=== PATIENT | female | born 1955 | race Caucasian/White ===

== ENCOUNTER 2016-06-13 11:07 | Emergency (ER) | payer MEDICARE, OTHER ==
[2016-06-13 11:07] VITALS: BMI 28.3
[2016-06-13 11:23] VITALS: TEMP 97; O2SAT 99
[2016-06-13 13:32] LABS: BASO # 0.1 K/uL (0.0-0.2); BASO % 0.6 % (0.0-2.0); EOS # 0.3 K/uL (0.0-0.7); EOS % 2.5 % (0.0-4.0); HEMATOCRIT 44.4 % (34.0-47.0); LYMPH # 2.9 K/uL (1.0-4.3); LYMPH % 23.3 % (20.0-40.0); MEAN CELL VOLUME 88.1 fl (81.0-99.0); MEAN CORPUSCULAR HEMOGLOBIN 29.2 pg (27.0-31.0); MEAN CORPUSCULAR HGB CONC 33.1 g/dL (33.0-37.0); MEAN PLATELET VOLUME 11.3 fl (7.2-11.7); MONO # 0.8 K/uL (0.0-0.8); MONO % 6.8 % (0.0-10.0); NEUT # 8.2 K/uL (1.8-7.0); NEUT % 66.8 % (50.0-75.0); RED CELL DISTRIBUTION WIDTH 14.8 % (11.5-14.5); WHITE BLOOD COUNT 12.3 K/uL (4.8-10.8)
--- NOTE | 2016-06-13 15:50 | ED PDOC ---
HPI: Skin/Bite Injury Time Seen by Provider: 06/13/16 12:04 Chief Complaint (Nursing): Abnormal Skin Integrity Chief Complaint (Provider): Wound evaluation, lower abdomen x 2 weeks History Per: Patient History/Exam Limitations: no limitations Onset/Duration Of Symptoms: Days Current Symptoms Are (Timing): Still Present Location Of Injury: Anterior: Abdomen Quality Of Symptoms: Painful, Draining Severity: Mild Pain Scale Rating Of: 3 Additional Complaint(s): History obtained from homemaker and patient. Wound had been present for 2 weeks and is getting more swollen according to the homemaker. She also states that there is now drainage from the wound. Pt states it is mildly painful. Pt denies fever/chills Past Medical History Reviewed: Historical Data, Nursing Documentation, Vital Signs Vital Signs: Last Vital Signs Temp 97 F L 06/13/16 11:21 Pulse 62 06/13/16 11:21 Resp BP 146/68 06/13/16 11:21 Pulse Ox 99 06/13/16 15:51 - Medical History PMH: CAD (2 stents inserted), Diabetes (per EMS transporting medications), HTN Denies: Arthritis, CHF, COPD, HIV, Hypercholesterolemia, Hypothyroidism, Chronic Kidney Disease, Rheumatoid Arthritis - Surgical History Surgical History: Cholecystectomy, Coronary Stent - Family History Family History: States: No Known Family Hx - Living Arrangements Living Arrangements: Alone - Social History Current smoker - smoking cessation education provided: No Alcohol: None Drugs: Denies - Home Medications Home Medications: Ambulatory Orders Medication Instructions Recorded Atenolol [Tenormin] 50 mg PO DAILY 03/07/15 Cyclobenzaprine [Flexeril] 1 tab PO HS PRN 03/07/15 Gabapentin [Neurontin] 600 mg PO TID 03/07/15 Omeprazole 40 mg PO DAILY 03/07/15 Acetaminophen/Oxycodone Hydr 10 - 325 mg PO Q6 PRN 09/16/15 [Percocet 10/325 mg Tab] Aspirin [Ecotrin] 81 mg PO DAILY 09/16/15 Insulin Aspart, Recombinant 12 unit SUBCUT ACBL 09/16/15 [Novolog] Insulin Aspart, Recombinant 14 unit SUBCUT .ACD 09/16/15 [Novolog] Insulin Glargine, Recombina 20 unit SUBCUT QAM 09/16/15 [Lantus] Sulfamethoxazole/Trimethoprim 1 each PO BID #20 tablet 06/13/16 [Bactrim 400-80 mg Tablet] - Allergies Allergies/Adverse Reactions: Allergies Allergy/AdvReac Type Severity Reaction Status Date / Time hydromorphone HCl Allergy ANAPHYLAXIS Verified 09/16/15 12:14 [From Dilaudid] shrimp Allergy VOMITING Verified 09/16/15 12:35 Review of Systems ROS Statement: Except As Marked, All Systems Reviewed And Found Negative Skin: Positive for: Other Physical Exam - Reviewed Nursing Documentation Reviewed: Yes Vital Signs Reviewed: Yes - Physical Exam Appears: Positive for: Well, Non-toxic, No Acute Distress Head Exam: Positive for: ATRAUMATIC, NORMAL INSPECTION, NORMOCEPHALIC Skin: Positive for: Warm. Negative for: Normal Color ((+) area of induration and erythema, palpable area is the the most inferior section of scar ) Eye Exam: Positive for: Normal appearance ENT: Positive for: Normal ENT Inspection Neck: Positive for: Normal, Painless ROM Cardiovascular/Chest: Positive for: Regular Rate, Rhythm Respiratory: Positive for: Normal Breath Sounds. Negative for: Accessory Muscle Use Gastrointestinal/Abdominal: Positive for: Normal Exam, Bowel Sounds, Soft Back: Positive for: Normal Inspection Extremity: Positive for: Normal ROM Neurologic/Psych: Positive for: Alert, Oriented - Laboratory Results Result Diagrams: 06/13/16 13:26 06/13/16 15:23 - ECG O2 Sat by Pulse Oximetry: 99 Pulse Ox Interpretation: Normal Medical Decision Making Medical Decision Makin:50 - Pt state she does not want to stay for CT scan. Discussed labs and antibiotics. Disposition - Clinical Impression Clinical Impression: Abscess - Patient ED Disposition Is Patient to be Admitted: No Counseled Patient/Family Regarding: Diagnosis, Need For Followup, Rx Given - Disposition Referrals: [facility] [Outside] Disposition: Routine/Home Disposition Time: 16:52 Condition: GOOD Additional Instructions: Warm compresses. Please follow-up with PMD as soon as possible. Prescriptions: Sulfamethoxazole/Trimethoprim [Bactrim 400-80 mg Tablet] 1 each PO BID #20 tablet Instructions: Abscess (ED)
[2016-06-13 15:53] LABS: ALB/GLOB RATIO 0.8 (1.0-2.1); BILIRUBIN,TOTAL 0.4 mg/dl (0.2-1.3); CALCIUM 9.4 mg/dL (8.4-10.2); POTASSIUM 4.6 MMOL/L (3.6-5.0)
--- NOTE | 2016-06-13 18:03 | CT ---
PROCEDURE: CT Abdomen and Pelvis without Oral or IV contrast. HISTORY: abscess, anterior abdomen, at site COMPARISON: Noncontrast CT of the abdomen and pelvis per images performed 03/02/29 TECHNIQUE: Contiguous axial images of the abdomen and pelvis. No oral or IV contrast administered. Coronal and Sagittal reformats generated and reviewed. This CT exam was performed using 1 or more of the falling dose reduction techniques: Automated exposure control, adjustment of the MAA and/or kV according to patient size, and/or use of iterative reconstruction technique Radiation dose: Total exam DLP = 1055.35 mGy-cm. FINDINGS: There is limited evaluation of the solid organs without the administration of IV contrast. LOWER THORAX: No visible consolidation, pleural effusion, or pneumothorax. Small hiatal hernia. LIVER: Unremarkable unenhanced appearance. GALLBLADDER AND BILE DUCTS: Unremarkable unenhanced appearance. PANCREAS: Unremarkable unenhanced appearance. SPLEEN: Unremarkable unenhanced appearance. ADRENALS: Unremarkable unenhanced appearance. KIDNEYS AND URETERS: No hydronephrosis or obstructing renal calculus. BLADDER: Air within the urinary bladder. Soft tissue is noted at the anterior aspect of the urinary bladder extending superiorly, possibly urachal remnant. REPRODUCTIVE: Uterus is present. APPENDIX: No secondary signs of acute appendicitis. BOWEL: The stomach is nondistended. Lack of oral contrast limits evaluation for bowel pathology. The bowel loops appear within normal limits of caliber without evidence of intestinal obstruction. PERITONEUM: No significant free fluid. No definite free air. LYMPH NODES: Prominent bilateral inguinal lymph nodes as well as scattered mesenteric and retroperitoneal lymph nodes, nonspecific. VASCULATURE: No aortic aneurysm. BONES: Degenerative changes of the spine. OTHER FINDINGS: Small region of skin thickening/induration within the superficial soft tissues of the lower anterior pelvis. No drainable abscess or large fluid collection evident. IMPRESSION: Small amount of air within the urinary bladder. Correlate clinically for recent instrumentation as well as with urinalysis in order to exclude possibility of cystitis. Small region of skin thickening/induration within the superficial soft tissues of the lower anterior pelvis. No drainable abscess or large fluid collection evident. Question presence of urachal remnant. Patients with a urachal remnant are at increased risk for adenocarcinoma of the bladder.
[2016-06-13 18:45] VITALS: BP 174/74; PULSE 70; RESP 18
== END 2016-06-13 18:46 | disposition home or self-care (01) ==
LOC: H.ER 11:07
DX: L03.90 Cellulitis, unspecified (principal); L02.211 Cutaneous abscess of abdominal wall

== ENCOUNTER 2016-06-20 10:33 | Inpatient (IN) | payer MEDICARE, OTHER ==
--- NOTE | 2016-06-20 11:09 | ED PDOC ---
HPI: General Adult Time Seen by Provider: 06/20/16 10:51 Chief Complaint (Nursing): Trauma Chief Complaint (Provider): Fall, 3 days ago History Per: Patient History/Exam Limitations: no limitations Onset/Duration Of Symptoms: Days Have you had recent travel within the past 21 days to any of the following countries: [place], [place], [place] or [place]?: No Additional Complaint(s): Pt states 3 days ago she was laying down in the evening and went she attempted to roll over she rolled off the bed. Pt states she was unable to get up and was on the floor until this morning when her homemaker arrived. Pt reports severe back pain over her entire back and left shoulder pain. PT states she thinks she also hit her head. Past Medical History Reviewed: Historical Data, Nursing Documentation, Vital Signs Vital Signs: Last Vital Signs Temp 97.8 F 06/20/16 16:02 Pulse 69 06/20/16 16:02 Resp 20 06/20/16 16:02 BP 152/71 H 06/20/16 16:02 Pulse Ox 100 06/20/16 16:02 - Medical History PMH: CAD (2 stents inserted), Diabetes (per EMS transporting medications), HTN Denies: Arthritis, CHF, COPD, HIV, Hypercholesterolemia, Hypothyroidism, Chronic Kidney Disease, Rheumatoid Arthritis - Surgical History Surgical History: Cholecystectomy, Coronary Stent - Family History Family History: States: No Known Family Hx - Home Medications Home Medications: Ambulatory Orders Medication Instructions Recorded Atenolol [Tenormin] 50 mg PO DAILY 03/07/15 Cyclobenzaprine [Flexeril] 10 mg PO HS PRN 03/07/15 Acetaminophen/Oxycodone Hydr 1 mg PO Q6 PRN 09/16/15 [Percocet 10/325 mg Tab] Insulin Aspart, Recombinant 8 unit SUBCUT ACBL 09/16/15 [Novolog] Insulin Aspart, Recombinant 14 unit SUBCUT DIN 09/16/15 [Novolog] Sulfamethoxazole/Trimethoprim 1 each PO BID #20 tablet 06/13/16 [Bactrim 400-80 mg Tablet] Gabapentin [Neurontin] 800 mg PO Q8H 06/20/16 Insulin Detemir [Levemir] 20 unit SC QAM 06/20/16 Insulin Detemir [Levemir] 50 unit SC HS 06/20/16 Omeprazole [Omeprazole] 40 mg PO DAILY 06/20/16 cycloSPORINE [Restasis] 1 drop EACHEYE Q12H 06/20/16 - Allergies Allergies/Adverse Reactions: Allergies Allergy/AdvReac Type Severity Reaction Status Date / Time hydromorphone HCl Allergy ANAPHYLAXIS Verified 09/16/15 12:14 [From Dilaudid] shrimp Allergy VOMITING Verified 09/16/15 12:35 Physical Exam - Reviewed Nursing Documentation Reviewed: Yes Vital Signs Reviewed: Yes - Physical Exam Appears: Positive for: Well, Non-toxic, No Acute Distress Head Exam: Positive for: ATRAUMATIC, NORMAL INSPECTION, NORMOCEPHALIC Skin: Positive for: Normal Color, Warm, DRY Eye Exam: Positive for: Normal appearance ENT: Positive for: Normal ENT Inspection Neck: Positive for: Normal, Painless ROM Cardiovascular/Chest: Positive for: Regular Rate, Rhythm Respiratory: Positive for: Normal Breath Sounds. Negative for: Accessory Muscle Use, Respiratory Distress Gastrointestinal/Abdominal: Positive for: Normal Exam, Bowel Sounds, Soft. Negative for: Tenderness Back: Positive for: Vertebral Tenderness (Entire spine ), Other ((+) erythema of the sacral area ). Negative for: Normal Inspection Extremity: Negative for: Normal ROM (Decreased in right shoulder due to pain ) Neurologic/Psych: Positive for: Alert, process control operator II-XII, Oriented. Negative for: Motor/Sensory Deficits, Gait (Unable to assess ) - Laboratory Results Result Diagrams: 06/20/16 11:10 06/20/16 11:10 - ECG O2 Sat by Pulse Oximetry: 100 Medical Decision Making Medical Decision Making: Hyperkalemia Hypergylcemia Elevated CK Discussed admission with Dr. Lott and Dr. 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 This is because of the severity of symptoms shown, intensity of services needed, and/or the medical risk in this patient being treated as an outpatient. - POA Present On Arrival: None
[2016-06-20 11:21] LABS: BASO # 0.1 K/uL (0.0-0.2); BASO % 0.5 % (0.0-2.0); EOS # 0.1 K/uL (0.0-0.7); EOS % 0.6 % (0.0-4.0); HEMATOCRIT 42.4 % (34.0-47.0); LYMPH # 1.2 K/uL (1.0-4.3); LYMPH % 9.4 % (20.0-40.0); MEAN CELL VOLUME 89.9 fl (81.0-99.0); MEAN CORPUSCULAR HEMOGLOBIN 28.6 pg (27.0-31.0); MEAN CORPUSCULAR HGB CONC 31.8 g/dL (33.0-37.0); MEAN PLATELET VOLUME 11.7 fl (7.2-11.7); MONO # 0.8 K/uL (0.0-0.8); MONO % 6.4 % (0.0-10.0); NEUT # 10.3 K/uL (1.8-7.0); NEUT % 83.1 % (50.0-75.0); PLATELET COUNT 214 K/uL (130-400); RED CELL DISTRIBUTION WIDTH 14.7 % (11.5-14.5); WHITE BLOOD COUNT 12.3 K/uL (4.8-10.8)
[2016-06-20 11:43] LABS: ALB/GLOB RATIO 0.8 (1.0-2.1); BILIRUBIN,TOTAL 0.9 mg/dl (0.2-1.3); CALCIUM 9.4 mg/dL (8.4-10.2); TOTAL PROTEIN 7.5 G/DL (6.3-8.2)
[2016-06-20 11:52] LABS: TROPONIN I 0.019 ng/mL (0.00-0.120)
[2016-06-20] MEDS ORDERED: Sodium Chloride 0.9% 1,000 ML IV STA (11:53)
[2016-06-20] MEDS ORDERED: Insulin Regular 100 units/ml IV STA (12:12)
[2016-06-20] MEDS ORDERED: Albuterol 0.083% Inhal Sol (2.5 mg/3 mL) UD INH STA (12:15)
[2016-06-20] MEDS ORDERED: Sodium Bicarbonate 7.5% (0.9 MEQ/ML) 50ML INJ IV STA (12:16)
[2016-06-20] MEDS ORDERED: Sod Polystyrene Sulf 15 gm/60 ml Oral Susp PO STA (12:17)
[2016-06-20] MEDS ORDERED: Dextrose 50% SYRINGE Inj (50 ml) IVP STA (12:17)
[2016-06-20] MEDS ORDERED: Insulin Regular 100 units/ml ONE (12:35)
[2016-06-20 12:38] LABS: RBC URINE 4 /hpf (0-3); URINE BILIRUBIN NEGATIVE (NEGATIVE); URINE BLOOD MODERATE (NEGATIVE); URINE COLOR YELLOW (YELLOW); URINE GLUCOSE (UA) >=500 mg/dL (Normal); URINE KETONE 20 mg/dL (NEGATIVE); URINE LEUKOCYTE ESTERASE NEG Leu/uL (Negative); URINE PROTEIN >=500 mg/dL (NEGATIVE); URINE UROBILINOGEN 0.2-1.0 mg/dL (0.2-1.0); WBC URINE 3 /hpf (0-5)
--- NOTE | 2016-06-20 12:49 | RAD ---
HISTORY: fall, on floor x 3 days . Technique: Supine view performed @ 11:50. COMPARISON: 03/06/2015. FINDINGS: LUNGS: No active pulmonary disease. PLEURA: No significant pleural effusion identified, no pneumothorax apparent. CARDIOVASCULAR: No radiographic findings to suggest acute or significant cardiovascular disease. OSSEOUS STRUCTURES: No significant abnormalities. VISUALIZED UPPER ABDOMEN: Normal. OTHER FINDINGS: None. IMPRESSION: No active disease. No significant interval change compared to the prior examination(s).
--- NOTE | 2016-06-20 12:50 | RAD ---
PROCEDURE: Radiographs of the Right Shoulder HISTORY: pain s.p fall COMPARISON: 06/13/2014. FINDINGS: BONES: Normal. No fracture. JOINTS: Mild osteoarthritic changes acromioclavicular joint. Preservation glenohumeral relationship. SOFT TISSUES: Normal. OTHER FINDINGS: None. IMPRESSION: No acute findings related to/accounting for the clinical presentation. No significant interval change compared to the prior examination(s).
[2016-06-20] MEDS ORDERED: Albuterol 0.083% Inhal Sol (2.5 mg/3 mL) UD ONE (13:10)
[2016-06-20] MEDS ORDERED: Sod Polystyrene Sulf 15 gm/60 ml Oral Susp ONE (13:11)
--- NOTE | 2016-06-20 13:12 | CT ---
PROCEDURE: CT HEAD WITHOUT CONTRAST. HISTORY: fall, unknown cause, on floor x 3 days COMPARISON: Comparison made with CT scan brain dated 03/06/2015. TECHNIQUE: Axial computed tomography images were obtained through the head/brain without intravenous contrast. Radiation dose: Total exam DLP = 840.7 mGy-cm. This CT exam was performed using one or more of the following dose reduction techniques: Automated exposure control, adjustment of the mA and/or kV according to patient size, and/or use of iterative reconstruction technique. FINDINGS: HEMORRHAGE: No acute parenchymal, subarachnoid or extra-axial hemorrhage. BRAIN: Moderate to significant diffuse/ confluent chronic periventricular white matter ischemic changes are again seen extending peripherally into the deep and subcortical white matter both cerebral hemispheres. Multiple chronic bilateral basal nuclei lacunar type infarcts are again noted. Chronic left cerebellar infarct. Re- Minor vascular calcifications. VENTRICLES: Ex vacuo dilatation of the left frontal horn due to the aforementioned chronic infarct. There is also mild to moderate central volume loss evidenced by disproportionate enlargement of the ventricles as compared the sulci common not withstanding the aforementioned ex vacuo dilatation. CALVARIUM: No acute calvarial fractures. . PARANASAL SINUSES: Frontal sinuses remain slightly underpneumatized. Remaining visualized paranasal sinuses well-developed. No fluid levels seen to suggest acute sinusitis. MASTOID AIR CELLS: Unremarkable as visualized. No inflammatory changes. OTHER FINDINGS: None. IMPRESSION: No acute intracranial hemorrhage. Moderate to significant chronic white matter and multiple chronic bilateral basal nuclei lacunar type infarcts. Chronic left cerebellar infarct Ex vacuo dilatation of the left frontal horn. Moderate central volume loss.
--- NOTE | 2016-06-20 13:23 | CT ---
PROCEDURE: CT scan cervical spine dated 06/20/2016. HISTORY: <pain s/p fall> COMPARISON: None available. TECHNIQUE: Axial computed tomography images were obtained of the cervical spine without the use of intravenous contrast. Coronal and sagittal reformatted images were created and reviewed. Radiation dose: Total exam DLP = 675.87. MGy-cm. This CT exam was performed using one or more of the following dose reduction techniques: Automated exposure control, adjustment of the mA and/or kV according to patient size, and/or use of iterative reconstruction technique. FINDINGS: VERTEBRAE: No evidence of acute compression fractures no retropulsed fragments. The vertebral bodies exhibit relatively normal stature. There are multiple small lucent foci scattered throughout several of vertebral body segments nonspecific. Findings on could represent small hemangiomas however other infiltrative marrow disease process not excluded. Clinical correlation recommended. DISCS/SPINAL CANAL/NEURAL FORAMINA: Mild degenerative spondylosis. At the C5-C6 level, there is disc space narrowing with minimal overgrown uncovertebral and facet joints. Central canal appears adequate. Exit foramina also appear adequate. Similar changes seen at the C6-C7 level. At the C4-C5 level, there is also mid very minor posterior disc space narrowing with minimal central and bilateral disc bulge that on may flatten the ventral surface of the thecal sac however the overall central canal appears adequate. Exit foramina are also adequate. Note made of a small elliptical shaped calcification located adjacent to and just superior to the medial aspect C1 vertebral body. This could represent some calcification of the transverse ligament PARASPINAL SOFT TISSUES: Paraspinal soft tissues unremarkable. OTHER FINDINGS: Lung apices are clear. . The thyroid gland is slightly enlarged and heterogeneous. Consider followup thyroid ultrasound. Note also made of minor calcifications are left carotid bifurcation. Consider followup carotid Doppler. IMPRESSION: No acute fractures. Minor degenerative spondylosis most notably affecting the C5-C6 and C6-7 levels as described Enlarged heterogeneous thyroid gland. Consider followup thyroid ultrasound.
--- NOTE | 2016-06-20 13:45 | CT ---
PROCEDURE: CT lumbar spine dated 06/20/2016. HISTORY: tendernes s/p fall COMPARISON: Comparison made with CT scan of the abdomen and pelvis dated 06/13/2016 which imaged the lumbar spine in 3 planes. Comparison also made with concurrent CT scan of the thoracic spine. TECHNIQUE: Axial computed tomography images were obtained of the lumbar spine without the use of intravenous contrast. Coronal and sagittal reformatted images were created and reviewed. Radiation dose: Total exam DLP = 1349.49 mGy-cm. This CT exam was performed using one or more of the following dose reduction techniques: Automated exposure control, adjustment of the mA and/or kV according to patient size, and/or use of iterative reconstruction technique. FINDINGS: VERTEBRAE: No acute compression fractures no retropulsed fragments. Minor chronic appearing anterior stature loss of the T12 segment felt to be degenerative in origin. Vertebral bodies otherwise exhibit normal stature. Vertebral bodies and facets normally aligned. DISCS/SPINAL CANAL/NEURAL FORAMINA: At the L3-L4 level, re- demonstrated is disc space narrowing with vacuum disc phenomena and cortical endplate irregularity/chronic Schmorl's node formation. Small osteophytic ridge disc bulge complex results in some flattening of the ventral surface of the thecal sac. There is slight extension into proximal inferior margins of both exit foramina more so on the right side than left. Facet joints are mildly hypertrophic Right exit foramen is stenotic with compression of the right L3 foraminal nerve root. Left exit foramen is adequate. At the L 4 L5 level, there is mild posterior disc space narrowing more so along left lateral margin of. Minimal amount of vacuum phenomena is present. Small broad-based disc bulge ridge complex also extends slightly into the proximal inferior margins of both exit foramina more so on the left side. Facet joints are slightly hypertrophic [id number]. . There is some flattening of the ventral surface of the thecal sac however the overall central canal is adequate. . . Proximal left exit foramen is narrowed. Right exit foramen is adequate. At the L5-S1 level, there is mild posterior disc space narrowing with minimal broad-based bulge of the posterior annulus. Facet joints are hypertrophic. Central canal and exit foramina appear adequate. At the L2-L3 level, mild posterior disc space narrowing with small broad-based bulge of the posterior annulus that extends slightly into the proximal inferior margin of the left exit foramen more so than right. Facets a prominent. There is some flattening of ventral surface of the thecal sac however the overall central canal appears adequate. Exit foramina are also adequate. Mild degenerative spondylosis also noted at the T12-L1 and T11-T12 levels. PARASPINAL SOFT TISSUES: Paraspinal soft tissues appear grossly unremarkable OTHER FINDINGS: Note made of what appears represent approximately 11.7 mm exophytic cyst kidney posterior aspect upper pole left kidney. IMPRESSION: . No acute compression fractures nor retropulsed fragments. Minor chronic anterior stature loss of the T12 segment felt to be degenerative in origin. Multilevel degenerative spondylosis as detailed above.
--- NOTE | 2016-06-20 13:51 | CT ---
PROCEDURE: CT Thoracic Spine without contrast HISTORY: tenderness s/o fall COMPARISON: Comparison made with concurrent CT scan of the cervical and lumbar spine. TECHNIQUE: Axial computed tomography images were obtained of the thoracic spine without intravenous contrast. Coronal and sagittal reformatted images were created and reviewed. Radiation dose: Total exam DLP = 1339.92 mGy-cm. This CT exam was performed using one or more of the following dose reduction techniques: Automated exposure control, adjustment of the mA and/or kV according to patient size, and/or use of iterative reconstruction technique. FINDINGS: VERTEBRAE: No evidence of acute compression fractures nor retropulsed fragments. There is mild chronic appearing anterior stature loss of the T11 and to a lesser degree T12 segments felt to be degenerative in origin. The remaining vertebral bodies otherwise exhibit normal stature and alignment. Facets normally aligned. DISCS/SPINAL CANAL/NEURAL FORAMINA: Minor multilevel degenerative spondylosis, most notably affecting the mid to lower thoracic region. . The changes include varying degrees of mild disc space narrowing with endplate irregularity and tiny chronic Schmorl's nodes. No disc herniations nor significant disc bulges. The overall central canal and exit foramina appear adequate so far as can be seen. PARASPINAL SOFT TISSUES: Paraspinal soft tissues appear grossly unremarkable. OTHER FINDINGS: Minor atelectasis both posterior lung bueno. Small hiatal hernia. IMPRESSION: No acute fractures. Minor chronic anterior stature loss of the T11 and to a lesser degree T12 segments felt to be degenerative in origin. Mild multilevel degenerative spondylosis most notably affecting the mid to lower thoracic region as described. In the
[2016-06-20 14:05] LABS: NEUTROPHIL 85 % (42-75); TOTAL CELLS COUNTED 100
[2016-06-20] MEDS ORDERED: Sodium Chloride 0.9% 1,000 ML IV SCH ×2 (15:45→17:30)
--- NOTE | 2016-06-20 16:15 | CARD ---
APPROVED REPORT EKG Measurement Heart [id number] <Conclusion> Normal sinus rhythm Normal ECG
[2016-06-20] MEDS ORDERED: Oxycodone/Acetaminophen 5/325 mg Tab PO PRN ×2 (17:34→17:35)
[2016-06-20] MEDS ORDERED: Albuterol HFA 90 mcg/actuation (8 g) INH PRN (17:40)
[2016-06-20] MEDS: Insulin Lispro (humaLOG) 100 Units/ml Inj SC SCH ×3 (17:53→22:20)
--- NOTE | 2016-06-20 18:04 | CON ---
DATE: 06/20/2016 ROOM: 405 HISTORY OF PRESENT ILLNESS: This is a 61-year-old female, known from outpatient diabetic followup, addison redding also actually has not been seen for over a year now in my office, who presents here to the [facility] with rhabdomyolysis related to an accidental fall over the weekend with supervening hyperglyc emic accelerations and is being referred now for diabetic evaluation and management. PAST MEDICAL HISTORY: As mentioned above, history of type 2 insulin-requiring diabetes on a can on a basal and bolus insulin drug combination with NovoLog given as 12 units before breakfast,12 units be fore lunch and 14 units before dinner as given. She is also on Lantus given as 20 units in the morni ng and 50 units at bedtime. Her homemaker/caregiver prepares the insulin doses for her meals and bed time as the patient is visually impaired as noted, history of diabetic retinopathy with legal blindne ss at this time and markedly impaired visual acuity, history of diabetic polyneuropathy and nephropat hy, history of coronary artery disease with previous coronary stent placements as noted, history of p eripheral arterial disease and vasculopathy. FAMILY HISTORY: Positive for diabetes and hypertension. SOCIAL HISTORY: The patient has a supportive family and has a very attentive caregiver who does pret ty much all of her home health needs including insulin pre-adjustments and sometimes administration. She also does her meal preparations at home and occasionally her glucose monitoring otherwise. REVIEW OF SYSTEMS: As mentioned above, but admits to generalized body weakness with easy fatigabilit y and tiredness and suboptimal energy level with recent bouts of dizziness and lightheadedness with a n apparent accidental fall on the weekend. She was unable to get up and was with lower back injuries , severe polymyalgia and bruising and was actually seen by her homemaker only today as noted. No rec ent chest pains, palpitations or PNDs, but admits to progressive shortness of breath, especially on e xertion. Her oral intake is variable and suboptimal with nausea, dyspepsia, and vague upper abdomina l pain. Also, admits to marked polyuria and nocturia with about a 5-pound or so weight loss. PHYSICAL EXAMINATION: GENERAL: This is an average built female in no apparent distress. VITAL SIGNS: Blood pressure of 150/90, pulse of 100 beats per minute and regular, temperature 99, re spirations 20. Height is 5 feet and weight is 160 pounds. HEENT: Head normocephalic. Eyes anicteric with pink conjunctivae. Fundoscopy not possible at this time. Ears, nose and throat otherwise normal. NECK: Supple. Thyroid gland is normal size. No carotid bruits or any cervical adenopathy. CARDIOPULMONARY: Some adynamic precordium. S1, S2 is rapid and regular. LUNGS: Clear to auscultation. ABDOMEN: Flat, soft with positive bowel sounds. EXTREMITIES: No peripheral edema. Pulses are +2 bilaterally. LABORATORY DATA: Chemistries showed a BUN of 38, sodium 141, potassium 6.0, chloride 103, CO2 28, gl ucose 412, creatinine 1.7. Her albumin is 3.3. The CPK is 967 with slightly elevated liver transami nases. ASSESSMENT: This is a 61-year-old female with uncontrolled and decompensated type 2 insulin-requirin g diabetes, presenting here with an accidental fall with subsequent rhabdomyolysis and lower back inj uries and severe lower back pain. She has intercurrent hyperglycemic accelerations as expected there of, not only because of very subtherapeutic insulin regimen, which was actually not given over the we ekend because of the fall and also because of underlying insulin resistance thereof. PLAN OF MANAGEMENT: As discussed with the patient and the home health aide, we will start her back o n a much lower dose of a basal and bolus insulin regimen because of the very nil and poor oral intake at this time. We will start her with Humalog given as 6 units subQ t.i.d. before meals as ordered. We will also add Levemir given as 20 units subQ at bedtime daily as given. We will modify the cover age scale to obviate hypoglycemia and detailed orders have been given for Humalog insulin that was or dered. As mentioned, we will continue the Humalog 6 units before meals and we will titrate on a day- to-day basis to optimize her metabolic control as her oral intake improves. We will obtain a compreh ensive metabolic panel with a T4, TSH and lipid panel we will supplement accordingly as needed. We w ill continue the IV hydration as ordered with normal saline given at 100 mL per hour as ordered. We will follow and advise accordingly. Natalia Castillo MD cc: [id number] TT: 06/20/2016 18:04:29 Confirmation # [id number] Dictation # [id number] mn
[2016-06-20 18:58] LABS: ALB/GLOB RATIO 0.8 (1.0-2.1); BILIRUBIN,TOTAL 0.7 mg/dl (0.2-1.3); CALCIUM 8.4 mg/dL (8.4-10.2); POTASSIUM 4.7 MMOL/L (3.6-5.0); TOTAL PROTEIN 6.4 G/DL (6.3-8.2)
[2016-06-20] MEDS ORDERED: Tmp-Smz 800 mg-160 mg DS Tab PO SCH (21:00)
[2016-06-20] MEDS: Tmp-Smz 400 mg-80 mg SS Tab PO SCH (22:18)
[2016-06-20] MEDS: Insulin Detemir 100 Units/ml Inj SC SCH (22:20)
[2016-06-20] MEDS: Pravastatin Sodium 40 MG TAB PO SCH (22:21)
[2016-06-20] MEDS: Sodium Chloride 0.9% 1,000 ML IV SCH (23:01)
[2016-06-21] MEDS: Sodium Chloride 0.9% 1,000 ML IV SCH ×3 (04:49→19:16)
[2016-06-21 06:28] LABS: BASO % 0.3 % (0.0-2.0); EOS # 0.3 K/uL (0.0-0.7); EOS % 3.6 % (0.0-4.0); HEMATOCRIT 36.5 % (34.0-47.0); LYMPH # 1.6 K/uL (1.0-4.3); LYMPH % 17.8 % (20.0-40.0); MEAN CELL VOLUME 88.4 fl (81.0-99.0); MEAN CORPUSCULAR HEMOGLOBIN 29.1 pg (27.0-31.0); MEAN CORPUSCULAR HGB CONC 32.9 g/dL (33.0-37.0); MEAN PLATELET VOLUME 11.7 fl (7.2-11.7); MONO # 0.7 K/uL (0.0-0.8); MONO % 7.9 % (0.0-10.0); NEUT # 6.2 K/uL (1.8-7.0); NEUT % 70.4 % (50.0-75.0); NRBC % 0.1 % (0.0-0.0); RED CELL DISTRIBUTION WIDTH 14.2 % (11.5-14.5); WHITE BLOOD COUNT 8.8 K/uL (4.8-10.8)
[2016-06-21 06:35] LABS: ALB/GLOB RATIO 0.7 (1.0-2.1); BILIRUBIN,TOTAL 1.1 mg/dl (0.2-1.3); CALCIUM 7.9 mg/dL (8.4-10.2); PHOSPHOROUS 3.4 mg/dl (2.5-4.5); TOTAL PROTEIN 5.7 G/DL (6.3-8.2)
[2016-06-21] MEDS: Insulin Lispro (humaLOG) 100 Units/ml Inj SC SCH ×7 (06:41→21:56)
[2016-06-21 06:57] LABS: THYROID STIMULATING HORMONE 1.89 mIU/ML (0.46-4.68)
[2016-06-21] MEDS: Tmp-Smz 400 mg-80 mg SS Tab PO SCH ×2 (09:47→21:41)
[2016-06-21] MEDS: Pantoprazole 40 mg EC Tab PO SCH (09:51)
[2016-06-21] MEDS: Artificial Tears Opht Soln OU SCH ×4 (10:40→21:57)
[2016-06-21 11:11] LABS: HEMATOCRIT 40.5 % (34.0-47.0); MEAN CELL VOLUME 88.7 fl (81.0-99.0); MEAN CORPUSCULAR HEMOGLOBIN 28.7 pg (27.0-31.0); MEAN CORPUSCULAR HGB CONC 32.3 g/dL (33.0-37.0); RED CELL DISTRIBUTION WIDTH 14.6 % (11.5-14.5); WHITE BLOOD COUNT 13.9 K/uL (4.8-10.8)
[2016-06-21] MEDS: Bacitracin 500 Units/gm Oint Foilpak UD TOP SCH (16:31)
[2016-06-21 17:22] VITALS: BMI 29.2
[2016-06-21] MEDS: Enoxaparin 30 mg Syringe SC SCH (17:45)
--- NOTE | 2016-06-21 20:20 | CP.PCM.PN ---
Subjective - Date & Time of Evaluation Date of Evaluation: 06/21/16 Time of Evaluation: 14:15 - Subjective Subjective: Patient resting comfortably; had physical therapy evaluation for mobility today ; limited mobility with assistance complicated by blindness Vital Signs Stable Heart- regular S1, S2, no murmur Lungs- decreased breath sounds b/l Abd. - positive bowel sounds, soft, nontender; scab 1.5 inches with 0.5 inch with surrounding erythema and slight purulent discharge at midline lower abdomen Ext. - no edema; no infection of feet 1. Rhabdomyolysis 2. Dehydration 3. Abscess midline lower abdomen 4. Diabetes with neuropathy 5. Acute Renal Failure Creatine kinase decreased to 696 U/L this morning; continuing IVF with NS at 175cc/hr; CK ordered for AM; culture of purulent discharge from lower abdominal abscess ordered as well as blood cultures and U/A C & S; cont. Bactrim 400/80mg po bid for now; CBC and comp. metabolic panel ordered for AM; Dr. Castillo is managing diabetes; cont. physical therapy for mobility. Objective - Vital Signs/Intake and Output Vital Signs (last 24 hours): Temp Pulse Resp BP Pulse Ox 99.2 F 85 20 93/51 L 93 L 06/21/16 19:55 06/21/16 19:55 06/21/16 19:55 06/21/16 19:55 06/21/16 19:55 Intake and Output: 06/21/16 06/22/16 18:59 06:59 Intake Total 2125 Balance 2125 - Medications Medications: Current Medications Acetaminophen (Tylenol 325mg Tab) 650 mg PO Q4 PRN PRN Reason: Fever >100.4 F Last Admin: 06/21/16 16:41 Dose: 650 mg Albuterol (Ventolin Hfa 90 Mcg/Actuation (8 G)) 2 puff INH RQ4 PRN PRN Reason: Shortness of Breath Albuterol/Ipratropium (Duoneb 3 Mg/0.5 Mg (3 Ml) Ud) 3 ml INH RQ4 PRN PRN Reason: Shortness of Breath Artificial Tears (Artificial Tears) 1 drop OU TID [facility] Last Admin: 06/21/16 16:31 Dose: Not Given Aspirin (Ecotrin) 81 mg PO DAILY [facility] Last Admin: 06/21/16 09:48 Dose: 81 mg Atenolol (Tenormin) 50 mg PO DAILY [facility] Last Admin: 06/21/16 09:52 Dose: 50 mg Bacitracin (Bacitracin) 1 ea TOP TID [facility] Last Admin: 06/21/16 16:31 Dose: 1 ea Cyclobenzaprine HCl (Flexeril) 10 mg PO HS PRN PRN Reason: Muscle spasm Docusate Sodium (Colace) 100 mg PO HS [facility] Last Admin: 06/20/16 22:18 Dose: 100 mg Enoxaparin Sodium (Lovenox) 30 mg SC DAILY [facility] PRN Reason: Protocol Last Admin: 06/21/16 17:45 Dose: 30 mg Gabapentin (Neurontin) 400 mg PO TID [facility] Last Admin: 06/21/16 16:34 Dose: 400 mg Sodium Chloride (Sodium Chloride 0.9%) 1,000 mls @ 200 mls/hr IV .Q5H [facility] Last Admin: 06/21/16 19:16 Dose: 200 mls/hr Insulin Detemir (Levemir) 20 units SC HS [facility] Last Admin: 06/20/16 22:20 Dose: 20 u Insulin Human Lispro (Humalog) 6 units SC AC [facility] Last Admin: 06/21/16 16:32 Dose: 6 units Insulin Human Lispro (Humalog) 0 units SC ACHS [facility] PRN Reason: Protocol Last Admin: 06/21/16 16:33 Dose: Not Given Losartan Potassium (Cozaar) 50 mg PO DAILY [facility] Last Admin: 06/21/16 09:47 Dose: 50 mg Oxycodone/Acetaminophen (Percocet 5/325 Mg Tab) 1 tab PO Q6 PRN PRN Reason: 4-7 scale Stop: 06/23/16 17:35 Oxycodone/Acetaminophen (Percocet 5/325 Mg Tab) 2 tab PO Q6 PRN PRN Reason: 8-10 Stop: 06/23/16 17:36 Last Admin: 06/21/16 02:25 Dose: 2 tab Pantoprazole Sodium (Protonix Ec Tab) 40 mg PO DAILY [facility] Last Admin: 06/21/16 09:51 Dose: 40 mg Pravastatin Sodium (Pravachol) 40 mg PO HS [facility] Last Admin: 06/20/16 22:21 Dose: 40 mg Trimethoprim/Sulfamethoxazole (Bactrim Ss Tab) 1 tab PO Q12 [facility] Stop: 06/27/16 21:01 Last Admin: 06/21/16 09:47 Dose: 1 tab Zolpidem Tartrate (Ambien) 5 mg PO HS PRN PRN Reason: insomnia - Labs Labs: 06/21/16 11:04 06/21/16 05:30
[2016-06-21] MEDS: Insulin Detemir 100 Units/ml Inj SC SCH (21:42)
[2016-06-21] MEDS: Pravastatin Sodium 40 MG TAB PO SCH (21:56)
[2016-06-22] MEDS: Sodium Chloride 0.9% 1,000 ML IV SCH ×5 (01:57→23:35)
[2016-06-22] MEDS: Insulin Lispro (humaLOG) 100 Units/ml Inj SC SCH ×7 (06:56→22:01)
[2016-06-22 07:04] LABS: HEMATOCRIT 35.5 % (34.0-47.0); MEAN CELL VOLUME 88.9 fl (81.0-99.0); MEAN CORPUSCULAR HEMOGLOBIN 28.8 pg (27.0-31.0); MEAN CORPUSCULAR HGB CONC 32.4 g/dL (33.0-37.0); RED CELL DISTRIBUTION WIDTH 14.3 % (11.5-14.5); WHITE BLOOD COUNT 7.7 K/uL (4.8-10.8)
[2016-06-22 07:22] LABS: ALB/GLOB RATIO 0.7 (1.0-2.1); BILIRUBIN,TOTAL 0.9 mg/dl (0.2-1.3); CALCIUM 7.6 mg/dL (8.4-10.2); POTASSIUM 4.1 MMOL/L (3.6-5.0); TOTAL PROTEIN 5.7 G/DL (6.3-8.2)
[2016-06-22] MEDS: Artificial Tears Opht Soln OU SCH ×3 (08:57→17:49)
[2016-06-22] MEDS: Tmp-Smz 400 mg-80 mg SS Tab PO SCH ×2 (08:59→20:51)
[2016-06-22] MEDS: Bacitracin 500 Units/gm Oint Foilpak UD TOP SCH ×3 (08:59→17:49)
[2016-06-22] MEDS: Enoxaparin 30 mg Syringe SC SCH (09:04)
[2016-06-22] MEDS: Pantoprazole 40 mg EC Tab PO SCH (09:07)
--- NOTE | 2016-06-22 09:48 | CP.PCM.PN ---
Subjective - Date & Time of Evaluation Date of Evaluation: 06/22/16 Time of Evaluation: 07:30 - Subjective Subjective: Patient feeling better today; no pain lower abdomen but c/o yellow discharge from lower abdominal lesion; needs assistance with eating and ambulation Vital Signs Stable Heart- regular S1, S2, no murmur Lungs- decreased breath sounds b/l Abd. - + bowel sounds, soft, non tender except at mid line surrounding infection with decreased erythema; purulent discharge with bandage in place Ext. - no edema 1. Rhabdomyolysis 2. Dehydration 3. Acute Renal Failure 4. Abscess lower abdomen at midline 5. Diabetes with neuropathy 6. Hypertension CK slowly decreasing; cont. NS at 200cc/hr; lower abdominal lesion will be debrided today; cont. Bactrim while awaiting culture results Objective - Vital Signs/Intake and Output Vital Signs (last 24 hours): Temp Pulse Resp BP Pulse Ox 99.3 F 63 20 120/71 98 06/22/16 08:27 06/22/16 09:08 06/22/16 08:27 06/22/16 09:08 06/22/16 08:27 - Medications Medications: Current Medications Acetaminophen (Tylenol 325mg Tab) 650 mg PO Q4 PRN PRN Reason: Fever >100.4 F Last Admin: 06/21/16 21:41 Dose: 650 mg Albuterol (Ventolin Hfa 90 Mcg/Actuation (8 G)) 2 puff INH RQ4 PRN PRN Reason: Shortness of Breath Albuterol/Ipratropium (Duoneb 3 Mg/0.5 Mg (3 Ml) Ud) 3 ml INH RQ4 PRN PRN Reason: Shortness of Breath Artificial Tears (Artificial Tears) 1 drop OU TID [facility] Last Admin: 06/22/16 08:57 Dose: 1 drop Aspirin (Ecotrin) 81 mg PO DAILY [facility] Last Admin: 06/22/16 09:00 Dose: 81 mg Atenolol (Tenormin) 50 mg PO DAILY [facility] Last Admin: 06/22/16 09:08 Dose: 50 mg Bacitracin (Bacitracin) 1 ea TOP TID [facility] Last Admin: 06/22/16 08:59 Dose: 1 ea Cyclobenzaprine HCl (Flexeril) 10 mg PO HS PRN PRN Reason: Muscle spasm Docusate Sodium (Colace) 100 mg PO HS [facility] Last Admin: 06/21/16 21:56 Dose: 100 mg Enoxaparin Sodium (Lovenox) 30 mg SC DAILY [facility] PRN Reason: Protocol Last Admin: 06/22/16 09:04 Dose: 30 mg Gabapentin (Neurontin) 400 mg PO TID [facility] Last Admin: 06/22/16 09:07 Dose: 400 mg Sodium Chloride (Sodium Chloride 0.9%) 1,000 mls @ 200 mls/hr IV .Q5H [facility] Last Admin: 06/22/16 07:03 Dose: 200 mls/hr Insulin Detemir (Levemir) 20 units SC HS [facility] Last Admin: 06/21/16 21:42 Dose: 20 u Insulin Human Lispro (Humalog) 6 units SC AC [facility] Last Admin: 06/22/16 09:02 Dose: 6 units Insulin Human Lispro (Humalog) 0 units SC ACHS [facility] PRN Reason: Protocol Last Admin: 06/22/16 06:56 Dose: Not Given Losartan Potassium (Cozaar) 50 mg PO DAILY [facility] Last Admin: 06/21/16 09:47 Dose: 50 mg Oxycodone/Acetaminophen (Percocet 5/325 Mg Tab) 1 tab PO Q6 PRN PRN Reason: 4-7 scale Stop: 06/23/16 17:35 Last Admin: 06/22/16 07:00 Dose: 1 tab Oxycodone/Acetaminophen (Percocet 5/325 Mg Tab) 2 tab PO Q6 PRN PRN Reason: 8-10 Stop: 06/23/16 17:36 Last Admin: 06/21/16 02:25 Dose: 2 tab Pantoprazole Sodium (Protonix Ec Tab) 40 mg PO DAILY [facility] Last Admin: 06/22/16 09:07 Dose: 40 mg Pravastatin Sodium (Pravachol) 40 mg PO HS [facility] Last Admin: 06/21/16 21:56 Dose: 40 mg Trimethoprim/Sulfamethoxazole (Bactrim Ss Tab) 1 tab PO Q12 [facility] Stop: 06/27/16 21:01 Last Admin: 06/22/16 08:59 Dose: 1 tab Zolpidem Tartrate (Ambien) 5 mg PO HS PRN PRN Reason: insomnia - Labs Labs: 06/22/16 05:40 06/22/16 05:40
[2016-06-22] MEDS ORDERED: Oxycodone/Acetaminophen 5/325 mg Tab PO STA (12:07)
--- NOTE | 2016-06-22 16:13 | PN ---
DATE: 06/22/2016 ROOM: 405 This is a 61-year-old female with recent uncontrolled type 2 insulin-requiring diabetes, now being fo llowed closely for metabolic management. Her glycemic levels are fluctuating but much improved at this time, and the latest glucose values hav e ranged from 114-176 mg/dL. The latest chemistries include a BUN of 29, sodium 142, potassium 4.1, chloride 111, CO2 of 20, glucose 92 and creatinine 1.8. So at this time, will continue the same basal and bolus insulin regimen to allow for dose equilibrati on and keep her on the Levemir given as 20 units subQ at bedtime daily as given. Will continue the H umalog given as 6 units subQ t.i.d. before meals as ordered. Will also continue the low-dose correct ion scale using Humalog insulin as given. Will obtain serial chemistries and supplement accordingly as needed. Will follow. Natalia Castillo MD cc: [id number] TT: 06/22/2016 16:12:52 Confirmation # [id number] Dictation # [id number] mn
[2016-06-22] MEDS: Pravastatin Sodium 40 MG TAB PO SCH (21:19)
[2016-06-22] MEDS: Insulin Detemir 100 Units/ml Inj SC SCH (22:00)
[2016-06-23] MEDS: Sodium Chloride 0.9% 1,000 ML IV SCH ×3 (00:22→12:24)
[2016-06-23] MEDS: Insulin Lispro (humaLOG) 100 Units/ml Inj SC SCH ×7 (06:51→22:07)
[2016-06-23 08:04] LABS: HEMATOCRIT 36.7 % (34.0-47.0); MEAN CELL VOLUME 88.7 fl (81.0-99.0); MEAN CORPUSCULAR HEMOGLOBIN 28.6 pg (27.0-31.0); MEAN CORPUSCULAR HGB CONC 32.2 g/dL (33.0-37.0); RED CELL DISTRIBUTION WIDTH 14.6 % (11.5-14.5)
[2016-06-23 08:38] LABS: ALB/GLOB RATIO 0.7 (1.0-2.1); BILIRUBIN,TOTAL 0.6 mg/dl (0.2-1.3); CALCIUM 7.5 mg/dL (8.4-10.2); POTASSIUM 4.3 MMOL/L (3.6-5.0)
[2016-06-23] MEDS: Artificial Tears Opht Soln OU SCH ×3 (08:57→16:28)
[2016-06-23] MEDS: Bacitracin 500 Units/gm Oint Foilpak UD TOP SCH ×3 (08:58→16:28)
[2016-06-23] MEDS: Tmp-Smz 400 mg-80 mg SS Tab PO SCH (08:58)
[2016-06-23 09:00] LABS: MICROALBUMIN 455.3 mg/dL (())
[2016-06-23] MEDS: Enoxaparin 30 mg Syringe SC SCH (09:00)
[2016-06-23] MEDS: Pantoprazole 40 mg EC Tab PO SCH (09:01)
[2016-06-23] MEDS ORDERED: Sodium Chloride 0.9% 1,000 ML IV SCH (13:14)
--- NOTE | 2016-06-23 15:12 | RAD ---
HISTORY: Increased wheezing COMPARISON: 06/20/2016 TECHNIQUE: Chest PA and lateral FINDINGS: LUNGS: There is fluffy airspace disease in both lungs. PLEURA: There are bilateral small pleural effusions. No pneumothorax. CARDIOVASCULAR: Normal. OSSEOUS STRUCTURES: No significant abnormalities. VISUALIZED UPPER ABDOMEN: Normal. OTHER FINDINGS: None. IMPRESSION: Fluffy airspace disease in both lungs which may represent pulmonary edema or multifocal pneumonia. Follow-up is advised.
[2016-06-23] MEDS: Albuterol-Ipratrop 3 mg / 0.5 (3 ml) UD INH PRN ×2 (17:00→21:22)
--- NOTE | 2016-06-23 18:48 | PN ---
DATE: 06/23/2016 ROOM: 405 This is a 61-year-old female with recent uncontrolled type 2 insulin-requiring diabetes, presenting h ere with symptomatic hypoglycemia and supervening glycemic fluctuations and is now being followed [facility] for metabolic management. Her oral intake remains quite variable at this time with the latest g lucose levels ranging from 160-166 mg/dL. It was 114 fasting level this morning as noted. Her lates t chemistries showed a BUN of 20, sodium 137, potassium 4.3, chloride 112, CO2 of 17, glucose 133, an d creatinine 1.6. She continues to have elevated liver transaminases as noted. So, at this time, we will continue the same basal and bolus insulin regimen to allow for dose equilib ration and keep her on the Humalog given as 6 units subQ t.i.d. before meals as ordered. We will con tinue the Levemir given as 20 units subQ at bedtime daily as given. We will also continue the low-do se correction scale using Humalog insulin as ordered. We will obtain serial chemistries and suppleme nt accordingly as needed. We will follow. Natalia Castillo MD cc: [phone] TT: 06/23/2016 18:47:13 Confirmation # [id number] Dictation # [id number]
--- NOTE | 2016-06-23 20:10 | CP.PCM.PN ---
Subjective - Date & Time of Evaluation Date of Evaluation: 06/23/16 Time of Evaluation: 14:00 - Subjective Subjective: Patient resting comfortably after lunch; no complaint of pain; lower abdominal infection with less discharge with daily wound care; engaged in daily physical therapy but progress is slow Vital Signs Stable Heart- regular S1, S2, no murmur Lungs- dec. breath sounds b/l Abd. - + BS, soft, nontender; decreased erythema and purulent discharge from abscess noted at lower midline Ext. - no edema 1. Rhabdomyolysis 2. Dehydration 3. Acute Renal Failure 4. Lower Abdominal Abscess 5. Diabetes CK continues to decrease, now 286 U/L; reduced NS to 150cc/hr; WBC elevated again this AM so discontinued Bactrim and switched to Unasyn 1.5g q 12 hours; wound culture showed coag. neg. staph; cont. daily wound care; plan to transfer to TCU Objective - Vital Signs/Intake and Output Vital Signs (last 24 hours): Temp Pulse Resp BP Pulse Ox 98.9 F 70 18 135/66 92 L 06/23/16 16:06 06/23/16 16:06 06/23/16 16:06 06/23/16 16:06 06/23/16 16:06 Intake and Output: 06/23/16 06/24/16 18:59 06:59 Intake Total 3200 Balance 3200 - Medications Medications: Current Medications Acetaminophen (Tylenol 325mg Tab) 650 mg PO Q4 PRN PRN Reason: Fever >100.4 F Last Admin: 06/23/16 09:02 Dose: 650 mg Albuterol (Ventolin Hfa 90 Mcg/Actuation (8 G)) 2 puff INH RQ4 PRN PRN Reason: Shortness of Breath Albuterol/Ipratropium (Duoneb 3 Mg/0.5 Mg (3 Ml) Ud) 3 ml INH RQ4 PRN PRN Reason: Shortness of Breath Artificial Tears (Artificial Tears) 1 drop OU TID [facility] Last Admin: 06/23/16 16:28 Dose: 1 drop Aspirin (Ecotrin) 81 mg PO DAILY [facility] Last Admin: 06/23/16 08:59 Dose: 81 mg Atenolol (Tenormin) 50 mg PO DAILY [facility] Last Admin: 06/23/16 09:01 Dose: 50 mg Bacitracin (Bacitracin) 1 ea TOP TID [facility] Last Admin: 06/23/16 16:28 Dose: 1 ea Cyclobenzaprine HCl (Flexeril) 10 mg PO HS PRN PRN Reason: Muscle spasm Docusate Sodium (Colace) 100 mg PO HS [facility] Last Admin: 06/22/16 21:19 Dose: 100 mg Enoxaparin Sodium (Lovenox) 30 mg SC DAILY [facility] PRN Reason: Protocol Last Admin: 06/23/16 09:00 Dose: 30 mg Gabapentin (Neurontin) 400 mg PO TID [facility] Last Admin: 06/23/16 16:28 Dose: 400 mg Ampicillin Sodium/Sulbactam (Sodium 1.5 gm/ Sodium Chloride) 100 mls @ 100 mls/ hr IVPB Q12 [facility] Sodium Chloride (Sodium Chloride 0.9%) 1,000 mls @ 100 mls/hr IV .Q10H [facility] Insulin Detemir (Levemir) 20 units SC HS [facility] Last Admin: 06/22/16 22:00 Dose: 20 u Insulin Human Lispro (Humalog) 6 units SC AC [facility] Last Admin: 06/23/16 16:31 Dose: 6 units Insulin Human Lispro (Humalog) 0 units SC ACHS [facility] PRN Reason: Protocol Last Admin: 06/23/16 16:31 Dose: Not Given Losartan Potassium (Cozaar) 50 mg PO DAILY [facility] Last Admin: 06/21/16 09:47 Dose: 50 mg Pantoprazole Sodium (Protonix Ec Tab) 40 mg PO DAILY [facility] Last Admin: 06/23/16 09:01 Dose: 40 mg Pravastatin Sodium (Pravachol) 40 mg PO HS [facility] Last Admin: 06/22/16 21:19 Dose: 40 mg - Labs Labs: 06/23/16 07:35 06/23/16 07:35
[2016-06-23] MEDS: Ampicillin/Sulbactam 1.5 GM in Sodium Chloride 0.9% 100 ML IVPB SCH (21:06)
[2016-06-23] MEDS: Pravastatin Sodium 40 MG TAB PO SCH (21:11)
[2016-06-23] MEDS: Insulin Detemir 100 Units/ml Inj SC SCH (22:00)
[2016-06-24] MEDS: Albuterol-Ipratrop 3 mg / 0.5 (3 ml) UD INH PRN ×2 (02:28→08:11)
[2016-06-24 06:32] LABS: HEMATOCRIT 36.4 % (34.0-47.0); MEAN CELL VOLUME 89.2 fl (81.0-99.0); MEAN CORPUSCULAR HEMOGLOBIN 28.7 pg (27.0-31.0); MEAN CORPUSCULAR HGB CONC 32.2 g/dL (33.0-37.0); RED CELL DISTRIBUTION WIDTH 14.9 % (11.5-14.5); WHITE BLOOD COUNT 19.7 K/uL (4.8-10.8)
[2016-06-24] MEDS: Insulin Lispro (humaLOG) 100 Units/ml Inj SC SCH ×7 (06:33→23:13)
[2016-06-24 06:46] LABS: ALB/GLOB RATIO 0.7 (1.0-2.1); BILIRUBIN,TOTAL 0.8 mg/dl (0.2-1.3); CALCIUM 7.8 mg/dL (8.4-10.2); POTASSIUM 4.4 MMOL/L (3.6-5.0); TOTAL PROTEIN 6.2 G/DL (6.3-8.2)
--- NOTE | 2016-06-24 08:23 | PCM.RRTMUL ---
BULK MAIL TECHNICIAN Nurse Assessment - Situation BULK MAIL TECHNICIAN Responder Arrival Time:: 07:57 Location:: Room Number:: 405-2 BULK MAIL TECHNICIAN Reason for Call: Looks Sicker BULK MAIL TECHNICIAN Called By: RN - IV IV Inserted during BULK MAIL TECHNICIAN?: No - Respiratory Oxygen Delivery Method:: Venturi Mask Received Nebulizer Treatments:: Yes Was the Patient Ventilated with Bag/Mask 100% O2?: No Secretions Suctioned?: No Was the Patient Intubated?: No Was the Patient Placed on a Ventilator?: No - Medication Medications Administered During BULK MAIL TECHNICIAN :: lasix 40mg iv - Diagnostic Test Ordered EKG:: Yes Chest X-Ray:: Yes CT Scan:: No - Stat Labs Ordered BULK MAIL TECHNICIAN Stat Labs Ordered:: BMP BULK MAIL TECHNICIAN Other Labs Ordered:: pro bnp CPR started during BULK MAIL TECHNICIAN?: No - Vital Signs Blood Pressure:: 167/81 Pulse Rate:: 107 Respiratory Rate:: 24 Temperature:: 99.6 F Oxygen Saturation:: 98 - Time BULK MAIL TECHNICIAN Ended Time BULK MAIL TECHNICIAN Ended:: 08:15 - Vital Signs at end of BULK MAIL TECHNICIAN Blood Pressure:: 163/72 Pulse Rate:: 115 Respiratory Rate:: 24 Temperature:: 99.6 F O2 Sat by Pulse Oximetry:: 98 - Recommendations 5) BULK MAIL TECHNICIAN Level of Care Recommendations: Remain in current setting Summary - Summary of Event Summary of Event: BULK MAIL TECHNICIAN Time: 7:57 a.m. BULK MAIL TECHNICIAN Location: [facility] BULK MAIL TECHNICIAN Arrival: 7:58 a.m. Subjective: BULK MAIL TECHNICIAN called by RN after pt. senior caregiver was found to breathing fast and complaining of shortness of breath. Pt. seen at bedside in respiratory distress sitting upright complaining of shortness of breath. Pt. denies any headache, chest pain, abdominal pain, or limb pain. Objective: BULK MAIL TECHNICIAN Vitals- T/99.6, BP/167/81 HR/107 RR/30 HEENT: ATNC RESP: +Generalzied rales/crackles more prominent in the basilar lung bueno, Generalized bilateral wheezing CARDIO: S1-S2, Tacycardia at 100-110 VASC: Pedal pules symmetrcial, +1 edema Genitourinary: Urinary Incontinence noted Neuro: AAOx3 BULK MAIL TECHNICIAN Interventions 1- Ventimask O2 2- Albuterol INH 3- Lasix 40mg IVP 4- CXR 5- EKG 6- Prakash Insertion 7- CMP, Pro-BNP A/P: 61 y.o. female admitted for rhabdomyolysis and acute renal failure devoloping acute pulmonary edema most likely due to treatment for rhabdomyolysis 1- Follow Labs 2- Monitor I/O's 3- Re-evaluate clinically BULK MAIL TECHNICIAN Outcome: PMD Dr. Ratliff was contacted and informed of patient progress. Dr. Ratliff agrees with current plan and advised by Dr. Goyal to call for Echocardiogram and cardiology consult with Dr. Naylor BULK MAIL TECHNICIAN leader: Dr. Braden Avila BULK MAIL TECHNICIAN Resident: [id number], [id number], [id number]
[2016-06-24] MEDS: Artificial Tears Opht Soln OU SCH ×3 (09:48→17:21)
[2016-06-24] MEDS ORDERED: Sodium Chloride 3% for Inhalation 4 ML VIAL.NEB IH PRN (09:48)
[2016-06-24] MEDS: Ampicillin/Sulbactam 1.5 GM in Sodium Chloride 0.9% 100 ML IVPB SCH (09:55)
[2016-06-24] MEDS: Pantoprazole 40 mg EC Tab PO SCH (09:57)
[2016-06-24 10:25] LABS: ABG ALLEN TEST YES; ARTERIAL BLOOD GAS HCO3 14.1 mmol/L (21-28); ARTERIAL BLOOD GAS O2 CAPACITY 16.6 mL/dL (16-24); ARTERIAL BLOOD GAS O2 CONTENT 10.4 ML/dL (15-23); ARTERIAL BLOOD GAS PH 7.26 (7.35-7.45); ARTERIAL BLOOD GAS PO2 30 mm/Hg (80-100); ARTERIAL BLOOD HGB O2 SAT 60.1 % (95.0-98.0); CARBOXYHEMOGLOBIN 1.8 % (0.5-1.5); HHB 36.1 % (0.0-5.0)
--- NOTE | 2016-06-24 10:28 | CON ---
DATE: 06/24/2016 HISTORY OF PRESENT ILLNESS: The patient is a 61-year-old female who was admitted to the service of [facility] who requested a pulmonary consult because of new onset shortness of breath and chest ulises estion. The patient had rapid response team evaluation this morning because of the same. She was or iginally admitted after she rolled off a bed and was diagnosed with rhabdomyolysis. PAST MEDICAL HISTORY: Coronary artery disease, diabetes mellitus. She had 2 stents placed in her he art. FAMILY HISTORY: Nonrevealing. SOCIAL HISTORY: She denies recent smoking, but used to smoke many years ago. Does not drink. Lives at home. PHYSICAL EXAMINATION: GENERAL: The patient is awake, alert, dyspneic at rest. VITAL SIGNS: Remarkable for blood pressure of 167/81 with a pulse of 107, respiratory rate 24-26 per minute. She is afebrile, but temperature maximum was 100 degrees Fahrenheit on admission. O2 sat 9 8% on nasal cannula oxygen. SKIN: Shows fair turgor. HEENT: Pupils equal and react to light and accommodation. NECK: JVP is elevated. Mouth shows fair hygiene. LUNGS: Poor aeration with coarse bilateral rales and dullness at the bases. HEART: Tachycardic. ABDOMEN: Soft, nontender, no organomegaly. EXTREMITIES: Show bilateral 2+ pitting pedal edema. CENTRAL NERVOUS SYSTEM: The patient is alert and oriented, but appears dyspneic at rest. DIAGNOSTIC DATA: Chest x-ray reviewed, compared to x-ray on admission showed bilateral pulmonary inf iltrates compatible with congestive heart failure or fluid overload. EKG sinus tachycardia. Labs pe nding. IMPRESSION: Congestive heart failure. This could also be due to fluid overload because of IV hydrat ion for presumed rhabdomyolysis, diabetes mellitus, poorly controlled, rule out superimposed pulmonar y inflation (pneumonia), diabetes mellitus and hypertension. PLAN: Diuretics, oxygen. Will speak to the appellate conferee about transferring patient to the ICU. Anthony Adorno MD cc: [phone] TT: 06/24/2016 10:27:53 Confirmation # [id number] Dictation # [id number]
--- NOTE | 2016-06-24 10:44 | RAD ---
HISTORY: Shortness of breath COMPARISON: 06/23/2016 FINDINGS: LUNGS: There is interval progression of confluent airspace disease in both lungs. There are low lung volumes. PLEURA: No significant pleural effusion identified, no pneumothorax apparent. CARDIOVASCULAR: Cardiomediastinal silhouette is stable. OSSEOUS STRUCTURES: No significant abnormalities. VISUALIZED UPPER ABDOMEN: Normal. OTHER FINDINGS: None. IMPRESSION: Findings are most compatible with ARDS. Interval worsening since the prior examination.
--- NOTE | 2016-06-24 11:49 | CP.CCUPN ---
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 Admission notable for acute Rhabdomyolysis and uncontrolled DM II. Unclear if there was a hyperosmolar state component or DKA since an anion gap was present on admission. 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 Serial CXRs reviewed and shows progressive worsening with pulm edema congestive changes and probable superimposed pneumonitis changes as well. She is alert, and awake, is tachypneic but not in overall distress, no paradoxical breathing nor accessory mm use noted. She denies any chest discomfort, SOB, dizziness, chills, sweats, palpitations. Other VS show afebrile state now with daily fever spikes to near or above 102F daily. Bp 120/70, HR 90, RR 26, SPo2 98% on NC. Output portion of I/Os not charted. PMH; legally blind, HTN, CAD with stents 4 months ago, DM II Allergies: hydromorphone, shrimp Home Meds: Flexeril, Neurontin, Oxycodone, Bactrim, Tenormin, Levemir, Omeprazole, Restasis eye drops. ROS: as above, no new pertinent negs or positives on 12 system review. PMFSH: all nursing and historical notes reviewed, no new pertinent data relevant to current problems. No other distress noted: EXAM- HEENT: no icterus, pupils equal and reactive NECK: no visible JVD, supple, carotids equal upstroke bilat/no bruits CHEST: decreased BS bases, no wheezes audible HEART: regular, distant, S1S2, no murmur audible, no rubs. ABD: soft, no increased distention, no focal tenderness, no HSM. BS hypoactive , no abdominal bruits or other masses, suprapubic / bladder area feels firm and no tympany elicited. EXT: +1 leg edema, no peripheral/ digital cyanosis, no calf tenderness or palpable cords, distal pulses intact and symmetrical, SCDs on bilaterally. NEURO: no gross focal motor deficits SKIN: no rashes LABS: WBC= 19.7 HGB= 11.7 PLTs= 211K Na= 142 K= 4.4 HCO3= 14 BUN/Cr= 13/1.6 CD=183 CK= 352 ProBNP= 55233 CXR: serial films reviewed- diffuse interstitial changes noted today worse from 06/20/16. ( my interp ) ASSESSMENT: 1. Acute Resp Insufficiency 2 Pulm Edema and superimposed bilateral pneumonitis 2. r/o acute / Subacute SD 3. Rhabdomyolysis with mild ERIKA 4. Uncontrolled DM II PLAN: 1. Increase fiO2, BiPAP support in the interim. ABGs. If no improvement nor any significant diuresis, will place on MV support. No Advance Directives noted. 2. Broaden present empiric abx coverage, add atypical organism coverage. 3. Repeat serial trops. ECHO 4. Topical NTP for now. Already on ASA, statin, and beta blockers, would change Tenormin to Lopressor. 5. Stop ARB for now given Rhabdo effect on renal function. Watch Neurontin dosing with renal insufficiency. 6. Transfer to ICU for further observation and mgmt.
--- NOTE | 2016-06-24 12:37 | PN ---
DATE: 06/24/2016 Transferred from telemetry to ICU, room 432 SUBJECTIVE: This is a 61-year-old female with known history of type 2 insulin-requiring diabetes pre senting here with extremes of glycemic fluctuations and dehydration and is being followed closely now for metabolic management. Over overnight, she developed progressive shortness of breath and has bee n evaluated to have acute pulmonary edema and has been transferred to ICU for closer hemodynamic jostin toring. Her oral intake is quite variable at this time and her latest glucose levels have ranged fro m 187-196 mg/dL. Her latest chemistry showed a BUN of 13, sodium 142, potassium 4.4, chloride 110, C O2 is 14, glucose is 129 and creatinine is 1.6. Her proBNP is 12,300 with a troponin of 0.24. Her c hest x-ray shows pulmonary edema and possible pneumonitis. ASSESSMENT: This is a 61-year-old female with uncontrolled and decompensated type 2 insulin-requirin g diabetes with extremes of glycemic fluctuations and now has improved clinically and metabolically a s noted thereof. 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 PLAN OF MANAGEMENT: We will continue her basal and bolus insulin regimen as she has actually been ab le to respond optimally with near euglycemic levels at this time. We will continue the Levemir given as 20 units subQ at bedtime daily as ordered. We will also continue the low dose Humalog given as 6 units subQ t.i.d. before meals as ordered. We will titrate incrementally as indicated to optimize m etabolic control. We will follow. Natalia Castillo MD cc: [phone] TT: 06/24/2016 12:37:16 Confirmation # [id number] Dictation # [id number] tn
[2016-06-24] MEDS: Bacitracin 500 Units/gm Oint Foilpak UD TOP SCH ×2 (13:23→17:23)
[2016-06-24] MEDS: Enoxaparin 30 mg Syringe SC SCH (13:24)
[2016-06-24 15:08] LABS: ABG ALLEN TEST YES; ARTERIAL BLOOD GAS HCO3 18.3 mmol/L (21-28); ARTERIAL BLOOD GAS PH 7.35 (7.35-7.45); ARTERIAL BLOOD GAS PO2 88 mm/Hg (80-100)
--- NOTE | 2016-06-24 16:02 | CARD ---
APPROVED REPORT EXAM: Two-dimensional and M-mode echocardiogram with Doppler and color Doppler. Other Information Quality : FairRhythm : Tachycardia Technically limited study due to Poor Echo Window INDICATION Abnormal EKG/Arrhythmia Pulnomary Edema 2D DIMENSIONS LVEF (%)55.0 (>50%) Mitral Valve E/A ratio0.0 TDI E/Lateral E'0.0E/Medial E'0.0 Tricuspid Valve TR Peak [id number] Peak Gr.35mmHg [id number] LEFT VENTRICLE The left ventricle is normal size. There is borderline concentric left ventricular hypertrophy. The left ventricular function is normal. The left ventricular ejection fraction is within the normal range. There is normal LV segmental wall motion. Transmitral Doppler flow pattern is Grade I-abnormal relaxation pattern. RIGHT VENTRICLE The right ventricle is normal size. There is normal right ventricular wall thickness. The right ventricular systolic function is normal. ATRIA The left atrium size is normal. The right atrium size is normal. AORTIC VALVE The aortic valve is not well visualized. No aortic regurgitation is present. There is no aortic valvular stenosis. MITRAL VALVE The mitral valve is not well visualized. There is no mitral valve stenosis. There is no mitral valve regurgitation noted. TRICUSPID VALVE The tricuspid valve is normal in structure and function. There is no tricuspid valve regurgitation noted. PULMONIC VALVE The pulmonary valve is normal in structure and function. There is no pulmonic valvular regurgitation. GREAT VESSELS The aortic root is normal in size. The IVC collapses <50% with inspiration. PERICARDIAL EFFUSION The pericardium appears normal. <Conclusion> Poor Echo window The left ventricle is normal size. There is borderline concentric left ventricular hypertrophy. The left ventricular function is normal. The left ventricular ejection fraction is within the normal range. There is normal LV segmental wall motion. Transmitral Doppler flow pattern is Grade I-abnormal relaxation pattern.
[2016-06-24] MEDS ORDERED: Lidocaine 1% Inj (20ml) ONE (16:40)
--- NOTE | 2016-06-24 17:10 | CP.CCUPN ---
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 All ports with good venous blood return and flushed with sterile saline. Patient tolerated the procedure well. Site chosen due to patient agitation. Will need arrangement for PICC in 24-48 hours.
[2016-06-24] MEDS: Nitroglycerin 2% 15 INCH/30 GM TUBE TOP SCH ×2 (17:19→22:02)
--- NOTE | 2016-06-24 17:26 | CP.PCM.PN ---
Subjective - Date & Time of Evaluation Date of Evaluation: 06/24/16 Time of Evaluation: 13:00 - Subjective Subjective: Patient seen at ICU with BiPAP; restless but cooperative; sometimes confused; transferred to ICU after tachypnea and sinus tach noted; temp spike to 102.8 last night; cxr revealed b/l pulm. infiltrates c/w CHF/fluid overload with superimposed b/l pneumonitis vital signs 1pm; 146/91mmHg; 104bpm; resp. rate 29/min; temp 100.2 Lungs- dec. breath sounds b/l; no wheezing Heart- regular S1,S2, no murmur Abd. - + BS, soft, nontender Ext. - 1+ edema LE's; edema both hands Troponin I at 9:43 was elevated at 0.2420; ECHO reveals EF >50%; no wall motion abnormality mentioned WBC 19.7 BUN/Cr is 13/1.6 VS=034 ProBNP=12,300 1. Pulmonary edema with superimposed b/l pneumonitis 2. CAD w/ elevated Troponin I 3. ERIKA 4. Diabetes with neuropathy received lasix 40mg iv twice and diuresed 2,800cc; Dr. Adorno started broad spectrum antibiotics; Dr. Naylor, her plumbing assembler installer, has been consulted Objective - Vital Signs/Intake and Output Vital Signs (last 24 hours): Temp Pulse Resp BP Pulse Ox 100.2 F H 95 H 29 H 146/91 H 100 06/24/16 12:00 06/24/16 16:01 06/24/16 12:00 06/24/16 13:21 06/24/16 12:00 - Medications Medications: Current Medications Acetaminophen (Tylenol 325mg Tab) 650 mg PO Q4 PRN PRN Reason: Fever >100.4 F Last Admin: 06/23/16 21:07 Dose: 650 mg Albuterol (Ventolin Hfa 90 Mcg/Actuation (8 G)) 2 puff INH RQ4 PRN PRN Reason: Shortness of Breath Last Admin: 06/24/16 10:00 Dose: 2 unit Albuterol/Ipratropium (Duoneb 3 Mg/0.5 Mg (3 Ml) Ud) 3 ml INH RQ4 PRN PRN Reason: Shortness of Breath Last Admin: 06/24/16 08:11 Dose: 3 ml Artificial Tears (Artificial Tears) 1 drop OU TID [facility] Last Admin: 06/24/16 13:23 Dose: 1 drop Aspirin (Ecotrin) 81 mg PO DAILY [facility] Last Admin: 06/24/16 09:57 Dose: 81 mg Bacitracin (Bacitracin) 1 ea TOP TID [facility] Last Admin: 06/24/16 13:23 Dose: 1 ea Cyclobenzaprine HCl (Flexeril) 10 mg PO HS PRN PRN Reason: Muscle spasm Docusate Sodium (Colace) 100 mg PO HS [facility] Last Admin: 06/23/16 21:11 Dose: 100 mg Enoxaparin Sodium (Lovenox) 30 mg SC DAILY [facility] PRN Reason: Protocol Last Admin: 06/24/16 13:24 Dose: 30 mg Gabapentin (Neurontin) 400 mg PO TID [facility] Last Admin: 06/24/16 13:25 Dose: 400 mg Ceftriaxone Sodium 1 gm/ (Sodium Chloride) 100 mls @ 100 mls/hr IVPB DAILY [facility] Last Admin: 06/24/16 13:25 Dose: 100 mls/hr Azithromycin 500 mg/ Sodium (Chloride) 250 mls @ 250 mls/hr IVPB DAILY [facility] Insulin Detemir (Levemir) 20 units SC HS [facility] Last Admin: 06/23/16 22:00 Dose: 20 u Insulin Human Lispro (Humalog) 6 units SC AC [facility] Last Admin: 06/24/16 11:51 Dose: 6 units Insulin Human Lispro (Humalog) 0 units SC ACHS [facility] PRN Reason: Protocol Last Admin: 06/24/16 11:50 Dose: Not Given Metoprolol Tartrate (Lopressor) 12.5 mg PO Q12 [facility] Last Admin: 06/24/16 13:21 Dose: 12.5 mg Nitroglycerin (Nitro-Bid) 1 appl TOP Q6 [facility] Pantoprazole Sodium (Protonix Ec Tab) 40 mg PO DAILY [facility] Last Admin: 06/24/16 09:57 Dose: 40 mg Pravastatin Sodium (Pravachol) 40 mg PO HS [facility] Last Admin: 06/23/16 21:11 Dose: 40 mg - Labs Labs: 06/24/16 06:15 06/24/16 06:15
--- NOTE | 2016-06-24 17:42 | CARD ---
APPROVED REPORT EKG Measurement Heart [id number] <Conclusion> Sinus tachycardia Nonspecific ST and T wave abnormality Abnormal ECG
[2016-06-24] MEDS: Pravastatin Sodium 40 MG TAB PO SCH (22:01)
[2016-06-24] MEDS: Insulin Detemir 100 Units/ml Inj SC SCH (23:12)
[2016-06-25] MEDS: Nitroglycerin 2% 15 INCH/30 GM TUBE TOP SCH ×4 (04:00→21:43)
[2016-06-25 06:28] LABS: ALB/GLOB RATIO 0.7 (1.0-2.1); BILIRUBIN,TOTAL 0.8 mg/dl (0.2-1.3); CALCIUM 8.1 mg/dL (8.4-10.2); POTASSIUM 3.8 MMOL/L (3.6-5.0); TOTAL PROTEIN 5.7 G/DL (6.3-8.2)
[2016-06-25] MEDS: Insulin Lispro (humaLOG) 100 Units/ml Inj SC SCH ×7 (06:44→21:39)
[2016-06-25] MEDS: Pantoprazole 40 mg EC Tab PO SCH (08:14)
[2016-06-25] MEDS: Enoxaparin 30 mg Syringe SC SCH (08:15)
[2016-06-25] MEDS: Bacitracin 500 Units/gm Oint Foilpak UD TOP SCH ×3 (08:15→16:05)
--- NOTE | 2016-06-25 08:19 | CP.CCUPN ---
CCU Subjective - Physician Review Events Since Last Encounter (Free Text): 06/25/16 08:17 Alert and awake, but in resp distress at the moment with saturation dropping to low 80s as her BiPAP was taken off to let her have her breakfast. I'm putting back on BiPAP and will hold her BF for a later time. CXR this morning showed worsening pulm edema, will give large dose lasix. Was seen bt fiber locking supervisor Dr Julian this morning and no plan for Card cath at this point, as he thinks, pt has ERIKA and her high TNI could be at least partially due to rahbdomylolysis and ERIKA. CCU Objective - Vital Signs / Intake & Output Vital Signs (Last 4 hours): Vital Signs Temp Pulse Resp BP Pulse Ox 06/25/16 08:13 104 H 150/73 06/25/16 08:00 99.2 F 89 30 H 150/73 100 06/25/16 06:00 92 H 28 H 151/71 H 100 Intake and Output (Last 8hrs): Intake & Output 06/24/16 06/25/16 06/25/16 22:59 06:59 14:59 Intake Total 564 47 Output Total 1050 750 Balance -486 -703 Weight 190 lb Intake: IV 414 22 Oral 150 25 Output: Urine 1050 750 Urethral (Prakash) 1050 750 Other: # Bowel Movements 1 - Physical Exam Narrative Physical Exam (Free Text): 06/25/16 08:19 P/E Neck : JVD +ve Lungs: bilateral coarse crackles Abdome: non tender Ext: + 1 edema Heart: no gallop - Medications Active Medications: Active Medications Generic Name Dose Route Start Last Admin Trade Name Freq PRN Reason Stop Dose Admin Acetaminophen 650 mg 06/21/16 16:20 06/23/16 21:07 Tylenol 325mg Tab PO 650 mg Q4 PRN Administration Fever >100.4 F Albuterol 2 puff 06/20/16 17:40 06/24/16 10:00 Ventolin Hfa 90 Mcg/Actuation (8 G) INH 2 unit RQ4 PRN Administration Shortness of Breath Albuterol/Ipratropium 3 ml 06/20/16 16:32 06/24/16 08:11 Duoneb 3 Mg/0.5 Mg (3 Ml) Ud INH 3 ml RQ4 PRN Administration Shortness of Breath Artificial Tears 1 drop 06/21/16 09:00 06/24/16 17:21 Artificial Tears OU 1 drop TID NELLA Administration Aspirin 81 mg 06/21/16 09:00 06/25/16 08:15 Ecotrin PO 81 mg DAILY NELLA Administration Bacitracin 1 ea 06/21/16 17:00 06/25/16 08:15 Bacitracin TOP 1 ea TID NELLA Administration Cyclobenzaprine HCl 10 mg 06/20/16 17:36 06/25/16 08:13 Flexeril PO 10 mg HS PRN Administration Muscle spasm Docusate Sodium 100 mg 06/20/16 22:00 06/24/16 22:01 Colace PO 100 mg HS NELLA Administration Enoxaparin Sodium 30 mg 06/21/16 15:30 06/25/16 08:15 Lovenox SC 30 mg DAILY NELLA Administration Protocol Gabapentin 400 mg 06/21/16 17:00 06/25/16 08:13 Neurontin PO 400 mg TID NELLA Administration Ceftriaxone Sodium 1 gm/ 100 mls @ 100 mls/hr 06/24/16 11:30 06/25/16 08:11 Sodium Chloride IVPB 100 mls/hr DAILY NELLA Administration Azithromycin 500 mg/ Sodium 250 mls @ 250 mls/hr 06/25/16 09:00 Chloride IVPB DAILY [facility] Insulin Detemir 20 units 06/20/16 22:00 06/24/16 23:12 Levemir SC 20 u HS NELLA Administration Insulin Human Lispro 6 units 06/20/16 16:30 06/25/16 06:45 Humalog SC 6 units AC NELLA Administration Insulin Human Lispro 0 units 06/20/16 16:30 06/25/16 06:44 Humalog SC Not Given ACHS [facility] Protocol Metoprolol Tartrate 12.5 mg 06/24/16 11:30 06/25/16 08:13 Lopressor PO 12.5 mg Q12 NELLA Administration Nitroglycerin 1 appl 06/24/16 16:00 06/25/16 04:00 Nitro-Bid TOP 1 appl Q6 NELLA Administration Pantoprazole Sodium 40 mg 06/21/16 09:00 06/25/16 08:14 Protonix Ec Tab PO 40 mg DAILY NELLA Administration Pravastatin Sodium 40 mg 06/20/16 22:00 06/24/16 22:01 Pravachol PO 40 mg HS NELLA Administration - Patient Studies Lab Studies: Microbiology Studies 06/21/16 12:33 Blood Culture - Preliminary Blood-Venous NO GROWTH AFTER 3 DAYS 06/21/16 12:33 Blood Culture - Preliminary Blood-Venous NO GROWTH AFTER 3 DAYS Lab Studies 06/25/16 06/25/16 06/24/16 Range/Units 05:57 04:35 22:56 pCO2 (35-45) mm/Hg pO2 (80-100) mm/Hg HCO3 (21-28) mmol/L ABG pH (7.35-7.45) ABG Total CO2 (22-28) mmol/L ABG O2 Saturation (95-98) % ABG O2 Content (15-23) ML/dL ABG Base Excess (-2.0-3.0) mmol/L ABG Hemoglobin (11.7-17.4) g/dL ABG Carboxyhemoglobin (0.5-1.5) % POC ABG HHb (Measured) (0.0-5.0) % ABG Methemoglobin (0.0-3.0) % ABG O2 Capacity (16-24) mL/dL Mukesh Test ABG Potassium (3.6-5.2) mmol/L A-a O2 Difference mm/Hg Hgb O2 Saturation (95.0-98.0) % Glucose (65-105) mg/dL Lactate (0.7-2.1) mmol/L FiO2 % Inspiratory BiPAP Expiratory BiPAP Blood Gas Comments Crit Value Called To Crit Value Called By Crit Value Read Back Blood Gas Notified Time Sodium 140 (132-148) mmol/l Potassium 3.8 (3.6-5.0) MMOL/L Chloride 106 (98-107) mmol/L Carbon Dioxide 20 L (22-30) mmol/L Anion Gap 18 (10-20) BUN 19 H (7-17) mg/dl Creatinine 1.9 H (0.7-1.2) mg/dL Est GFR ( Amer) 33 Est GFR (Non-Af Amer) 27 POC Glucose (mg/dL) 217 H 175 H (65-110) mg/dL Random Glucose 193 H (65-105) mg/dL Calcium 8.1 L (8.4-10.2) mg/dL Total Bilirubin 0.8 (0.2-1.3) mg/dl AST 57 H D (14-36) U/L ALT 77 H D (9-52) U/L Alkaline Phosphatase 134 H (38-126) U/L Troponin I (0.00-0.120) ng/mL NT-Pro-B Natriuret Pep (0-900) pg/ml Total Protein 5.7 L (6.3-8.2) G/DL Albumin 2.3 L (3.5-5.0) g/dL Globulin 3.4 (2.2-3.9) gm/dL Albumin/Globulin Ratio 0.7 L (1.0-2.1) Procalcitonin (0.19-0.49) NG/ML Arterial Blood Potassium (3.6-5.2) mmol/L Influenza Typ A,B (EIA) (NEGATIVE) 06/24/16 06/24/16 06/24/16 Range/Units 20:15 17:09 15:34 pCO2 (35-45) mm/Hg pO2 (80-100) mm/Hg HCO3 (21-28) mmol/L ABG pH (7.35-7.45) ABG Total CO2 (22-28) mmol/L ABG O2 Saturation (95-98) % ABG O2 Content (15-23) ML/dL ABG Base Excess (-2.0-3.0) mmol/L ABG Hemoglobin (11.7-17.4) g/dL ABG Carboxyhemoglobin (0.5-1.5) % POC ABG HHb (Measured) (0.0-5.0) % ABG Methemoglobin (0.0-3.0) % ABG O2 Capacity (16-24) mL/dL Mukesh Test ABG Potassium (3.6-5.2) mmol/L A-a O2 Difference mm/Hg Hgb O2 Saturation (95.0-98.0) % Glucose (65-105) mg/dL Lactate (0.7-2.1) mmol/L FiO2 % Inspiratory BiPAP Expiratory BiPAP Blood Gas Comments Crit Value Called To Crit Value Called By Crit Value Read Back Blood Gas Notified Time Sodium (132-148) mmol/l Potassium (3.6-5.0) MMOL/L Chloride (98-107) mmol/L Carbon Dioxide (22-30) mmol/L Anion Gap (10-20) BUN (7-17) mg/dl Creatinine (0.7-1.2) mg/dL Est GFR ( Amer) Est GFR (Non-Af Amer) POC Glucose (mg/dL) 195 H (65-110) mg/dL Random Glucose (65-105) mg/dL Calcium (8.4-10.2) mg/dL Total Bilirubin (0.2-1.3) mg/dl AST (14-36) U/L ALT (9-52) U/L Alkaline Phosphatase (38-126) U/L Troponin I 1.2300 H* (0.00-0.120) ng/mL NT-Pro-B Natriuret Pep (0-900) pg/ml Total Protein (6.3-8.2) G/DL Albumin (3.5-5.0) g/dL Globulin (2.2-3.9) gm/dL Albumin/Globulin Ratio (1.0-2.1) Procalcitonin (0.19-0.49) NG/ML Arterial Blood Potassium (3.6-5.2) mmol/L Influenza Typ A,B (EIA) Negative for flu a/b (NEGATIVE) 06/24/16 06/24/16 06/24/16 Range/Units 15:09 13:29 11:08 pCO2 29 L (35-45) mm/Hg pO2 88 (80-100) mm/Hg HCO3 18.3 L (21-28) mmol/L ABG pH 7.35 (7.35-7.45) ABG Total CO2 16.9 L (22-28) mmol/L ABG O2 Saturation 98.7 H (95-98) % ABG O2 Content (15-23) ML/dL ABG Base Excess -8.4 L (-2.0-3.0) mmol/L ABG Hemoglobin (11.7-17.4) g/dL ABG Carboxyhemoglobin (0.5-1.5) % POC ABG HHb (Measured) (0.0-5.0) % ABG Methemoglobin (0.0-3.0) % ABG O2 Capacity (16-24) mL/dL Mukesh Test Yes ABG Potassium 4.0 (3.6-5.2) mmol/L A-a O2 Difference 589.0 mm/Hg Hgb O2 Saturation (95.0-98.0) % Glucose 208 H (65-105) mg/dL Lactate 3.3 H (0.7-2.1) mmol/L FiO2 100.0 % Inspiratory BiPAP 10 Expiratory BiPAP 5 Blood Gas Comments Crit Value Called To Crit Value Called By Crit Value Read Back Blood Gas Notified Time Sodium 133.0 (132-148) mmol/l Potassium (3.6-5.0) MMOL/L Chloride 106.0 (98-107) mmol/L Carbon Dioxide (22-30) mmol/L Anion Gap (10-20) BUN (7-17) mg/dl Creatinine (0.7-1.2) mg/dL Est GFR ( Amer) Est GFR (Non-Af Amer) POC Glucose (mg/dL) 196 H (65-110) mg/dL Random Glucose (65-105) mg/dL Calcium (8.4-10.2) mg/dL Total Bilirubin (0.2-1.3) mg/dl AST (14-36) U/L ALT (9-52) U/L Alkaline Phosphatase (38-126) U/L Troponin I 0.6250 H* (0.00-0.120) ng/mL NT-Pro-B Natriuret Pep (0-900) pg/ml Total Protein (6.3-8.2) G/DL Albumin (3.5-5.0) g/dL Globulin (2.2-3.9) gm/dL Albumin/Globulin Ratio (1.0-2.1) Procalcitonin 3.91 H (0.19-0.49) NG/ML Arterial Blood Potassium 4.0 (3.6-5.2) mmol/L Influenza Typ A,B (EIA) (NEGATIVE) 06/24/16 06/24/16 06/24/16 Range/Units 10:15 10:12 09:43 pCO2 29 L (35-45) mm/Hg pO2 30 L* (80-100) mm/Hg HCO3 14.1 L (21-28) mmol/L ABG pH 7.26 L (7.35-7.45) ABG Total CO2 13.9 L (22-28) mmol/L ABG O2 Saturation 62.5 L (95-98) % ABG O2 Content 10.4 L (15-23) ML/dL ABG Base Excess -12.7 L (-2.0-3.0) mmol/L ABG Hemoglobin 12.3 (11.7-17.4) g/dL ABG Carboxyhemoglobin 1.8 H (0.5-1.5) % POC ABG HHb (Measured) 36.1 H (0.0-5.0) % ABG Methemoglobin 2.0 (0.0-3.0) % ABG O2 Capacity 16.6 (16-24) mL/dL Mukesh Test Yes ABG Potassium (3.6-5.2) mmol/L A-a O2 Difference 141.0 mm/Hg Hgb O2 Saturation 60.1 L (95.0-98.0) % Glucose (65-105) mg/dL Lactate (0.7-2.1) mmol/L FiO2 29.0 % Inspiratory BiPAP Expiratory BiPAP Blood Gas Comments 2l/m n,rr Crit Value Called To Allan hernandez Crit Value Called By 15 Crit Value Read Back Y Blood Gas Notified Time 1024 Sodium (132-148) mmol/l Potassium (3.6-5.0) MMOL/L Chloride (98-107) mmol/L Carbon Dioxide (22-30) mmol/L Anion Gap (10-20) BUN (7-17) mg/dl Creatinine (0.7-1.2) mg/dL Est GFR ( Amer) Est GFR (Non-Af Amer) POC Glucose (mg/dL) 187 H (65-110) mg/dL Random Glucose (65-105) mg/dL Calcium (8.4-10.2) mg/dL Total Bilirubin (0.2-1.3) mg/dl AST (14-36) U/L ALT (9-52) U/L Alkaline Phosphatase (38-126) U/L Troponin I 0.2420 H* (0.00-0.120) ng/mL NT-Pro-B Natriuret Pep (0-900) pg/ml Total Protein (6.3-8.2) G/DL Albumin (3.5-5.0) g/dL Globulin (2.2-3.9) gm/dL Albumin/Globulin Ratio (1.0-2.1) Procalcitonin (0.19-0.49) NG/ML Arterial Blood Potassium (3.6-5.2) mmol/L Influenza Typ A,B (EIA) (NEGATIVE) 06/24/16 Range/Units 08:05 pCO2 (35-45) mm/Hg pO2 (80-100) mm/Hg HCO3 (21-28) mmol/L ABG pH (7.35-7.45) ABG Total CO2 (22-28) mmol/L ABG O2 Saturation (95-98) % ABG O2 Content (15-23) ML/dL ABG Base Excess (-2.0-3.0) mmol/L ABG Hemoglobin (11.7-17.4) g/dL ABG Carboxyhemoglobin (0.5-1.5) % POC ABG HHb (Measured) (0.0-5.0) % ABG Methemoglobin (0.0-3.0) % ABG O2 Capacity (16-24) mL/dL Mukesh Test ABG Potassium (3.6-5.2) mmol/L A-a O2 Difference mm/Hg Hgb O2 Saturation (95.0-98.0) % Glucose (65-105) mg/dL Lactate (0.7-2.1) mmol/L FiO2 % Inspiratory BiPAP Expiratory BiPAP Blood Gas Comments Crit Value Called To Crit Value Called By Crit Value Read Back Blood Gas Notified Time Sodium (132-148) mmol/l Potassium (3.6-5.0) MMOL/L Chloride (98-107) mmol/L Carbon Dioxide (22-30) mmol/L Anion Gap (10-20) BUN (7-17) mg/dl Creatinine (0.7-1.2) mg/dL Est GFR ( Amer) Est GFR (Non-Af Amer) POC Glucose (mg/dL) (65-110) mg/dL Random Glucose (65-105) mg/dL Calcium (8.4-10.2) mg/dL Total Bilirubin (0.2-1.3) mg/dl AST (14-36) U/L ALT (9-52) U/L Alkaline Phosphatase (38-126) U/L Troponin I (0.00-0.120) ng/mL NT-Pro-B Natriuret Pep 48740 H (0-900) pg/ml Total Protein (6.3-8.2) G/DL Albumin (3.5-5.0) g/dL Globulin (2.2-3.9) gm/dL Albumin/Globulin Ratio (1.0-2.1) Procalcitonin (0.19-0.49) NG/ML Arterial Blood Potassium (3.6-5.2) mmol/L Influenza Typ A,B (EIA) (NEGATIVE) Laboratory Results - last 24 hr 06/24/16 06/24/16 06/24/16 08:05 09:43 10:12 pCO2 pO2 HCO3 ABG pH ABG Total CO2 ABG O2 Saturation ABG O2 Content ABG Base Excess ABG Hemoglobin ABG Carboxyhemoglobin POC ABG HHb (Measured) ABG Methemoglobin ABG O2 Capacity Mukesh Test ABG Potassium A-a O2 Difference Hgb O2 Saturation Sodium Chloride Glucose Lactate FiO2 Inspiratory BiPAP Expiratory BiPAP Blood Gas Comments Crit Value Called To Crit Value Called By Crit Value Read Back Blood Gas Notified Time Potassium Carbon Dioxide Anion Gap BUN Creatinine Est GFR ( Amer) Est GFR (Non-Af Amer) POC Glucose (mg/dL) 187 H Random Glucose Calcium Total Bilirubin AST ALT Alkaline Phosphatase Troponin I 0.2420 H* NT-Pro-B Natriuret Pep 58513 H Total Protein Albumin Globulin Albumin/Globulin Ratio Procalcitonin Arterial Blood Potassium Influenza Typ A,B (EIA) 06/24/16 06/24/16 06/24/16 10:15 11:08 13:29 pCO2 29 L 29 L pO2 30 L* 88 HCO3 14.1 L 18.3 L ABG pH 7.26 L 7.35 ABG Total CO2 13.9 L 16.9 L ABG O2 Saturation 62.5 L 98.7 H ABG O2 Content 10.4 L ABG Base Excess -12.7 L -8.4 L ABG Hemoglobin 12.3 ABG Carboxyhemoglobin 1.8 H POC ABG HHb (Measured) 36.1 H ABG Methemoglobin 2.0 ABG O2 Capacity 16.6 Mukesh Test Yes Yes ABG Potassium 4.0 A-a O2 Difference 141.0 589.0 Hgb O2 Saturation 60.1 L Sodium 133.0 Chloride 106.0 Glucose 208 H Lactate 3.3 H FiO2 29.0 100.0 Inspiratory BiPAP 10 Expiratory BiPAP 5 Blood Gas Comments 2l/m n,rr Crit Value Called To Allan hernandez Crit Value Called By 15 Crit Value Read Back Y Blood Gas Notified Time 1024 Potassium Carbon Dioxide Anion Gap BUN Creatinine Est GFR ( Amer) Est GFR (Non-Af Amer) POC Glucose (mg/dL) 196 H Random Glucose Calcium Total Bilirubin AST ALT Alkaline Phosphatase Troponin I NT-Pro-B Natriuret Pep Total Protein Albumin Globulin Albumin/Globulin Ratio Procalcitonin Arterial Blood Potassium 4.0 Influenza Typ A,B (EIA) 06/24/16 06/24/16 06/24/16 15:09 15:34 17:09 pCO2 pO2 HCO3 ABG pH ABG Total CO2 ABG O2 Saturation ABG O2 Content ABG Base Excess ABG Hemoglobin ABG Carboxyhemoglobin POC ABG HHb (Measured) ABG Methemoglobin ABG O2 Capacity Mukesh Test ABG Potassium A-a O2 Difference Hgb O2 Saturation Sodium Chloride Glucose Lactate FiO2 Inspiratory BiPAP Expiratory BiPAP Blood Gas Comments Crit Value Called To Crit Value Called By Crit Value Read Back Blood Gas Notified Time Potassium Carbon Dioxide Anion Gap BUN Creatinine Est GFR ( Amer) Est GFR (Non-Af Amer) POC Glucose (mg/dL) 195 H Random Glucose Calcium Total Bilirubin AST ALT Alkaline Phosphatase Troponin I 0.6250 H* NT-Pro-B Natriuret Pep Total Protein Albumin Globulin Albumin/Globulin Ratio Procalcitonin 3.91 H Arterial Blood Potassium Influenza Typ A,B (EIA) Negative for flu a/b 06/24/16 06/24/16 06/25/16 20:15 22:56 04:35 pCO2 pO2 HCO3 ABG pH ABG Total CO2 ABG O2 Saturation ABG O2 Content ABG Base Excess ABG Hemoglobin ABG Carboxyhemoglobin POC ABG HHb (Measured) ABG Methemoglobin ABG O2 Capacity Mukesh Test ABG Potassium A-a O2 Difference Hgb O2 Saturation Sodium Chloride Glucose Lactate FiO2 Inspiratory BiPAP Expiratory BiPAP Blood Gas Comments Crit Value Called To Crit Value Called By Crit Value Read Back Blood Gas Notified Time Potassium Carbon Dioxide Anion Gap BUN Creatinine Est GFR ( Amer) Est GFR (Non-Af Amer) POC Glucose (mg/dL) 175 H 217 H Random Glucose Calcium Total Bilirubin AST ALT Alkaline Phosphatase Troponin I 1.2300 H* NT-Pro-B Natriuret Pep Total Protein Albumin Globulin Albumin/Globulin Ratio Procalcitonin Arterial Blood Potassium Influenza Typ A,B (EIA) 06/25/16 05:57 pCO2 pO2 HCO3 ABG pH ABG Total CO2 ABG O2 Saturation ABG O2 Content ABG Base Excess ABG Hemoglobin ABG Carboxyhemoglobin POC ABG HHb (Measured) ABG Methemoglobin ABG O2 Capacity Mukesh Test ABG Potassium A-a O2 Difference Hgb O2 Saturation Sodium 140 Chloride 106 Glucose Lactate FiO2 Inspiratory BiPAP Expiratory BiPAP Blood Gas Comments Crit Value Called To Crit Value Called By Crit Value Read Back Blood Gas Notified Time Potassium 3.8 Carbon Dioxide 20 L Anion Gap 18 BUN 19 H Creatinine 1.9 H Est GFR ( Amer) 33 Est GFR (Non-Af Amer) 27 POC Glucose (mg/dL) Random Glucose 193 H Calcium 8.1 L Total Bilirubin 0.8 AST 57 H D ALT 77 H D Alkaline Phosphatase 134 H Troponin I NT-Pro-B Natriuret Pep Total Protein 5.7 L Albumin 2.3 L Globulin 3.4 Albumin/Globulin Ratio 0.7 L Procalcitonin Arterial Blood Potassium Influenza Typ A,B (EIA) Fingerstick Blood Sugar Results: 217 Critical Care Progress Note - Nutrition Nutrition: Nutrition Category Date Time Status Heart Healthy Diet [DIET] Diets 06/20/16 Lunch Active Assessment/Plan - Assessment and Plan (Free Text) Assessment: CXR: worsening pulm edema and interstitial infiltrates ASSESSMENT: 1. Acute Resp Insufficiency 2 Pulm Edema and superimposed bilateral pneumonitis 2. r/o acute / Subacute HI 3. Rhabdomyolysis with mild ERIKA 4. Uncontrolled DM II PLAN: 1. Put back on BiPAP support If no improvement nor any significant diuresis, will place on MV support. No Advance Directives noted. 2. Broaden present empiric abx coverage, add atypical organism coverage. 3. Repeat serial trops. ECHO 4. Topical NTP for now. Already on ASA, statin, and beta blockers, would change Tenormin to Lopressor. 5. Continue conservative treatment for AMI, no indication for card cath at this point, as per cardiology. 6. Lasix 80 mg IV now and will adjust diuresis , as needed.
[2016-06-25] MEDS: Artificial Tears Opht Soln OU SCH ×3 (08:21→16:07)
[2016-06-25] MEDS: Azithromycin 500 MG in Sodium Chloride 0.9% 250 ML IVPB SCH (09:22)
--- NOTE | 2016-06-25 09:43 | CP.PCM.CON ---
History of Present Illness - History of Present Illness History of Present Illness: Patient seen at the request of Dr. Tesfaye and [facility], who I am covering. Patient is a 61 year old female with PMH HTN, CAD s/p PCI, DM, legal blindness who presents with fall. The patient rolled off her bed, and was found on the floor. The downtime is unknown. The patient was found to have evidence of rhabdomyolysis. She was admitted to ICU and started on IV fluids. There was a period of improvement, however the patient developed dyspnea and pulmonary edema. She was givne lasix. She required BiPAP. CXR ws suggestive of vascular congestion. The patient denied chest pain. Troponin was elevated. Consultation was called. Currently the patient has no chest pain or dyspnea. Review of Systems - Constitutional Constitutional: absent: As Per HPI, Anorexia, Chills, Daytime Sleepiness, Excessive Sweating, Fatigue, Fever, Frequent Falls, Headache, Increased Appetite , Lethargy, Malaise, Night Sweats, Snoring, Sleep Apnea, Weight Gain, Weight Loss, Weakness, Other - EENT Eyes: absent: As Per HPI, Blind Spots, Blurred Vision, Change in Vision, Decreased Night Vision, Diplopia, Discharge, Dry Eye, Exophthalmos, Floaters, Irritation, Itchy Eyes, Loss of Peripheral Vision, Pain, Photophobia, Requires Corrective Lenses, Sees Flashes, Spots in Vision, Tunnel Vision, Other Visual Disturbances, Loss of Vision, Other Nose/Mouth/Throat: absent: As Per HPI, Epistaxis, Nasal Congestion, Nasal Discharge, Nasal Obstruction, Nasal Trauma, Nose Pain, Post Nasal Drip, Sinus Pain, Sinus Pressure, Bleeding Gums, Change in Voice, Dental Pain, Dry Mouth, Dysphagia, Halitosis, Hoarsness, Lip Swelling, Mouth Lesions, Mouth Pain, Odynophagia, Sore Throat, Throat Swelling, Tongue Swelling, Facial Pain, Neck Pain, Neck Mass, Other - Breasts Breasts: absent: As Per HPI, Change in Shape, Mass, Pain, Nipple Discharge, Nipple Inversion, Skin Changes, Swelling, Other - Cardiovascular Cardiovascular: Dyspnea - Respiratory Respiratory: Dyspnea - Gastrointestinal Gastrointestinal: absent: As Per HPI, Abdominal Pain, Belching, Bloating, Change in Bowel Habits, Change in Stool Character, Coffee Ground Emesis, Constipation, Cramping, Diarrhea, Dyspepsia, Dysphagia, Early Satiety, Excessive Flatus, Fecal Incontinence, Heartburn, Hematemesis, Hematochezia, Loose Stools, Melena, Nausea, Odynophagia, Temesmus, Vomiting, Other - Genitourinary Genitourinary: absent: As Per HPI, Change in Urinary Stream, Difficulty Urinating, Dysuria, Flank Pain, Hematuria, Pyuria, Nocturia, Urinary Incontinence, Urinary Frequency, Urinary Hesitance, Urinary Urgency, Voiding Freq/Small Amts, Freq UTI, Hx Renal/Bladder Calculi, Hx /Renal Surgery, Bladder Distension, Other - Musculoskeletal Musculoskeletal: absent: As Per HPI, Abnormal Gait, Arthralgias, Atrophy, Back Pain, Deformity, Joint Swelling, Limited Range of Motion, Loss of Height, Muscle Cramps, Muscle Weakness, Myalgias, Neck Pain, Numbness, Radiating Pain into Limb, Stiffness, Tingling, Other - Integumentary Integumentary: absent: As Per HPI, Acne, Alopecia, Bleeding Lesions, Change in Hair, Change in Nails, Change in Pigmentation, Changing Lesions, Dry Skin, Erythema, Furuncle, Hirsutism, Lesions, New Lesions, Non-Healing Lesions, Photosensitivity, Pruritus, Rash, Skin Pain, Skin Ulcer, Sores, Striae, Swelling , Unusual Bruising, Wounds, Jaundice, Other - Neurological Neurological: absent: As Per HPI, Abnormal Gait, Abnormal Hearing, Abnormal Movements, Abnormal Speech, Behavioral Changes, Burning Sensations, Confusion, Convulsions, Disequilibrium, Dizziness, Numbness, Focal Weakness, Frequent Falls , Headaches, Lack of Coordination, Loss of Vision, Memory Loss, Paresthesias, Radicular Pain, Restless Legs, Sensory Deficit, Syncope, Tingling, Tremor, Vertigo, Weakness, Other Visual Disturbances, Other - Psychiatric Psychiatric: absent: As Per HPI, Abnormal Sleep Pattern, Anhedonia, Anxiety, Auditory Hallucinations, Behavioral Changes, Change in Appetite, Change in Libido, Confusion, Depression, Difficulty Concentrating, Hallucinations, Homicidal Ideation, Hopelessness, Irritability, Memory Loss, Mood Swings, Panic Attacks, Paranoia, Suicidal Ideation, Visual Hallucinations, Tactile Hallucinations, Other - Endocrine Endocrine: absent: As Per HPI, Change in Body Appearance, Change in Libido, Cold Intolorance, Deepening of Voice, Excessive Sweating, Fatigue, Flushing, Heat Intolorance, Increase in Ring/Shoe/Hat Size, Palpitations, Polydipsia, Polyphagia, Polyuria, Other - Hematologic/Lymphatic Hematologic: absent: As Per HPI, Easy Bleeding, Easy Bruising, Lymphadenopathy, Other Past Patient History - Infectious Disease Hx of Infectious Diseases: None - Past Medical History & Family History Past Medical History?: Yes - Past Social History Smoking Status: Never Smoked - CARDIAC Hx Congestive Heart Failure: No Hx Hypercholesterolemia: No Hx Hypertension: Yes - PULMONARY Hx Chronic Obstructive Pulmonary Disease (COPD): No - NEUROLOGICAL Hx Neurological Disorder: No HX Cerebrovascular Accident: No - HEENT Hx HEENT Problems: No - RENAL Hx Chronic Kidney Disease: No - ENDOCRINE/METABOLIC Hx Hypothyroidism: No - HEMATOLOGICAL/ONCOLOGICAL Hx Human Immunodeficiency Virus (HIV): No - INTEGUMENTARY Hx Dermatological Problems: No - MUSCULOSKELETAL/RHEUMATOLOGICAL Hx Arthritis: No Hx Falls: Yes Hx Rheumatoid Arthritis: No - GASTROINTESTINAL Hx Gastrointestinal Disorders: No - GENITOURINARY/GYNECOLOGICAL Hx Genitourinary Disorders: No - SURGICAL HISTORY Hx Cholecystectomy: Yes Hx Coronary Stent: Yes - ANESTHESIA Hx Anesthesia: Yes Hx Anesthesia Reactions: No Hx Malignant Hyperthermia: No Meds Allergies/Adverse Reactions: Allergies Allergy/AdvReac Type Severity Reaction Status Date / Time hydromorphone HCl Allergy ANAPHYLAXIS Verified 09/16/15 12:14 [From Dilaudid] shrimp Allergy VOMITING Verified 09/16/15 12:35 - Medications Medications: Current Medications Acetaminophen (Tylenol 325mg Tab) 650 mg PO Q4 PRN PRN Reason: Fever >100.4 F Last Admin: 06/23/16 21:07 Dose: 650 mg Albuterol (Ventolin Hfa 90 Mcg/Actuation (8 G)) 2 puff INH RQ4 PRN PRN Reason: Shortness of Breath Last Admin: 06/24/16 10:00 Dose: 2 unit Albuterol/Ipratropium (Duoneb 3 Mg/0.5 Mg (3 Ml) Ud) 3 ml INH RQ4 PRN PRN Reason: Shortness of Breath Last Admin: 06/24/16 08:11 Dose: 3 ml Artificial Tears (Artificial Tears) 1 drop OU TID [facility] Last Admin: 06/25/16 08:21 Dose: 1 drop Aspirin (Ecotrin) 81 mg PO DAILY [facility] Last Admin: 06/25/16 08:15 Dose: 81 mg Bacitracin (Bacitracin) 1 ea TOP TID [facility] Last Admin: 06/25/16 08:15 Dose: 1 ea Cyclobenzaprine HCl (Flexeril) 10 mg PO HS PRN PRN Reason: Muscle spasm Docusate Sodium (Colace) 100 mg PO HS [facility] Last Admin: 06/24/16 22:01 Dose: 100 mg Enoxaparin Sodium (Lovenox) 30 mg SC DAILY [facility] PRN Reason: Protocol Last Admin: 06/25/16 08:15 Dose: 30 mg Gabapentin (Neurontin) 400 mg PO TID [facility] Last Admin: 06/25/16 08:13 Dose: 400 mg Ceftriaxone Sodium 1 gm/ (Sodium Chloride) 100 mls @ 100 mls/hr IVPB DAILY [facility] Last Admin: 06/25/16 08:11 Dose: 100 mls/hr Azithromycin 500 mg/ Sodium (Chloride) 250 mls @ 250 mls/hr IVPB DAILY [facility] Last Admin: 06/25/16 09:22 Dose: 250 mls/hr Insulin Detemir (Levemir) 20 units SC HS [facility] Last Admin: 06/24/16 23:12 Dose: 20 u Insulin Human Lispro (Humalog) 6 units SC AC [facility] Last Admin: 06/25/16 06:45 Dose: 6 units Insulin Human Lispro (Humalog) 0 units SC ACHS [facility] PRN Reason: Protocol Last Admin: 06/25/16 06:44 Dose: Not Given Metoprolol Tartrate (Lopressor) 12.5 mg PO Q12 [facility] Last Admin: 06/25/16 08:13 Dose: 12.5 mg Nitroglycerin (Nitro-Bid) 1 appl TOP Q6 [facility] Last Admin: 06/25/16 09:16 Dose: 1 appl Pantoprazole Sodium (Protonix Ec Tab) 40 mg PO DAILY [facility] Last Admin: 06/25/16 08:14 Dose: 40 mg Pravastatin Sodium (Pravachol) 40 mg PO HS [facility] Last Admin: 06/24/16 22:01 Dose: 40 mg Physical Exam - Constitutional Appears: Non-toxic - Head Exam Head Exam: NORMAL INSPECTION - Eye Exam Eye Exam: Normal appearance - ENT Exam ENT Exam: Mucous Membranes Moist - Neck Exam Neck exam: Positive for: Full Rom - Respiratory Exam Respiratory Exam: Decreased Breath Sounds - Cardiovascular Exam Cardiovascular Exam: REGULAR RHYTHM - GI/Abdominal Exam GI & Abdominal Exam: Normal Bowel Sounds - Rectal Exam Rectal Exam: Deferred - Extremities Exam Extremities exam: Positive for: pedal edema - Back Exam Back exam: NORMAL INSPECTION - Neurological Exam Neurological exam: Alert, Oriented x3 - Psychiatric Exam Psychiatric exam: Normal Affect - Skin Skin Exam: Normal Color Results - Vital Signs Recent Vital Signs: Last Vital Signs Temp 99.2 F 06/25/16 08:00 Pulse 87 06/25/16 09:08 Resp 32 H 06/25/16 09:00 BP 143/69 06/25/16 09:00 Pulse Ox 100 06/25/16 09:00 - Labs Result Diagrams: 06/24/16 06:15 06/25/16 05:57 Labs: Laboratory Results - last 24 hr 06/24/16 06/24/16 06/24/16 09:43 10:12 10:15 pCO2 29 L pO2 30 L* HCO3 14.1 L ABG pH 7.26 L ABG Total CO2 13.9 L ABG O2 Saturation 62.5 L ABG O2 Content 10.4 L ABG Base Excess -12.7 L ABG Hemoglobin 12.3 ABG Carboxyhemoglobin 1.8 H POC ABG HHb (Measured) 36.1 H ABG Methemoglobin 2.0 ABG O2 Capacity 16.6 Mukesh Test Yes ABG Potassium A-a O2 Difference 141.0 Hgb O2 Saturation 60.1 L Sodium Chloride Glucose Lactate FiO2 29.0 Inspiratory BiPAP Expiratory BiPAP Blood Gas Comments 2l/m n,rr Crit Value Called To Allan hernandez Crit Value Called By 15 Crit Value Read Back Y Blood Gas Notified Time 1024 Potassium Carbon Dioxide Anion Gap BUN Creatinine Est GFR ( Amer) Est GFR (Non-Af Amer) POC Glucose (mg/dL) 187 H Random Glucose Calcium Total Bilirubin AST ALT Alkaline Phosphatase Troponin I 0.2420 H* Total Protein Albumin Globulin Albumin/Globulin Ratio Procalcitonin Arterial Blood Potassium Influenza Typ A,B (EIA) 06/24/16 06/24/16 06/24/16 11:08 13:29 15:09 pCO2 29 L pO2 88 HCO3 18.3 L ABG pH 7.35 ABG Total CO2 16.9 L ABG O2 Saturation 98.7 H ABG O2 Content ABG Base Excess -8.4 L ABG Hemoglobin ABG Carboxyhemoglobin POC ABG HHb (Measured) ABG Methemoglobin ABG O2 Capacity Mukesh Test Yes ABG Potassium 4.0 A-a O2 Difference 589.0 Hgb O2 Saturation Sodium 133.0 Chloride 106.0 Glucose 208 H Lactate 3.3 H FiO2 100.0 Inspiratory BiPAP 10 Expiratory BiPAP 5 Blood Gas Comments Crit Value Called To Crit Value Called By Crit Value Read Back Blood Gas Notified Time Potassium Carbon Dioxide Anion Gap BUN Creatinine Est GFR ( Amer) Est GFR (Non-Af Amer) POC Glucose (mg/dL) 196 H Random Glucose Calcium Total Bilirubin AST ALT Alkaline Phosphatase Troponin I 0.6250 H* Total Protein Albumin Globulin Albumin/Globulin Ratio Procalcitonin 3.91 H Arterial Blood Potassium 4.0 Influenza Typ A,B (EIA) 06/24/16 06/24/16 06/24/16 15:34 17:09 20:15 pCO2 pO2 HCO3 ABG pH ABG Total CO2 ABG O2 Saturation ABG O2 Content ABG Base Excess ABG Hemoglobin ABG Carboxyhemoglobin POC ABG HHb (Measured) ABG Methemoglobin ABG O2 Capacity Mukesh Test ABG Potassium A-a O2 Difference Hgb O2 Saturation Sodium Chloride Glucose Lactate FiO2 Inspiratory BiPAP Expiratory BiPAP Blood Gas Comments Crit Value Called To Crit Value Called By Crit Value Read Back Blood Gas Notified Time Potassium Carbon Dioxide Anion Gap BUN Creatinine Est GFR ( Amer) Est GFR (Non-Af Amer) POC Glucose (mg/dL) 195 H Random Glucose Calcium Total Bilirubin AST ALT Alkaline Phosphatase Troponin I 1.2300 H* Total Protein Albumin Globulin Albumin/Globulin Ratio Procalcitonin Arterial Blood Potassium Influenza Typ A,B (EIA) Negative for flu a/b 06/24/16 06/25/16 06/25/16 22:56 04:35 05:57 pCO2 pO2 HCO3 ABG pH ABG Total CO2 ABG O2 Saturation ABG O2 Content ABG Base Excess ABG Hemoglobin ABG Carboxyhemoglobin POC ABG HHb (Measured) ABG Methemoglobin ABG O2 Capacity Mukesh Test ABG Potassium A-a O2 Difference Hgb O2 Saturation Sodium 140 Chloride 106 Glucose Lactate FiO2 Inspiratory BiPAP Expiratory BiPAP Blood Gas Comments Crit Value Called To Crit Value Called By Crit Value Read Back Blood Gas Notified Time Potassium 3.8 Carbon Dioxide 20 L Anion Gap 18 BUN 19 H Creatinine 1.9 H Est GFR ( Amer) 33 Est GFR (Non-Af Amer) 27 POC Glucose (mg/dL) 175 H 217 H Random Glucose 193 H Calcium 8.1 L Total Bilirubin 0.8 AST 57 H D ALT 77 H D Alkaline Phosphatase 134 H Troponin I Total Protein 5.7 L Albumin 2.3 L Globulin 3.4 Albumin/Globulin Ratio 0.7 L Procalcitonin Arterial Blood Potassium Influenza Typ A,B (EIA) - EKG Data EKG Interpreted by: Myself EKG shows normal: Sinus rhythm Assessment & Plan (1) Non-STEMI (non-ST elevated myocardial infarction) Assessment and Plan: patient has underlying CAD. Allthough the patient has current renal insufficiency, she also had an episode of pulmonary edema. The echocardiogram is techincally difficult and there are non specific changes on the EKG. Givne hemodynamic stability, there is no acute indication for catheterization. recommend repeat troponin, but would benefit from renal dosed lovenox. Status: Acute (2) Diabetes Assessment and Plan: risk factor for progressive CAD Status: Acute (3) CAD (coronary artery disease) Assessment and Plan: antiplatelet therapy Status: Acute (4) Renal insufficiency Assessment and Plan: follow creatinine Status: Acute
[2016-06-25 10:03] LABS: HEMATOCRIT 31.7 % (34.0-47.0); MEAN CELL VOLUME 88.3 fl (81.0-99.0); MEAN CORPUSCULAR HEMOGLOBIN 27.9 pg (27.0-31.0); MEAN CORPUSCULAR HGB CONC 31.6 g/dL (33.0-37.0); RED CELL DISTRIBUTION WIDTH 15.4 % (11.5-14.5); WHITE BLOOD COUNT 14.1 K/uL (4.8-10.8)
--- NOTE | 2016-06-25 10:28 | CP.PCM.PN ---
Subjective - Date & Time of Evaluation Date of Evaluation: 06/25/16 Time of Evaluation: 10:28 - Subjective Subjective: TRANSFERRED TO ICU--ON BIPAP STILL DYSPNEIC AT REST Objective - Vital Signs/Intake and Output Vital Signs (last 24 hours): Temp Pulse Resp BP Pulse Ox 99.2 F 90 34 H 131/66 100 06/25/16 08:00 06/25/16 10:00 06/25/16 10:00 06/25/16 10:00 06/25/16 10:00 Intake and Output: 06/25/16 06/25/16 06:59 18:59 Intake Total 111 590 Output Total 1450 Balance -1339 590 - Medications Medications: Current Medications Acetaminophen (Tylenol 325mg Tab) 650 mg PO Q4 PRN PRN Reason: Fever >100.4 F Last Admin: 06/23/16 21:07 Dose: 650 mg Albuterol (Ventolin Hfa 90 Mcg/Actuation (8 G)) 2 puff INH RQ4 PRN PRN Reason: Shortness of Breath Last Admin: 06/24/16 10:00 Dose: 2 unit Albuterol/Ipratropium (Duoneb 3 Mg/0.5 Mg (3 Ml) Ud) 3 ml INH RQ4 PRN PRN Reason: Shortness of Breath Last Admin: 06/24/16 08:11 Dose: 3 ml Artificial Tears (Artificial Tears) 1 drop OU TID [facility] Last Admin: 06/25/16 08:21 Dose: 1 drop Aspirin (Ecotrin) 81 mg PO DAILY [facility] Last Admin: 06/25/16 08:15 Dose: 81 mg Bacitracin (Bacitracin) 1 ea TOP TID [facility] Last Admin: 06/25/16 08:15 Dose: 1 ea Cyclobenzaprine HCl (Flexeril) 10 mg PO HS PRN PRN Reason: Muscle spasm Docusate Sodium (Colace) 100 mg PO HS [facility] Last Admin: 06/24/16 22:01 Dose: 100 mg Enoxaparin Sodium (Lovenox) 70 mg SC DAILY [facility] PRN Reason: Protocol Gabapentin (Neurontin) 400 mg PO TID [facility] Last Admin: 06/25/16 08:13 Dose: 400 mg Ceftriaxone Sodium 1 gm/ (Sodium Chloride) 100 mls @ 100 mls/hr IVPB DAILY [facility] Last Admin: 06/25/16 08:11 Dose: 100 mls/hr Azithromycin 500 mg/ Sodium (Chloride) 250 mls @ 250 mls/hr IVPB DAILY [facility] Last Admin: 06/25/16 09:22 Dose: 250 mls/hr Insulin Detemir (Levemir) 20 units SC [facility] Last Admin: 06/24/16 23:12 Dose: 20 u Insulin Human Lispro (Humalog) 6 units SC AC [facility] Last Admin: 06/25/16 06:45 Dose: 6 units Insulin Human Lispro (Humalog) 0 units SC ACHS [facility] PRN Reason: Protocol Last Admin: 06/25/16 06:44 Dose: Not Given Metoprolol Tartrate (Lopressor) 12.5 mg PO Q12 [facility] Last Admin: 06/25/16 08:13 Dose: 12.5 mg Nitroglycerin (Nitro-Bid) 1 appl TOP Q6 [facility] Last Admin: 06/25/16 09:16 Dose: 1 appl Pantoprazole Sodium (Protonix Ec Tab) 40 mg PO DAILY [facility] Last Admin: 06/25/16 08:14 Dose: 40 mg Pravastatin Sodium (Pravachol) 40 mg PO [facility] Last Admin: 06/24/16 22:01 Dose: 40 mg - Labs Labs: 06/25/16 09:55 06/25/16 05:57 - Constitutional Appears: Chronically Ill - Head Exam Head Exam: ATRAUMATIC, NORMAL INSPECTION, NORMOCEPHALIC - Eye Exam Eye Exam: EOMI, Normal appearance, PERRL Pupil Exam: NORMAL ACCOMODATION, PERRL - ENT Exam ENT Exam: Mucous Membranes Moist, Normal Exam - Neck Exam Neck Exam: Full ROM, Normal Inspection. absent: Lymphadenopathy - Respiratory Exam Respiratory Exam: Decreased Breath Sounds, Rales Additional comments: ON BIPAP - Cardiovascular Exam Cardiovascular Exam: REGULAR RHYTHM, +S1, +S2. absent: Murmur - GI/Abdominal Exam GI & Abdominal Exam: Soft, Normal Bowel Sounds. absent: Tenderness - Rectal Exam Rectal Exam: NORMAL INSPECTION - Extremities Exam Extremities Exam: Full ROM, Normal Capillary Refill, Normal Inspection, Pedal Edema. absent: Joint Swelling - Back Exam Back Exam: NORMAL INSPECTION - Neurological Exam Neurological Exam: Alert, Awake, CN II-XII Intact, Normal Gait, Oriented x3 - Psychiatric Exam Psychiatric exam: Normal Affect, Normal Mood - Skin Skin Exam: Dry, Intact, Normal Color, Warm Assessment and Plan - Assessment and Plan (Free Text) Assessment: NSTEM PULMONARY EDEMA Plan: CONTINUE BIPAP AND AGGRESSIVE DIURESES
--- NOTE | 2016-06-25 14:27 | PN ---
DATE: 06/25/2016 LOCATION: ICU room 432. SUBJECTIVE: This is a 61-year-old female with recent uncontrolled . She is transferred now to ICU with pulmonary edema and is now requiring BiPAP mask and is now being followed closely for metabo lic management. She is now being seen by cardiology for the possibility of a possible myocardial inf arction, considering that she has significant history of coronary artery disease with previous menchaca ry stent placements. Her glycemic levels are fluctuating and have ranged today from 217-284 mg/dL. Her latest chemistry showed a BUN of 19, sodium 140, potassium 3.8, chloride 106, CO2 20, glucose 193 and creatinine 1.9. Her troponin level is elevated at 1.23 as noted. So at this time, we will jhonathan fy her basal and bolus insulin regimen as this is a physical stressor which would require higher insu lukasz doses at this time. We will increase her Humalog to 8 units subQ t.i.d. before meals to start at dinnertime today as ordered. We will continue the low-dose correction scale using Humalog insulin a s given. We will also titrate her basal insulin and increase the Levemir to 26 units subQ at bedtime daily to start tonight. We will obtain serial chemistries and supplement accordingly as needed. We will follow. Natalia Castillo MD cc: [id number] TT: 06/25/2016 14:26:54 Confirmation # [id number] Dictation # [id number] ayesha
--- NOTE | 2016-06-25 15:47 | RAD ---
HISTORY: Pneumonia/CHF. Technique: Single view portable semi erect @ 07:10. COMPARISON: June 24, 2016. FINDINGS: LUNGS: Stable pulmonary edema. PLEURA: No significant pleural effusion identified, no pneumothorax apparent. CARDIOVASCULAR: No significant interval change compared to the prior examination(s). OSSEOUS STRUCTURES: No significant abnormalities. VISUALIZED UPPER ABDOMEN: Normal. OTHER FINDINGS: None. IMPRESSION: Stable pulmonary edema/ multifocal and confluent airspace disease.
--- NOTE | 2016-06-25 20:24 | CP.PCM.PN ---
Subjective - Date & Time of Evaluation Date of Evaluation: 06/25/16 Time of Evaluation: 18:00 - Subjective Subjective: Patient resting in bed with BiPAP mask in place; sometimes confused but cooperative vital signs stable except temp 100.6F at 6pm; resp rate 24 resp/min Lungs- dec. breath sounds b/l with rales Heart- regular S1, S2, no murmur Abd. - +BS, soft, nontender Ext. - no edema of LE's; dec. edema of hands after lasix 80mg iv this am has diuresed approx. 4,000 cc WBC 14.1 BUN/CR 19/1.9 CK 134 1. NSTEMI 2. Pulmonary edema with superimposed pneumonia 3. Rhabdomylysis 4. ERIKA 5. Diabetes Continuing aggressive diuresis and broad spectrum antibiotics; CK continues to decrease Objective - Vital Signs/Intake and Output Vital Signs (last 24 hours): Temp Pulse Resp BP Pulse Ox 100.6 F H 71 25 H 120/48 L 100 06/25/16 16:03 06/25/16 18:00 06/25/16 18:00 06/25/16 18:00 06/25/16 18:00 Intake and Output: 06/25/16 06/26/16 18:59 06:59 Intake Total 1030 Output Total 4600 Balance -3570 - Medications Medications: Current Medications Acetaminophen (Tylenol 325mg Tab) 650 mg PO Q4 PRN PRN Reason: Fever >100.4 F Last Admin: 06/25/16 16:03 Dose: 650 mg Albuterol (Ventolin Hfa 90 Mcg/Actuation (8 G)) 2 puff INH RQ4 PRN PRN Reason: Shortness of Breath Last Admin: 06/24/16 10:00 Dose: 2 unit Albuterol/Ipratropium (Duoneb 3 Mg/0.5 Mg (3 Ml) Ud) 3 ml INH RQ4 PRN PRN Reason: Shortness of Breath Last Admin: 06/24/16 08:11 Dose: 3 ml Artificial Tears (Artificial Tears) 1 drop OU TID [facility] Last Admin: 06/25/16 16:07 Dose: 1 drop Aspirin (Ecotrin) 81 mg PO DAILY [facility] Last Admin: 06/25/16 08:15 Dose: 81 mg Bacitracin (Bacitracin) 1 ea TOP TID [facility] Last Admin: 06/25/16 16:05 Dose: 1 ea Cyclobenzaprine HCl (Flexeril) 10 mg PO HS PRN PRN Reason: Muscle spasm Docusate Sodium (Colace) 100 mg PO HS [facility] Last Admin: 06/24/16 22:01 Dose: 100 mg Enoxaparin Sodium (Lovenox) 90 mg SC DAILY [facility] PRN Reason: Protocol Gabapentin (Neurontin) 400 mg PO TID [facility] Last Admin: 06/25/16 16:05 Dose: 400 mg Ceftriaxone Sodium 1 gm/ (Sodium Chloride) 100 mls @ 100 mls/hr IVPB DAILY [facility] Last Admin: 06/25/16 08:11 Dose: 100 mls/hr Azithromycin 500 mg/ Sodium (Chloride) 250 mls @ 250 mls/hr IVPB DAILY [facility] Last Admin: 06/25/16 09:22 Dose: 250 mls/hr Insulin Detemir (Levemir) 26 units SC HS [facility] Insulin Human Lispro (Humalog) 0 units SC ACHS [facility] PRN Reason: Protocol Last Admin: 06/25/16 16:08 Dose: Not Given Insulin Human Lispro (Humalog) 8 units SC AC [facility] Last Admin: 06/25/16 16:06 Dose: 8 u Metoprolol Tartrate (Lopressor) 12.5 mg PO Q12 [facility] Last Admin: 06/25/16 08:13 Dose: 12.5 mg Nitroglycerin (Nitro-Bid) 1 appl TOP Q6 [facility] Last Admin: 06/25/16 16:04 Dose: 1 appl Pantoprazole Sodium (Protonix Ec Tab) 40 mg PO DAILY [facility] Last Admin: 06/25/16 08:14 Dose: 40 mg Pravastatin Sodium (Pravachol) 40 mg PO HS [facility] Last Admin: 06/24/16 22:01 Dose: 40 mg - Labs Labs: 06/25/16 09:55 06/25/16 05:57
[2016-06-25] MEDS: Insulin Detemir 100 Units/ml Inj SC SCH (21:40)
[2016-06-25] MEDS: Pravastatin Sodium 40 MG TAB PO SCH (21:52)
[2016-06-26] MEDS: Nitroglycerin 2% 15 INCH/30 GM TUBE TOP SCH ×4 (03:58→21:23)
[2016-06-26] MEDS: Insulin Lispro (humaLOG) 100 Units/ml Inj SC SCH ×7 (07:24→22:00)
[2016-06-26] MEDS: Bacitracin 500 Units/gm Oint Foilpak UD TOP SCH ×3 (08:26→16:30)
[2016-06-26] MEDS: Artificial Tears Opht Soln OU SCH ×3 (08:26→16:30)
[2016-06-26] MEDS: Enoxaparin 100 mg Syringe SC SCH (08:28)
[2016-06-26] MEDS: Pantoprazole 40 mg EC Tab PO SCH (08:29)
[2016-06-26] MEDS: Azithromycin 500 MG in Sodium Chloride 0.9% 250 ML IVPB SCH (08:30)
[2016-06-26 08:52] LABS: HEMATOCRIT 30.4 % (34.0-47.0); MEAN CORPUSCULAR HGB CONC 32.5 g/dL (33.0-37.0); WHITE BLOOD COUNT 14.4 K/uL (4.8-10.8)
[2016-06-26 08:58] LABS: PARTIAL THROMBOPLASTIN TIME 29.5 SECONDS (23.3-32.5)
[2016-06-26 09:03] LABS: MEAN CELL VOLUME 86.1 fl (81.0-99.0)
[2016-06-26 09:25] LABS: CALCIUM 8.5 mg/dL (8.4-10.2); POTASSIUM 3.2 MMOL/L (3.6-5.0); TOTAL PROTEIN 6.2 G/DL (6.3-8.2)
[2016-06-26 09:30] LABS: ALB/GLOB RATIO 0.6 (1.0-2.1)
--- NOTE | 2016-06-26 09:58 | CP.CCUPN ---
CCU Subjective - Physician Review Events Since Last Encounter (Free Text): 06/26/16 09:55 breathing a bit better, still on BiPAP, CXR still showing gross pulm edema, did diuriesed > 4 L yesterday on lasix , needs more, K this morning was 3.2, replaced and will continue high dose diuresis. Vitals, stable. CCU Objective - Vital Signs / Intake & Output Vital Signs (Last 4 hours): Vital Signs Temp Pulse Resp BP Pulse Ox 06/26/16 08:32 100.6 F H 06/26/16 08:27 89 06/26/16 08:00 100.6 F H 81 32 H 142/68 99 06/26/16 07:39 82 06/26/16 06:05 86 06/26/16 06:00 96 H 6 L 151/76 H 96 Intake and Output (Last 8hrs): Intake & Output 06/25/16 06/26/16 06/26/16 22:59 06:59 14:59 Intake Total 420 450 50 Output Total 1420 920 Balance -1000 -470 50 Weight 191 lb 9.6 oz Intake: Oral 420 450 50 Output: Urine 1420 920 Urethral (Prakash) 1420 920 - Physical Exam Narrative Physical Exam (Free Text): 06/26/16 09:57 P/E Neck: No JVD Lungs: Bilateral coarse crackles Abdomen: soft, non-tender Ext; + 1 edema heart: No gallop. - Medications Active Medications: Active Medications Generic Name Dose Route Start Last Admin Trade Name Freq PRN Reason Stop Dose Admin Acetaminophen 650 mg 06/21/16 16:20 06/26/16 08:32 Tylenol 325mg Tab PO 650 mg Q4 PRN Administration Fever >100.4 F Albuterol 2 puff 06/20/16 17:40 06/24/16 10:00 Ventolin Hfa 90 Mcg/Actuation (8 G) INH 2 unit RQ4 PRN Administration Shortness of Breath Albuterol/Ipratropium 3 ml 06/20/16 16:32 06/24/16 08:11 Duoneb 3 Mg/0.5 Mg (3 Ml) Ud INH 3 ml RQ4 PRN Administration Shortness of Breath Artificial Tears 1 drop 06/21/16 09:00 06/26/16 08:26 Artificial Tears OU 1 drop TID [facility] Administration Aspirin 81 mg 06/21/16 09:00 06/26/16 08:27 Ecotrin PO 81 mg DAILY [facility] Administration Bacitracin 1 ea 06/21/16 17:00 06/26/16 08:26 Bacitracin TOP 1 ea TID [facility] Administration Cyclobenzaprine HCl 10 mg 06/20/16 17:36 Flexeril PO HS PRN Muscle spasm Docusate Sodium 100 mg 06/20/16 22:00 06/25/16 21:39 Colace PO 100 mg HS [facility] Administration Enoxaparin Sodium 90 mg 06/25/16 09:53 06/26/16 08:28 Lovenox SC 90 mg DAILY [facility] Administration Protocol Furosemide 80 mg 06/26/16 17:00 Lasix IV BID [facility] Gabapentin 400 mg 06/21/16 17:00 06/26/16 08:28 Neurontin PO 400 mg TID [facility] Administration Ceftriaxone Sodium 1 gm/ 100 mls @ 100 mls/hr 06/24/16 11:30 06/26/16 08:29 Sodium Chloride IVPB 100 mls/hr DAILY [facility] Administration Azithromycin 500 mg/ Sodium 250 mls @ 250 mls/hr 06/25/16 09:00 06/26/16 08:30 Chloride IVPB 250 mls/hr DAILY [facility] Administration Insulin Detemir 26 units 06/25/16 22:00 06/25/16 21:40 Levemir SC 26 u HS [facility] Administration Insulin Human Lispro 0 units 06/20/16 16:30 06/26/16 07:24 Humalog SC Not Given ACHS [facility] Protocol Insulin Human Lispro 8 units 06/25/16 16:30 06/26/16 08:27 Humalog SC 8 u AC [facility] Administration Metoprolol Tartrate 12.5 mg 06/24/16 11:30 06/26/16 08:27 Lopressor PO 12.5 mg Q12 [facility] Administration Nitroglycerin 1 appl 06/24/16 16:00 06/26/16 03:58 Nitro-Bid TOP 1 appl Q6 [facility] Administration Pantoprazole Sodium 40 mg 06/21/16 09:00 06/26/16 08:29 Protonix Ec Tab PO 40 mg DAILY [facility] Administration Potassium Chloride 40 meq 06/26/16 10:00 Potassium Chloride Oral Soln PO DAILY [facility] Pravastatin Sodium 40 mg 06/20/16 22:00 06/25/16 21:52 Pravachol PO 40 mg HS [facility] Administration - Patient Studies Lab Studies: Microbiology Studies 06/21/16 12:33 Blood Culture - Preliminary Blood-Venous NO GROWTH AFTER 4 DAYS 06/21/16 12:33 Blood Culture - Preliminary Blood-Venous NO GROWTH AFTER 4 DAYS 06/24/16 15:34 Urine Culture - Preliminary Urine,Prakash No growth. Lab Studies 06/26/16 06/26/16 06/25/16 Range/Units 08:15 05:54 21:24 WBC 14.4 H (4.8-10.8) K/uL RBC 3.53 L (3.80-5.20) Mil/uL Hgb 9.9 L (12.0-16.0) g/dL Hct 30.4 L (34.0-47.0) % MCV 86.1 D (81.0-99.0) fl MCH 28.0 (27.0-31.0) pg MCHC 32.5 L (33.0-37.0) g/dL RDW 14.0 (11.5-14.5) % Plt Count 236 (130-400) K/uL PT 10.9 (9.6-11.2) SECONDS INR 1.05 (0.92-1.08) APTT 29.5 (23.3-32.5) SECONDS Sodium 140 (132-148) mmol/l Potassium 3.2 L (3.6-5.0) MMOL/L Chloride 102 (98-107) mmol/L Carbon Dioxide 25 (22-30) mmol/L Anion Gap 16 (10-20) BUN 25 H (7-17) mg/dl Creatinine 1.8 H (0.7-1.2) mg/dL Est GFR ( Amer) 35 Est GFR (Non-Af Amer) 29 POC Glucose (mg/dL) 82 132 H (65-110) mg/dL Random Glucose 63 L (65-105) mg/dL Calcium 8.5 (8.4-10.2) mg/dL Total Bilirubin 1.0 (0.2-1.3) mg/dl AST 67 H (14-36) U/L ALT 58 H D (9-52) U/L Alkaline Phosphatase 154 H (38-126) U/L Total Protein 6.2 L (6.3-8.2) G/DL Albumin 2.4 L (3.5-5.0) g/dL Globulin 3.7 (2.2-3.9) gm/dL Albumin/Globulin Ratio 0.6 L (1.0-2.1) 06/25/16 06/25/16 06/25/16 Range/Units 16:00 10:50 09:55 WBC 14.1 H (4.8-10.8) K/uL RBC 3.59 L (3.80-5.20) Mil/uL Hgb 10.0 L (12.0-16.0) g/dL Hct 31.7 L (34.0-47.0) % MCV 88.3 (81.0-99.0) fl MCH 27.9 (27.0-31.0) pg MCHC 31.6 L (33.0-37.0) g/dL RDW 15.4 H (11.5-14.5) % Plt Count 213 (130-400) K/uL PT (9.6-11.2) SECONDS INR (0.92-1.08) APTT (23.3-32.5) SECONDS Sodium (132-148) mmol/l Potassium (3.6-5.0) MMOL/L Chloride (98-107) mmol/L Carbon Dioxide (22-30) mmol/L Anion Gap (10-20) BUN (7-17) mg/dl Creatinine (0.7-1.2) mg/dL Est GFR ( Amer) Est GFR (Non-Af Amer) POC Glucose (mg/dL) 247 H 284 H (65-110) mg/dL Random Glucose (65-105) mg/dL Calcium (8.4-10.2) mg/dL Total Bilirubin (0.2-1.3) mg/dl AST (14-36) U/L ALT (9-52) U/L Alkaline Phosphatase (38-126) U/L Total Protein (6.3-8.2) G/DL Albumin (3.5-5.0) g/dL Globulin (2.2-3.9) gm/dL Albumin/Globulin Ratio (1.0-2.1) Laboratory Results - last 24 hr 04/06/25/16 06/25/16 09:55 10:50 16:00 WBC 14.1 H RBC 3.59 L Hgb 10.0 L Hct 31.7 L MCV 88.3 MCH 27.9 MCHC 31.6 L RDW 15.4 H Plt Count 213 PT INR APTT Sodium Potassium Chloride Carbon Dioxide Anion Gap BUN Creatinine Est GFR ( Amer) Est GFR (Non-Af Amer) POC Glucose (mg/dL) 284 H 247 H Random Glucose Calcium Total Bilirubin AST ALT Alkaline Phosphatase Total Protein Albumin Globulin Albumin/Globulin Ratio 06/25/16 06/26/16 06/26/16 21:24 05:54 08:15 WBC 14.4 H RBC 3.53 L Hgb 9.9 L Hct 30.4 L MCV 86.1 D MCH 28.0 MCHC 32.5 L RDW 14.0 Plt Count 236 PT 10.9 INR 1.05 APTT 29.5 Sodium 140 Potassium 3.2 L Chloride 102 Carbon Dioxide 25 Anion Gap 16 BUN 25 H Creatinine 1.8 H Est GFR ( Amer) 35 Est GFR (Non-Af Amer) 29 POC Glucose (mg/dL) 132 H 82 Random Glucose 63 L Calcium 8.5 Total Bilirubin 1.0 AST 67 H ALT 58 H D Alkaline Phosphatase 154 H Total Protein 6.2 L Albumin 2.4 L Globulin 3.7 Albumin/Globulin Ratio 0.6 L Fingerstick Blood Sugar Results: 82 Critical Care Progress Note - Nutrition Nutrition: Nutrition Category Date Time Status Heart Healthy Diet [DIET] Diets 06/20/16 Lunch Active Assessment/Plan - Assessment and Plan (Free Text) Assessment: CXR: worsening pulm edema and interstitial infiltrates ASSESSMENT: 1. Acute Resp Insufficiency 2 Pulm Edema and superimposed bilateral pneumonitis 2. NSTEMI 3. ERIKA 4. Uncontrolled DM II 5- Pulm edema, CHF exacerbation 6- Hypokalemia PLAN: 1. Continue BiPAP, will try to take her off later today after diuresing more 2. Broaden present empiric abx coverage, add atypical organism coverage. 3. Repeat serial trops. ECHO 4. Topical NTP for now. Already on ASA, statin, and beta blockers, . 5. Continue conservative treatment for AMI, no indication for card cath at this point, as per cardiology. 6. Lasix 80 mg IV BID 7- Kcl 40 meq po now and daily. .
[2016-06-26] MEDS: Potassium Chloride 20 mEq/15 ml LIQ UD PO SCH (10:19)
--- NOTE | 2016-06-26 10:43 | CP.PCM.PN ---
Subjective - Date & Time of Evaluation Date of Evaluation: 06/26/16 Time of Evaluation: 10:43 - Subjective Subjective: STILL DYSPNEIC ON MILD EXERTION ON HIGH FLOW O2--SAT-93% Objective - Vital Signs/Intake and Output Vital Signs (last 24 hours): Temp Pulse Resp BP Pulse Ox 98.6 F 89 32 H 142/68 99 06/26/16 09:32 06/26/16 08:27 06/26/16 08:00 06/26/16 08:00 06/26/16 08:00 Intake and Output: 06/26/16 06/26/16 06:59 18:59 Intake Total 650 50 Output Total 1240 Balance -590 50 - Medications Medications: Current Medications Acetaminophen (Tylenol 325mg Tab) 650 mg PO Q4 PRN PRN Reason: Fever >100.4 F Last Admin: 06/26/16 08:32 Dose: 650 mg Albuterol (Ventolin Hfa 90 Mcg/Actuation (8 G)) 2 puff INH RQ4 PRN PRN Reason: Shortness of Breath Last Admin: 06/24/16 10:00 Dose: 2 unit Albuterol/Ipratropium (Duoneb 3 Mg/0.5 Mg (3 Ml) Ud) 3 ml INH RQ4 PRN PRN Reason: Shortness of Breath Last Admin: 06/24/16 08:11 Dose: 3 ml Artificial Tears (Artificial Tears) 1 drop OU TID [facility] Last Admin: 06/26/16 08:26 Dose: 1 drop Aspirin (Ecotrin) 81 mg PO DAILY [facility] Last Admin: 06/26/16 08:27 Dose: 81 mg Bacitracin (Bacitracin) 1 ea TOP TID [facility] Last Admin: 06/26/16 08:26 Dose: 1 ea Cyclobenzaprine HCl (Flexeril) 10 mg PO HS PRN PRN Reason: Muscle spasm Docusate Sodium (Colace) 100 mg PO HS [facility] Last Admin: 06/25/16 21:39 Dose: 100 mg Enoxaparin Sodium (Lovenox) 90 mg SC DAILY [facility] PRN Reason: Protocol Last Admin: 06/26/16 08:28 Dose: 90 mg Furosemide (Lasix) 80 mg IV BID [facility] Gabapentin (Neurontin) 400 mg PO TID [facility] Last Admin: 06/26/16 08:28 Dose: 400 mg Ceftriaxone Sodium 1 gm/ (Sodium Chloride) 100 mls @ 100 mls/hr IVPB DAILY [facility] Last Admin: 06/26/16 08:29 Dose: 100 mls/hr Azithromycin 500 mg/ Sodium (Chloride) 250 mls @ 250 mls/hr IVPB DAILY [facility] Last Admin: 06/26/16 08:30 Dose: 250 mls/hr Insulin Detemir (Levemir) 26 units SC HS [facility] Last Admin: 06/25/16 21:40 Dose: 26 u Insulin Human Lispro (Humalog) 0 units SC [facility] PRN Reason: Protocol Last Admin: 06/26/16 07:24 Dose: Not Given Insulin Human Lispro (Humalog) 8 units SC AC [facility] Last Admin: 06/26/16 08:27 Dose: 8 u Metoprolol Tartrate (Lopressor) 12.5 mg PO Q12 [facility] Last Admin: 06/26/16 08:27 Dose: 12.5 mg Nitroglycerin (Nitro-Bid) 1 appl TOP Q6 [facility] Last Admin: 06/26/16 10:19 Dose: 1 appl Pantoprazole Sodium (Protonix Ec Tab) 40 mg PO DAILY [facility] Last Admin: 06/26/16 08:29 Dose: 40 mg Potassium Chloride (Potassium Chloride Oral Soln) 40 meq PO DAILY [facility] Last Admin: 06/26/16 10:19 Dose: 40 meq Pravastatin Sodium (Pravachol) 40 mg PO [facility] Last Admin: 06/25/16 21:52 Dose: 40 mg - Labs Labs: 06/26/16 08:15 06/26/16 08:15 PT 10.9 SECONDS (9.6-11.2) 06/26/16 08:15 INR 1.05 (0.92-1.08) 06/26/16 08:15 APTT 29.5 SECONDS (23.3-32.5) 06/26/16 08:15 - Constitutional Appears: Chronically Ill - Head Exam Head Exam: ATRAUMATIC, NORMAL INSPECTION, NORMOCEPHALIC - Eye Exam Eye Exam: EOMI, Normal appearance, PERRL Pupil Exam: NORMAL ACCOMODATION, PERRL - ENT Exam ENT Exam: Mucous Membranes Moist, Normal Exam - Neck Exam Neck Exam: Full ROM, Normal Inspection. absent: Lymphadenopathy - Respiratory Exam Respiratory Exam: Decreased Breath Sounds, Prolonged Expiratory Phase, Rales, NORMAL BREATHING PATTERN - Cardiovascular Exam Cardiovascular Exam: REGULAR RHYTHM, +S1, +S2. absent: Murmur - GI/Abdominal Exam GI & Abdominal Exam: Soft, Normal Bowel Sounds. absent: Tenderness - Rectal Exam Rectal Exam: NORMAL INSPECTION - Extremities Exam Extremities Exam: Full ROM, Normal Capillary Refill, Normal Inspection, Pedal Edema. absent: Joint Swelling - Back Exam Back Exam: NORMAL INSPECTION - Neurological Exam Neurological Exam: Alert, Awake, CN II-XII Intact, Oriented x3 - Psychiatric Exam Psychiatric exam: Normal Affect, Normal Mood - Skin Skin Exam: Dry, Intact, Normal Color, Warm Assessment and Plan - Assessment and Plan (Free Text) Assessment: PULMONARY EDEMA NSTEMI Plan: CONTINUE AGGRESSIVE DIURESES AND O2 CARDIAC FOLLOWUP
--- NOTE | 2016-06-26 13:02 | RAD ---
HISTORY: Pulmonary edema. COMPARISON: Multiple serial examinations preceding the most recent study: June 25, 2016. FINDINGS: LUNGS: Approximately stable pulmonary edema. PLEURA: No significant pleural effusion identified, no pneumothorax apparent. CARDIOVASCULAR: Normal size heart. OSSEOUS STRUCTURES: No significant abnormalities. VISUALIZED UPPER ABDOMEN: Normal. OTHER FINDINGS: None. IMPRESSION: Approximately stable pulmonary edema.
--- NOTE | 2016-06-26 13:44 | PN ---
DATE: 06/26/2016 In ICU room 432 This is a 61-year-old female with recent uncontrolled type 2 insulin-requiring diabetes, now being fo llowed closely for metabolic management. Her glycemic levels are fluctuating, but improved, and the latest chemistry showed a BUN of 25, sodiu m 140, potassium 3.2, chloride 102, CO2 25, glucose 63 and creatinine 1.8. Her glucose levels were a ctually low today, ranging from 55-82 mg/dL. It was 132-247 at bedtime last night. So at this time, we will modify her basal and bolus insulin regimen and lower the Humalog to 6 units t.i.d. before meals as given. We will also lower the Levemir to 20 units subQ at bedtime daily as gi pj. We will titrate incrementally as indicated to optimize metabolic control. We will follow. Natalia Castillo MD cc: [phone] TT: 06/26/2016 13:43:42 Confirmation # [id number] Dictation # [id number]
--- NOTE | 2016-06-26 13:58 | CP.PCM.PN ---
Subjective - Date & Time of Evaluation Date of Evaluation: 06/26/16 Time of Evaluation: 12:30 - Subjective Subjective: Patient feels better today but still SOB on exertion; sitting in chair with high flow O2 w/ sat. >93%; improved appetite; more alert; pleasant and cooperative vital signs: 142/68mmHg; resp. rate 32/min.; pulse 89bpm; temp 98.6F Lungs- dec., breath sounds b/l with crackles both bases Heart- regular S1, S2, no murmur Abd. - + BS, soft, NT Ext. no edema; less edema of hands 1. Pulmonary edema with super imposed b/l pneumonia 2. NSTEMI 3. ERIKA 4. Diabetes 5. Hypokalemia Received lasix 80mg iv this am; continues to diurese but at slower rate; potassium has been supplemented; plan transfer in am Objective - Vital Signs/Intake and Output Vital Signs (last 24 hours): Temp Pulse Resp BP Pulse Ox 98.1 F 70 19 106/54 L 97 06/26/16 12:38 06/26/16 12:00 06/26/16 13:15 06/26/16 12:00 06/26/16 12:00 Intake and Output: 06/26/16 06/26/16 06:59 18:59 Intake Total 650 760 Output Total 1240 Balance -590 760 - Medications Medications: Current Medications Acetaminophen (Tylenol 325mg Tab) 650 mg PO Q4 PRN PRN Reason: Fever >100.4 F Last Admin: 06/26/16 08:32 Dose: 650 mg Albuterol (Ventolin Hfa 90 Mcg/Actuation (8 G)) 2 puff INH RQ4 PRN PRN Reason: Shortness of Breath Last Admin: 06/24/16 10:00 Dose: 2 unit Albuterol/Ipratropium (Duoneb 3 Mg/0.5 Mg (3 Ml) Ud) 3 ml INH RQ4 PRN PRN Reason: Shortness of Breath Last Admin: 06/24/16 08:11 Dose: 3 ml Artificial Tears (Artificial Tears) 1 drop OU TID [facility] Last Admin: 06/26/16 12:50 Dose: 1 drop Aspirin (Ecotrin) 81 mg PO DAILY [facility] Last Admin: 06/26/16 08:27 Dose: 81 mg Bacitracin (Bacitracin) 1 ea TOP TID [facility] Last Admin: 06/26/16 12:50 Dose: 1 ea Cyclobenzaprine HCl (Flexeril) 10 mg PO HS PRN PRN Reason: Muscle spasm Docusate Sodium (Colace) 100 mg PO HS [facility] Last Admin: 06/25/16 21:39 Dose: 100 mg Enoxaparin Sodium (Lovenox) 90 mg SC DAILY [facility] PRN Reason: Protocol Last Admin: 06/26/16 08:28 Dose: 90 mg Furosemide (Lasix) 80 mg IV BID [facility] Last Admin: 06/26/16 11:05 Dose: 80 mg Gabapentin (Neurontin) 400 mg PO TID [facility] Last Admin: 06/26/16 12:50 Dose: 400 mg Ceftriaxone Sodium 1 gm/ (Sodium Chloride) 100 mls @ 100 mls/hr IVPB DAILY [facility] Last Admin: 06/26/16 08:29 Dose: 100 mls/hr Azithromycin 500 mg/ Sodium (Chloride) 250 mls @ 250 mls/hr IVPB DAILY [facility] Last Admin: 06/26/16 08:30 Dose: 250 mls/hr Insulin Detemir (Levemir) 26 units SC HS [facility] Last Admin: 06/25/16 21:40 Dose: 26 u Insulin Human Lispro (Humalog) 0 units SC ACHS [facility] PRN Reason: Protocol Last Admin: 06/26/16 11:04 Dose: Not Given Insulin Human Lispro (Humalog) 8 units SC AC [facility] Last Admin: 06/26/16 11:04 Dose: Not Given Metoprolol Tartrate (Lopressor) 12.5 mg PO Q12 [facility] Last Admin: 06/26/16 08:27 Dose: 12.5 mg Nitroglycerin (Nitro-Bid) 1 appl TOP Q6 [facility] Last Admin: 06/26/16 10:19 Dose: 1 appl Pantoprazole Sodium (Protonix Ec Tab) 40 mg PO DAILY [facility] Last Admin: 06/26/16 08:29 Dose: 40 mg Potassium Chloride (Potassium Chloride Oral Soln) 40 meq PO DAILY [facility] Last Admin: 06/26/16 10:19 Dose: 40 meq Pravastatin Sodium (Pravachol) 40 mg PO HS [facility] Last Admin: 06/25/16 21:52 Dose: 40 mg - Labs Labs: 06/26/16 08:15 06/26/16 08:15 PT 10.9 SECONDS (9.6-11.2) 06/26/16 08:15 INR 1.05 (0.92-1.08) 06/26/16 08:15 APTT 29.5 SECONDS (23.3-32.5) 06/26/16 08:15
--- NOTE | 2016-06-26 21:19 | CP.PCM.PN ---
Subjective - Date & Time of Evaluation Date of Evaluation: 06/26/16 Time of Evaluation: 12:00 - Subjective Subjective: patient is sitting in a chair. no current chest pain or dyspnea Objective - Vital Signs/Intake and Output Vital Signs (last 24 hours): Temp Pulse Resp BP Pulse Ox 98.9 F 72 28 H 142/63 100 06/26/16 20:00 06/26/16 20:00 06/26/16 20:00 06/26/16 20:00 06/26/16 18:00 Intake and Output: 06/26/16 06/27/16 18:59 06:59 Intake Total 880 Output Total 1300 400 Balance -420 -400 - Medications Medications: Current Medications Acetaminophen (Tylenol 325mg Tab) 650 mg PO Q4 PRN PRN Reason: Fever >100.4 F Last Admin: 06/26/16 08:32 Dose: 650 mg Albuterol (Ventolin Hfa 90 Mcg/Actuation (8 G)) 2 puff INH RQ4 PRN PRN Reason: Shortness of Breath Last Admin: 06/24/16 10:00 Dose: 2 unit Albuterol/Ipratropium (Duoneb 3 Mg/0.5 Mg (3 Ml) Ud) 3 ml INH RQ4 PRN PRN Reason: Shortness of Breath Last Admin: 06/24/16 08:11 Dose: 3 ml Artificial Tears (Artificial Tears) 1 drop OU TID [facility] Last Admin: 06/26/16 16:30 Dose: 1 drop Aspirin (Ecotrin) 81 mg PO DAILY [facility] Last Admin: 06/26/16 08:27 Dose: 81 mg Bacitracin (Bacitracin) 1 ea TOP TID [facility] Last Admin: 06/26/16 16:30 Dose: 1 ea Cyclobenzaprine HCl (Flexeril) 10 mg PO HS PRN PRN Reason: Muscle spasm Docusate Sodium (Colace) 100 mg PO HS [facility] Last Admin: 06/25/16 21:39 Dose: 100 mg Enoxaparin Sodium (Lovenox) 90 mg SC DAILY [facility] PRN Reason: Protocol Last Admin: 06/26/16 08:28 Dose: 90 mg Furosemide (Lasix) 80 mg IV BID [facility] Last Admin: 06/26/16 16:30 Dose: 80 mg Gabapentin (Neurontin) 400 mg PO TID [facility] Last Admin: 06/26/16 16:31 Dose: 400 mg Ceftriaxone Sodium 1 gm/ (Sodium Chloride) 100 mls @ 100 mls/hr IVPB DAILY [facility] Last Admin: 06/26/16 08:29 Dose: 100 mls/hr Azithromycin 500 mg/ Sodium (Chloride) 250 mls @ 250 mls/hr IVPB DAILY [facility] Last Admin: 06/26/16 08:30 Dose: 250 mls/hr Insulin Detemir (Levemir) 26 units SC [facility] Last Admin: 06/25/16 21:40 Dose: 26 u Insulin Human Lispro (Humalog) 0 units SC ACHS [facility] PRN Reason: Protocol Last Admin: 06/26/16 16:30 Dose: Not Given Insulin Human Lispro (Humalog) 8 units SC AC [facility] Last Admin: 06/26/16 16:30 Dose: Not Given Metoprolol Tartrate (Lopressor) 12.5 mg PO Q12 [facility] Last Admin: 06/26/16 08:27 Dose: 12.5 mg Nitroglycerin (Nitro-Bid) 1 appl TOP Q6 [facility] Last Admin: 06/26/16 16:31 Dose: 1 appl Pantoprazole Sodium (Protonix Ec Tab) 40 mg PO DAILY [facility] Last Admin: 06/26/16 08:29 Dose: 40 mg Potassium Chloride (Potassium Chloride Oral Soln) 40 meq PO DAILY [facility] Last Admin: 06/26/16 10:19 Dose: 40 meq Pravastatin Sodium (Pravachol) 40 mg PO [facility] Last Admin: 06/25/16 21:52 Dose: 40 mg - Labs Labs: 06/26/16 08:15 06/26/16 08:15 PT 10.9 SECONDS (9.6-11.2) 06/26/16 08:15 INR 1.05 (0.92-1.08) 06/26/16 08:15 APTT 29.5 SECONDS (23.3-32.5) 06/26/16 08:15 - Constitutional Appears: Non-toxic - Head Exam Head Exam: NORMAL INSPECTION - Eye Exam Eye Exam: Normal appearance - ENT Exam ENT Exam: Mucous Membranes Moist - Neck Exam Neck Exam: Full ROM - Respiratory Exam Respiratory Exam: Decreased Breath Sounds - Cardiovascular Exam Cardiovascular Exam: REGULAR RHYTHM - GI/Abdominal Exam GI & Abdominal Exam: Normal Bowel Sounds - Rectal Exam Rectal Exam: Deferred - Extremities Exam Extremities Exam: Pedal Edema - Back Exam Back Exam: NORMAL INSPECTION - Neurological Exam Neurological Exam: Alert - Psychiatric Exam Psychiatric exam: Normal Affect - Skin Skin Exam: Normal Color Assessment and Plan (1) Non-STEMI (non-ST elevated myocardial infarction) Assessment & Plan: troponin decreasing. no current chest pain. patient has underlying CAD. will continue conservative therapy as creatinine conintues to improve. will discuss with Dr. Naylor further management options. Status: Acute (2) Diabetes Assessment & Plan: risk factor for CAD Status: Acute (3) CAD (coronary artery disease) Assessment & Plan: antiplatelet therapy. Status: Acute (4) Renal insufficiency Assessment & Plan: monitor creatinine. Status: Acute
[2016-06-26] MEDS: Pravastatin Sodium 40 MG TAB PO SCH (21:23)
[2016-06-26] MEDS: Insulin Detemir 100 Units/ml Inj SC SCH (22:00)
[2016-06-27] MEDS: Nitroglycerin 2% 15 INCH/30 GM TUBE TOP SCH ×4 (04:15→21:37)
[2016-06-27] MEDS: Insulin Lispro (humaLOG) 100 Units/ml Inj SC SCH ×7 (06:42→21:34)
[2016-06-27 08:12] LABS: BASO % 0.4 % (0.0-2.0); EOS # 0.5 K/uL (0.0-0.7); EOS % 4.3 % (0.0-4.0); HEMATOCRIT 31.8 % (34.0-47.0); LYMPH # 0.9 K/uL (1.0-4.3); LYMPH % 6.7 % (20.0-40.0); MEAN CELL VOLUME 85.7 fl (81.0-99.0); MEAN CORPUSCULAR HEMOGLOBIN 28.9 pg (27.0-31.0); MEAN CORPUSCULAR HGB CONC 33.7 g/dL (33.0-37.0); MEAN PLATELET VOLUME 11.3 fl (7.2-11.7); MONO # 0.6 K/uL (0.0-0.8); MONO % 4.8 % (0.0-10.0); NEUT # 10.6 K/uL (1.8-7.0); NEUT % 83.8 % (50.0-75.0); NRBC % 0.1 % (0.0-0.0); PLATELET COUNT 306 K/uL (130-400); RED CELL DISTRIBUTION WIDTH 14.6 % (11.5-14.5); WHITE BLOOD COUNT 12.7 K/uL (4.8-10.8)
[2016-06-27 08:21] LABS: ALB/GLOB RATIO 0.7 (1.0-2.1); BILIRUBIN,TOTAL 0.7 mg/dl (0.2-1.3); CALCIUM 8.6 mg/dL (8.4-10.2); POTASSIUM 3.3 MMOL/L (3.6-5.0); TOTAL PROTEIN 6.4 G/DL (6.3-8.2)
[2016-06-27] MEDS: Enoxaparin 100 mg Syringe SC SCH (08:26)
[2016-06-27] MEDS: Potassium Chloride 20 mEq/15 ml LIQ UD PO SCH (08:28)
[2016-06-27] MEDS: Pantoprazole 40 mg EC Tab PO SCH (08:30)
[2016-06-27] MEDS: Bacitracin 500 Units/gm Oint Foilpak UD TOP SCH ×3 (08:32→16:32)
[2016-06-27 08:36] LABS: TROPONIN I 0.283 ng/mL (0.00-0.120)
[2016-06-27] MEDS: Artificial Tears Opht Soln OU SCH ×3 (08:51→16:35)
[2016-06-27] MEDS: Azithromycin 500 MG in Sodium Chloride 0.9% 250 ML IVPB SCH (09:30)
--- NOTE | 2016-06-27 09:31 | CP.PCM.PN ---
Subjective - Date & Time of Evaluation Date of Evaluation: 06/27/16 Time of Evaluation: 09:31 - Subjective Subjective: SOB LESS NO CHEST PAINS Objective - Vital Signs/Intake and Output Vital Signs (last 24 hours): Temp Pulse Resp BP Pulse Ox 98.2 F 68 20 145/64 100 06/27/16 08:00 06/27/16 08:29 06/27/16 08:27 06/27/16 08:29 06/27/16 08:00 Intake and Output: 06/27/16 06/27/16 06:59 18:59 Intake Total 370 4 Output Total 1900 Balance -1530 4 - Medications Medications: Current Medications Acetaminophen (Tylenol 325mg Tab) 650 mg PO Q4 PRN PRN Reason: Fever >100.4 F Last Admin: 06/26/16 21:25 Dose: 650 mg Albuterol (Ventolin Hfa 90 Mcg/Actuation (8 G)) 2 puff INH RQ4 PRN PRN Reason: Shortness of Breath Last Admin: 06/24/16 10:00 Dose: 2 unit Albuterol/Ipratropium (Duoneb 3 Mg/0.5 Mg (3 Ml) Ud) 3 ml INH RQ4 PRN PRN Reason: Shortness of Breath Last Admin: 06/24/16 08:11 Dose: 3 ml Artificial Tears (Artificial Tears) 1 drop OU TID [facility] Last Admin: 06/27/16 08:51 Dose: 1 drop Aspirin (Ecotrin) 81 mg PO DAILY [facility] Last Admin: 06/27/16 08:29 Dose: 81 mg Bacitracin (Bacitracin) 1 ea TOP TID [facility] Last Admin: 06/27/16 08:32 Dose: 1 ea Cyclobenzaprine HCl (Flexeril) 10 mg PO HS PRN PRN Reason: Muscle spasm Docusate Sodium (Colace) 100 mg PO HS [facility] Last Admin: 06/26/16 21:21 Dose: 100 mg Enoxaparin Sodium (Lovenox) 90 mg SC DAILY [facility] PRN Reason: Protocol Last Admin: 06/27/16 08:26 Dose: 90 mg Furosemide (Lasix) 80 mg IV BID [facility] Last Admin: 06/27/16 08:23 Dose: 80 mg Gabapentin (Neurontin) 400 mg PO TID [facility] Last Admin: 06/27/16 08:27 Dose: 400 mg Ceftriaxone Sodium 1 gm/ (Sodium Chloride) 100 mls @ 100 mls/hr IVPB DAILY [facility] Last Admin: 06/27/16 08:30 Dose: 100 mls/hr Azithromycin 500 mg/ Sodium (Chloride) 250 mls @ 250 mls/hr IVPB DAILY [facility] Last Admin: 06/26/16 08:30 Dose: 250 mls/hr Insulin Detemir (Levemir) 20 units SC HS [facility] Insulin Human Lispro (Humalog) 0 units SC ACHS [facility] PRN Reason: Protocol Last Admin: 06/27/16 06:42 Dose: Not Given Insulin Human Lispro (Humalog) 6 units SC AC [facility] Last Admin: 06/27/16 08:51 Dose: Not Given Metoprolol Tartrate (Lopressor) 12.5 mg PO Q12 [facility] Last Admin: 06/27/16 08:29 Dose: 12.5 mg Nitroglycerin (Nitro-Bid) 1 appl TOP Q6 [facility] Last Admin: 06/26/16 21:23 Dose: 1 appl Pantoprazole Sodium (Protonix Ec Tab) 40 mg PO DAILY [facility] Last Admin: 06/27/16 08:30 Dose: 40 mg Potassium Chloride (Potassium Chloride Oral Soln) 40 meq PO DAILY [facility] Last Admin: 06/27/16 08:28 Dose: 40 meq Pravastatin Sodium (Pravachol) 40 mg PO HS [facility] Last Admin: 06/26/16 21:23 Dose: 40 mg - Labs Labs: 06/27/16 07:45 06/27/16 07:45 PT 10.9 SECONDS (9.6-11.2) 06/26/16 08:15 INR 1.05 (0.92-1.08) 06/26/16 08:15 APTT 29.5 SECONDS (23.3-32.5) 06/26/16 08:15 - Constitutional Appears: Chronically Ill - Head Exam Head Exam: ATRAUMATIC, NORMAL INSPECTION, NORMOCEPHALIC - Eye Exam Eye Exam: EOMI, Normal appearance, PERRL Pupil Exam: NORMAL ACCOMODATION, PERRL - ENT Exam ENT Exam: Mucous Membranes Moist, Normal Exam - Neck Exam Neck Exam: Full ROM, Normal Inspection. absent: Lymphadenopathy - Respiratory Exam Respiratory Exam: Decreased Breath Sounds, Rales Additional comments: ON HIGH FLOW O2 - Cardiovascular Exam Cardiovascular Exam: REGULAR RHYTHM, +S1, +S2. absent: Murmur - GI/Abdominal Exam GI & Abdominal Exam: Soft, Normal Bowel Sounds. absent: Tenderness - Rectal Exam Rectal Exam: NORMAL INSPECTION - Extremities Exam Extremities Exam: Full ROM, Normal Capillary Refill, Normal Inspection, Pedal Edema. absent: Joint Swelling - Back Exam Back Exam: NORMAL INSPECTION - Neurological Exam Neurological Exam: Alert, Awake, CN II-XII Intact, Normal Gait, Oriented x3 - Psychiatric Exam Psychiatric exam: Normal Affect, Normal Mood - Skin Skin Exam: Dry, Intact, Normal Color, Warm Assessment and Plan - Assessment and Plan (Free Text) Assessment: ACUTE RESP FAILURE PULMONARY EDEMA ACUTE [place] RENAL FAILURE RHABDOMYOLYSIS Plan: CONTINUE PRESENT RX
--- NOTE | 2016-06-27 10:38 | CP.PCM.PN ---
Subjective - Date & Time of Evaluation Date of Evaluation: 06/27/16 Time of Evaluation: 09:15 - Subjective Subjective: patient resting comfortably this am; no c/o chest pain; SOB on exertion vital signs stable Lungs- dec. breath sounds b/l with rhonchi Heart- regular S1,S2, no murmur Abd. - + BS, soft, nontender Ext - no LE edema 1. Pulmonary Edema 2. NSTEMI 3. ERIKA 4. Rhabdomyolysis 5. Diabetes continuing diuresis; output 1,200cc so far today; troponin levels are decreasing ; physical therapy ordered; Dr. Castillo adjusted insulin Objective - Vital Signs/Intake and Output Vital Signs (last 24 hours): Temp Pulse Resp BP Pulse Ox 98.2 F 75 26 H 118/60 100 06/27/16 08:00 06/27/16 10:00 06/27/16 10:00 06/27/16 10:00 06/27/16 10:00 Intake and Output: 06/27/16 06/27/16 06:59 18:59 Intake Total 370 224 Output Total 1900 Balance -1530 224 - Medications Medications: Current Medications Acetaminophen (Tylenol 325mg Tab) 650 mg PO Q4 PRN PRN Reason: Fever >100.4 F Last Admin: 06/26/16 21:25 Dose: 650 mg Albuterol (Ventolin Hfa 90 Mcg/Actuation (8 G)) 2 puff INH RQ4 PRN PRN Reason: Shortness of Breath Last Admin: 06/24/16 10:00 Dose: 2 unit Albuterol/Ipratropium (Duoneb 3 Mg/0.5 Mg (3 Ml) Ud) 3 ml INH RQ4 PRN PRN Reason: Shortness of Breath Last Admin: 06/24/16 08:11 Dose: 3 ml Artificial Tears (Artificial Tears) 1 drop OU TID [facility] Last Admin: 06/27/16 08:51 Dose: 1 drop Aspirin (Ecotrin) 81 mg PO DAILY [facility] Last Admin: 06/27/16 08:29 Dose: 81 mg Bacitracin (Bacitracin) 1 ea TOP TID [facility] Last Admin: 06/27/16 08:32 Dose: 1 ea Cyclobenzaprine HCl (Flexeril) 10 mg PO HS PRN PRN Reason: Muscle spasm Docusate Sodium (Colace) 100 mg PO HS [facility] Last Admin: 06/26/16 21:21 Dose: 100 mg Enoxaparin Sodium (Lovenox) 90 mg SC DAILY [facility] PRN Reason: Protocol Last Admin: 06/27/16 08:26 Dose: 90 mg Furosemide (Lasix) 80 mg IV BID [facility] Last Admin: 06/27/16 08:23 Dose: 80 mg Gabapentin (Neurontin) 400 mg PO TID [facility] Last Admin: 06/27/16 08:27 Dose: 400 mg Ceftriaxone Sodium 1 gm/ (Sodium Chloride) 100 mls @ 100 mls/hr IVPB DAILY [facility] Last Admin: 06/27/16 08:30 Dose: 100 mls/hr Azithromycin 500 mg/ Sodium (Chloride) 250 mls @ 250 mls/hr IVPB DAILY [facility] Last Admin: 06/27/16 09:30 Dose: 250 mls/hr Insulin Detemir (Levemir) 20 units SC HS [facility] Insulin Human Lispro (Humalog) 0 units SC ACHS [facility] PRN Reason: Protocol Last Admin: 06/27/16 06:42 Dose: Not Given Insulin Human Lispro (Humalog) 6 units SC AC [facility] Last Admin: 06/27/16 08:51 Dose: Not Given Metoprolol Tartrate (Lopressor) 12.5 mg PO Q12 [facility] Last Admin: 06/27/16 08:29 Dose: 12.5 mg Nitroglycerin (Nitro-Bid) 1 appl TOP Q6 [facility] Last Admin: 06/26/16 21:23 Dose: 1 appl Pantoprazole Sodium (Protonix Ec Tab) 40 mg PO DAILY [facility] Last Admin: 06/27/16 08:30 Dose: 40 mg Potassium Chloride (Potassium Chloride Oral Soln) 40 meq PO DAILY [facility] Last Admin: 06/27/16 08:28 Dose: 40 meq Pravastatin Sodium (Pravachol) 40 mg PO HS [facility] Last Admin: 06/26/16 21:23 Dose: 40 mg - Labs Labs: 06/27/16 07:45 06/27/16 07:45 PT 10.9 SECONDS (9.6-11.2) 06/26/16 08:15 INR 1.05 (0.92-1.08) 06/26/16 08:15 APTT 29.5 SECONDS (23.3-32.5) 06/26/16 08:15
--- NOTE | 2016-06-27 10:48 | RAD ---
PROCEDURE: CHEST RADIOGRAPH, 1 VIEW. Technique: Single view portable erect @ 9 HISTORY: CHF COMPARISON: Multiple serial examinations preceding the most recent study: June 26, 2016. FINDINGS: LUNGS: Stable pulmonary edema PLEURA: No pneumothorax or pleural fluid seen. CARDIOVASCULAR: No significant interval change compared to the prior examination(s). OSSEOUS STRUCTURES: No significant abnormalities. VISUALIZED UPPER ABDOMEN: Normal. OTHER FINDINGS: None. IMPRESSION: Stable pulmonary edema.
[2016-06-27 11:15] LABS: EOSINOPHIL 4 % (0-7); NEUTROPHIL 86 % (42-75); TOTAL CELLS COUNTED 100
[2016-06-27 11:16] LABS: LARGE PLATELETS PRESENT
[2016-06-27 11:17] LABS: PLATELET CLUMPS PRESENT
--- NOTE | 2016-06-27 15:26 | CP.CCUPN ---
CCU Subjective - Physician Review Events Since Last Encounter (Free Text): 06/27/16 15:32 The Patient was seen and examined at the bedside, Medical records reviewed, all clinical/lab/hemodynamic/radiographic data were reviewed and management issues were discussed and formulated, Events reviewed Doing better today, still requiring High flow nasal canula but FIO2 requirements down to 35% @ 20L/minute Last 24H I&O 1250/3200 (-1950) Pt. awake and alert, Afebrile Denies chest pain/SOB, No fever/chills Rt. femoral TLC discontinued today and PIV inserted CCU Objective - Vital Signs / Intake & Output Vital Signs (Last 4 hours): Vital Signs Temp Pulse Resp BP Pulse Ox 06/27/16 14:00 69 24 100/50 L 97 06/27/16 12:00 98 F 72 20 124/57 L 99 06/27/16 11:30 24 Intake and Output (Last 8hrs): Intake & Output 06/27/16 06/27/16 06/27/16 06:59 14:59 22:59 Intake Total 120 474 Output Total 1200 1300 Balance -1080 -826 Weight 177 lb Intake: IV 4 Intake, Piggyback 350 Oral 120 120 Output: Urine 1200 1300 Urethral (Prakash) 1200 1300 - Physical Exam Physical Exam Limitations: Positive for: Clinical Condition Head: Positive for: Atraumatic, Normocephalic. Negative for: Tenderness Pupils: Positive for: PERRL Extroacular Muscles: Positive for: EOMI Conjunctiva: Positive for: Normal Ears: Positive for: Normal Mouth: Positive for: Moist Mucous Membranes Nose (Internal): Positive for: Normal Inspection Neck: Positive for: Normal Range of Motion, Trachea Midline. Negative for: Meningeal Signs, MIDLINE TENDERNESS, Paraspinal Tenderness, JVD, Lymphadenopathy , Bruit, Other Respiratory/Chest: Positive for: Decreased Breath Sounds, Rales, Rhonchi. Negative for: Clear to Auscultation, Respiratory Distress, Accessory Muscle Use Cardiovascular: Positive for: Regular Rate and Rhythm, Normal S1, S2, Peripheal Pulses Present. Negative for: Murmurs, Irregular Rhythm Abdomen: Positive for: Normal Bowel Sounds. Negative for: Tenderness, Distention, Peritoneal Signs Upper Extremity: Positive for: Normal Inspection, Capillary Refill < 2s. Negative for: Cyanosis, Edema Lower Extremity: Positive for: Edema, Capillary Refill < 2 s. Negative for: CALF TENDERNESS - Medications Active Medications: Active Medications Generic Name Dose Route Start Last Admin Trade Name Freq PRN Reason Stop Dose Admin Acetaminophen 650 mg 06/21/16 16:20 06/26/16 21:25 Tylenol 325mg Tab PO 650 mg Q4 PRN Administration Fever >100.4 F Albuterol 2 puff 06/20/16 17:40 06/24/16 10:00 Ventolin Hfa 90 Mcg/Actuation (8 G) INH 2 unit RQ4 PRN Administration Shortness of Breath Albuterol/Ipratropium 3 ml 06/20/16 16:32 06/24/16 08:11 Duoneb 3 Mg/0.5 Mg (3 Ml) Ud INH 3 ml RQ4 PRN Administration Shortness of Breath Artificial Tears 1 drop 06/21/16 09:00 06/27/16 13:07 Artificial Tears OU 1 drop TID [facility] Administration Aspirin 81 mg 06/21/16 09:00 06/27/16 08:29 Ecotrin PO 81 mg DAILY [facility] Administration Bacitracin 1 ea 06/21/16 17:00 06/27/16 13:07 Bacitracin TOP 1 ea TID [facility] Administration Cyclobenzaprine HCl 10 mg 06/20/16 17:36 Flexeril PO HS PRN Muscle spasm Docusate Sodium 100 mg 06/20/16 22:00 06/26/16 21:21 Colace PO 100 mg HS [facility] Administration Enoxaparin Sodium 90 mg 06/25/16 09:53 06/27/16 08:26 Lovenox SC 90 mg DAILY [facility] Administration Protocol Furosemide 80 mg 06/28/16 09:00 Lasix IV DAILY [facility] Gabapentin 400 mg 06/21/16 17:00 06/27/16 13:11 Neurontin PO 400 mg TID [facility] Administration Ceftriaxone Sodium 1 gm/ 100 mls @ 100 mls/hr 06/24/16 11:30 06/27/16 08:30 Sodium Chloride IVPB 100 mls/hr DAILY [facility] Administration Azithromycin 500 mg/ Sodium 250 mls @ 250 mls/hr 06/25/16 09:00 06/27/16 09:30 Chloride IVPB 250 mls/hr DAILY [facility] Administration Insulin Detemir 20 units 06/27/16 22:00 Levemir SC HS [facility] Insulin Human Lispro 0 units 06/20/16 16:30 06/27/16 11:30 Humalog SC Not Given ACHS [facility] Protocol Insulin Human Lispro 6 units 06/27/16 07:30 06/27/16 11:30 Humalog SC 6 units AC [facility] Administration Metoprolol Tartrate 12.5 mg 06/24/16 11:30 06/27/16 08:29 Lopressor PO 12.5 mg Q12 [facility] Administration Nitroglycerin 1 appl 06/24/16 16:00 06/27/16 10:36 Nitro-Bid TOP Not Given Q6 [facility] Pantoprazole Sodium 40 mg 06/21/16 09:00 06/27/16 08:30 Protonix Ec Tab PO 40 mg DAILY [facility] Administration Potassium Chloride 40 meq 06/26/16 10:00 06/27/16 08:28 Potassium Chloride Oral Soln PO 40 meq DAILY [facility] Administration Pravastatin Sodium 40 mg 06/20/16 22:00 06/26/16 21:23 Pravachol PO 40 mg HS [facility] Administration - Patient Studies Lab Studies: Microbiology Studies 06/24/16 20:37 MRSA Culture (Admit) - Final Naris MRSA NOT DETECTED 06/21/16 12:33 Blood Culture - Final Blood-Venous NO GROWTH AFTER 5 DAYS Gram Stain - Final TEST NOT PERFORMED 06/21/16 12:33 Blood Culture - Final Blood-Venous NO GROWTH AFTER 5 DAYS Gram Stain - Final TEST NOT PERFORMED Lab Studies 06/27/16 06/27/16 06/27/16 Range/Units 14:37 11:45 07:45 WBC 12.7 H (4.8-10.8) K/uL RBC 3.71 L (3.80-5.20) Mil/uL Hgb 10.7 L (12.0-16.0) g/dL Hct 31.8 L (34.0-47.0) % MCV 85.7 (81.0-99.0) fl MCH 28.9 (27.0-31.0) pg MCHC 33.7 (33.0-37.0) g/dL RDW 14.6 H (11.5-14.5) % Plt Count 306 (130-400) K/uL MPV 11.3 (7.2-11.7) fl Neut % (Auto) 83.8 H (50.0-75.0) % Lymph % (Auto) 6.7 L (20.0-40.0) % Summers % (Auto) 4.8 (0.0-10.0) % Eos % (Auto) 4.3 H (0.0-4.0) % Baso % (Auto) 0.4 (0.0-2.0) % Neut # 10.6 H (1.8-7.0) K/uL Lymph # 0.9 L (1.0-4.3) K/uL Summers # 0.6 (0.0-0.8) K/uL Eos # 0.5 (0.0-0.7) K/uL Baso # 0.0 (0.0-0.2) K/uL Neutrophils % (Manual) 86 H (42-75) % Lymphocytes % (Manual) 6 L (20-50) % Monocytes % (Manual) 4 (0-10) % Eosinophils % (Manual) 4 (0-7) % Platelet Estimate Normal (NORMAL) Plt Clumps, EDTA Present Large Platelets Present Hypochromasia (manual) Slight Sodium 142 (132-148) mmol/l Potassium 3.3 L (3.6-5.0) MMOL/L Chloride 99 (98-107) mmol/L Carbon Dioxide 27 (22-30) mmol/L Anion Gap 19 (10-20) BUN 33 H (7-17) mg/dl Creatinine 2.3 H (0.7-1.2) mg/dL Est GFR ( Amer) 26 Est GFR (Non-Af Amer) 22 POC Glucose (mg/dL) 130 H 144 H (65-110) mg/dL Random Glucose 95 (65-105) mg/dL Calcium 8.6 (8.4-10.2) mg/dL Total Bilirubin 0.7 (0.2-1.3) mg/dl AST 82 H D (14-36) U/L ALT 61 H (9-52) U/L Alkaline Phosphatase 182 H (38-126) U/L Troponin I 0.2830 H* (0.00-0.120) ng/mL Total Protein 6.4 (6.3-8.2) G/DL Albumin 2.6 L (3.5-5.0) g/dL Globulin 3.9 (2.2-3.9) gm/dL Albumin/Globulin Ratio 0.7 L (1.0-2.1) Mycoplasma pneumon IgG (<=0.90) Mycoplasma pneumon IgM (<770) U/mL 06/27/16 06/27/16 06/26/16 Range/Units 06:33 00:44 21:58 WBC (4.8-10.8) K/uL RBC (3.80-5.20) Mil/uL Hgb (12.0-16.0) g/dL Hct (34.0-47.0) % MCV (81.0-99.0) fl MCH (27.0-31.0) pg MCHC (33.0-37.0) g/dL RDW (11.5-14.5) % Plt Count (130-400) K/uL MPV (7.2-11.7) fl Neut % (Auto) (50.0-75.0) % Lymph % (Auto) (20.0-40.0) % Summers % (Auto) (0.0-10.0) % Eos % (Auto) (0.0-4.0) % Baso % (Auto) (0.0-2.0) % Neut # (1.8-7.0) K/uL Lymph # (1.0-4.3) K/uL Summers # (0.0-0.8) K/uL Eos # (0.0-0.7) K/uL Baso # (0.0-0.2) K/uL Neutrophils % (Manual) (42-75) % Lymphocytes % (Manual) (20-50) % Monocytes % (Manual) (0-10) % Eosinophils % (Manual) (0-7) % Platelet Estimate (NORMAL) Plt Clumps, EDTA Large Platelets Hypochromasia (manual) Sodium (132-148) mmol/l Potassium (3.6-5.0) MMOL/L Chloride (98-107) mmol/L Carbon Dioxide (22-30) mmol/L Anion Gap (10-20) BUN (7-17) mg/dl Creatinine (0.7-1.2) mg/dL Est GFR ( Amer) Est GFR (Non-Af Amer) POC Glucose (mg/dL) 95 128 H 68 (65-110) mg/dL Random Glucose (65-105) mg/dL Calcium (8.4-10.2) mg/dL Total Bilirubin (0.2-1.3) mg/dl AST (14-36) U/L ALT (9-52) U/L Alkaline Phosphatase (38-126) U/L Troponin I (0.00-0.120) ng/mL Total Protein (6.3-8.2) G/DL Albumin (3.5-5.0) g/dL Globulin (2.2-3.9) gm/dL Albumin/Globulin Ratio (1.0-2.1) Mycoplasma pneumon IgG (<=0.90) Mycoplasma pneumon IgM (<770) U/mL 06/26/16 06/26/16 06/24/16 Range/Units 16:28 12:34 15:09 WBC (4.8-10.8) K/uL RBC (3.80-5.20) Mil/uL Hgb (12.0-16.0) g/dL Hct (34.0-47.0) % MCV (81.0-99.0) fl MCH (27.0-31.0) pg MCHC (33.0-37.0) g/dL RDW (11.5-14.5) % Plt Count (130-400) K/uL MPV (7.2-11.7) fl Neut % (Auto) (50.0-75.0) % Lymph % (Auto) (20.0-40.0) % Summers % (Auto) (0.0-10.0) % Eos % (Auto) (0.0-4.0) % Baso % (Auto) (0.0-2.0) % Neut # (1.8-7.0) K/uL Lymph # (1.0-4.3) K/uL Summers # (0.0-0.8) K/uL Eos # (0.0-0.7) K/uL Baso # (0.0-0.2) K/uL Neutrophils % (Manual) (42-75) % Lymphocytes % (Manual) (20-50) % Monocytes % (Manual) (0-10) % Eosinophils % (Manual) (0-7) % Platelet Estimate (NORMAL) Plt Clumps, EDTA Large Platelets Hypochromasia (manual) Sodium (132-148) mmol/l Potassium (3.6-5.0) MMOL/L Chloride (98-107) mmol/L Carbon Dioxide (22-30) mmol/L Anion Gap (10-20) BUN (7-17) mg/dl Creatinine (0.7-1.2) mg/dL Est GFR ( Amer) Est GFR (Non-Af Amer) POC Glucose (mg/dL) 94 51 L (65-110) mg/dL Random Glucose (65-105) mg/dL Calcium (8.4-10.2) mg/dL Total Bilirubin (0.2-1.3) mg/dl AST (14-36) U/L ALT (9-52) U/L Alkaline Phosphatase (38-126) U/L Troponin I (0.00-0.120) ng/mL Total Protein (6.3-8.2) G/DL Albumin (3.5-5.0) g/dL Globulin (2.2-3.9) gm/dL Albumin/Globulin Ratio (1.0-2.1) Mycoplasma pneumon IgG 3.99 H (<=0.90) Mycoplasma pneumon IgM 69 (<770) U/mL Laboratory Results - last 24 hr 06/24/16 06/26/16 06/26/16 15:09 12:34 16:28 WBC RBC Hgb Hct MCV MCH MCHC RDW Plt Count MPV Neut % (Auto) Lymph % (Auto) Summers % (Auto) Eos % (Auto) Baso % (Auto) Neut # Lymph # Summers # Eos # Baso # Neutrophils % (Manual) Lymphocytes % (Manual) Monocytes % (Manual) Eosinophils % (Manual) Platelet Estimate Plt Clumps, EDTA Large Platelets Hypochromasia (manual) Sodium Potassium Chloride Carbon Dioxide Anion Gap BUN Creatinine Est GFR ( Amer) Est GFR (Non-Af Amer) POC Glucose (mg/dL) 51 L 94 Random Glucose Calcium Total Bilirubin AST ALT Alkaline Phosphatase Troponin I Total Protein Albumin Globulin Albumin/Globulin Ratio Mycoplasma pneumon IgG 3.99 H Mycoplasma pneumon IgM 69 06/26/16 06/27/16 06/27/16 21:58 00:44 06:33 WBC RBC Hgb Hct MCV MCH MCHC RDW Plt Count MPV Neut % (Auto) Lymph % (Auto) Summers % (Auto) Eos % (Auto) Baso % (Auto) Neut # Lymph # Summers # Eos # Baso # Neutrophils % (Manual) Lymphocytes % (Manual) Monocytes % (Manual) Eosinophils % (Manual) Platelet Estimate Plt Clumps, EDTA Large Platelets Hypochromasia (manual) Sodium Potassium Chloride Carbon Dioxide Anion Gap BUN Creatinine Est GFR ( Amer) Est GFR (Non-Af Amer) POC Glucose (mg/dL) 68 128 H 95 Random Glucose Calcium Total Bilirubin AST ALT Alkaline Phosphatase Troponin I Total Protein Albumin Globulin Albumin/Globulin Ratio Mycoplasma pneumon IgG Mycoplasma pneumon IgM 06/27/16 06/27/16 06/27/16 07:45 11:45 14:37 WBC 12.7 H RBC 3.71 L Hgb 10.7 L Hct 31.8 L MCV 85.7 MCH 28.9 MCHC 33.7 RDW 14.6 H Plt Count 306 MPV 11.3 Neut % (Auto) 83.8 H Lymph % (Auto) 6.7 L Summers % (Auto) 4.8 Eos % (Auto) 4.3 H Baso % (Auto) 0.4 Neut # 10.6 H Lymph # 0.9 L Summers # 0.6 Eos # 0.5 Baso # 0.0 Neutrophils % (Manual) 86 H Lymphocytes % (Manual) 6 L Monocytes % (Manual) 4 Eosinophils % (Manual) 4 Platelet Estimate Normal Plt Clumps, EDTA Present Large Platelets Present Hypochromasia (manual) Slight Sodium 142 Potassium 3.3 L Chloride 99 Carbon Dioxide 27 Anion Gap 19 BUN 33 H Creatinine 2.3 H Est GFR ( Amer) 26 Est GFR (Non-Af Amer) 22 POC Glucose (mg/dL) 144 H 130 H Random Glucose 95 Calcium 8.6 Total Bilirubin 0.7 AST 82 H D ALT 61 H Alkaline Phosphatase 182 H Troponin I 0.2830 H* Total Protein 6.4 Albumin 2.6 L Globulin 3.9 Albumin/Globulin Ratio 0.7 L Mycoplasma pneumon IgG Mycoplasma pneumon IgM Fingerstick Blood Sugar Results: 144 Review of Systems - Cardiovascular Cardiovascular: absent: Chest Pain, Chest Pain at Rest, Chest Pain with Activity - Respiratory Respiratory: absent: Cough, Dyspnea, Hemoptysis Critical Care Progress Note - Nutrition Nutrition: Nutrition Category Date Time Status Heart Healthy Diet [DIET] Diets 06/20/16 Lunch Active Assessment/Plan (1) Acute pulmonary edema Current Visit: Yes Status: Acute (2) Non-STEMI (non-ST elevated myocardial infarction) Current Visit: Yes Status: Acute (3) ERIKA (acute kidney injury) Current Visit: Yes Status: Acute (4) Bilateral pneumonia Current Visit: Yes Status: Acute (5) Rhabdomyolysis Current Visit: Yes Status: Acute - Assessment and Plan (Free Text) Assessment: - Continue meds, reviewed - IV Diuresis, Lasix switched to once daily - Continue Antibiotics with IV Ceftriaxone and Zithromax - O2 supplement - Keep MAP 65-75 - Strict I&Os - Bronchodilator Nebs RQ4 PRN - Aggressive Pulmonary toilets - Pulmonary follow up - Prakash for strict I/O's during acute illness - ASA, BB, Metoprolol - PPX measures: Enoxaparin, Pantoprazole
--- NOTE | 2016-06-27 16:03 | PN ---
DATE: 06/27/2016 In ICU, room 432. This is a 61-year-old female with recent uncontrolled type 2 insulin-requiring diabetes, now being fo llowed closely for metabolic management. Her glycemic levels are fluctuating, but much improved at this time and the latest glucose levels hav e ranged from 130-144 mg/dL today and it was 95-128 last night as noted. Her latest chemistry showed a BUN of 33, sodium 142, potassium 3.3, chloride 99, CO2 , glucose and creatinine 2.3. So at this time, we will continue the modified basal and bolus insulin regimen as given with Humalog given as 6 units subQ t.i.d. before meals as ordered. We will also continue the Levemir given as 20 units subQ at bedtime daily as given. We will titrate incrementally as indicated to optimize metabol ic control. We will follow and advise accordingly. Natalia Castillo MD cc: [id number] TT: 06/27/2016 16:03:00 Confirmation # [id number] Dictation # [id number]
[2016-06-27] MEDS: Insulin Detemir 100 Units/ml Inj SC SCH (21:36)
[2016-06-27] MEDS: Pravastatin Sodium 40 MG TAB PO SCH (21:38)
[2016-06-28] MEDS: Nitroglycerin 2% 15 INCH/30 GM TUBE TOP SCH ×4 (04:44→22:01)
[2016-06-28 05:26] LABS: HEMATOCRIT 31.9 % (34.0-47.0); MEAN CELL VOLUME 86.1 fl (81.0-99.0); MEAN CORPUSCULAR HEMOGLOBIN 28.7 pg (27.0-31.0); MEAN CORPUSCULAR HGB CONC 33.4 g/dL (33.0-37.0); RED CELL DISTRIBUTION WIDTH 14.4 % (11.5-14.5); WHITE BLOOD COUNT 10.8 K/uL (4.8-10.8)
[2016-06-28 05:34] LABS: ALB/GLOB RATIO 0.7 (1.0-2.1); BILIRUBIN,TOTAL 0.5 mg/dl (0.2-1.3); CALCIUM 8.8 mg/dL (8.4-10.2); POTASSIUM 3.3 MMOL/L (3.6-5.0); TOTAL PROTEIN 6.3 G/DL (6.3-8.2)
[2016-06-28] MEDS: Multivitamin With Minerals Tab PO SCH (08:15)
[2016-06-28] MEDS: Pantoprazole 40 mg EC Tab PO SCH (08:15)
[2016-06-28] MEDS: Bacitracin 500 Units/gm Oint Foilpak UD TOP SCH ×3 (08:16→16:09)
[2016-06-28] MEDS: Artificial Tears Opht Soln OU SCH ×3 (08:16→16:09)
[2016-06-28] MEDS: Potassium Chloride 20 mEq/15 ml LIQ UD PO SCH (08:18)
[2016-06-28] MEDS: Enoxaparin 100 mg Syringe SC SCH (08:18)
[2016-06-28] MEDS: Insulin Lispro (humaLOG) 100 Units/ml Inj SC SCH ×7 (08:38→21:59)
[2016-06-28] MEDS: Azithromycin 500 MG in Sodium Chloride 0.9% 250 ML IVPB SCH (08:58)
--- NOTE | 2016-06-28 11:43 | PN ---
DATE: 06/28/2016 LOCATION: The patient in ICU, bed 434. TIME SPENT: 35 minutes. Seen and evaluated at the bedside. Events since admission reviewed. Past medical, surgical, social history Reviewed. A 61-year-old female admitted after being found unresponsive on the floor, rhabdomyolysis, treated wi th IV hydration, went into pulmonary edema, respiratory failure on BiPAP, status post diuresis with L asix, responded well, off BiPAP, now on high flow oxygen. Remains alert, awake, follows commands yrn ropriate. No distress noted. Denies shortness of breath, no palpitation, no chest pain, no abdomina l pain, no dysuria. PHYSICAL EXAMINATION: VITAL SIGNS: Temperature 98.5, heart rate 72 and regular, respiratory rate 25, thoracoabdominal, blo od pressure 134/64, pulse oximetry 96% on high flow oxygen at 35%. HEENT: Pupils are reactive. Conjunctivae are pink. Sclerae are white. CHEST: Bilateral breath sounds. Fine crepitations at the base. HEART: Rhythm regular. S1, S2 normal intensity. Peripheral pulses are intact. ABDOMEN: Bowel sounds present. Soft, nontender. EXTREMITIES: No palpable cord. No edema. NEUROLOGIC: Nonfocal. LABORATORY DATA: WBC 10.8, hemoglobin 10.6, hematocrit 31.9, platelet count 327. PT 10.9, INR 1.05, PTT 29.5. SMA-7: Sodium 140, potassium 3.3, chloride 101, CO2 27, blood urea nitrogen 37, creatini ne 2.5, glucose 123. Random glucose 113, AST 74, ALT 54, alkaline phosphatase 177, total protein 6.3 , albumin 2.7. Urinalysis: RBC 4, microscopic, WBC 3. Influenza A and B are negative. CURRENT MEDICATIONS: Include albuterol-Atrovent inhalation every 4 hours, Tylenol 650 p.o. q. 4 p.r. n. for temperature more than 100.4, aspirin 81 mg daily, artificial tears 1 drop both eyes 3 times da christopher, bacitracin 1 inch topically 3 times daily, ceftriaxone 1 gram IV daily, cyclobenzaprine 10 mg p. o. at bedtime p.r.n., Colace 100 mg p.o. at bedtime, Lovenox 90 subQ daily, Lasix 80 IV daily, Neuron tin 400 mg 3 times daily, Levemir 20 units subQ at night, Humalog insulin as per sliding scale, metop rolol 12.5 mg q. 12, multivitamin tablet 1 tablet p.o. daily, Protonix 40 p.o. daily, Pravachol 40 mg p.o. at bedtime. IMPRESSION AND PLAN: Status post acute pulmonary edema, non-ST elevated myocardial infarction, seen by cardiology consult, suspected coronary artery disease, currently on aspirin 81 mg daily, metoprolo l 12.5 mg p.o. q. 12, Nitro-BID 1 application topically q. 6 hours, acute on chronic renal insufficie ncy, improving BUN and creatinine. Continue Lasix for diuresis. Diabetes mellitus type 2, on Levemi r and sliding scale, diabetes neuropathy, on gabapentin. Continue deep venous thrombosis and g astrointestinal prophylaxis. Further discussion with cardiology regarding future cardiac catheteriza tion. Awaiting cardiology input. Continue with the current medications. Wean off high flow oxygen as tolerated to nasal cannula to maintain oxygen saturation above 94%. Willie Birmingham MD cc: [phone] TT: 06/28/2016 11:42:44 Confirmation # [id number] Dictation # [id number] ayesha
--- NOTE | 2016-06-28 13:43 | PQF GENQUE ---
Dr. Lott, Please specify the type and acuity of heart failure in your progress notes: 1. TYPE: Combined systolic and diastolic Diastolic Systolic Other (please specify) Unable to determine Unknown 2. ACUITY: Acute Chronic Acute on chronic Other (please specify) Unable to determine Unknown H and P: absent to date 06/24/2016:Attending progress note: night; cxr revealed b/l pulm. infiltrates c/ w CHF/fluid overload with superimposed b/l pneumonitis 06/26 Critical Care note; still showing gross pulm edema, did diuriesed > 4 L yesterday on Lasix: Assessment includes: 5- Pulm edema, CHF exacerbation 06/24/2016 Echo: Conclusion> Poor Echo window The left ventricle is normal size. There is borderline concentric left ventricular hypertrophy. The left ventricular function is normal. The left ventricular ejection fraction is within the normal range. There is normal LV segmental wall motion. Transmitral Doppler flow pattern is Grade I-abnormal relaxation pattern. 06/24/2016: Pro BNP:[id number] This form is a permanent part of the medical record Clarification of your documentation is requested to better reflect the severity of illness and intensity of treatment of your patient. Indicators present [] Specify: [] [] Specify: [] [] Specify: [] [] Specify: [] Location in the medical record that reflects the above clinical findings: [] Treatment Provided: [] PHYSICIAN'S RESPONSE Based on your medical judgment of the clinical indicators outlined above please clarify the following: [] Practitioner response [] If unable to determine, please check the box, sign and date. Present On Admission (POA) Indicator: [] Present at the time of admission [] Not present at the time of admission [] Clinically Undetermined In responding to this query, please exercise your independent professional judgment. The fact that a question is asked does not imply that any particular answer is desired or expected. Thank you for your clarification on this documentation. If you have any questions please call. Glenna Hutson RN BSN ext. #[phone] MTDD
--- NOTE | 2016-06-28 18:01 | HP ---
CHIEF COMPLAINT: generalized muscle pain and weakness; confusion HISTORY OF PRESENT ILLNESS: This is a 61-year-old female who states that on the evening of 06/18/16, she fell out of bed and was unable to get up. She was discovered by her home health aide 06/19/2016. She complained generalized muscle pain and weakness and severe back pain involving her entire back and left shoulder as well as abrasions of the right knee and right elbow. She denied any chest pain, shortness of breath, or palpitations. She was pleasant and cooperative, but sometimes confused. At the ER she was noted to have a blood glucose of 412mg/dl, BUN of 38mg/dl, creatinine 1.7mg/dl, potassium was 6.0mmol/L. She had a white count of 12.3K/ UL. Her creatine kinase was 967 u/ L. She received 10 units regular insulin at the ER; Kayexalate 15 g, as well as sodium bicarbonate 44.6 mEq in 50 mL of normal saline. She also received 1 amp of dextrose and 500 mL of normal saline at the ER. PAST MEDICAL HISTORY: Coronary artery disease, 2 stents were placed in 2012, insulin-dependent diabetes, hypertension, chronic kidney disease, lumbosacral disk disease, COPD, glaucoma; she is legally blind due to complications from uncontrolled diabetes. PAST SURGICAL HISTORY: section x 2, surgery by Dr. Buchanan for diabetic foot ulcers which have now healed; cholecystectomy; b/l cataract surgery ALLERGY: Dilaudid; food allergy-shrimp OBSTETRICAL HISTORY: [id number]. MEDICATION: atenolol 50mg daily; coated aspirin 81mg daily; pravastatin 40mg q hs; Flexeril 10 mg at bedtime as needed, Percocet 10/325 one tablet every 6 hours p.r.n. pain, Neurontin 800 mg q. 8 hours, omeprazole 40 mg daily 1/2 hour before breakfast, Levemir 20 units subcutaneous every a.m., Levemir 50 units subcutaneous at bedtime, NovoLog insulin 8 units subcutaneous before breakfast and lunch, 14 units NovoLog subcutaneous with dinner, Bactrim 400/80 one tablet twice a day, Restasis 1 drop each eye q. 12 hours. SOCIAL HISTORY: Smoked 1 pack of cigarettes daily for over 25 years, but quit smoking approximately 3 years ago. FAMILY HISTORY: Father had a history of diabetes, COPD, and coronary artery disease. Mother had a history of diabetes, as well as coronary artery disease. The patient has 4 brothers and 4 sisters with a history of diabetes and coronary artery disease. REVIEW OF SYSTEMS: Unremarkable except as mentioned above. PHYSICAL EXAMINATION: GENERAL: This is a 61-year-old female lying in bed, restless and somewhat confused but cooperative. VITAL SIGNS: At the ER at 4 p.m., 06/20/2016, blood pressure 152/71mmHg, respiratory rate 20 respirations per minute, pulse rate 69 beats per minute, temperature 97.8, pulse ox 100%, normal sinus rhythm. SKIN: Warm, dry. HEENT: Atraumatic, normocephalic. Anicteric sclerae. Pupils equal, round, reactive to light and accommodation. NECK: Supple. No jugular venous distention. No lymphadenopathy. HEART: Regular S1, S2. No murmur. LUNGS: Decreased breath sounds bilaterally. ABDOMEN: + bowel sounds, soft, nontender;lower abdomen midline approximately 2- 1/2 inches x 1 inch erythematous lesion with scab and slight purulent discharge. EXTREMITIES: No cyanosis, clubbing, or edema. LABORATORY DATA: WBC is 12.3, hemoglobin 13.5, hematocrit 42.4, platelets 214. Sodium 141, potassium 6.0, chloride 103, CO2 of 20, BUN 38, creatinine 1.7, blood glucose 412 mg/dL. IMPRESSION: 1. Rhabdomyolysis. 2. Dehydration. 3. Uncontrolled diabetes. 4. Hyperkalemia. 5. Acute kidney injury. 6. Chronic obstructive pulmonary disease. 7. Coronary artery disease. 8. Hypertension. 9. Lower Abdominal Abscess PLAN: The patient was transferred to [address] [place] [address]. Normal saline will be continued at 125 mL an hour and will be titrated as needed. Endocrinology referral with Dr. Lucero has been ordered; metabolic panel as well as CK will be repeated in 6 hours. Compressive pneumatic devices have been ordered for DVT prophylaxis. Physical therapy for mobility has also been ordered. I's and O's as well as CBC and phosphorus level have also been ordered for the morning. The patient will continue with Bactrim 400/80 one tablet twice a day, as well as Bactroban ointment applied 3 times a day for management of lower abdominal abscess. Keturah Lott MD cc: [id number] TT: 06/28/2016 18:00:50 dn MTDShan
[2016-06-28] MEDS: Insulin Detemir 100 Units/ml Inj SC SCH (22:00)
[2016-06-28] MEDS: Pravastatin Sodium 40 MG TAB PO SCH (22:01)
--- NOTE | 2016-06-28 22:11 | CP.PCM.PN ---
Subjective - Date & Time of Evaluation Date of Evaluation: 06/28/16 Time of Evaluation: 21:15 - Subjective Subjective: Patient resting comfortably in bed; alert and oriented; cooperative Vital Signs Stable Lungs- dec. breath sounds b/l; rhonchi Heart- regular S1, S2, no murmur Abd. - +BS, soft, NT Ext. - no edema 1. pulmonary edema 2. b/l pneumonia 3. ERIKA 4. rhabdomyolysis 5. Diabetes Lasix 80mg iv once today; I=1,430cc and O=1,500cc; continuing Rocephin and Azithromycin; physical therapy daily for mobility; plan transfer Objective - Vital Signs/Intake and Output Vital Signs (last 24 hours): Temp Pulse Resp BP Pulse Ox 98.4 F 73 22 103/55 L 100 06/28/16 20:00 06/28/16 20:00 06/28/16 20:00 06/28/16 20:00 06/28/16 20:00 Intake and Output: 06/28/16 06/29/16 18:59 06:59 Intake Total 1430 Output Total 1500 Balance -70 - Medications Medications: Current Medications Acetaminophen (Tylenol 325mg Tab) 650 mg PO Q4 PRN PRN Reason: Fever >100.4 F Last Admin: 06/27/16 19:42 Dose: 650 mg Albuterol (Ventolin Hfa 90 Mcg/Actuation (8 G)) 2 puff INH RQ4 PRN PRN Reason: Shortness of Breath Last Admin: 06/24/16 10:00 Dose: 2 unit Albuterol/Ipratropium (Duoneb 3 Mg/0.5 Mg (3 Ml) Ud) 3 ml INH RQ4 PRN PRN Reason: Shortness of Breath Last Admin: 06/24/16 08:11 Dose: 3 ml Artificial Tears (Artificial Tears) 1 drop OU TID NELLA Last Admin: 06/28/16 16:09 Dose: 1 drop Aspirin (Ecotrin) 81 mg PO DAILY [facility] Last Admin: 06/28/16 08:15 Dose: 81 mg Bacitracin (Bacitracin) 1 ea TOP TID [facility] Last Admin: 06/28/16 16:09 Dose: 1 ea Cyclobenzaprine HCl (Flexeril) 10 mg PO HS PRN PRN Reason: Muscle spasm Last Admin: 06/27/16 21:35 Dose: 10 mg Docusate Sodium (Colace) 100 mg PO HS [facility] Last Admin: 06/27/16 21:33 Dose: 100 mg Enoxaparin Sodium (Lovenox) 90 mg SC DAILY [facility] PRN Reason: Protocol Last Admin: 06/28/16 08:18 Dose: 90 mg Furosemide (Lasix) 80 mg IV DAILY [facility] Last Admin: 06/28/16 08:16 Dose: 80 mg Gabapentin (Neurontin) 400 mg PO TID [facility] Last Admin: 06/28/16 16:09 Dose: 400 mg Ceftriaxone Sodium 1 gm/ (Sodium Chloride) 100 mls @ 100 mls/hr IVPB DAILY [facility] Last Admin: 06/28/16 08:11 Dose: 100 mls/hr Azithromycin 500 mg/ Sodium (Chloride) 250 mls @ 250 mls/hr IVPB DAILY [facility] Last Admin: 06/28/16 08:58 Dose: 250 mls/hr Insulin Detemir (Levemir) 20 units SC HS [facility] Last Admin: 06/27/16 21:36 Dose: 20 units Insulin Human Lispro (Humalog) 0 units SC ACHS [facility] PRN Reason: Protocol Last Admin: 06/28/16 16:11 Dose: Not Given Insulin Human Lispro (Humalog) 6 units SC AC [facility] Last Admin: 06/28/16 16:10 Dose: 6 units Metoprolol Tartrate (Lopressor) 12.5 mg PO Q12 [facility] Last Admin: 06/28/16 08:57 Dose: 12.5 mg Multivitamins/Minerals (Therapeutic-M Tab) 1 tab PO DAILY [facility] Last Admin: 06/28/16 08:15 Dose: 1 tab Nitroglycerin (Nitro-Bid) 1 appl TOP Q6 [facility] Last Admin: 06/28/16 16:09 Dose: 1 appl Pantoprazole Sodium (Protonix Ec Tab) 40 mg PO DAILY [facility] Last Admin: 06/28/16 08:15 Dose: 40 mg Potassium Chloride (Potassium Chloride Oral Soln) 40 meq PO DAILY [facility] Last Admin: 06/28/16 08:18 Dose: 40 meq Pravastatin Sodium (Pravachol) 40 mg PO HS [facility] Last Admin: 06/27/16 21:38 Dose: 40 mg - Labs Labs: 06/28/16 04:40 06/28/16 04:40 PT 10.9 SECONDS (9.6-11.2) 06/26/16 08:15 INR 1.05 (0.92-1.08) 06/26/16 08:15 APTT 29.5 SECONDS (23.3-32.5) 06/26/16 08:15
--- NOTE | 2016-06-29 07:07 | PN ---
DATE: 06/28/2016 LOCATION: ICU, room 432. This is a 61-year-old female with recent ____ bilateral ____ elevated ____ and is now being followed closely for metabolic management ____. Her oral intake is quite variable and ____ over the last ____ glucose levels ____ between 123-148 and ____ mg/dL. ____ BUN of 10 ____ potassium 3.3, chloride ___ _ glucose 13 ____. So at this time, will ____ the dose ____. Will continue the current ____ and bolus ____. Will chadwick nue regimen given as ____ units ____ and Levemir given as 20 units subQ at bedtime ____. ____ treatm ent plan ____. Will follow up. Natalia Castillo MD cc: [phone] TT: 06/28/2016 16:51:05 Confirmation # [id number] Dictation # [id number] breana
[2016-06-29 07:11] LABS: HEMATOCRIT 33.8 % (34.0-47.0); MEAN CELL VOLUME 86.5 fl (81.0-99.0); MEAN CORPUSCULAR HEMOGLOBIN 28.5 pg (27.0-31.0); MEAN CORPUSCULAR HGB CONC 32.9 g/dL (33.0-37.0); RED CELL DISTRIBUTION WIDTH 14.4 % (11.5-14.5); WHITE BLOOD COUNT 10.2 K/uL (4.8-10.8)
[2016-06-29 07:22] LABS: CALCIUM 8.8 mg/dL (8.4-10.2); POTASSIUM 3.5 MMOL/L (3.6-5.0)
[2016-06-29] MEDS: Azithromycin 500 MG in Sodium Chloride 0.9% 250 ML IVPB SCH (08:19)
[2016-06-29] MEDS: Artificial Tears Opht Soln OU SCH ×3 (08:23→15:59)
[2016-06-29] MEDS: Potassium Chloride 20 mEq/15 ml LIQ UD PO SCH (08:24)
[2016-06-29] MEDS: Multivitamin With Minerals Tab PO SCH (08:26)
[2016-06-29] MEDS: Bacitracin 500 Units/gm Oint Foilpak UD TOP SCH ×3 (08:26→15:59)
[2016-06-29] MEDS: Pantoprazole 40 mg EC Tab PO SCH (08:26)
[2016-06-29] MEDS: Insulin Lispro (humaLOG) 100 Units/ml Inj SC SCH ×7 (08:27→21:58)
[2016-06-29] MEDS: Enoxaparin 100 mg Syringe SC SCH (08:28)
[2016-06-29] MEDS: Nitroglycerin 2% 15 INCH/30 GM TUBE TOP SCH ×3 (09:20→21:54)
--- NOTE | 2016-06-29 09:21 | CP.PCM.PN ---
Subjective - Date & Time of Evaluation Date of Evaluation: 06/29/16 Time of Evaluation: 09:21 - Subjective Subjective: still weak but clinically improving sob less Objective - Vital Signs/Intake and Output Vital Signs (last 24 hours): Temp Pulse Resp BP Pulse Ox 98.5 F 68 22 118/58 L 100 06/29/16 08:00 06/29/16 08:00 06/29/16 08:25 06/29/16 08:25 06/29/16 08:00 Intake and Output: 06/29/16 06/29/16 06:59 18:59 Intake Total 250 50 Output Total 1300 Balance -1050 50 - Medications Medications: Current Medications Acetaminophen (Tylenol 325mg Tab) 650 mg PO Q4 PRN PRN Reason: Fever >100.4 F Last Admin: 06/27/16 19:42 Dose: 650 mg Albuterol (Ventolin Hfa 90 Mcg/Actuation (8 G)) 2 puff INH RQ4 PRN PRN Reason: Shortness of Breath Last Admin: 06/24/16 10:00 Dose: 2 unit Albuterol/Ipratropium (Duoneb 3 Mg/0.5 Mg (3 Ml) Ud) 3 ml INH RQ4 PRN PRN Reason: Shortness of Breath Last Admin: 06/24/16 08:11 Dose: 3 ml Artificial Tears (Artificial Tears) 1 drop OU TID [facility] Last Admin: 06/29/16 08:23 Dose: 1 drop Aspirin (Ecotrin) 81 mg PO DAILY [facility] Last Admin: 06/29/16 08:26 Dose: 81 mg Bacitracin (Bacitracin) 1 ea TOP TID [facility] Last Admin: 06/29/16 08:26 Dose: 1 ea Cyclobenzaprine HCl (Flexeril) 10 mg PO HS PRN PRN Reason: Muscle spasm Last Admin: 06/27/16 21:35 Dose: 10 mg Docusate Sodium (Colace) 100 mg PO HS [facility] Last Admin: 06/28/16 21:59 Dose: 100 mg Enoxaparin Sodium (Lovenox) 90 mg SC DAILY [facility] PRN Reason: Protocol Last Admin: 06/29/16 08:28 Dose: 90 mg Furosemide (Lasix) 80 mg IV DAILY [facility] Last Admin: 06/29/16 08:25 Dose: 80 mg Gabapentin (Neurontin) 400 mg PO TID [facility] Last Admin: 06/29/16 08:24 Dose: 400 mg Ceftriaxone Sodium 1 gm/ (Sodium Chloride) 100 mls @ 100 mls/hr IVPB DAILY [facility] Last Admin: 06/28/16 08:11 Dose: 100 mls/hr Azithromycin 500 mg/ Sodium (Chloride) 250 mls @ 250 mls/hr IVPB DAILY [facility] Last Admin: 06/29/16 08:19 Dose: 250 mls/hr Insulin Detemir (Levemir) 20 units SC HS [facility] Last Admin: 06/28/16 22:00 Dose: 20 units Insulin Human Lispro (Humalog) 0 units SC ACHS [facility] PRN Reason: Protocol Last Admin: 06/28/16 21:59 Dose: Not Given Insulin Human Lispro (Humalog) 6 units SC AC [facility] Last Admin: 06/29/16 08:27 Dose: 6 units Metoprolol Tartrate (Lopressor) 12.5 mg PO Q12 [facility] Last Admin: 06/28/16 22:00 Dose: Not Given Multivitamins/Minerals (Therapeutic-M Tab) 1 tab PO DAILY [facility] Last Admin: 06/29/16 08:26 Dose: 1 tab Nitroglycerin (Nitro-Bid) 1 appl TOP Q6 [facility] Last Admin: 06/28/16 22:01 Dose: Not Given Pantoprazole Sodium (Protonix Ec Tab) 40 mg PO DAILY [facility] Last Admin: 06/29/16 08:26 Dose: 40 mg Potassium Chloride (Potassium Chloride Oral Soln) 40 meq PO DAILY [facility] Last Admin: 06/29/16 08:24 Dose: 40 meq Pravastatin Sodium (Pravachol) 40 mg PO [facility] Last Admin: 06/28/16 22:01 Dose: 40 mg - Labs Labs: 06/29/16 06:40 06/29/16 06:40 PT 10.9 SECONDS (9.6-11.2) 06/26/16 08:15 INR 1.05 (0.92-1.08) 06/26/16 08:15 APTT 29.5 SECONDS (23.3-32.5) 06/26/16 08:15 - Constitutional Appears: Well - Head Exam Head Exam: ATRAUMATIC, NORMAL INSPECTION, NORMOCEPHALIC - Eye Exam Eye Exam: EOMI, Normal appearance, PERRL Pupil Exam: NORMAL ACCOMODATION, PERRL - ENT Exam ENT Exam: Mucous Membranes Moist, Normal Exam - Neck Exam Neck Exam: Full ROM, Normal Inspection. absent: Lymphadenopathy - Respiratory Exam Respiratory Exam: Decreased Breath Sounds, Rales, NORMAL BREATHING PATTERN - Cardiovascular Exam Cardiovascular Exam: REGULAR RHYTHM, +S1, +S2. absent: Murmur - GI/Abdominal Exam GI & Abdominal Exam: Soft, Normal Bowel Sounds. absent: Tenderness - Rectal Exam Rectal Exam: NORMAL INSPECTION - Extremities Exam Extremities Exam: Full ROM, Normal Capillary Refill, Normal Inspection. absent : Joint Swelling, Pedal Edema - Back Exam Back Exam: NORMAL INSPECTION - Neurological Exam Neurological Exam: Alert, Awake, CN II-XII Intact, Normal Gait, Oriented x3 - Psychiatric Exam Psychiatric exam: Normal Affect, Normal Mood - Skin Skin Exam: Dry, Intact, Normal Color, Warm Assessment and Plan - Assessment and Plan (Free Text) Assessment: respiratory failure--improving cxr findings persist ashd Plan: continue present rx ok to transfer to tele if approved by pmd
--- NOTE | 2016-06-29 11:18 | CP.PCM.CON ---
History of Present Illness - History of Present Illness History of Present Illness: This patient who is 61 years old I was called to see her for abnormal kidney function. Patient was admitted for 2016 when she was fond in the floor according to the history and she was brought to the emergency room with high CPK at the time and diagnosed to have rhabdomyolysis. Also the history from the emergency room indicates she has history of chronic kidney disease diabetes mellitus and she has also abscess or infection in the suprapubic area. Past medical history as mentioned patient is not giving good history but the chart and indicated diabetes mellitus and possibly chronic kidney disease And throughout the course of the hospitalization patient was given intravenous fluid and also she developedCHF and she started on IV diuretics as well. Review of Systems - Constitutional Constitutional: As Per HPI - EENT Eyes: As Per HPI Nose/Mouth/Throat: As Per HPI - Cardiovascular Cardiovascular: Dyspnea. absent: Chest Pain, Leg Edema - Respiratory Respiratory: Cough, Dyspnea - Gastrointestinal Gastrointestinal: absent: Abdominal Pain, Coffee Ground Emesis - Genitourinary Genitourinary: Nocturia - Musculoskeletal Musculoskeletal: Muscle Weakness Past Patient History - Infectious Disease Hx of Infectious Diseases: None - Past Medical History & Family History Past Medical History?: Yes - Past Social History Smoking Status: Never Smoked - CARDIAC Hx Congestive Heart Failure: No Hx Hypercholesterolemia: No Hx Hypertension: Yes - PULMONARY Hx Chronic Obstructive Pulmonary Disease (COPD): No - NEUROLOGICAL Hx Neurological Disorder: No HX Cerebrovascular Accident: No - HEENT Hx HEENT Problems: No - RENAL Hx Chronic Kidney Disease: No - ENDOCRINE/METABOLIC Hx Hypothyroidism: No - HEMATOLOGICAL/ONCOLOGICAL Hx Human Immunodeficiency Virus (HIV): No - INTEGUMENTARY Hx Dermatological Problems: No - MUSCULOSKELETAL/RHEUMATOLOGICAL Hx Arthritis: No Hx Falls: Yes Hx Rheumatoid Arthritis: No - GASTROINTESTINAL Hx Gastrointestinal Disorders: No - GENITOURINARY/GYNECOLOGICAL Hx Genitourinary Disorders: No - SURGICAL HISTORY Hx Cholecystectomy: Yes Hx Coronary Stent: Yes - ANESTHESIA Hx Anesthesia: Yes Hx Anesthesia Reactions: No Hx Malignant Hyperthermia: No Meds Allergies/Adverse Reactions: Allergies Allergy/AdvReac Type Severity Reaction Status Date / Time hydromorphone HCl Allergy ANAPHYLAXIS Verified 09/16/15 12:14 [From Dilaudid] shrimp Allergy VOMITING Verified 09/16/15 12:35 - Medications Medications: Current Medications Acetaminophen (Tylenol 325mg Tab) 650 mg PO Q4 PRN PRN Reason: Fever >100.4 F Last Admin: 06/27/16 19:42 Dose: 650 mg Albuterol (Ventolin Hfa 90 Mcg/Actuation (8 G)) 2 puff INH RQ4 PRN PRN Reason: Shortness of Breath Last Admin: 06/24/16 10:00 Dose: 2 unit Albuterol/Ipratropium (Duoneb 3 Mg/0.5 Mg (3 Ml) Ud) 3 ml INH RQ4 PRN PRN Reason: Shortness of Breath Last Admin: 06/24/16 08:11 Dose: 3 ml Artificial Tears (Artificial Tears) 1 drop OU TID [facility] Last Admin: 06/29/16 08:23 Dose: 1 drop Aspirin (Ecotrin) 81 mg PO DAILY [facility] Last Admin: 06/29/16 08:26 Dose: 81 mg Bacitracin (Bacitracin) 1 ea TOP TID [facility] Last Admin: 06/29/16 08:26 Dose: 1 ea Cyclobenzaprine HCl (Flexeril) 10 mg PO HS PRN PRN Reason: Muscle spasm Last Admin: 06/27/16 21:35 Dose: 10 mg Docusate Sodium (Colace) 100 mg PO HS [facility] Last Admin: 06/28/16 21:59 Dose: 100 mg Enoxaparin Sodium (Lovenox) 90 mg SC DAILY [facility] PRN Reason: Protocol Last Admin: 06/29/16 08:28 Dose: 90 mg Furosemide (Lasix) 80 mg IV DAILY [facility] Last Admin: 06/29/16 08:25 Dose: 80 mg Gabapentin (Neurontin) 400 mg PO TID [facility] Last Admin: 06/29/16 08:24 Dose: 400 mg Ceftriaxone Sodium 1 gm/ (Sodium Chloride) 100 mls @ 100 mls/hr IVPB DAILY [facility] Last Admin: 06/29/16 10:07 Dose: 100 mls/hr Azithromycin 500 mg/ Sodium (Chloride) 250 mls @ 250 mls/hr IVPB DAILY [facility] Last Admin: 06/29/16 08:19 Dose: 250 mls/hr Insulin Detemir (Levemir) 20 units SC [facility] Last Admin: 06/28/16 22:00 Dose: 20 units Insulin Human Lispro (Humalog) 0 units SC ACHS [facility] PRN Reason: Protocol Last Admin: 06/29/16 11:03 Dose: Not Given Insulin Human Lispro (Humalog) 6 units SC AC [facility] Last Admin: 06/29/16 08:27 Dose: 6 units Metoprolol Tartrate (Lopressor) 12.5 mg PO Q12 [facility] Last Admin: 06/29/16 09:20 Dose: 12.5 mg Multivitamins/Minerals (Therapeutic-M Tab) 1 tab PO DAILY [facility] Last Admin: 06/29/16 08:26 Dose: 1 tab Nitroglycerin (Nitro-Bid) 1 appl TOP Q6 [facility] Last Admin: 06/29/16 09:20 Dose: 1 appl Pantoprazole Sodium (Protonix Ec Tab) 40 mg PO DAILY [facility] Last Admin: 06/29/16 08:26 Dose: 40 mg Potassium Chloride (Potassium Chloride Oral Soln) 40 meq PO DAILY [facility] Last Admin: 06/29/16 08:24 Dose: 40 meq Pravastatin Sodium (Pravachol) 40 mg PO HS [facility] Last Admin: 06/28/16 22:01 Dose: 40 mg Physical Exam - Constitutional Appears: Cachectic, Chronically Ill - ENT Exam ENT Exam: Mucous Membranes Moist - Respiratory Exam Respiratory Exam: Rhonchi. absent: Chest Wall Tenderness - Cardiovascular Exam Cardiovascular Exam: absent: JVD, Rubs - GI/Abdominal Exam GI & Abdominal Exam: Normal Bowel Sounds - Extremities Exam Extremities exam: Negative for: calf tenderness - Back Exam Back exam: absent: CVA tenderness (L), CVA tenderness (R) - Neurological Exam Neurological exam: Alert Results - Vital Signs Recent Vital Signs: Last Vital Signs Temp 98.5 F 06/29/16 08:00 Pulse 77 06/29/16 10:00 Resp 17 06/29/16 10:00 BP 105/55 L 06/29/16 10:00 Pulse Ox 100 06/29/16 10:00 - Labs Result Diagrams: 06/29/16 06:40 06/29/16 06:40 Labs: Laboratory Results - last 24 hr 06/24/16 06/28/16 06/28/16 15:09 15:59 19:23 WBC RBC Hgb Hct MCV MCH MCHC RDW Plt Count Sodium Potassium Chloride Carbon Dioxide Anion Gap BUN Creatinine Est GFR ( Amer) Est GFR (Non-Af Amer) POC Glucose (mg/dL) 126 H 83 Random Glucose Calcium Ur Strep pneumoniae Ag TNP 06/28/16 06/29/16 06/29/16 21:57 06:04 06:40 WBC 10.2 RBC 3.90 Hgb 11.1 L Hct 33.8 L MCV 86.5 MCH 28.5 MCHC 32.9 L RDW 14.4 Plt Count 366 Sodium 143 Potassium 3.5 L Chloride 102 Carbon Dioxide 28 Anion Gap 17 BUN 36 H Creatinine 2.6 H Est GFR ( Amer) 23 Est GFR (Non-Af Amer) 19 POC Glucose (mg/dL) 151 H 129 H Random Glucose 104 Calcium 8.8 Ur Strep pneumoniae Ag 06/29/16 06/29/16 07:55 10:56 WBC RBC Hgb Hct MCV MCH MCHC RDW Plt Count Sodium Potassium Chloride Carbon Dioxide Anion Gap BUN Creatinine Est GFR ( Amer) Est GFR (Non-Af Amer) POC Glucose (mg/dL) 114 H 127 H Random Glucose Calcium Ur Strep pneumoniae Ag Assessment & Plan (1) ERIKA (acute kidney injury) Assessment and Plan: Most likely patient has acute kidney injury superimposed on chronic kidney disease stage III perhaps. Patient came with serum creatinine 1.7 day 1 and lately continued to rise slowly. Etiology of for acute kidney injury is multiple related to the pneumonia and also perhaps congestive heart failure compromising cardiovascular. My plan I'm not sure if it's late to order myoglobin in the urine to confirm rhabdomyolysis but we will order it anyway Also we will order serum uric acid and Spot urine for sodium osmolality and creatinine Patient has approximately 2.5 g proteinuria in the urine probably related to diabetic nephropathy and that's probably the cause of underlying CK D stage III For now the treatment of the pneumonia and also CHF and when she is improving we will add MITESH inhibitor or ARB Status: Acute (2) Acute pulmonary edema Status: Acute (3) Bilateral pneumonia Status: Acute
[2016-06-29 11:56] LABS: PHOSPHOROUS 3.7 mg/dl (2.5-4.5); URIC ACID 10.2 mg/Dl (2.2-7.5)
--- NOTE | 2016-06-29 16:05 | PN ---
DATE: 06/29/2016 LOCATION: In ICU, room 432 This is a 61-year-old female with recent uncontrolled type 2 insulin-requiring diabetes, now being fo llowed closely for metabolic management. Her oral intake remains quite variable at this time, but he r glycemic levels have improved accordingly and have remained near optimal as noted. Today's glucose levels have ranged from 114-127 mg/dL. It was 129-151 last night as noted. The late chemistry showed a BUN of 36, sodium 143, potassium 3.5, chloride 102, CO2 of 28, glucose 104, and creatinine 2.6. So, at this time, will continue the same basal and bolus insulin regimen as given with Levemir given as 20 units subQ at bedtime daily as ordered. Will continue the Humalog given as 6 units t.i.d. befo re meals as ordered. Will titrate incrementally as indicated to optimize metabolic control. Will fo llow and advise accordingly. Natalia Castillo MD cc: [phone] TT: 06/29/2016 16:04:29 Confirmation # [id number] Dictation # [id number] breana
[2016-06-29] MEDS: Insulin Detemir 100 Units/ml Inj SC SCH (21:57)
[2016-06-29] MEDS: Pravastatin Sodium 40 MG TAB PO SCH (21:59)
--- NOTE | 2016-06-29 22:13 | CP.PCM.PN ---
Subjective - Date & Time of Evaluation Date of Evaluation: 06/29/16 Time of Evaluation: 09:15 - Subjective Subjective: Patient resting comfortably in bed; dec. SOB on exertion; improving appetite; alert and oriented Vital Signs stable Lungs- dec. breath sounds b/l with rhonchi Heart- regular S1, S2, no murmur Abd. - + BS, soft, nontender; dec. erythema and discharge from abscess midline lower abdomen Ext. - no edema 1. Acute pulmonary edema due to acute CHF secondary to diastolic dysfunction 2. B/L community acquired pneumonia 3. ERIKA 4. CAD 5. Rhabdomyolysis 6. Diabetes w/ neuropathy 5. Abscess midline lower abdomen received iv lasix 80mg x 1 this am; continuing iv rocephin and azithromycin; Dr. Banegas consulted due to decreasing creatinine clearance (19ml/min.) Objective - Vital Signs/Intake and Output Vital Signs (last 24 hours): Temp Pulse Resp BP Pulse Ox 98.6 F 74 21 105/48 L 99 06/29/16 15:57 06/29/16 15:57 06/29/16 19:34 06/29/16 15:57 06/29/16 15:57 Intake and Output: 06/29/16 06/30/16 18:59 06:59 Intake Total 1360 Output Total 1200 Balance 160 - Medications Medications: Current Medications Acetaminophen (Tylenol 325mg Tab) 650 mg PO Q4 PRN PRN Reason: Fever >100.4 F Last Admin: 06/27/16 19:42 Dose: 650 mg Albuterol (Ventolin Hfa 90 Mcg/Actuation (8 G)) 2 puff INH RQ4 PRN PRN Reason: Shortness of Breath Last Admin: 06/24/16 10:00 Dose: 2 unit Albuterol/Ipratropium (Duoneb 3 Mg/0.5 Mg (3 Ml) Ud) 3 ml INH RQ4 PRN PRN Reason: Shortness of Breath Last Admin: 06/24/16 08:11 Dose: 3 ml Artificial Tears (Artificial Tears) 1 drop OU TID [facility] Last Admin: 06/29/16 15:59 Dose: 1 drop Aspirin (Ecotrin) 81 mg PO DAILY [facility] Last Admin: 06/29/16 08:26 Dose: 81 mg Bacitracin (Bacitracin) 1 ea TOP TID [facility] Last Admin: 06/29/16 15:59 Dose: 1 ea Cyclobenzaprine HCl (Flexeril) 10 mg PO HS PRN PRN Reason: Muscle spasm Last Admin: 06/27/16 21:35 Dose: 10 mg Docusate Sodium (Colace) 100 mg PO HS [facility] Last Admin: 06/28/16 21:59 Dose: 100 mg Enoxaparin Sodium (Lovenox) 90 mg SC DAILY [facility] PRN Reason: Protocol Last Admin: 06/29/16 08:28 Dose: 90 mg Furosemide (Lasix) 80 mg IV DAILY [facility] Last Admin: 06/29/16 08:25 Dose: 80 mg Gabapentin (Neurontin) 400 mg PO TID [facility] Last Admin: 06/29/16 16:03 Dose: 400 mg Azithromycin 500 mg/ Sodium (Chloride) 250 mls @ 250 mls/hr IVPB DAILY [facility] Last Admin: 06/29/16 08:19 Dose: 250 mls/hr Insulin Detemir (Levemir) 20 units SC HS [facility] Last Admin: 06/28/16 22:00 Dose: 20 units Insulin Human Lispro (Humalog) 0 units SC ACHS [facility] PRN Reason: Protocol Last Admin: 06/29/16 16:12 Dose: Not Given Insulin Human Lispro (Humalog) 6 units SC AC [facility] Last Admin: 06/29/16 16:10 Dose: 6 units Metoprolol Tartrate (Lopressor) 12.5 mg PO Q12 [facility] Last Admin: 06/29/16 09:20 Dose: 12.5 mg Multivitamins/Minerals (Therapeutic-M Tab) 1 tab PO DAILY [facility] Last Admin: 06/29/16 08:26 Dose: 1 tab Nitroglycerin (Nitro-Bid) 1 appl TOP Q6 [facility] Last Admin: 06/29/16 15:55 Dose: 1 appl Pantoprazole Sodium (Protonix Ec Tab) 40 mg PO DAILY [facility] Last Admin: 06/29/16 08:26 Dose: 40 mg Potassium Chloride (Potassium Chloride Oral Soln) 40 meq PO DAILY [facility] Last Admin: 06/29/16 08:24 Dose: 40 meq Pravastatin Sodium (Pravachol) 40 mg PO HS [facility] Last Admin: 06/28/16 22:01 Dose: 40 mg - Labs Labs: 06/29/16 06:40 06/29/16 06:40 PT 10.9 SECONDS (9.6-11.2) 06/26/16 08:15 INR 1.05 (0.92-1.08) 06/26/16 08:15 APTT 29.5 SECONDS (23.3-32.5) 06/26/16 08:15
[2016-06-30] MEDS: Nitroglycerin 2% 15 INCH/30 GM TUBE TOP SCH ×5 (05:00→21:34)
[2016-06-30 05:27] LABS: HEMATOCRIT 32.5 % (34.0-47.0); MEAN CELL VOLUME 86.1 fl (81.0-99.0); MEAN CORPUSCULAR HEMOGLOBIN 28.4 pg (27.0-31.0); RED CELL DISTRIBUTION WIDTH 14.6 % (11.5-14.5); WHITE BLOOD COUNT 10.1 K/uL (4.8-10.8)
[2016-06-30 05:41] LABS: CALCIUM 8.6 mg/dL (8.4-10.2)
[2016-06-30] MEDS: Insulin Lispro (humaLOG) 100 Units/ml Inj SC SCH ×7 (06:42→21:29)
--- NOTE | 2016-06-30 08:22 | CP.PCM.PN ---
Subjective - Date & Time of Evaluation Date of Evaluation: 06/30/16 Time of Evaluation: 08:22 - Subjective Subjective: SOB IMPROVED DENIES CHEST PAINS COUGH LESS Objective - Vital Signs/Intake and Output Vital Signs (last 24 hours): Temp Pulse Resp BP Pulse Ox 98.4 F 71 18 111/56 L 100 06/30/16 08:00 06/30/16 08:00 06/30/16 08:06 06/30/16 08:00 06/30/16 08:00 Intake and Output: 06/30/16 06/30/16 06:59 18:59 Intake Total 190 Output Total 800 Balance -610 - Medications Medications: Current Medications Acetaminophen (Tylenol 325mg Tab) 650 mg PO Q4 PRN PRN Reason: Fever >100.4 F Last Admin: 06/27/16 19:42 Dose: 650 mg Albuterol (Ventolin Hfa 90 Mcg/Actuation (8 G)) 2 puff INH RQ4 PRN PRN Reason: Shortness of Breath Last Admin: 06/24/16 10:00 Dose: 2 unit Albuterol/Ipratropium (Duoneb 3 Mg/0.5 Mg (3 Ml) Ud) 3 ml INH RQ4 PRN PRN Reason: Shortness of Breath Last Admin: 06/24/16 08:11 Dose: 3 ml Artificial Tears (Artificial Tears) 1 drop OU TID [facility] Last Admin: 06/29/16 15:59 Dose: 1 drop Aspirin (Ecotrin) 81 mg PO DAILY [facility] Last Admin: 06/29/16 08:26 Dose: 81 mg Bacitracin (Bacitracin) 1 ea TOP TID [facility] Last Admin: 06/29/16 15:59 Dose: 1 ea Cyclobenzaprine HCl (Flexeril) 10 mg PO HS PRN PRN Reason: Muscle spasm Last Admin: 06/30/16 00:26 Dose: 10 mg Docusate Sodium (Colace) 100 mg PO HS [facility] Last Admin: 06/29/16 21:56 Dose: 100 mg Enoxaparin Sodium (Lovenox) 90 mg SC DAILY [facility] PRN Reason: Protocol Last Admin: 06/29/16 08:28 Dose: 90 mg Furosemide (Lasix) 80 mg IV DAILY [facility] Last Admin: 06/29/16 08:25 Dose: 80 mg Gabapentin (Neurontin) 400 mg PO TID [facility] Last Admin: 06/29/16 16:03 Dose: 400 mg Azithromycin 500 mg/ Sodium (Chloride) 250 mls @ 250 mls/hr IVPB DAILY [facility] Last Admin: 06/29/16 08:19 Dose: 250 mls/hr Insulin Detemir (Levemir) 20 units SC HS [facility] Last Admin: 06/29/16 21:57 Dose: 20 units Insulin Human Lispro (Humalog) 0 units SC ACHS [facility] PRN Reason: Protocol Last Admin: 06/30/16 06:43 Dose: Not Given Insulin Human Lispro (Humalog) 6 units SC AC [facility] Last Admin: 06/30/16 06:42 Dose: 6 units Metoprolol Tartrate (Lopressor) 12.5 mg PO Q12 [facility] Last Admin: 06/29/16 21:55 Dose: 12.5 mg Multivitamins/Minerals (Therapeutic-M Tab) 1 tab PO DAILY [facility] Last Admin: 06/29/16 08:26 Dose: 1 tab Nitroglycerin (Nitro-Bid) 1 appl TOP Q6 [facility] Last Admin: 06/30/16 05:00 Dose: 1 appl Pantoprazole Sodium (Protonix Ec Tab) 40 mg PO DAILY [facility] Last Admin: 06/29/16 08:26 Dose: 40 mg Potassium Chloride (Potassium Chloride Oral Soln) 40 meq PO DAILY [facility] Last Admin: 06/29/16 08:24 Dose: 40 meq Pravastatin Sodium (Pravachol) 40 mg PO HS [facility] Last Admin: 06/29/16 21:59 Dose: 40 mg - Labs Labs: 06/30/16 04:10 06/30/16 04:10 PT 10.9 SECONDS (9.6-11.2) 06/26/16 08:15 INR 1.05 (0.92-1.08) 06/26/16 08:15 APTT 29.5 SECONDS (23.3-32.5) 06/26/16 08:15 - Constitutional Appears: Chronically Ill - Head Exam Head Exam: ATRAUMATIC, NORMAL INSPECTION, NORMOCEPHALIC - Eye Exam Eye Exam: EOMI, Normal appearance, PERRL Pupil Exam: NORMAL ACCOMODATION, PERRL - ENT Exam ENT Exam: Mucous Membranes Moist, Normal Exam - Neck Exam Neck Exam: Full ROM, Normal Inspection. absent: Lymphadenopathy - Respiratory Exam Respiratory Exam: Decreased Breath Sounds, Rales, NORMAL BREATHING PATTERN - Cardiovascular Exam Cardiovascular Exam: REGULAR RHYTHM, +S1, +S2. absent: Murmur - GI/Abdominal Exam GI & Abdominal Exam: Soft, Normal Bowel Sounds. absent: Tenderness - Rectal Exam Rectal Exam: NORMAL INSPECTION - Extremities Exam Extremities Exam: Full ROM, Normal Capillary Refill, Normal Inspection, Pedal Edema. absent: Joint Swelling Additional comments: PEDAL EDEMA IMPROVED - Back Exam Back Exam: NORMAL INSPECTION - Neurological Exam Neurological Exam: Alert, Awake, CN II-XII Intact, Oriented x3 - Psychiatric Exam Psychiatric exam: Normal Affect, Normal Mood - Skin Skin Exam: Dry, Intact, Normal Color, Warm Assessment and Plan - Assessment and Plan (Free Text) Assessment: RESPIRATORY FAILURE--IMPROVING CHF PNEUMONIA RHABDOMYOLYSIS ASHD Plan: CONTINUE PRESENT RX REPEAT ABG CONSIDER SUBACUTE CARE PRIOR TO D/C HOME
[2016-06-30] MEDS: Multivitamin With Minerals Tab PO SCH (08:55)
[2016-06-30] MEDS: Pantoprazole 40 mg EC Tab PO SCH (08:56)
[2016-06-30] MEDS: Potassium Chloride 20 mEq/15 ml LIQ UD PO SCH (08:56)
[2016-06-30] MEDS: Enoxaparin 100 mg Syringe SC SCH (08:57)
[2016-06-30] MEDS: Bacitracin 500 Units/gm Oint Foilpak UD TOP SCH ×3 (08:58→17:34)
[2016-06-30] MEDS: Artificial Tears Opht Soln OU SCH ×3 (09:02→17:35)
[2016-06-30] MEDS: Azithromycin 500 MG in Sodium Chloride 0.9% 250 ML IVPB SCH (09:13)
--- NOTE | 2016-06-30 10:47 | CP.PCM.PN ---
Subjective - Date & Time of Evaluation Date of Evaluation: 06/30/16 Time of Evaluation: 10:43 - Subjective Subjective: Patient awake in bed Feeling much better and the patient requesting to remove all the lines from her arm. Urine output noted in the Prakash catheter to be over 400 mL this morning Urine output last 24 hours was about 800 mL with total balance -780 mL Chest is clearing up Abdomen soft Extremity no edema Serum creatinine came down from 2.6-2.2 significant improvement in kidney function. Chronic kidney disease superimposed with acute kidney injury improving patient has also significant proteinuria as noted 2.5 g Vital sign and blood pressure appeared to be much better today Patient will need MITESH inhibitor when her blood pressure is improved and her condition is improving. Objective - Vital Signs/Intake and Output Vital Signs (last 24 hours): Temp Pulse Resp BP Pulse Ox 98.4 F 74 18 130/62 100 06/30/16 08:00 06/30/16 09:00 06/30/16 08:06 06/30/16 09:00 06/30/16 08:00 Intake and Output: 06/30/16 06/30/16 06:59 18:59 Intake Total 190 Output Total 800 Balance -610 - Medications Medications: Current Medications Acetaminophen (Tylenol 325mg Tab) 650 mg PO Q4 PRN PRN Reason: Fever >100.4 F Last Admin: 06/27/16 19:42 Dose: 650 mg Albuterol (Ventolin Hfa 90 Mcg/Actuation (8 G)) 2 puff INH RQ4 PRN PRN Reason: Shortness of Breath Last Admin: 06/24/16 10:00 Dose: 2 unit Albuterol/Ipratropium (Duoneb 3 Mg/0.5 Mg (3 Ml) Ud) 3 ml INH RQ4 PRN PRN Reason: Shortness of Breath Last Admin: 06/24/16 08:11 Dose: 3 ml Artificial Tears (Artificial Tears) 1 drop OU TID [facility] Last Admin: 06/30/16 09:02 Dose: 1 drop Aspirin (Ecotrin) 81 mg PO DAILY [facility] Last Admin: 06/30/16 08:57 Dose: 81 mg Bacitracin (Bacitracin) 1 ea TOP TID [facility] Last Admin: 06/30/16 08:58 Dose: 1 ea Cyclobenzaprine HCl (Flexeril) 10 mg PO HS PRN PRN Reason: Muscle spasm Last Admin: 06/30/16 00:26 Dose: 10 mg Docusate Sodium (Colace) 100 mg PO HS [facility] Last Admin: 06/29/16 21:56 Dose: 100 mg Enoxaparin Sodium (Lovenox) 90 mg SC DAILY [facility] PRN Reason: Protocol Last Admin: 06/30/16 08:57 Dose: 90 mg Furosemide (Lasix) 80 mg IV DAILY [facility] Last Admin: 06/30/16 08:58 Dose: 80 mg Gabapentin (Neurontin) 400 mg PO TID [facility] Last Admin: 06/30/16 09:02 Dose: 400 mg Insulin Detemir (Levemir) 20 units SC HS [facility] Last Admin: 06/29/16 21:57 Dose: 20 units Insulin Human Lispro (Humalog) 0 units SC ACHS [facility] PRN Reason: Protocol Last Admin: 06/30/16 06:43 Dose: Not Given Insulin Human Lispro (Humalog) 6 units SC AC [facility] Last Admin: 06/30/16 06:42 Dose: 6 units Metoprolol Tartrate (Lopressor) 12.5 mg PO Q12 [facility] Last Admin: 06/30/16 09:00 Dose: 12.5 mg Multivitamins/Minerals (Therapeutic-M Tab) 1 tab PO DAILY [facility] Last Admin: 06/30/16 08:55 Dose: 1 tab Nitroglycerin (Nitro-Bid) 1 appl TOP Q6 [facility] Last Admin: 06/30/16 09:01 Dose: 1 appl Pantoprazole Sodium (Protonix Ec Tab) 40 mg PO DAILY [facility] Last Admin: 06/30/16 08:56 Dose: 40 mg Potassium Chloride (Potassium Chloride Oral Soln) 40 meq PO DAILY [facility] Last Admin: 06/30/16 08:56 Dose: 40 meq Pravastatin Sodium (Pravachol) 40 mg PO HS [facility] Last Admin: 06/29/16 21:59 Dose: 40 mg - Labs Labs: 06/30/16 04:10 06/30/16 04:10 PT 10.9 SECONDS (9.6-11.2) 06/26/16 08:15 INR 1.05 (0.92-1.08) 06/26/16 08:15 APTT 29.5 SECONDS (23.3-32.5) 06/26/16 08:15 Assessment and Plan (1) ERIKA (acute kidney injury) Status: Acute (2) Acute pulmonary edema Status: Acute (3) Bilateral pneumonia Status: Acute
[2016-06-30] MEDS ORDERED: Lactulose 10 gm/15 ml Syrup PO PRN (11:43)
--- NOTE | 2016-06-30 11:43 | CP.CCUPN ---
CCU Subjective - Physician Review Subjective (Free Text): BACK PANEL PADDER PROGRESS NOTE Patient examined, interim events reviewed: Awake and alert, c/o lower abdominal discomfort and back pain, denies any N/V, just had breakfast, patient is unsure if abdominal discomfort is related to need for BM. She states she has had this discomfort in the past. She denies any CP, SOB at bed rest, denies any dizziness, headaches, focal weakness, chills, sweats. Afebrile, no fever spikes last 24h, 130/62, 74, 19, 100% PSO2 on High flow oxygen at 20 LPM and 35%. Last 24H I/Os 1550/2000ml. ROS: as above, no new pertinent negs or positives on 12 system review. PMFSH: all nursing and historical notes reviewed, no new pertinent data relevant to current problems. No other distress noted: EXAM- HEENT: no icterus, pupils equal and reactive NECK: no visible JVD, supple, carotids equal upstroke bilat/no bruits CHEST: decreased BS bases, no wheezes audible HEART: regular, distant, S1S2, no murmur audible, no rubs. ABD: soft, no increased distention, no focal tenderness, no HSM. BS hypoactive , no abdominal bruits or other masses, suprapubic / bladder area feels firm and no tympany elicited. EXT: +1 leg edema, no peripheral/ digital cyanosis, no calf tenderness or palpable cords, distal pulses intact and symmetrical, SCDs on bilaterally. NEURO: no gross focal motor deficits SKIN: no rashes LABS: WBC= 10.1 HGB= 10.7 PLTs= 381K Na= 138 K= 4.0 HCO3= 25 BUN/Cr= 34/2.2 FI=706 Last CXR on 06/27/16: still exhibits mild diffuse interstitial changes bilaterally ( my interp ) ASSESSMENT: 1. Acute Resp Insufficiency 2 Pulm Edema and superimposed bilateral pneumonitis 2. acute / Subacute NM 3. Rhabdomyolysis with mild ERIKA 4. Uncontrolled DM II PLAN: 1. Continue to try to taper O2 levels on High flow nasal cannula. 2. Check repeat CXR for any resolution. 3. Keep negative fluid balance as long as hemodynamics and BUN/Cr levels tolerate. 4. Empiric abx coverage. 5. On therapeutic Lovenox, ASA, Statin, Nitrates, BBs. 6. Laxatives, continue Luciana and Muscle relaxants for now. 7. Stable for transfer to telemetry bed for further mgmt. and observation.
--- NOTE | 2016-06-30 16:18 | PN ---
DATE: 06/30/2016 LOCATION: 432 ICU. This is a 61-year-old female with recent uncontrolled type 2 insulin-requiring diabetes with extreme of glycemic fluctuations and also recent rhabdomyolysis and supervening renal failure and progressive renal insufficiency and is now being followed closely for metabolic management. Her glucose levels have ranged from 204-228 mg/dL today as noted. The latest chemistries showed a BU N of 34, sodium 138, potassium 4.0, chloride 100, CO2 25, glucose 236 and creatinine 2.2. So, at thi s time, we will modify her basal and bolus insulin regimen and increase the Levemir to 24 units subQ at bedtime daily to start tonight. We will titrate incrementally as indicated to optimize metabolic control. We will also increase her prandial or mealtime insulin requirements with Humalog to be give n as 8 units subQ t.i.d. before meals to start at dinnertime today as ordered. We will continue the low dose correction scale using Humalog insulin as given. We will obtain serial chemistries and supp lement accordingly as needed. We will follow. Natalia Castillo MD cc: [phone] TT: 06/30/2016 16:17:24 Confirmation # [id number] Dictation # [id number]
--- NOTE | 2016-06-30 17:32 | CP.PCM.PN ---
Subjective - Date & Time of Evaluation Date of Evaluation: 06/30/16 Time of Evaluation: 09:20 - Subjective Subjective: Patient c/o L/S pain and pain of left arm at site of IV access; alert and oriented; denies chest pain or SOB Vital Signs Stable Lungs- dec. breath sounds b/l; + rhonchi Heart- regular S1, S2, no murmur Abd. - + bowel sounds, soft, nontender Ext. - no edema Creatinine has dec. from 2.6 to 2.2 1. Acute pulmonary edema 2. b/l pneumonia 3. Chronic kidney disease with superimposed ERIKA 4. CAD 5. Rhabdomyolysis 6. Uncontrolled diabetes with neuropathy Will transfer to [address] [place] [address] with telemetry; plan negative fluid balance and serial chest x rays; cont. antibiotics; physicasl therapy for mobility Objective - Vital Signs/Intake and Output Vital Signs (last 24 hours): Temp Pulse Resp BP Pulse Ox 97.9 F 69 16 94/51 L 100 06/30/16 12:00 06/30/16 14:00 06/30/16 15:32 06/30/16 14:00 06/30/16 14:00 Intake and Output: 06/30/16 06/30/16 06:59 18:59 Intake Total 190 368 Output Total 800 Balance -610 368 - Medications Medications: Current Medications Acetaminophen (Tylenol 325mg Tab) 650 mg PO Q4 PRN PRN Reason: Fever >100.4 F Last Admin: 06/27/16 19:42 Dose: 650 mg Albuterol (Ventolin Hfa 90 Mcg/Actuation (8 G)) 2 puff INH RQ4 PRN PRN Reason: Shortness of Breath Last Admin: 06/24/16 10:00 Dose: 2 unit Albuterol/Ipratropium (Duoneb 3 Mg/0.5 Mg (3 Ml) Ud) 3 ml INH RQ4 PRN PRN Reason: Shortness of Breath Last Admin: 06/24/16 08:11 Dose: 3 ml Artificial Tears (Artificial Tears) 1 drop OU TID [facility] Last Admin: 06/30/16 12:11 Dose: 1 drop Aspirin (Ecotrin) 81 mg PO DAILY [facility] Last Admin: 06/30/16 08:57 Dose: 81 mg Bacitracin (Bacitracin) 1 ea TOP TID [facility] Last Admin: 06/30/16 12:12 Dose: 1 ea Cyclobenzaprine HCl (Flexeril) 10 mg PO HS PRN PRN Reason: Muscle spasm Last Admin: 06/30/16 00:26 Dose: 10 mg Docusate Sodium (Colace) 100 mg PO HS [facility] Last Admin: 06/29/16 21:56 Dose: 100 mg Enoxaparin Sodium (Lovenox) 90 mg SC DAILY [facility] PRN Reason: Protocol Last Admin: 06/30/16 08:57 Dose: 90 mg Furosemide (Lasix) 80 mg IV DAILY [facility] Last Admin: 06/30/16 08:58 Dose: 80 mg Gabapentin (Neurontin) 400 mg PO TID [facility] Last Admin: 06/30/16 12:11 Dose: 400 mg Insulin Detemir (Levemir) 24 units SC HS [facility] Insulin Human Lispro (Humalog) 0 units SC ACHS [facility] PRN Reason: Protocol Last Admin: 06/30/16 12:07 Dose: Not Given Insulin Human Lispro (Humalog) 8 units SC AC [facility] Lactulose (Enulose) 10 gm PO DAILY PRN PRN Reason: Constipation Metoprolol Tartrate (Lopressor) 12.5 mg PO Q12 [facility] Last Admin: 06/30/16 09:00 Dose: 12.5 mg Multivitamins/Minerals (Therapeutic-M Tab) 1 tab PO DAILY [facility] Last Admin: 06/30/16 08:55 Dose: 1 tab Nitroglycerin (Nitro-Bid) 1 appl TOP Q6 [facility] Last Admin: 06/30/16 12:12 Dose: 1 appl Pantoprazole Sodium (Protonix Ec Tab) 40 mg PO DAILY [facility] Last Admin: 06/30/16 08:56 Dose: 40 mg Potassium Chloride (Potassium Chloride Oral Soln) 40 meq PO DAILY [facility] Last Admin: 06/30/16 08:56 Dose: 40 meq Pravastatin Sodium (Pravachol) 40 mg PO HS [facility] Last Admin: 06/29/16 21:59 Dose: 40 mg - Labs Labs: 06/30/16 04:10 06/30/16 04:10 PT 10.9 SECONDS (9.6-11.2) 06/26/16 08:15 INR 1.05 (0.92-1.08) 06/26/16 08:15 APTT 29.5 SECONDS (23.3-32.5) 06/26/16 08:15
[2016-06-30] MEDS: Insulin Detemir 100 Units/ml Inj SC SCH (21:30)
[2016-06-30] MEDS: Pravastatin Sodium 40 MG TAB PO SCH (21:32)
[2016-07-01 05:09] LABS: BASO # 0.1 K/uL (0.0-0.2); BASO % 1.1 % (0.0-2.0); EOS # 0.4 K/uL (0.0-0.7); EOS % 4.7 % (0.0-4.0); HEMATOCRIT 33.5 % (34.0-47.0); LYMPH # 2.2 K/uL (1.0-4.3); LYMPH % 25.3 % (20.0-40.0); MEAN CELL VOLUME 86.5 fl (81.0-99.0); MEAN CORPUSCULAR HEMOGLOBIN 28.5 pg (27.0-31.0); MEAN CORPUSCULAR HGB CONC 32.9 g/dL (33.0-37.0); MEAN PLATELET VOLUME 10.8 fl (7.2-11.7); MONO # 0.8 K/uL (0.0-0.8); MONO % 9.1 % (0.0-10.0); NEUT # 5.2 K/uL (1.8-7.0); NEUT % 59.8 % (50.0-75.0); RED CELL DISTRIBUTION WIDTH 14.4 % (11.5-14.5); WHITE BLOOD COUNT 8.6 K/uL (4.8-10.8)
[2016-07-01 05:19] LABS: ALB/GLOB RATIO 0.6 (1.0-2.1); CALCIUM 8.6 mg/dL (8.4-10.2); TOTAL PROTEIN 7.2 G/DL (6.3-8.2)
[2016-07-01 05:27] LABS: POTASSIUM 6.5 MMOL/L (3.6-5.0)
[2016-07-01] MEDS: Insulin Lispro (humaLOG) 100 Units/ml Inj SC SCH ×7 (08:03→22:00)
[2016-07-01] MEDS: Artificial Tears Opht Soln OU SCH ×3 (08:17→16:11)
[2016-07-01] MEDS: Multivitamin With Minerals Tab PO SCH (08:17)
[2016-07-01] MEDS: Pantoprazole 40 mg EC Tab PO SCH (08:18)
[2016-07-01] MEDS: Potassium Chloride 20 mEq/15 ml LIQ UD PO SCH (08:19)
[2016-07-01] MEDS: Bacitracin 500 Units/gm Oint Foilpak UD TOP SCH ×3 (08:23→16:12)
[2016-07-01] MEDS: Nitroglycerin 2% 15 INCH/30 GM TUBE TOP SCH ×3 (09:25→21:55)
--- NOTE | 2016-07-01 09:36 | CP.PCM.PN ---
Subjective - Date & Time of Evaluation Date of Evaluation: 07/01/16 Time of Evaluation: 09:34 - Subjective Subjective: Patient appeared to be comfortable no shortness of breath no chest pain. Vital sign noted to be okay Appetite reported to be okay Urine output and intake noted to have negative balance about 900 mL plus last 24 hours. Objective - Vital Signs/Intake and Output Vital Signs (last 24 hours): Temp Pulse Resp BP Pulse Ox 98.3 F 67 18 129/57 L 99 07/01/16 08:10 07/01/16 09:25 07/01/16 08:10 07/01/16 09:25 07/01/16 08:10 Intake and Output: 07/01/16 07/01/16 06:59 18:59 Intake Total 500 Output Total 750 Balance -250 - Medications Medications: Current Medications Acetaminophen (Tylenol 325mg Tab) 650 mg PO Q4 PRN PRN Reason: Fever >100.4 F Last Admin: 06/30/16 21:30 Dose: 650 mg Albuterol (Ventolin Hfa 90 Mcg/Actuation (8 G)) 2 puff INH RQ4 PRN PRN Reason: Shortness of Breath Last Admin: 06/24/16 10:00 Dose: 2 unit Albuterol/Ipratropium (Duoneb 3 Mg/0.5 Mg (3 Ml) Ud) 3 ml INH RQ4 PRN PRN Reason: Shortness of Breath Last Admin: 06/24/16 08:11 Dose: 3 ml Artificial Tears (Artificial Tears) 1 drop OU TID [facility] Last Admin: 07/01/16 08:17 Dose: 1 drop Aspirin (Ecotrin) 81 mg PO DAILY [facility] Last Admin: 07/01/16 08:17 Dose: 81 mg Bacitracin (Bacitracin) 1 ea TOP TID [facility] Last Admin: 07/01/16 08:23 Dose: 1 ea Cyclobenzaprine HCl (Flexeril) 10 mg PO HS PRN PRN Reason: Muscle spasm Last Admin: 06/30/16 21:32 Dose: 10 mg Docusate Sodium (Colace) 100 mg PO HS [facility] Last Admin: 06/30/16 21:32 Dose: 100 mg Enoxaparin Sodium (Lovenox) 90 mg SC DAILY [facility] PRN Reason: Protocol Last Admin: 06/30/16 08:57 Dose: 90 mg Furosemide (Lasix) 80 mg IV DAILY [facility] Last Admin: 07/01/16 08:19 Dose: 80 mg Gabapentin (Neurontin) 400 mg PO TID [facility] Last Admin: 07/01/16 08:27 Dose: 400 mg Insulin Detemir (Levemir) 24 units SC HS [facility] Last Admin: 06/30/16 21:30 Dose: 24 u Insulin Human Lispro (Humalog) 0 units SC ACHS [facility] PRN Reason: Protocol Last Admin: 07/01/16 08:03 Dose: Not Given Insulin Human Lispro (Humalog) 8 units SC AC [facility] Last Admin: 07/01/16 08:22 Dose: 8 units Lactulose (Enulose) 10 gm PO DAILY PRN PRN Reason: Constipation Metoprolol Tartrate (Lopressor) 12.5 mg PO Q12 [facility] Last Admin: 07/01/16 09:25 Dose: 12.5 mg Multivitamins/Minerals (Therapeutic-M Tab) 1 tab PO DAILY [facility] Last Admin: 07/01/16 08:17 Dose: 1 tab Nitroglycerin (Nitro-Bid) 1 appl TOP Q6 [facility] Last Admin: 07/01/16 09:25 Dose: 1 inch Pantoprazole Sodium (Protonix Ec Tab) 40 mg PO DAILY [facility] Last Admin: 07/01/16 08:18 Dose: 40 mg Potassium Chloride (Potassium Chloride Oral Soln) 40 meq PO DAILY [facility] Last Admin: 07/01/16 08:19 Dose: 40 meq Pravastatin Sodium (Pravachol) 40 mg PO HS [facility] Last Admin: 06/30/16 21:32 Dose: 40 mg - Labs Labs: 07/01/16 04:30 07/01/16 06:30 PT 10.9 SECONDS (9.6-11.2) 06/26/16 08:15 INR 1.05 (0.92-1.08) 06/26/16 08:15 APTT 29.5 SECONDS (23.3-32.5) 06/26/16 08:15 - Constitutional Appears: No Acute Distress - Neck Exam Neck Exam: absent: Lymphadenopathy - Respiratory Exam Respiratory Exam: NORMAL BREATHING PATTERN - Cardiovascular Exam Cardiovascular Exam: absent: JVD, Rubs - GI/Abdominal Exam GI & Abdominal Exam: Soft. absent: Distended, Guarding - Extremities Exam Extremities Exam: absent: Calf Tenderness, Pedal Edema - Back Exam Back Exam: absent: CVA tenderness (L), CVA tenderness (R) - Neurological Exam Neurological Exam: Alert Assessment and Plan (1) ERIKA (acute kidney injury) Assessment & Plan: Serum creatinine noted to be in the range of 2. Probably her serum creatinine baseline around 1.6-1.7. So she has acute kidney injury which appear recovering superimposed on CK D stage III may be related to diabetic With the proteinuria Pneumonia appeared to be resolving Pulmonary insufficiency appeared to be resolving PTH within normal limit So continue monitoring and probably may need less diuretics perhaps? Status: Acute (2) Acute pulmonary edema Status: Acute (3) Bilateral pneumonia Status: Acute
[2016-07-01] MEDS: Enoxaparin 100 mg Syringe SC SCH (09:59)
--- NOTE | 2016-07-01 10:59 | RAD ---
HISTORY: f/u CHF, PNA COMPARISON: 06/27/2016. FINDINGS: LUNGS: The lungs are clear. PLEURA: No significant pleural effusion identified, no pneumothorax apparent. CARDIOVASCULAR: Normal. OSSEOUS STRUCTURES: No significant abnormalities. VISUALIZED UPPER ABDOMEN: Normal. OTHER FINDINGS: None. IMPRESSION: No active pulmonary disease.
--- NOTE | 2016-07-01 13:09 | CP.PCM.PN ---
Subjective - Date & Time of Evaluation Date of Evaluation: 07/01/16 Time of Evaluation: 10:00 - Subjective Subjective: patient c/o L/S pain this am while sitting in chair; denies chest pain or SOB Vital Signs Stable Lungs- dec. breath sounds b/l Heart- regular S1, S2, no murmur Abd. - + BS, soft, nontender Ext. - no edema 1. Pulmonary edema 2. b/l pneumonia 3. ERIAK superimposed on CKD Stage III 4. CAD 5. Diabetes with neuropathy 6. Rhabdomyolysis Received 80mg lasix iv today; plan for negative fluid balance; supplementing potassium; responding well to iv antibiotics; WBC now in normal range; cont. physical therapy for mobility Objective - Vital Signs/Intake and Output Vital Signs (last 24 hours): Temp Pulse Resp BP Pulse Ox 98 F 65 20 106/58 L 100 07/01/16 12:07 07/01/16 12:07 07/01/16 12:07 07/01/16 12:07 07/01/16 12:07 Intake and Output: 07/01/16 07/01/16 06:59 18:59 Intake Total 500 Output Total 750 Balance -250 - Medications Medications: Current Medications Acetaminophen (Tylenol 325mg Tab) 650 mg PO Q4 PRN PRN Reason: Fever >100.4 F Last Admin: 07/01/16 10:12 Dose: 650 mg Albuterol (Ventolin Hfa 90 Mcg/Actuation (8 G)) 2 puff INH RQ4 PRN PRN Reason: Shortness of Breath Last Admin: 06/24/16 10:00 Dose: 2 unit Albuterol/Ipratropium (Duoneb 3 Mg/0.5 Mg (3 Ml) Ud) 3 ml INH RQ4 PRN PRN Reason: Shortness of Breath Last Admin: 06/24/16 08:11 Dose: 3 ml Artificial Tears (Artificial Tears) 1 drop OU TID [facility] Last Admin: 07/01/16 12:04 Dose: 1 drop Aspirin (Ecotrin) 81 mg PO DAILY [facility] Last Admin: 07/01/16 08:17 Dose: 81 mg Bacitracin (Bacitracin) 1 ea TOP TID [facility] Last Admin: 07/01/16 12:04 Dose: 1 ea Cyclobenzaprine HCl (Flexeril) 10 mg PO HS PRN PRN Reason: Muscle spasm Last Admin: 06/30/16 21:32 Dose: 10 mg Docusate Sodium (Colace) 100 mg PO HS [facility] Last Admin: 06/30/16 21:32 Dose: 100 mg Enoxaparin Sodium (Lovenox) 90 mg SC DAILY [facility] PRN Reason: Protocol Last Admin: 07/01/16 09:59 Dose: 90 mg Furosemide (Lasix) 80 mg IV DAILY [facility] Last Admin: 07/01/16 08:19 Dose: 80 mg Gabapentin (Neurontin) 400 mg PO TID [facility] Last Admin: 07/01/16 12:05 Dose: 400 mg Insulin Detemir (Levemir) 24 units SC HS [facility] Last Admin: 06/30/16 21:30 Dose: 24 u Insulin Human Lispro (Humalog) 0 units SC ACHS [facility] PRN Reason: Protocol Last Admin: 07/01/16 08:03 Dose: Not Given Insulin Human Lispro (Humalog) 8 units SC AC [facility] Last Admin: 07/01/16 11:39 Dose: 8 units Lactulose (Enulose) 10 gm PO DAILY PRN PRN Reason: Constipation Metoprolol Tartrate (Lopressor) 12.5 mg PO Q12 [facility] Last Admin: 07/01/16 09:25 Dose: 12.5 mg Multivitamins/Minerals (Therapeutic-M Tab) 1 tab PO DAILY [facility] Last Admin: 07/01/16 08:17 Dose: 1 tab Nitroglycerin (Nitro-Bid) 1 appl TOP Q6 [facility] Last Admin: 07/01/16 09:25 Dose: 1 inch Pantoprazole Sodium (Protonix Ec Tab) 40 mg PO DAILY [facility] Last Admin: 07/01/16 08:18 Dose: 40 mg Potassium Chloride (Potassium Chloride Oral Soln) 40 meq PO DAILY [facility] Last Admin: 07/01/16 08:19 Dose: 40 meq Pravastatin Sodium (Pravachol) 40 mg PO HS [facility] Last Admin: 06/30/16 21:32 Dose: 40 mg - Labs Labs: 07/01/16 04:30 07/01/16 06:30 PT 10.9 SECONDS (9.6-11.2) 06/26/16 08:15 INR 1.05 (0.92-1.08) 06/26/16 08:15 APTT 29.5 SECONDS (23.3-32.5) 06/26/16 08:15
--- NOTE | 2016-07-01 13:57 | PN ---
DATE: 07/01/2016 ROOM: 432 ICU. SUBJECTIVE: This is a 61-year-old female with recent uncontrolled type 2 insulin-requiring diabetes now being followed closely for metabolic management. Her glycemic levels are fluctuating, but much i mproved at this time and the latest glucose levels have ranged from 129-162 and 157 mg/dL. Her lates t chemistries include a BUN of 31, sodium 141, potassium 4.0, chloride 101, CO2 28, glucose 162 and c reatinine 2.0. So, at this time, we will continue the same modified basal and bolus insulin regimen as given with Humalog given as 8 units subQ t.i.d. before meals as ordered. We will continue the Lev mary given as 24 units subQ at bedtime daily as given. We will titrate incrementally as indicated to optimize metabolic control. We will follow and advise accordingly. Natalia Castillo MD cc: [phone] TT: 07/01/2016 13:57:24 Confirmation # [id number] Dictation # [id number] tn
[2016-07-01] MEDS: Pravastatin Sodium 40 MG TAB PO SCH (21:54)
[2016-07-01] MEDS: Insulin Detemir 100 Units/ml Inj SC SCH (21:56)
[2016-07-02] MEDS: Nitroglycerin 2% 15 INCH/30 GM TUBE TOP SCH ×5 (05:40→21:50)
[2016-07-02] MEDS: Bacitracin 500 Units/gm Oint Foilpak UD TOP SCH ×3 (08:41→16:19)
[2016-07-02] MEDS: Artificial Tears Opht Soln OU SCH ×3 (08:41→16:19)
[2016-07-02] MEDS: Potassium Chloride 20 mEq/15 ml LIQ UD PO SCH (08:42)
[2016-07-02] MEDS: Pantoprazole 40 mg EC Tab PO SCH (08:42)
[2016-07-02] MEDS: Insulin Lispro (humaLOG) 100 Units/ml Inj SC SCH ×7 (08:43→21:53)
[2016-07-02] MEDS: Enoxaparin 100 mg Syringe SC SCH (08:44)
[2016-07-02] MEDS: Multivitamin With Minerals Tab PO SCH (08:45)
--- NOTE | 2016-07-02 10:38 | PN ---
DATE: 07/02/2016 ROOM: 406 SUBJECTIVE: This is a 61-year-old female with recent uncontrolled type 2 insulin-requiring diabetes who developed recent acute pulmonary edema and concomitant bilateral pneumonia and is now being follo wed closely for metabolic management. Her glycemic levels are fluctuating together with the variabil ity of her oral intake as noted. Her latest chemistries showed a BUN of 31, sodium 141, potassium 4. 0, chloride 101, CO2 28, glucose 162 and creatinine 2.0. Her glucose levels have are fluctuating and are ranging from 114 to 222 and 292 mg/dL. So at this time, we will modify her basal and bolus insu lukasz regimen to optimize metabolic control and increase the basal insulin with Levemir to be given as ____ units subQ at bedtime daily to start tonight. We will also increase the Humalog to 8 units subQ t.i.d. before meals to start at lunchtime today as ordered. We will continue the low-dose correctio n scale using Humalog insulin as given. We will obtain serial chemistries and supplement accordingly as needed. We will follow. Natalia Castillo MD cc: [phone] TT: 07/02/2016 10:38:09 Confirmation # [id number] Dictation # [id number]
--- NOTE | 2016-07-02 10:56 | CP.PCM.PN ---
Subjective - Date & Time of Evaluation Date of Evaluation: 07/02/16 Time of Evaluation: 10:56 - Subjective Subjective: NO CHEST PAINS/SOB COUGH RESOLVED AFEBRILE Objective - Vital Signs/Intake and Output Vital Signs (last 24 hours): Temp Pulse Resp BP Pulse Ox 97.8 F 71 20 149/78 100 07/02/16 08:16 07/02/16 08:37 07/02/16 08:16 07/02/16 08:39 07/02/16 08:16 Intake and Output: 07/02/16 07/02/16 06:59 18:59 Intake Total 240 Output Total 450 Balance -210 - Medications Medications: Current Medications Acetaminophen (Tylenol 325mg Tab) 650 mg PO Q4 PRN PRN Reason: Fever >100.4 F Last Admin: 07/01/16 10:12 Dose: 650 mg Albuterol (Ventolin Hfa 90 Mcg/Actuation (8 G)) 2 puff INH RQ4 PRN PRN Reason: Shortness of Breath Last Admin: 06/24/16 10:00 Dose: 2 unit Albuterol/Ipratropium (Duoneb 3 Mg/0.5 Mg (3 Ml) Ud) 3 ml INH RQ4 PRN PRN Reason: Shortness of Breath Last Admin: 06/24/16 08:11 Dose: 3 ml Artificial Tears (Artificial Tears) 1 drop OU TID [facility] Last Admin: 07/02/16 08:41 Dose: 1 drop Aspirin (Ecotrin) 81 mg PO DAILY [facility] Last Admin: 07/02/16 08:42 Dose: 81 mg Bacitracin (Bacitracin) 1 ea TOP TID [facility] Last Admin: 07/02/16 08:41 Dose: 1 ea Cyclobenzaprine HCl (Flexeril) 10 mg PO HS PRN PRN Reason: Muscle spasm Last Admin: 07/02/16 08:42 Dose: 10 mg Docusate Sodium (Colace) 100 mg PO HS [facility] Last Admin: 07/01/16 21:54 Dose: 100 mg Enoxaparin Sodium (Lovenox) 90 mg SC DAILY [facility] PRN Reason: Protocol Last Admin: 07/02/16 08:44 Dose: 90 mg Furosemide (Lasix) 80 mg IV DAILY [facility] Last Admin: 07/02/16 08:39 Dose: 80 mg Gabapentin (Neurontin) 400 mg PO TID [facility] Last Admin: 07/02/16 08:37 Dose: 400 mg Insulin Detemir (Levemir) 28 units SC HS [facility] Insulin Human Lispro (Humalog) 0 units SC ACHS [facility] PRN Reason: Protocol Last Admin: 07/02/16 08:43 Dose: Not Given Insulin Human Lispro (Humalog) 8 units SC AC [facility] Last Admin: 07/02/16 08:44 Dose: 8 units Lactulose (Enulose) 10 gm PO DAILY PRN PRN Reason: Constipation Metoprolol Tartrate (Lopressor) 12.5 mg PO Q12 [facility] Last Admin: 07/02/16 08:37 Dose: 12.5 mg Multivitamins/Minerals (Therapeutic-M Tab) 1 tab PO DAILY [facility] Last Admin: 07/02/16 08:45 Dose: 1 tab Nitroglycerin (Nitro-Bid) 1 appl TOP Q6 [facility] Last Admin: 07/02/16 09:14 Dose: 1 inch Pantoprazole Sodium (Protonix Ec Tab) 40 mg PO DAILY [facility] Last Admin: 07/02/16 08:42 Dose: 40 mg Potassium Chloride (Potassium Chloride Oral Soln) 40 meq PO DAILY [facility] Last Admin: 07/02/16 08:42 Dose: 40 meq Pravastatin Sodium (Pravachol) 40 mg PO HS [facility] Last Admin: 07/01/16 21:54 Dose: 40 mg - Labs Labs: 07/01/16 04:30 07/01/16 06:30 PT 10.9 SECONDS (9.6-11.2) 06/26/16 08:15 INR 1.05 (0.92-1.08) 06/26/16 08:15 APTT 29.5 SECONDS (23.3-32.5) 06/26/16 08:15 - Constitutional Appears: No Acute Distress - Head Exam Head Exam: ATRAUMATIC, NORMAL INSPECTION, NORMOCEPHALIC - Eye Exam Eye Exam: EOMI, Normal appearance, PERRL Pupil Exam: NORMAL ACCOMODATION, PERRL - ENT Exam ENT Exam: Mucous Membranes Moist, Normal Exam - Neck Exam Neck Exam: Full ROM, Normal Inspection. absent: Lymphadenopathy - Respiratory Exam Respiratory Exam: Clear to Ausculation Bilateral, NORMAL BREATHING PATTERN - Cardiovascular Exam Cardiovascular Exam: REGULAR RHYTHM, +S1, +S2. absent: Murmur - GI/Abdominal Exam GI & Abdominal Exam: Soft, Normal Bowel Sounds. absent: Tenderness - Rectal Exam Rectal Exam: NORMAL INSPECTION - Extremities Exam Extremities Exam: Full ROM, Normal Capillary Refill, Normal Inspection. absent : Joint Swelling, Pedal Edema - Back Exam Back Exam: NORMAL INSPECTION - Neurological Exam Neurological Exam: Alert, Awake, CN II-XII Intact, Normal Gait, Oriented x3 - Psychiatric Exam Psychiatric exam: Normal Affect, Normal Mood - Skin Skin Exam: Dry, Intact, Normal Color, Warm - Additional Findings Additional findings: CDXR-CLEAR LUNG OLIVAS Assessment and Plan - Assessment and Plan (Free Text) Assessment: RESPIRATORY FAILURE RESOLVED Plan: NO FURTHER PULMONARY INTERVENTION FOR NOW SUGGEST SUBACUTE CARE PRIOR TO D/C HOME WILL SIGN OFF CASE AND SEE AGAIN AT YOUR REQUEST
--- NOTE | 2016-07-02 12:29 | CP.PCM.PN ---
Subjective - Date & Time of Evaluation Date of Evaluation: 07/02/16 Time of Evaluation: 11:30 - Subjective Subjective: Appears comfortable. No SOB or CP Objective - Vital Signs/Intake and Output Vital Signs (last 24 hours): Temp Pulse Resp BP Pulse Ox 98.0 F 67 20 114/73 95 07/02/16 12:04 07/02/16 12:04 07/02/16 12:04 07/02/16 12:04 07/02/16 12:04 Intake and Output: 07/02/16 07/02/16 06:59 18:59 Intake Total 240 Output Total 450 Balance -210 - Medications Medications: Current Medications Acetaminophen (Tylenol 325mg Tab) 650 mg PO Q4 PRN PRN Reason: Fever >100.4 F Last Admin: 07/01/16 10:12 Dose: 650 mg Albuterol (Ventolin Hfa 90 Mcg/Actuation (8 G)) 2 puff INH RQ4 PRN PRN Reason: Shortness of Breath Last Admin: 06/24/16 10:00 Dose: 2 unit Albuterol/Ipratropium (Duoneb 3 Mg/0.5 Mg (3 Ml) Ud) 3 ml INH RQ4 PRN PRN Reason: Shortness of Breath Last Admin: 06/24/16 08:11 Dose: 3 ml Artificial Tears (Artificial Tears) 1 drop OU TID [facility] Last Admin: 07/02/16 08:41 Dose: 1 drop Aspirin (Ecotrin) 81 mg PO DAILY [facility] Last Admin: 07/02/16 08:42 Dose: 81 mg Bacitracin (Bacitracin) 1 ea TOP TID [facility] Last Admin: 07/02/16 08:41 Dose: 1 ea Cyclobenzaprine HCl (Flexeril) 10 mg PO HS PRN PRN Reason: Muscle spasm Last Admin: 07/02/16 08:42 Dose: 10 mg Docusate Sodium (Colace) 100 mg PO HS [facility] Last Admin: 07/01/16 21:54 Dose: 100 mg Enoxaparin Sodium (Lovenox) 90 mg SC DAILY [facility] PRN Reason: Protocol Last Admin: 07/02/16 08:44 Dose: 90 mg Furosemide (Lasix) 80 mg IV DAILY [facility] Last Admin: 07/02/16 08:39 Dose: 80 mg Gabapentin (Neurontin) 400 mg PO TID [facility] Last Admin: 07/02/16 08:37 Dose: 400 mg Insulin Detemir (Levemir) 28 units SC HS [facility] Insulin Human Lispro (Humalog) 0 units SC ACHS [facility] PRN Reason: Protocol Last Admin: 07/02/16 08:43 Dose: Not Given Insulin Human Lispro (Humalog) 8 units SC AC [facility] Last Admin: 07/02/16 08:44 Dose: 8 units Lactulose (Enulose) 10 gm PO DAILY PRN PRN Reason: Constipation Metoprolol Tartrate (Lopressor) 12.5 mg PO Q12 [facility] Last Admin: 07/02/16 08:37 Dose: 12.5 mg Multivitamins/Minerals (Therapeutic-M Tab) 1 tab PO DAILY [facility] Last Admin: 07/02/16 08:45 Dose: 1 tab Nitroglycerin (Nitro-Bid) 1 appl TOP Q6 [facility] Last Admin: 07/02/16 09:14 Dose: 1 inch Pantoprazole Sodium (Protonix Ec Tab) 40 mg PO DAILY [facility] Last Admin: 07/02/16 08:42 Dose: 40 mg Potassium Chloride (Potassium Chloride Oral Soln) 40 meq PO DAILY [facility] Last Admin: 07/02/16 08:42 Dose: 40 meq Pravastatin Sodium (Pravachol) 40 mg PO HS [facility] Last Admin: 07/01/16 21:54 Dose: 40 mg - Labs Labs: 07/01/16 04:30 07/01/16 06:30 PT 10.9 SECONDS (9.6-11.2) 06/26/16 08:15 INR 1.05 (0.92-1.08) 06/26/16 08:15 APTT 29.5 SECONDS (23.3-32.5) 06/26/16 08:15 - Respiratory Exam Respiratory Exam: NORMAL BREATHING PATTERN Additional comments: Lungs clear - Cardiovascular Exam Cardiovascular Exam: REGULAR RHYTHM - Extremities Exam Additional comments: No edema or cyanosis Assessment and Plan - Assessment and Plan (Free Text) Assessment: ERIKA improving CHF, CAD DM Plan: Continue to monitor renal function
--- NOTE | 2016-07-02 16:02 | CP.PCM.PN ---
Subjective - Date & Time of Evaluation Date of Evaluation: 07/02/16 Time of Evaluation: 15:45 - Subjective Subjective: patient resting comfortably; denies SOB or chest pain; out of bed to chair improved appetite Vital Signs stable Lungs- decreased breath sounds b/l Heart- regular S1, S2, no murmur Abd. - + BS, soft, nontender Ext. - no edema !. Pulmonary edema- resolved 2. b/l pneumonia- resolved 3. CKD 4. Diabetes with neuropathy- Dr. vick adjusted insulin 5. CAD 6. Rhabdomyolysis-resolved received 80mg iv lasix; maintaining negative fluid balance; creatinine now 2.0 mg/dl; planning to add MITESH or ARB; physical therapy for improving gait and balance Objective - Vital Signs/Intake and Output Vital Signs (last 24 hours): Temp Pulse Resp BP Pulse Ox 98.0 F 67 20 114/73 95 07/02/16 12:04 07/02/16 12:04 07/02/16 12:04 07/02/16 12:04 07/02/16 12:04 Intake and Output: 07/02/16 07/02/16 06:59 18:59 Intake Total 240 Output Total 450 Balance -210 - Medications Medications: Current Medications Acetaminophen (Tylenol 325mg Tab) 650 mg PO Q4 PRN PRN Reason: Fever >100.4 F Last Admin: 07/01/16 10:12 Dose: 650 mg Albuterol (Ventolin Hfa 90 Mcg/Actuation (8 G)) 2 puff INH RQ4 PRN PRN Reason: Shortness of Breath Last Admin: 06/24/16 10:00 Dose: 2 unit Albuterol/Ipratropium (Duoneb 3 Mg/0.5 Mg (3 Ml) Ud) 3 ml INH RQ4 PRN PRN Reason: Shortness of Breath Last Admin: 06/24/16 08:11 Dose: 3 ml Artificial Tears (Artificial Tears) 1 drop OU TID [facility] Last Admin: 07/02/16 12:59 Dose: 1 drop Aspirin (Ecotrin) 81 mg PO DAILY [facility] Last Admin: 07/02/16 08:42 Dose: 81 mg Bacitracin (Bacitracin) 1 ea TOP TID [facility] Last Admin: 07/02/16 12:59 Dose: 1 ea Cyclobenzaprine HCl (Flexeril) 10 mg PO HS PRN PRN Reason: Muscle spasm Last Admin: 07/02/16 08:42 Dose: 10 mg Docusate Sodium (Colace) 100 mg PO HS [facility] Last Admin: 07/01/16 21:54 Dose: 100 mg Enoxaparin Sodium (Lovenox) 90 mg SC DAILY [facility] PRN Reason: Protocol Last Admin: 07/02/16 08:44 Dose: 90 mg Furosemide (Lasix) 80 mg IV DAILY [facility] Last Admin: 07/02/16 08:39 Dose: 80 mg Gabapentin (Neurontin) 400 mg PO TID [facility] Last Admin: 07/02/16 08:37 Dose: 400 mg Insulin Detemir (Levemir) 28 units SC HS [facility] Insulin Human Lispro (Humalog) 0 units SC ACHS [facility] PRN Reason: Protocol Last Admin: 07/02/16 13:00 Dose: Not Given Insulin Human Lispro (Humalog) 8 units SC AC [facility] Last Admin: 07/02/16 13:00 Dose: 8 units Lactulose (Enulose) 10 gm PO DAILY PRN PRN Reason: Constipation Metoprolol Tartrate (Lopressor) 12.5 mg PO Q12 [facility] Last Admin: 07/02/16 08:37 Dose: 12.5 mg Multivitamins/Minerals (Therapeutic-M Tab) 1 tab PO DAILY [facility] Last Admin: 07/02/16 08:45 Dose: 1 tab Nitroglycerin (Nitro-Bid) 1 appl TOP Q6 [facility] Last Admin: 07/02/16 09:14 Dose: 1 inch Pantoprazole Sodium (Protonix Ec Tab) 40 mg PO DAILY [facility] Last Admin: 07/02/16 08:42 Dose: 40 mg Potassium Chloride (Potassium Chloride Oral Soln) 40 meq PO DAILY [facility] Last Admin: 07/02/16 08:42 Dose: 40 meq Pravastatin Sodium (Pravachol) 40 mg PO HS [facility] Last Admin: 07/01/16 21:54 Dose: 40 mg - Labs Labs: 07/01/16 04:30 07/01/16 06:30 PT 10.9 SECONDS (9.6-11.2) 06/26/16 08:15 INR 1.05 (0.92-1.08) 06/26/16 08:15 APTT 29.5 SECONDS (23.3-32.5) 06/26/16 08:15
[2016-07-02] MEDS: Pravastatin Sodium 40 MG TAB PO SCH (21:49)
[2016-07-02] MEDS ORDERED: Insulin Detemir 100 Units/ml Inj SC SCH (22:00)
[2016-07-03] MEDS: Nitroglycerin 2% 15 INCH/30 GM TUBE TOP SCH ×4 (04:32→21:50)
[2016-07-03] MEDS: Insulin Lispro (humaLOG) 100 Units/ml Inj SC SCH ×7 (06:31→21:52)
[2016-07-03] MEDS: Artificial Tears Opht Soln OU SCH ×3 (08:47→16:15)
[2016-07-03] MEDS: Bacitracin 500 Units/gm Oint Foilpak UD TOP SCH ×3 (08:51→16:15)
[2016-07-03] MEDS: Enoxaparin 100 mg Syringe SC SCH (09:00)
[2016-07-03] MEDS: Potassium Chloride 20 mEq/15 ml LIQ UD PO SCH (09:09)
[2016-07-03] MEDS: Pantoprazole 40 mg EC Tab PO SCH (09:10)
[2016-07-03] MEDS: Multivitamin With Minerals Tab PO SCH (09:11)
--- NOTE | 2016-07-03 12:13 | PN ---
DATE: 07/03/2016 ROOM: 406 This is a 61-year-old female with recent uncontrolled type 2 insulin-requiring diabetes with extremes of glycemic fluctuations also related to the variability of oral intake and is now being followed cl osely for metabolic management. Her glycemic levels are fluctuating, but improved, and the latest chemistries showed a BUN of 31, sod ium 141, potassium 4.0, chloride 101, CO2 28, glucose 162 and creatinine 2.0. Her glucose values hav e ranged from 200-227 mg/dL. It was 226-260 last night as noted. So at this time, we will modify her basal and bolus insulin regimen. We will increase her Levemir to be given as 30 units subQ at bedtime daily to start tonight. We will also increase the Humalog to 8 units subQ t.i.d. before meals to start today as ordered. We will continue the low-dose correction scale using Humalog insulin to obviate hypoglycemia and detailed orders have been given. We will fol low. Natalia Castillo MD cc: [phone] TT: 07/03/2016 12:13:01 Confirmation # [id number] Dictation # [id number]
--- NOTE | 2016-07-03 13:23 | CP.PCM.PN ---
Subjective - Date & Time of Evaluation Date of Evaluation: 07/03/16 Time of Evaluation: 01:00 - Subjective Subjective: No complaints reported Comfortable in bed Objective - Vital Signs/Intake and Output Vital Signs (last 24 hours): Temp Pulse Resp BP Pulse Ox 97.5 F L 68 18 129/77 100 07/03/16 12:00 07/03/16 12:00 07/03/16 12:00 07/03/16 12:00 07/03/16 12:00 Intake and Output: 07/03/16 07/03/16 06:59 18:59 Intake Total 360 Output Total 650 Balance -290 - Medications Medications: Current Medications Acetaminophen (Tylenol 325mg Tab) 650 mg PO Q4 PRN PRN Reason: Fever >100.4 F Last Admin: 07/01/16 10:12 Dose: 650 mg Albuterol (Ventolin Hfa 90 Mcg/Actuation (8 G)) 2 puff INH RQ4 PRN PRN Reason: Shortness of Breath Last Admin: 06/24/16 10:00 Dose: 2 unit Albuterol/Ipratropium (Duoneb 3 Mg/0.5 Mg (3 Ml) Ud) 3 ml INH RQ4 PRN PRN Reason: Shortness of Breath Last Admin: 06/24/16 08:11 Dose: 3 ml Artificial Tears (Artificial Tears) 1 drop OU TID [facility] Last Admin: 07/03/16 12:43 Dose: 1 drop Aspirin (Ecotrin) 81 mg PO DAILY [facility] Last Admin: 07/03/16 08:52 Dose: 81 mg Bacitracin (Bacitracin) 1 ea TOP TID [facility] Last Admin: 07/03/16 12:43 Dose: 1 ea Cyclobenzaprine HCl (Flexeril) 10 mg PO HS PRN PRN Reason: Muscle spasm Last Admin: 07/02/16 22:38 Dose: 10 mg Docusate Sodium (Colace) 100 mg PO HS [facility] Last Admin: 07/02/16 21:51 Dose: Not Given Furosemide (Lasix) 80 mg IV DAILY [facility] Last Admin: 07/03/16 08:53 Dose: 80 mg Gabapentin (Neurontin) 400 mg PO TID [facility] Last Admin: 07/03/16 12:45 Dose: 400 mg Insulin Detemir (Levemir) 30 units SC [facility] Insulin Human Lispro (Humalog) 0 units SC [facility] PRN Reason: Protocol Last Admin: 07/03/16 12:44 Dose: 3 units Insulin Human Lispro (Humalog) 8 units SC AC [facility] Last Admin: 07/03/16 12:45 Dose: 8 units Lactulose (Enulose) 10 gm PO DAILY PRN PRN Reason: Constipation Metoprolol Tartrate (Lopressor) 12.5 mg PO Q12 [facility] Last Admin: 07/03/16 08:59 Dose: 12.5 mg Multivitamins/Minerals (Therapeutic-M Tab) 1 tab PO DAILY [facility] Last Admin: 07/03/16 09:11 Dose: 1 tab Nitroglycerin (Nitro-Bid) 1 appl TOP Q6 [facility] Last Admin: 07/03/16 09:04 Dose: 1 inch Pantoprazole Sodium (Protonix Ec Tab) 40 mg PO DAILY [facility] Last Admin: 07/03/16 09:10 Dose: 40 mg Potassium Chloride (Potassium Chloride Oral Soln) 40 meq PO DAILY [facility] Last Admin: 07/03/16 09:09 Dose: 40 meq Pravastatin Sodium (Pravachol) 40 mg PO HS [facility] Last Admin: 07/02/16 21:49 Dose: 40 mg - Labs Labs: 07/01/16 04:30 07/01/16 06:30 PT 10.9 SECONDS (9.6-11.2) 06/26/16 08:15 INR 1.05 (0.92-1.08) 06/26/16 08:15 APTT 29.5 SECONDS (23.3-32.5) 06/26/16 08:15 - Respiratory Exam Respiratory Exam: NORMAL BREATHING PATTERN - Cardiovascular Exam Cardiovascular Exam: REGULAR RHYTHM Assessment and Plan - Assessment and Plan (Free Text) Assessment: ERIKA Renal function continues to improve CAD,CHF DM Plan: Continue to monitor renal function
[2016-07-03 15:42] VITALS: RESP 20
--- NOTE | 2016-07-03 18:57 | CP.PCM.PN ---
Subjective - Date & Time of Evaluation Date of Evaluation: 07/03/16 Time of Evaluation: 17:30 - Subjective Subjective: Patient resting comfortably in bed w/o complaint; asking when she will be able to go home Vital Signs Stable Lungs- dec. breath sounds b/l Heart- regular S1, S2, no murmur Abd. - +BS, soft, nontender Ext. - No edema 1. Chronic Kidney Disease 2. Diabetes with neuropathy 3. CAD maintaining negative fluid balance; comprehensive metabolic panel ordered for the am; continue physical therapy for gait and mobility Objective - Vital Signs/Intake and Output Vital Signs (last 24 hours): Temp Pulse Resp BP Pulse Ox 98.6 F 79 20 129/77 97 07/03/16 15:41 07/03/16 15:41 07/03/16 15:41 07/03/16 15:41 07/03/16 15:41 Intake and Output: 07/03/16 07/03/16 06:59 18:59 Intake Total 360 1600 Output Total 650 1400 Balance -290 200 - Medications Medications: Current Medications Acetaminophen (Tylenol 325mg Tab) 650 mg PO Q4 PRN PRN Reason: Fever >100.4 F Last Admin: 07/01/16 10:12 Dose: 650 mg Albuterol (Ventolin Hfa 90 Mcg/Actuation (8 G)) 2 puff INH RQ4 PRN PRN Reason: Shortness of Breath Last Admin: 06/24/16 10:00 Dose: 2 unit Albuterol/Ipratropium (Duoneb 3 Mg/0.5 Mg (3 Ml) Ud) 3 ml INH RQ4 PRN PRN Reason: Shortness of Breath Last Admin: 06/24/16 08:11 Dose: 3 ml Artificial Tears (Artificial Tears) 1 drop OU TID [facility] Last Admin: 07/03/16 16:15 Dose: 1 drop Aspirin (Ecotrin) 81 mg PO DAILY [facility] Last Admin: 07/03/16 08:52 Dose: 81 mg Bacitracin (Bacitracin) 1 ea TOP TID [facility] Last Admin: 07/03/16 16:15 Dose: 1 ea Cyclobenzaprine HCl (Flexeril) 10 mg PO HS PRN PRN Reason: Muscle spasm Last Admin: 07/02/16 22:38 Dose: 10 mg Docusate Sodium (Colace) 100 mg PO HS [facility] Last Admin: 07/02/16 21:51 Dose: Not Given Furosemide (Lasix) 80 mg IV DAILY [facility] Last Admin: 07/03/16 08:53 Dose: 80 mg Gabapentin (Neurontin) 400 mg PO TID [facility] Last Admin: 07/03/16 16:21 Dose: 400 mg Insulin Detemir (Levemir) 30 units SC HS [facility] Insulin Human Lispro (Humalog) 0 units SC ACHS [facility] PRN Reason: Protocol Last Admin: 07/03/16 16:19 Dose: Not Given Insulin Human Lispro (Humalog) 8 units SC AC [facility] Last Admin: 07/03/16 16:21 Dose: 8 units Lactulose (Enulose) 10 gm PO DAILY PRN PRN Reason: Constipation Metoprolol Tartrate (Lopressor) 12.5 mg PO Q12 [facility] Last Admin: 07/03/16 08:59 Dose: 12.5 mg Multivitamins/Minerals (Therapeutic-M Tab) 1 tab PO DAILY [facility] Last Admin: 07/03/16 09:11 Dose: 1 tab Nitroglycerin (Nitro-Bid) 1 appl TOP Q6 [facility] Last Admin: 07/03/16 16:22 Dose: 1 inch Pantoprazole Sodium (Protonix Ec Tab) 40 mg PO DAILY [facility] Last Admin: 07/03/16 09:10 Dose: 40 mg Potassium Chloride (Potassium Chloride Oral Soln) 40 meq PO DAILY [facility] Last Admin: 07/03/16 09:09 Dose: 40 meq Pravastatin Sodium (Pravachol) 40 mg PO HS [facility] Last Admin: 07/02/16 21:49 Dose: 40 mg - Labs Labs: 07/01/16 04:30 07/01/16 06:30 PT 10.9 SECONDS (9.6-11.2) 06/26/16 08:15 INR 1.05 (0.92-1.08) 06/26/16 08:15 APTT 29.5 SECONDS (23.3-32.5) 06/26/16 08:15
[2016-07-03] MEDS: Pravastatin Sodium 40 MG TAB PO SCH (21:51)
[2016-07-03] MEDS ORDERED: Insulin Detemir 100 Units/ml Inj SC SCH (22:00)
[2016-07-04] MEDS: Nitroglycerin 2% 15 INCH/30 GM TUBE TOP SCH ×3 (03:06→16:50)
[2016-07-04 05:11] VITALS: O2SAT 100
[2016-07-04 07:44] LABS: MEAN CELL VOLUME 88.4 fl (81.0-99.0); MEAN CORPUSCULAR HEMOGLOBIN 29.1 pg (27.0-31.0); MEAN CORPUSCULAR HGB CONC 32.9 g/dL (33.0-37.0); WHITE BLOOD COUNT 8.5 K/uL (4.8-10.8)
[2016-07-04 07:51] LABS: ALB/GLOB RATIO 0.7 (1.0-2.1); ALKALINE PHOSPHATASE 213 U/L (38-126); ALT/SGPT 49 U/L (9-52); AST/SGOT 55 U/L (14-36); BILIRUBIN,TOTAL 0.4 mg/dl (0.2-1.3); BLOOD UREA NITROGEN 32 mg/dl (7-17); CALCIUM 9.5 mg/dL (8.4-10.2); CARBON DIOXIDE 26 mmol/L (22-30); CHLORIDE 98 mmol/L (98-107); GFR AFRICAN-AMERICAN 37; GLUCOSE,RANDOM 233 mg/dL (65-105); POTASSIUM 4.9 MMOL/L (3.6-5.0); SODIUM 138 mmol/l (132-148); TOTAL PROTEIN 7.5 G/DL (6.3-8.2)
[2016-07-04] MEDS: Artificial Tears Opht Soln OU SCH ×3 (08:26→16:46)
[2016-07-04] MEDS: Bacitracin 500 Units/gm Oint Foilpak UD TOP SCH ×3 (08:27→16:47)
[2016-07-04] MEDS: Insulin Lispro (humaLOG) 100 Units/ml Inj SC SCH ×6 (08:27→16:49)
[2016-07-04] MEDS: Potassium Chloride 20 mEq/15 ml LIQ UD PO SCH (08:35)
[2016-07-04] MEDS: Pantoprazole 40 mg EC Tab PO SCH (08:38)
[2016-07-04] MEDS: Multivitamin With Minerals Tab PO SCH (08:38)
[2016-07-04] MEDS ORDERED: Pneumococcal 23-Valent Vaccine IM ONE (15:01)
--- NOTE | 2016-07-04 16:26 | PN ---
DATE: 07/04/2016 ROOM: 406 This is a 61-year-old female with recent acute pulmonary edema and has now improved clinically and he modynamically as noted thereof. Her glycemic levels are fluctuating because of the variability of he r oral intake as noted. Her glucose levels have ranged from 174-260 mg/dL. It was 206-331 yesterday as noted. Her latest chemistries include a BUN of 32, sodium 138, potassium 4.9, chloride 98, CO2 2 6, glucose 233, and creatinine 1.7. So, at this time, we will continue the same basal and bolus insu lukasz regimen as ordered to allow for dose equilibration and keep her on the Humalog at 8 units subQ t. i.d. before meals as given. We will also continue the Levemir given as 30 units subQ at bedtime yanelis y as ordered. We will continue the low-dose correction scale using Humalog insulin as given. We zoila l titrate incrementally as indicated to optimize metabolic control. We will follow. Natalia Castillo MD cc: [phone] TT: 07/04/2016 16:25:58 Confirmation # [id number] Dictation # [id number]
[2016-07-04 16:27] VITALS: BP 133/75; PULSE 80; TEMP 97.7
--- NOTE | 2016-07-22 14:17 | DS ---
DISCHARGE DIAGNOSES: 1. Acute respiratory insufficiency due to acute pulmonary edema due to acute congestive heart failure secondary to diastolic dysfunction. 2. Bilateral community-acquired pneumonia. 3. Non-ST segment elevation myocardial infarction. 4. Acute kidney injury. 5. Rhabdomyolysis. 6. Uncontrolled diabetes with neuropathy. 7. Hypokalemia. 8. Abscess midline lower abdomen. HOSPITAL COURSE: This is a 61-year-old female who stated that on the evening of 06/18/2016, she fell out of bed and was unable to get up. She was discovered by her home health aide Monday evening, 06/19/2016. She complained of generalized muscle pain and weakness and severe back pain involving her entire back and left shoulder as well as abrasions of the right knee and right elbow. She denied any chest pain, shortness of breath or palpitations. At the Emergency Room, it was noted that she had a blood glucose of 412 mg/dL as well as BUN 38 mg/dL and creatinine 1.7 mg/dL and potassium was 6.0 millimoles per liter. She had a white count of 12.3 K/uL. Her creatine kinase was 967 units/ L. At the Emergency Room, the patient received 10 units regular insulin as well as Kayexalate 15 grams and sodium bicarb 44.6 mEq in 50 mL of normal saline. She also received 1 amp of dextrose and 500 mL of normal saline at the ER. The patient was transferred to [address] [place] [address]. Normal saline was started 125 mL an hour and was titrated as needed. Dr. Castillo was consulted for management of uncontrolled diabetes with neuropathy. I's and O's as well as CBC and comp metabolic panel as well as phosphorus level was ordered for the following morning. On 06/24, the patient complained of increasing shortness of breath with chest congestion. Chest x-ray revealed progression of confluent airway disease with low lung volumes. Dr. Adorno was asked to evaluate the patient concerning her respiratory distress. The patient was transferred to the ICU for further management. At the ICU, the patient was started with 1 gram vancomycin as well as ceftriaxone 1 gram IV daily and azithromycin 500 mg daily IV. Followup chest x-ray showed acute congestive heart failure with superimposed bilateral pneumonia. Aggressive diuresis with Lasix 80 mg IV twice a day was ordered. Positive cardiac enzymes were noted and Dr. Guillermo Meza was asked to evaluate the patient. Non-ST segment elevation myocardial infarction was noted. He ordered Lovenox 90 mg subQ daily, Lopressor 12.5 mg twice daily, Nitro-Bid applied every 6 hours and patient was also continued on pravastatin 40 mg at bedtime. The patient made steady progress at the ICU and responded well to aggressive IV diuresis and broad spectrum antibiotic coverage. Nephrology consult with Dr. Banegas was ordered after creatinine jonathan to 2.7 mg/dl. At discharge the patient's creatinine had returned to baseline of 1.7mg/dl. By 07/02/2016, the patient's acute respiratory failure had resolved. Physical therapy was continued for gait stability and mobility. On 07/04, the patient was stable for [facility] [place] where she will be taken care of by Dr. Emmett Lei. DISCHARGE MEDICATIONS: The patient will continue with the following medications : Ventolin HFA 90 mcg per actuation 2 puffs every 4 hours as needed, aspirin 81 mg daily, Artificial Tears 1 drop each eye 3 times a day, Flexeril 10 mg at bedtime as needed, Colace 100 mg at bedtime, gabapentin 400 mg 3 times a day, Levemir 24 units subQ at bedtime, Humalog lispro using sliding scale before meals and at bedtime, Lopressor 12.5 mg every 12 hours, pravastatin 40 mg at bedtime and Protonix 40 mg daily. Keturah Lott MD cc: [phone] TT: 07/22/2016 14:17:00 sn MTDD
== END 2016-07-04 18:00 | DRG 682 ==
LOC: H.ER 10:33 → H.ERHOLD 13:30 → H.TEL 15:15 → H.ICU/CCU 06-24 10:48 → H.TEL 07-01 18:01
PROVIDERS: ADMIT Family Medicine Adult Medicine; ATTEND Family Medicine Adult Medicine
PROC: 5A09457 Assistance with Respiratory Ventilation, 24-96 Consecutive Hours, Continuous Positive Airway Pressure (ICD-10-PCS; principal; 2016-06-24)
DX: N17.9 Acute kidney failure, unspecified (principal); I21.4 Non-ST elevation (NSTEMI) myocardial infarction; J96.00 Acute respiratory failure, unspecified whether with hypoxia or hypercapnia; I50.33 Acute on chronic diastolic (congestive) heart failure; J18.9 Pneumonia, unspecified organism; M62.82 Rhabdomyolysis; I13.0 Hypertensive heart and chronic kidney disease with heart failure and stage 1 through stage 4 chronic kidney disease, or unspecified chronic kidney disease; J44.0 Chronic obstructive pulmonary disease with (acute) lower respiratory infection; L02.211 Cutaneous abscess of abdominal wall; E11.21 Type 2 diabetes mellitus with diabetic nephropathy; W06.XXXA Fall from bed, initial encounter; E87.5 Hyperkalemia; E86.0 Dehydration; N18.3 Chronic kidney disease, stage 3 (moderate); E11.22 Type 2 diabetes mellitus with diabetic chronic kidney disease; E11.42 Type 2 diabetes mellitus with diabetic polyneuropathy; E11.65 Type 2 diabetes mellitus with hyperglycemia; E11.319 Type 2 diabetes mellitus with unspecified diabetic retinopathy without macular edema; I25.10 Atherosclerotic heart disease of native coronary artery without angina pectoris; Z95.5 Presence of coronary angioplasty implant and graft; Z87.891 Personal history of nicotine dependence; S80.211A Abrasion, right knee, initial encounter; S50.311A Abrasion of right elbow, initial encounter; Y93.9 Activity, unspecified; Y92.003 Bedroom of unspecified non-institutional (private) residence as the place of occurrence of the external cause; Y99.9 Unspecified external cause status; E87.6 Hypokalemia; H54.8 Legal blindness, as defined in USA; Z79.4 Long term (current) use of insulin; Z79.84 Long term (current) use of oral hypoglycemic drugs

== ENCOUNTER 2016-11-05 08:35 | Inpatient (IN) | payer MEDICARE, OTHER ==
[2016-11-05] MEDS ORDERED: Vancomycin 1 g Inj ONE (08:59)
--- NOTE | 2016-11-05 08:59 | ED PDOC ---
Lower Extremity Pain/Injury Time Seen by Provider: 11/05/16 08:38 Chief Complaint (Nursing): Abnormal Skin Integrity Chief Complaint (Provider): Abnormal Skin Integrity History Per: Patient History/Exam Limitations: no limitations Onset/Duration Of Symptoms: Days Current Symptoms Are (Timing): Still Present Additional Complaint(s): 61 y/o female with a past medical history of diabetes who presents to the emergency department with a painful right heel ulcer. Patient reports she was seen by podiatry yesterday, told that wound was infected, and needed intravenous antibiotics. Denies fever. PMD: Dr. Miguel Buchanan MD Past Medical History Reviewed: Historical Data, Nursing Documentation, Vital Signs Vital Signs: Last Vital Signs Temp 98 F 11/05/16 08:48 Pulse 63 11/05/16 08:48 Resp 19 11/05/16 08:48 BP Pulse Ox 98 11/05/16 08:48 - Medical History PMH: CAD (2 stents inserted), Diabetes (per EMS transporting medications), HTN Denies: Arthritis, CHF, COPD, HIV, Hypercholesterolemia, Hypothyroidism, Chronic Kidney Disease, Rheumatoid Arthritis - Surgical History Surgical History: Cholecystectomy, Coronary Stent - Family History Family History: States: Unknown Family Hx - Social History Current smoker - smoking cessation education provided: No Alcohol: None Drugs: Denies - Home Medications Home Medications: Ambulatory Orders Medication Instructions Recorded Cyclobenzaprine [Flexeril] 10 mg PO HS PRN 03/07/15 Insulin Aspart, Recombinant 8 unit SUBCUT ACBL 09/16/15 [Novolog] Insulin Aspart, Recombinant 14 unit SUBCUT DIN 09/16/15 [Novolog] Gabapentin [Neurontin] 800 mg PO Q8H 06/20/16 Insulin Detemir [Levemir] 20 unit SC QAM 06/20/16 cycloSPORINE [Restasis] 1 drop EACHEYE Q12H 06/20/16 Acetaminophen [Tylenol 325mg tab] 650 mg PO Q4 PRN #0 tab 07/04/16 Albuterol HFA [Ventolin HFA 90 2 puff INH RQ4 PRN #0 inhaler 07/04/16 mcg/actuation (8 g)] Aspirin [Ecotrin] 81 mg PO DAILY [facility] 07/04/16 Bacitracin 1 ea TOP TID fp 07/04/16 Furosemide [Lasix] 40 mg PO DAILY #30 tablet 07/04/16 Gabapentin [Neurontin] 400 mg PO TID cap 07/04/16 Insulin Detemir [Levemir] 30 units SC HS vial 07/04/16 Metoprolol Tartrate [Lopressor] 12.5 mg PO Q12 tab 07/04/16 Multimineral/Multivitamin 1 tab PO DAILY tab 07/04/16 [Therapeutic-M Tab] Pantoprazole [Protonix EC Tab] 40 mg PO DAILY ect 07/04/16 Polyethylene Glycol/Polyvinyl 1 drop OU TID bottle 07/04/16 [Artificial Tears] Pravastatin Sodium [Pravachol] 40 mg PO HS tab 07/04/16 - Allergies Allergies/Adverse Reactions: Allergies Allergy/AdvReac Type Severity Reaction Status Date / Time hydromorphone HCl Allergy ANAPHYLAXIS Verified 09/16/15 12:14 [From Dilaudid] shrimp Allergy VOMITING Verified 09/16/15 12:35 Review of Systems ROS Statement: Except As Marked, All Systems Reviewed And Found Negative Constitutional: Negative for: Fever Musculoskeletal: Positive for: Foot Pain (Right heel pain) Physical Exam - Reviewed Nursing Documentation Reviewed: Yes Vital Signs Reviewed: Yes - Physical Exam Appears: Positive for: Non-toxic, No Acute Distress Head Exam: Positive for: ATRAUMATIC, NORMAL INSPECTION, NORMOCEPHALIC Skin: Positive for: Normal Color, Warm, Dry Eye Exam: Positive for: Normal appearance Neck: Positive for: Normal, Supple Cardiovascular/Chest: Positive for: Regular Rate, Rhythm. Negative for: Murmur Respiratory: Positive for: Normal Breath Sounds. Negative for: Accessory Muscle Use, Respiratory Distress Extremity: Positive for: Normal ROM, Other (Necrotic ulcer with eschar and surrounding erythema noted to the right lower heel about 2cm in size. No drainage noted. Superficial 1.5 cm ulcer to the left heel noted. No erythema or drainge. ) Neurologic/Psych: Positive for: Alert, Oriented (x3) - ECG O2 Sat by Pulse Oximetry: 98 (RA) Pulse Ox Interpretation: Normal Medical Decision Making Medical Decision Making: Time: 08:45 Initial impression: Wound Check Initial plan: --VBG --EKG --CMP --Urine DIP --CBC w/ diff --Foot Right x-ray --Blood Culture --Vancomycin 1gm IV --Reevaluation Time: 09:06 --Admit to hospital routine: Inpatient Med/Surg for infected diabetic foot ulcer and DM under the service with Dr. Suzanne Pederson MD Scribe Attestation: Documented by Chetna Iglesias, acting as a scribe for Ramses Hernandez MD. Provider Scribe Attestation: All medical record entries made by the Scribe were at my direction and personally dictated by me. I have reviewed the chart and agree that the record accurately reflects my personal performance of the history, physical exam, medical decision making, and the department course for this patient. I have also personally directed, reviewed, and agree with the discharge instructions and disposition. Disposition - Clinical Impression Clinical Impression: Diabetic foot infection - Patient ED Disposition Is Patient to be Admitted: Yes (Admitted as Inpatient to Med/Surg under Dr. Suzanne Pederson MD) - Disposition Disposition Time: 09:16 Condition: FAIR Forms: [employer] [facility] ([place]oz[place]ican) - Pt Status Changed To: Hospital Disposition Of: Inpatient - Admit Certification Admit to Inpatient:: After my assessment, the patient will require hospitalization for at least two midnights. This is because of the severity of symptoms shown, intensity of services needed, and/or the medical risk in this patient being treated as an outpatient. - POA Present On Arrival: Pressure Ulcer
[2016-11-05 09:20] LABS: VENOUS BLOOD GAS BASE EXCESS 0.2 mmol/L (0.0-2.0); VENOUS BLOOD GAS PCO2 46 mmHg (40-60); VENOUS BLOOD PH 7.36 (7.32-7.43)
--- NOTE | 2016-11-05 09:24 | RAD ---
PROCEDURE: Right Foot Radiographs. HISTORY: cellulitis COMPARISON: None. FINDINGS: BONES: There is a radiolucent area in the base of the proximal phalanx of the 5th toe. There is an old deformity in the proximal phalanx of the great toe. There is mild periarticular bone demineralization. JOINTS: Normal. SOFT TISSUES: There is mild soft tissue swelling in the foot. OTHER FINDINGS: None. IMPRESSION: Lucency in the medial base of the proximal phalanx of the 5th toe could represent osteomyelitis in the appropriate clinical setting. Soft tissue swelling in the foot in keeping with clinical history of cellulitis.
[2016-11-05 09:38] LABS: BASO # 0.1 K/uL (0.0-0.2); BASO % 0.5 % (0.0-2.0); EOS # 0.4 K/uL (0.0-0.7); EOS % 2.9 % (0.0-4.0); HEMATOCRIT 34.3 % (34.0-47.0); LYMPH # 2.2 K/uL (1.0-4.3); LYMPH % 16.6 % (20.0-40.0); MEAN CELL VOLUME 82.8 fl (81.0-99.0); MEAN CORPUSCULAR HEMOGLOBIN 26.1 pg (27.0-31.0); MEAN CORPUSCULAR HGB CONC 31.6 g/dL (33.0-37.0); MEAN PLATELET VOLUME 10.6 fl (7.2-11.7); MONO # 0.9 K/uL (0.0-0.8); MONO % 6.6 % (0.0-10.0); NEUT # 9.6 K/uL (1.8-7.0); NEUT % 73.4 % (50.0-75.0); NRBC % 0.1 % (0.0-0.0); RED CELL DISTRIBUTION WIDTH 15.6 % (11.5-14.5)
[2016-11-05 09:41] LABS: ALB/GLOB RATIO 0.8 (1.0-2.1); ALKALINE PHOSPHATASE 86 U/L (38-126); ALT/SGPT 6 U/L (9-52); AST/SGOT 29 U/L (14-36); BILIRUBIN,TOTAL 0.8 mg/dl (0.2-1.3); BLOOD UREA NITROGEN 19 mg/dl (7-17); CALCIUM 9.5 mg/dL (8.4-10.2); CARBON DIOXIDE 23 mmol/L (22-30); CHLORIDE 110 mmol/L (98-107); GFR AFRICAN-AMERICAN > 60; GLUCOSE,RANDOM 84 mg/dL (65-105); POTASSIUM 5.7 MMOL/L (3.6-5.0); SODIUM 143 mmol/l (132-148); TOTAL PROTEIN 7.9 G/DL (6.3-8.2)
[2016-11-05] MEDS ORDERED: Povidone Iodine Topical 10% Sol ONE (09:54)
[2016-11-05] MEDS ORDERED: Sodium Chloride 0.9% 1,000 ML IV STA (09:54)
--- NOTE | 2016-11-05 10:15 | CP.PCM.CON ---
History of Present Illness - History of Present Illness History of Present Illness: 61 y/o female with PMHx of CAD (2 stents), Diabetes, and HTN was seen at bedside in ED complaining of pain in her right lower extremity. Patient states that she was seen by her ore roaster Dr. Greenfield yesterday who advised her to get admitted at the hospital. Patient states that she has had this ulcer for a while now. Patient states that she started having pain recently in her right foot and lower extremity which prevented her from walking too much on that leg. Patient denies of any other pedal complain at this time. Patient denies of any recent F/N/V/C/SOB today. PMHx: CAD, DM, HTN PSHx: Cholecystectomy, Coronary Stent Allergies: Seafood, Hydromorphone Review of Systems - Constitutional Constitutional: As Per HPI Past Patient History - Infectious Disease Hx of Infectious Diseases: None - Past Medical History & Family History Past Medical History?: Yes - Past Social History Alcohol: None Drugs: Denies - CARDIAC Hx Congestive Heart Failure: No Hx Hypercholesterolemia: No Hx Hypertension: Yes - PULMONARY Hx Chronic Obstructive Pulmonary Disease (COPD): No - NEUROLOGICAL Hx Neurological Disorder: No HX Cerebrovascular Accident: No - HEENT Hx HEENT Problems: No - RENAL Hx Chronic Kidney Disease: No - ENDOCRINE/METABOLIC Hx Hypothyroidism: No - HEMATOLOGICAL/ONCOLOGICAL Hx Human Immunodeficiency Virus (HIV): No - INTEGUMENTARY Hx Dermatological Problems: No - MUSCULOSKELETAL/RHEUMATOLOGICAL Hx Arthritis: No Hx Rheumatoid Arthritis: No - GASTROINTESTINAL Hx Gastrointestinal Disorders: No - GENITOURINARY/GYNECOLOGICAL Hx Genitourinary Disorders: No - SURGICAL HISTORY Hx Cholecystectomy: Yes Hx Coronary Stent: Yes - ANESTHESIA Hx Anesthesia: Yes Hx Anesthesia Reactions: No Hx Malignant Hyperthermia: No Meds Allergies/Adverse Reactions: Allergies Allergy/AdvReac Type Severity Reaction Status Date / Time hydromorphone HCl Allergy ANAPHYLAXIS Verified 09/16/15 12:14 [From Dilaudid] shrimp Allergy VOMITING Verified 09/16/15 12:35 - Medications Medications: Current Medications Vancomycin HCl 1 gm/ Sodium (Chloride) 250 mls @ 166.667 mls/hr IVPB STAT STA Stop: 11/05/16 10:22 Last Admin: 11/05/16 09:39 Dose: 166.667 mls/hr Sodium Chloride (Sodium Chloride 0.9%) 1,000 mls @ 500 mls/hr IV .Q2H STA Stop: 11/05/16 11:53 Last Admin: 11/05/16 09:56 Dose: 500 mls/hr Physical Exam - Constitutional Appears: Well, Non-toxic, No Acute Distress - Extremities Exam Additional comments: Bilateral lower extremity exam: VASC: DP/PT pulses are palpable 2/4 on left and faintly palpable 1/4 on left, BAND SAW FILER: < 3 sec to all digits, TG: cool to cool from proximal to distal b/l, +1 pitting edema noted on the distal right leg and dorsum of the right foot DERM: full thickness wound measuring approximately 5.5 x 5.0 x 0.2 cm on the plantar-posterior heel, heel appears to be dry and necrotic with no active drainage, no malodor, dorsum skin at the ankle joint appears erythematous, no probe to bone. Superficial ulcer measuring approximately 1.5 x 1.0 x 0.1 cm noted on the plantar medial heel on the left, wound base is granular with darci- wound hyperkeratosis, no active drainage, no probe to bone, no malodor, clinical suspicion of infection on the left, diffuse plantar hyperkeratosis noted, no interdigital maceration NEURO: protective sensation grossly diminished ORTHO: pain on palpation of the left heel surrounding necrotic site, mild pain on palpation of the calf on the left - Neurological Exam Neurological exam: Alert, Oriented x3 - Psychiatric Exam Psychiatric exam: Normal Affect, Normal Mood Results - Vital Signs Recent Vital Signs: Last Vital Signs Temp 98 F 11/05/16 08:48 Pulse 63 11/05/16 08:48 Resp 19 11/05/16 08:48 BP 120/57 L 11/05/16 10:06 Pulse Ox 98 11/05/16 09:19 - Labs Result Diagrams: 11/05/16 09:00 11/05/16 09:00 Assessment & Plan - Assessment and Plan (Free Text) Assessment: 61 y/o female seen at bedside in ED for right heel necrotic wound and left heel wound secondary to pressure Plan: Patient evaluated and chart reviewed Patient discussed in details with attending Dr. Lorenzana Lab, and vitals reviewed (afebrile, WBC @ 13.0) Dressing applied using betadine, DSD Patient to be admitted on floor for further wound care following vascular work- up Consult for Infectious Disease Patient to receive IV abx as per ID Consult for Vascular - podiatry will follow with vascular recommendations for further work-up Off-loading boots ordered Will take cultures tomorrow during dressing change Podiatry to follow patient while patient is in house Thank you for podiatry consult - Date & Time Date: 11/05/16 Time: 10:32
[2016-11-05 10:31] LABS: ALB/GLOB RATIO 0.8 (1.0-2.1); ALKALINE PHOSPHATASE 91 U/L (38-126); ALT/SGPT 17 U/L (9-52); AST/SGOT 17 U/L (14-36); BILIRUBIN,TOTAL 0.4 mg/dl (0.2-1.3); BLOOD UREA NITROGEN 18 mg/dl (7-17); CALCIUM 9.4 mg/dL (8.4-10.2); CARBON DIOXIDE 23 mmol/L (22-30); CHLORIDE 111 mmol/L (98-107); GFR AFRICAN-AMERICAN > 60; GLUCOSE,RANDOM 81 mg/dL (65-105); POTASSIUM 4.4 MMOL/L (3.6-5.0); SODIUM 144 mmol/l (132-148); TOTAL PROTEIN 7.3 G/DL (6.3-8.2)
--- NOTE | 2016-11-05 10:40 | RAD ---
HISTORY: COMPARISON: 07/01/2016 TECHNIQUE: Chest PA and lateral FINDINGS: LINES AND TUBES: None. LUNG AND PLEURA: The lungs are well inflated and clear. HEART AND MEDIASTINUM: The heart is not enlarged. The hilar and mediastinal contours are within normal limits. SKELETAL STRUCTURES: The bony structures are within normal limits for the patient's age. VISUALIZED UPPER ABDOMEN: Normal. OTHER FINDINGS: None. IMPRESSION: No active pulmonary disease.
--- NOTE | 2016-11-05 11:25 | CP.PCM.HP ---
History of Present Illness - History of Present Illness History of Present Illness: Bronwyn is a 61 y/o female admitted for worsening of right foot pain. She has a hx of right foot ulcer and had seen her Painter And Grader Cork and was advised ER eval. She was noted to have a tender necrotic right heel wound and anotehr left heel wound. She has a hx of HTN DM and CAD and stent. Present on Admission - Present on Admission Any Indicators Present on Admission: No History of DVT/PE: No History of Uncontrolled Diabetes: No Urinary Catheter: No Decubitus Ulcer Present: No Review of Systems - Integumentary Additional comments: foot ulcer Past Patient History - Infectious Disease Hx of Infectious Diseases: None - Past Medical History & Family History Past Medical History?: Yes - Past Social History Alcohol: None Drugs: Denies - CARDIAC Hx Congestive Heart Failure: No Hx Hypercholesterolemia: No Hx Hypertension: Yes - PULMONARY Hx Chronic Obstructive Pulmonary Disease (COPD): No - NEUROLOGICAL Hx Neurological Disorder: No HX Cerebrovascular Accident: No - HEENT Hx HEENT Problems: No - RENAL Hx Chronic Kidney Disease: No - ENDOCRINE/METABOLIC Hx Hypothyroidism: No - HEMATOLOGICAL/ONCOLOGICAL Hx Human Immunodeficiency Virus (HIV): No - INTEGUMENTARY Hx Dermatological Problems: No - MUSCULOSKELETAL/RHEUMATOLOGICAL Hx Arthritis: No Hx Rheumatoid Arthritis: No - GASTROINTESTINAL Hx Gastrointestinal Disorders: No - GENITOURINARY/GYNECOLOGICAL Hx Genitourinary Disorders: No - SURGICAL HISTORY Hx Cholecystectomy: Yes Hx Coronary Stent: Yes - ANESTHESIA Hx Anesthesia: Yes Hx Anesthesia Reactions: No Hx Malignant Hyperthermia: No Meds Allergies/Adverse Reactions: Allergies Allergy/AdvReac Type Severity Reaction Status Date / Time hydromorphone HCl Allergy ANAPHYLAXIS Verified 09/16/15 12:14 [From Dilaudid] shrimp Allergy VOMITING Verified 09/16/15 12:35 Physical Exam - Head Exam Head Exam: NORMAL INSPECTION - Eye Exam Eye Exam: Normal appearance - ENT Exam ENT Exam: Mucous Membranes Moist - Respiratory Exam Respiratory Exam: Clear to Auscultation Bilateral - Cardiovascular Exam Cardiovascular Exam: REGULAR RHYTHM - GI/Abdominal Exam GI & Abdominal Exam: Normal Bowel Sounds - Extremities Exam Additional comments: foot ulcer full thickness on the right heel and superficial ulcer left heel Results - Vital Signs Recent Vital Signs: Last Vital Signs Temp 98.2 F 11/05/16 11:06 Pulse 63 11/05/16 11:06 Resp 18 11/05/16 11:06 BP 151/83 H 08/26/17 11:06 Pulse Ox 98 11/05/16 11:06 - Labs Result Diagrams: 11/06/16 05:30 11/06/16 05:30 Labs: Laboratory Results - last 24 hr 11/05/16 10:15 Sodium 144 Potassium 4.4 Chloride 111 H Carbon Dioxide 23 Anion Gap 14 BUN 18 H Creatinine 1.1 Est GFR ( Amer) > 60 Est GFR (Non-Af Amer) 51 Random Glucose 81 Calcium 9.4 Total Bilirubin 0.4 AST 17 ALT 17 Alkaline Phosphatase 91 Total Protein 7.3 Albumin 3.2 L Globulin 4.1 H Albumin/Globulin Ratio 0.8 L Assessment & Plan (1) Infected wound Status: Acute (2) Diabetic foot infection Status: Acute (3) Diabetes mellitus type 2 in obese Status: Acute - Assessment and Plan (Free Text) Plan: start IV antibiotics wound C and S wund care nurse valerio jacob
[2016-11-05 12:20] LABS: VENOUS BLOOD GAS BASE EXCESS 0.6 mmol/L (0.0-2.0); VENOUS BLOOD GAS PCO2 44 mmHg (40-60); VENOUS BLOOD PH 7.38 (7.32-7.43)
--- NOTE | 2016-11-05 17:24 | US ---
PROCEDURE: Bilateral lower extremity venous duplex Doppler. HISTORY: Positive calf squeeze test, please rule out DVT COMPARISON: None available. TECHNIQUE: Bilateral common femoral, superficial femoral, popliteal and posterior tibial veins were evaluated. Flow was assessed with color Doppler, compressibility, assessment of phasic flow and augmentation response. FINDINGS: COMMON FEMORAL VEIN: Right CFV: Unremarkable. Left CFV: There is an occlusive thrombus in the common femoral vein. SUPERFICIAL FEMORAL VEIN: Right SFV: Unremarkable. Left SFV: Unremarkable. POPLITEAL VEIN: Right Popliteal: There is an occlusive thrombus in the popliteal vein. Left Popliteal: Unremarkable. POSTERIOR TIBIAL VEIN: Right PTV: Not visualized. Left PTV: Unremarkable. OTHER FINDINGS: None. IMPRESSION: 1. Acute occlusive thrombus in the right popliteal vein. 2. Acute occlusive thrombus in the left common femoral vein.
[2016-11-05] MEDS: Insulin Regular 100 units/ml SC SCH ×2 (17:45→21:31)
[2016-11-05] MEDS: Enoxaparin 40 mg Syringe SC SCH (18:22)
[2016-11-05] MEDS: Piperacillin/Tazobact 3.375 GM in Sodium Chloride 0.9% 100 ML IVPB SCH (21:32)
[2016-11-06] MEDS: Piperacillin/Tazobact 3.375 GM in Sodium Chloride 0.9% 100 ML IVPB SCH ×4 (04:08→22:05)
[2016-11-06] MEDS: Insulin Regular 100 units/ml SC SCH ×4 (06:57→22:05)
[2016-11-06 07:23] LABS: HEMATOCRIT 32.2 % (34.0-47.0); MEAN CELL VOLUME 81.6 fl (81.0-99.0); MEAN CORPUSCULAR HEMOGLOBIN 26.3 pg (27.0-31.0); MEAN CORPUSCULAR HGB CONC 32.2 g/dL (33.0-37.0); RED CELL DISTRIBUTION WIDTH 15.1 % (11.5-14.5)
[2016-11-06 07:28] LABS: ALB/GLOB RATIO 0.7 (1.0-2.1); BILIRUBIN,TOTAL 0.5 mg/dl (0.2-1.3); POTASSIUM 4.2 MMOL/L (3.6-5.0)
[2016-11-06 07:56] LABS: THYROID STIMULATING HORMONE 1.69 mIU/ML (0.46-4.68)
--- NOTE | 2016-11-06 08:06 | CP.PCM.PN ---
Subjective - Date & Time of Evaluation Date of Evaluation: 11/06/16 Time of Evaluation: 07:10 - Subjective Subjective: Seen and examined at the bed side. C/O Pain to her upper back. Muliple compplications due to her DM with retinopathy and Neuropathy. Objective - Vital Signs/Intake and Output Vital Signs (last 24 hours): Temp Pulse Resp BP Pulse Ox 97.7 F 69 18 138/66 97 11/06/16 01:00 11/06/16 01:00 11/06/16 01:00 11/06/16 01:00 11/06/16 01:00 - Medications Medications: Current Medications Atenolol (Tenormin) 50 mg PO DAILY [facility] Enoxaparin Sodium (Lovenox) 40 mg SC DAILY [facility] PRN Reason: Protocol Last Admin: 11/05/16 18:22 Dose: 40 mg Gabapentin (Neurontin) 600 mg PO TID [facility] Home Med (Cyclosporine [Restasis]) 1 drop EACHEYE Q12H [facility] Vancomycin HCl 1 gm/ Sodium (Chloride) 250 mls @ 166.667 mls/hr IVPB Q12 [facility] Last Admin: 11/05/16 22:00 Dose: 166.667 mls/hr Piperacillin Sod/Tazobactam (Sod 3.375 gm/ Sodium Chloride) 100 mls @ 100 mls/ hr IVPB Q6 [facility] Last Admin: 11/06/16 04:08 Dose: 100 mls/hr Insulin Human Regular (Humulin R) 0 units SC ACHS [facility] PRN Reason: Protocol Last Admin: 11/06/16 06:57 Dose: 2 units Losartan Potassium (Cozaar) 25 mg PO DAILY [facility] Last Admin: 11/05/16 18:22 Dose: 25 mg Pantoprazole Sodium (Protonix Ec Tab) 40 mg PO DAILY [facility] Tramadol HCl (Ultram) 50 mg PO Q8 PRN PRN Reason: Pain, moderate (4-7) - Labs Labs: 11/06/16 05:30 11/06/16 05:30 - Constitutional Appears: No Acute Distress - Head Exam Head Exam: ATRAUMATIC, NORMAL INSPECTION, NORMOCEPHALIC - Eye Exam Additional comments: Decreased Visual Acuity - ENT Exam ENT Exam: Mucous Membranes Moist, Normal Exam - Neck Exam Neck Exam: Full ROM, Normal Inspection. absent: Lymphadenopathy - Respiratory Exam Respiratory Exam: Clear to Ausculation Bilateral, NORMAL BREATHING PATTERN - Cardiovascular Exam Cardiovascular Exam: REGULAR RHYTHM, +S1, +S2. absent: Murmur - GI/Abdominal Exam GI & Abdominal Exam: Soft, Normal Bowel Sounds. absent: Tenderness - Extremities Exam Extremities Exam: absent: Joint Swelling, Pedal Edema Additional comments: B/L Heel necrotic Infected. Warm Extremities, and loss of pain sensation - Back Exam Back Exam: NORMAL INSPECTION. absent: tenderness - Neurological Exam Neurological Exam: Alert, Oriented x3 Assessment and Plan (1) Type 2 diabetes mellitus with diabetic foot infection Assessment & Plan: Continue wound Care IV antibiotics [employer] Status: Acute
[2016-11-06] MEDS: Pantoprazole 40 mg EC Tab PO SCH (08:26)
[2016-11-06] MEDS: Enoxaparin 40 mg Syringe SC SCH (08:26)
[2016-11-06] MEDS ORDERED: Povidone Iodine Topical 10% Sol ONE (10:40)
--- NOTE | 2016-11-06 12:26 | CP.PCM.PN ---
Subjective - Date & Time of Evaluation Date of Evaluation: 11/06/16 Time of Evaluation: 11:15 - Subjective Subjective: Podiatry note for Dr. Lorenzana 61 y/o female seen at bedside this morning for full thickness necrotic heel ulcer on the right and a superficial ulcer on the left. Patient is AAOx3 and is in NAD. Patient states that she slept well overnight and denies of any acute overnight events. Patient denies of any other pedal complains. Patient denies of any recent F/N/V/C/SOB/CP today. Objective - Vital Signs/Intake and Output Vital Signs (last 24 hours): Temp Pulse Resp BP Pulse Ox 98.2 F 61 20 149/79 98 11/06/16 08:22 11/06/16 08:22 11/06/16 08:22 11/06/16 08:26 11/06/16 08:22 - Medications Medications: Current Medications Atenolol (Tenormin) 50 mg PO DAILY [facility] Last Admin: 11/06/16 08:25 Dose: 50 mg Enoxaparin Sodium (Lovenox) 40 mg SC DAILY [facility] PRN Reason: Protocol Last Admin: 11/06/16 08:26 Dose: 40 mg Gabapentin (Neurontin) 600 mg PO TID [facility] Last Admin: 11/06/16 08:25 Dose: 600 mg Home Med (Cyclosporine [Restasis]) 1 drop EACHEYE Q12H [facility] Vancomycin HCl 1 gm/ Sodium (Chloride) 250 mls @ 166.667 mls/hr IVPB Q12 [facility] Last Admin: 11/06/16 08:27 Dose: 166.667 mls/hr Piperacillin Sod/Tazobactam (Sod 3.375 gm/ Sodium Chloride) 100 mls @ 100 mls/ hr IVPB Q6 [facility] Last Admin: 11/06/16 10:42 Dose: 100 mls/hr Insulin Human Regular (Humulin R) 0 units SC ACHS [facility] PRN Reason: Protocol Last Admin: 11/06/16 06:57 Dose: 2 units Losartan Potassium (Cozaar) 25 mg PO DAILY [facility] Last Admin: 11/06/16 08:26 Dose: 25 mg Pantoprazole Sodium (Protonix Ec Tab) 40 mg PO DAILY [facility] Last Admin: 11/06/16 08:26 Dose: 40 mg Tramadol HCl (Ultram) 50 mg PO Q8 PRN PRN Reason: Pain, moderate (4-7) - Labs Labs: 11/06/16 05:30 11/06/16 05:30 - Constitutional Appears: Well, Toxic, No Acute Distress - Extremities Exam Additional comments: Bilateral lower extremity exam: VASC: DP/PT pulses are palpable 2/4 on left and faintly palpable 1/4 on left, APPLE CHECKER: < 3 sec to all digits, TG: cool to cool from proximal to distal b/l, +1 pitting edema noted on the distal right leg and dorsum of the right foot DERM: full thickness wound measuring approximately 5.5 x 5.0 x 0.2 cm on the plantar-posterior heel, heel appears to be dry and necrotic with no active drainage, no malodor, dorsum skin at the ankle joint appears erythematous but it appears to be resolving from yesterday, no probe to bone. Superficial ulcer measuring approximately 1.5 x 1.0 x 0.1 cm noted on the plantar medial heel on the left, wound base is granular with darci-wound hyperkeratosis, no active drainage, no probe to bone on the left and positive probe to bone on the right, no malodor, clinical suspicion of infection on the left, diffuse plantar hyperkeratosis noted, no interdigital maceration NEURO: protective sensation grossly diminished ORTHO: pain on palpation of the left heel surrounding necrotic site, mild pain on palpation of the calf on the left - Neurological Exam Neurological Exam: Alert, Normal Gait, Oriented x3 - Psychiatric Exam Psychiatric exam: Normal Affect, Normal Mood Assessment and Plan - Assessment and Plan (Free Text) Assessment: 61 y/o female seen at bedside in ED for right heel necrotic wound and left heel wound secondary to pressure Plan: Patient evaluated and chart reviewed Patient discussed in details with attending Dr. Salomón Ann, and vitals reviewed (afebrile, WBC @ 10.0 trending down from yesterday) Dressing applied using betadine, DSD Patient to receive IV abx as per ID Consult for Vascular - podiatry will follow with vascular recommendations for further work-up Off-loading boots to be used while in bed Cultures of the bilateral heel taken - pending results Podiatry to follow patient while patient is in house Thank you for podiatry consult
--- NOTE | 2016-11-06 13:01 | CP.PCM.CON ---
History of Present Illness - History of Present Illness History of Present Illness: 61 y/o female was admitted complaining of pain in her right lower extremity. Patient states that she was seen by her bite block maker who advised her to get admitted at the hospital. Patient states that she has had this ulcer for several weeks . Patient states that she started having pain recently in her right foot and lower extremity which prevented her from walking too much on that leg. Says ulcers started in [place] PMHx: CAD, DM, HTN PSHx: Cholecystectomy, Coronary Stent Allergies: Seafood, Hydromorphone Review of Systems - Review of Systems All systems: reviewed and no additional remarkable complaints except - Constitutional Constitutional: As Per HPI - EENT Eyes: As Per HPI Ears: absent: As Per HPI, Decreased Hearing, Ear Discharge, Ear Pain, Tinnitus, Abnormal Hearing, Disequilibrium, Dizziness, Other Nose/Mouth/Throat: absent: As Per HPI, Epistaxis, Nasal Congestion, Nasal Discharge, Nasal Obstruction, Nasal Trauma, Nose Pain, Post Nasal Drip, Sinus Pain, Sinus Pressure, Bleeding Gums, Change in Voice, Dental Pain, Dry Mouth, Dysphagia, Halitosis, Hoarsness, Lip Swelling, Mouth Lesions, Mouth Pain, Odynophagia, Sore Throat, Throat Swelling, Tongue Swelling, Facial Pain, Neck Pain, Neck Mass, Other - Breasts Breasts: absent: As Per HPI, Change in Shape, Mass, Pain, Nipple Discharge, Nipple Inversion, Skin Changes, Swelling, Other - Cardiovascular Cardiovascular: As Per HPI - Respiratory Respiratory: absent: As Per HPI, Cough, Dyspnea, Hemoptysis, Dyspnea on Exertion , Wheezing, Snoring, Stridor, Pain on Inspiration, Chest Congestion, Excessive Mucous Production, Change in Mucous Color, Pain with Coughing, Other - Gastrointestinal Gastrointestinal: absent: As Per HPI, Abdominal Pain, Belching, Bloating, Change in Bowel Habits, Change in Stool Character, Coffee Ground Emesis, Constipation, Cramping, Diarrhea, Dyspepsia, Dysphagia, Early Satiety, Excessive Flatus, Fecal Incontinence, Heartburn, Hematemesis, Hematochezia, Loose Stools, Melena, Nausea, Odynophagia, Temesmus, Vomiting, Other - Genitourinary Genitourinary: absent: As Per HPI, Change in Urinary Stream, Difficulty Urinating, Dysuria, Flank Pain, Hematuria, Pyuria, Nocturia, Urinary Incontinence, Urinary Frequency, Urinary Hesitance, Urinary Urgency, Voiding Freq/Small Amts, Freq UTI, Hx Renal/Bladder Calculi, Hx /Renal Surgery, Bladder Distension, Other - Reproductive: Female Reproductive:Female: absent: As Per HPI, Amenorrhea, Amenorrhea/ Control, Currently Menstual, Cycle <21 Days, Cycle >35 Days, Cycle Variable, Menses 1-7 Days, Menses >/= 8 Days, Menses Variable, Cycle > 4 Weeks Between, No Menses for 6 Months, Heavy Menses, Light Menses, Normal Menses, Spotting Between Cycles , S/P Hysterectomy, Menopausal, Post Menopausal, Premenarche, Abnormal Vaginal Bleeding, Dysmenorrhea, Dyspareunia, Genital Lesions, Genital Pruritis, Pelvic Pain, Prolapse Symptoms, Sexual Dysfunction, Vaginal Discharge, Vaginal Dryness , Vaginal Odor, Vaginal Pruritis, Other - Menstruation Menstruation: absent: As Per HPI, Amenorrhea, Amenorrhea/ Control, Currently Menstual, Cycle <21 Days, Cycle >35 Days, Cycle Variable, Menses 1-7 Days, Menses >/= 8 Days, Menses Variable, Cycle > 4 Weeks Between, No Menses for 6 Months, Heavy Menses, Light Menses, Normal Menses, Spotting Between Cycles , S/P Hysterectomy, Menopausal, Post Menopausal, Premenarche, Abnormal Vaginal Bleeding, Dysmenorrhea, Other - Musculoskeletal Musculoskeletal: As Per HPI - Integumentary Integumentary: As Per HPI - Neurological Neurological: As Per HPI - Psychiatric Psychiatric: absent: As Per HPI, Abnormal Sleep Pattern, Anhedonia, Anxiety, Auditory Hallucinations, Behavioral Changes, Change in Appetite, Change in Libido, Confusion, Depression, Difficulty Concentrating, Hallucinations, Homicidal Ideation, Hopelessness, Irritability, Memory Loss, Mood Swings, Panic Attacks, Paranoia, Suicidal Ideation, Visual Hallucinations, Tactile Hallucinations, Other - Endocrine Endocrine: absent: As Per HPI, Change in Body Appearance, Change in Libido, Cold Intolorance, Deepening of Voice, Excessive Sweating, Fatigue, Flushing, Heat Intolorance, Increase in Ring/Shoe/Hat Size, Palpitations, Polydipsia, Polyphagia, Polyuria, Other - Hematologic/Lymphatic Hematologic: absent: As Per HPI, Easy Bleeding, Easy Bruising, Lymphadenopathy, Other Past Patient History - Infectious Disease Hx of Infectious Diseases: None - Past Medical History & Family History Past Medical History?: Yes - Past Social History Alcohol: None Drugs: Denies - CARDIAC Hx Congestive Heart Failure: No Hx Hypercholesterolemia: No Hx Hypertension: Yes - PULMONARY Hx Chronic Obstructive Pulmonary Disease (COPD): No - NEUROLOGICAL Hx Neurological Disorder: No HX Cerebrovascular Accident: No - HEENT Hx HEENT Problems: No - RENAL Hx Chronic Kidney Disease: No - ENDOCRINE/METABOLIC Hx Hypothyroidism: No - HEMATOLOGICAL/ONCOLOGICAL Hx Human Immunodeficiency Virus (HIV): No - INTEGUMENTARY Hx Dermatological Problems: No - MUSCULOSKELETAL/RHEUMATOLOGICAL Hx Arthritis: No Hx Rheumatoid Arthritis: No - GASTROINTESTINAL Hx Gastrointestinal Disorders: No - GENITOURINARY/GYNECOLOGICAL Hx Genitourinary Disorders: No - SURGICAL HISTORY Hx Cholecystectomy: Yes Hx Coronary Stent: Yes - ANESTHESIA Hx Anesthesia: Yes Hx Anesthesia Reactions: No Hx Malignant Hyperthermia: No Meds Allergies/Adverse Reactions: Allergies Allergy/AdvReac Type Severity Reaction Status Date / Time hydromorphone HCl Allergy ANAPHYLAXIS Verified 09/16/15 12:14 [From Dilaudid] shrimp Allergy VOMITING Verified 09/16/15 12:35 - Medications Medications: Current Medications Atenolol (Tenormin) 50 mg PO DAILY [facility] Last Admin: 11/06/16 08:25 Dose: 50 mg Enoxaparin Sodium (Lovenox) 40 mg SC DAILY [facility] PRN Reason: Protocol Last Admin: 11/06/16 08:26 Dose: 40 mg Gabapentin (Neurontin) 600 mg PO TID [facility] Last Admin: 11/06/16 08:25 Dose: 600 mg Home Med (Cyclosporine [Restasis]) 1 drop EACHEYE Q12H [facility] Vancomycin HCl 1 gm/ Sodium (Chloride) 250 mls @ 166.667 mls/hr IVPB Q12 [facility] Last Admin: 11/06/16 08:27 Dose: 166.667 mls/hr Piperacillin Sod/Tazobactam (Sod 3.375 gm/ Sodium Chloride) 100 mls @ 100 mls/ hr IVPB Q6 [facility] Last Admin: 11/06/16 10:42 Dose: 100 mls/hr Insulin Human Regular (Humulin R) 0 units SC ACHS [facility] PRN Reason: Protocol Last Admin: 11/06/16 12:39 Dose: 4 units Losartan Potassium (Cozaar) 25 mg PO DAILY [facility] Last Admin: 11/06/16 08:26 Dose: 25 mg Pantoprazole Sodium (Protonix Ec Tab) 40 mg PO DAILY [facility] Last Admin: 11/06/16 08:26 Dose: 40 mg Tramadol HCl (Ultram) 50 mg PO Q8 PRN PRN Reason: Pain, moderate (4-7) Physical Exam - Constitutional Appears: Non-toxic, Chronically Ill - Head Exam Head Exam: NORMOCEPHALIC - Eye Exam Eye Exam: PERRL. absent: Scleral icterus - ENT Exam ENT Exam: Normal External Ear Exam - Neck Exam Neck exam: Negative for: Lymphadenopathy - Respiratory Exam Respiratory Exam: Decreased Breath Sounds, Clear to Auscultation Bilateral - Cardiovascular Exam Cardiovascular Exam: REGULAR RHYTHM, +S1, +S2 - GI/Abdominal Exam GI & Abdominal Exam: Diminished Bowel Sounds, Distended, Soft. absent: Rebound , Rigid, Tenderness - Rectal Exam Rectal Exam: Deferred - Exam Exam: NORMAL INSPECTION - Extremities Exam Extremities exam: Positive for: pedal edema, tenderness. Negative for: calf tenderness, pedal pulses present Additional comments: Bilateral lower extremity exam: VASC: DP/PT pulses are palpable 2/4 on left and faintly palpable 1/4 on left, ELECTROPHYSIOLOGY SCIENTIST: < 3 sec to all digits, TG: cool to cool from proximal to distal b/l, +1 pitting edema noted on the distal right leg and dorsum of the right foot DERM: full thickness wound measuring approximately 5.5 x 5.0 x 0.2 cm on the plantar-posterior heel, heel appears to be dry and necrotic with no active drainage, no malodor, dorsum skin at the ankle joint appears erythematous but it appears to be resolving from yesterday, no probe to bone. Superficial ulcer measuring approximately 1.5 x 1.0 x 0.1 cm noted on the plantar medial heel on the left, wound base is granular with darci-wound hyperkeratosis, no active drainage, no probe to bone on the left and positive probe to bone on the right, no malodor, clinical suspicion of infection on the left, diffuse plantar hyperkeratosis noted, no interdigital maceration NEURO: protective sensation grossly diminished ORTHO: pain on palpation of the left heel surrounding necrotic site, mild pain on palpation of the calf on the left Results - Vital Signs Recent Vital Signs: Last Vital Signs Temp 98.2 F 11/06/16 08:22 Pulse 61 11/06/16 08:22 Resp 20 11/06/16 08:22 BP 149/79 11/06/16 08:26 Pulse Ox 98 11/06/16 08:22 - Labs Result Diagrams: 11/06/16 05:30 11/06/16 05:30 Labs: Laboratory Results - last 24 hr 11/05/16 11/05/16 11/06/16 17:59 21:30 05:30 WBC RBC Hgb Hct MCV MCH MCHC RDW Plt Count Sodium 143 Potassium 4.2 Chloride 110 H Carbon Dioxide 24 Anion Gap 13 BUN 14 Creatinine 1.2 Est GFR ( Amer) 55 Est GFR (Non-Af Amer) 46 POC Glucose (mg/dL) 171 H 261 H Random Glucose 110 H Calcium 9.0 Total Bilirubin 0.5 AST 20 ALT 9 D Alkaline Phosphatase 86 Total Protein 7.0 Albumin 2.9 L Globulin 4.0 H Albumin/Globulin Ratio 0.7 L Triglycerides 171 H Cholesterol 162 LDL Cholesterol Direct 87 HDL Cholesterol 24 L TSH 3rd Generation 1.69 11/06/16 11/06/16 11/06/16 05:30 06:43 11:32 WBC 10.0 RBC 3.95 Hgb 10.4 L Hct 32.2 L MCV 81.6 MCH 26.3 L MCHC 32.2 L RDW 15.1 H Plt Count 384 Sodium Potassium Chloride Carbon Dioxide Anion Gap BUN Creatinine Est GFR ( Amer) Est GFR (Non-Af Amer) POC Glucose (mg/dL) 151 H 248 H Random Glucose Calcium Total Bilirubin AST ALT Alkaline Phosphatase Total Protein Albumin Globulin Albumin/Globulin Ratio Triglycerides Cholesterol LDL Cholesterol Direct HDL Cholesterol TSH 3rd Generation Assessment & Plan (1) Diabetes mellitus type 2 in obese Status: Acute (2) Diabetic foot infection Status: Acute (3) Infected wound Status: Acute (4) CAD (coronary artery disease) Status: Acute (5) Cellulitis Status: Acute (6) Diabetes Status: Acute (7) Renal insufficiency Status: Acute - Assessment and Plan (Free Text) Assessment: infected ulcers r/o OM PVD DM CAD need vascular eval , arterial studies, bone scan and or MRI cont IV antibiotics, wound care May need debridement
[2016-11-07] MEDS: Piperacillin/Tazobact 3.375 GM in Sodium Chloride 0.9% 100 ML IVPB SCH ×4 (04:35→22:46)
[2016-11-07] MEDS: Insulin Regular 100 units/ml SC SCH ×4 (06:42→22:40)
--- NOTE | 2016-11-07 08:13 | CP.PCM.PN ---
Subjective - Date & Time of Evaluation Date of Evaluation: 11/07/16 Time of Evaluation: 08:10 - Subjective Subjective: Podiatry note for Dr. Lorenzana 61 y/o female seen at bedside this morning for full thickness necrotic heel ulcer on the right and a superficial ulcer on the left. Patient is AAOx3 and is in NAD wearing her multipodus boots at bedside. Patient states that she slept well overnight and denies of any acute overnight events. She states that pain to her right foot and ankle is increased today. Patient denies of any other pedal complains. Patient denies of any recent F/N/V/C/SOB/CP today. Objective - Vital Signs/Intake and Output Vital Signs (last 24 hours): Temp Pulse Resp BP Pulse Ox 97.8 F 59 L 20 154/78 H 100 11/07/16 07:24 11/07/16 07:24 11/07/16 07:24 11/07/16 07:24 11/07/16 07:24 - Medications Medications: Current Medications Atenolol (Tenormin) 50 mg PO DAILY [facility] Last Admin: 11/06/16 08:25 Dose: 50 mg Enoxaparin Sodium (Lovenox) 40 mg SC DAILY [facility] PRN Reason: Protocol Last Admin: 11/06/16 08:26 Dose: 40 mg Gabapentin (Neurontin) 600 mg PO TID [facility] Last Admin: 11/06/16 18:47 Dose: 600 mg Home Med (Cyclosporine [Restasis]) 1 drop EACHEYE Q12H [facility] Vancomycin HCl 1 gm/ Sodium (Chloride) 250 mls @ 166.667 mls/hr IVPB Q12 [facility] Last Admin: 11/06/16 20:13 Dose: 166.667 mls/hr Piperacillin Sod/Tazobactam (Sod 3.375 gm/ Sodium Chloride) 100 mls @ 100 mls/ hr IVPB Q6 [facility] Last Admin: 11/07/16 04:35 Dose: 100 mls/hr Insulin Human Regular (Humulin R) 0 units SC ACHS [facility] PRN Reason: Protocol Last Admin: 11/07/16 06:42 Dose: Not Given Losartan Potassium (Cozaar) 25 mg PO DAILY [facility] Last Admin: 11/06/16 08:26 Dose: 25 mg Pantoprazole Sodium (Protonix Ec Tab) 40 mg PO DAILY [facility] Last Admin: 11/06/16 08:26 Dose: 40 mg Tramadol HCl (Ultram) 50 mg PO Q6 PRN PRN Reason: Pain, moderate (4-7) - Labs Labs: 11/06/16 05:30 11/06/16 05:30 - Constitutional Appears: Well, Non-toxic - Extremities Exam Additional comments: Bilateral lower extremity exam: VASC: DP/PT pulses are palpable 2/4 on left and faintly palpable 1/4 on right, 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 Superficial ulcer measuring approximately 1.5 x 1.0 x 0.1 cm noted on the plantar medial heel on the left, wound base is granular with darci-wound hyperkeratosis, no active drainage, no probe to bone on the left and positive probe to bone on the right, no malodor, clinical suspicion of infection on the left, diffuse plantar hyperkeratosis noted, no interdigital maceration NEURO: protective sensation grossly diminished ORTHO: pain on palpation of the left heel surrounding necrotic site, negative calf squeeze b/l - Neurological Exam Neurological Exam: Alert, Awake, Oriented x3 - Psychiatric Exam Psychiatric exam: Normal Affect, Normal Mood Assessment and Plan - Assessment and Plan (Free Text) Assessment: 61 y/o female seen at bedside for right heel necrotic wound and left heel wound secondary to pressure Plan: Patient evaluated at bedside with attending Dr. Lorenzana Charts, labs and vitals reviewed Dressing applied using betadine, DSD Patient to receive IV abx as per ID Vascular on board - podiatry will follow with vascular recommendations for further work-up Off-loading boots to be used while in bed Cultures of the bilateral heel taken - Gram (-) rods grown LE venous duplex- Acute occlusive thrombus in right popliteal vein and in left common femoral vein Patient on Lovenox Right foot xray- Possible OM proximal phalanx fifth toe Podiatry to follow patient while patient is in house
[2016-11-07] MEDS: Pantoprazole 40 mg EC Tab PO SCH (08:29)
[2016-11-07] MEDS: Enoxaparin 40 mg Syringe SC SCH (08:30)
--- NOTE | 2016-11-07 08:46 | PQF GENQUE ---
This form is a permanent part of the medical record 11/07/16 Dr. Pederson, Patient presents with a painful right heel ulcer. The attending physician is required to clarify conflicting documentation in the medical record. The following documentation is noted in the medical record: ER MD: Diabetic foot infection and POA: PRESSURE ULCER H&P by another MD: Foot ulcer full thickness on the right heel and superficial ulcer left heel, infected wound, diabetic foot infection Podiatry: Right heel necrotic wound and left heel wound secondary to pressure. Please clarify if these heel ulcers are due to Diabetes, Pressure related and if so please document the stage of each or other etiology. Clarification of your documentation is requested to better reflect the severity of illness and intensity of treatment of your patient. Indicators present [] Specify: [] [] Specify: [] [] Specify: [] [] Specify: [] Location in the medical record that reflects the above clinical findings: [] Treatment Provided: [] PHYSICIAN'S RESPONSE Based on your medical judgment of the clinical indicators outlined above please clarify the following: [] Practitioner response [] If unable to determine, please check the box, sign and date. Present On Admission (POA) Indicator: [] Present at the time of admission [] Not present at the time of admission [] Clinically Undetermined In responding to this query, please exercise your independent professional judgment. The fact that a question is asked does not imply that any particular answer is desired or expected. Thank you for your clarification on this documentation. If you have any questions please call:[phone] * Thank you, Bhavna Trotter RN [facility]
--- NOTE | 2016-11-07 11:10 | CARD ---
APPROVED REPORT EKG Measurement Heart [id number] <Conclusion> Normal sinus rhythm Normal ECG
[2016-11-07 15:06] VITALS: BMI 26.5
[2016-11-07 16:19] LABS: PARTIAL THROMBOPLASTIN TIME 30.2 Seconds (25.6-37.1)
--- NOTE | 2016-11-07 17:01 | CP.PCM.CON ---
History of Present Illness - History of Present Illness History of Present Illness: I was asked to evalaute patient for arterial insufficiency. Patient is a 61 year old female with a history of HTN, DM, legal blindess, who presents with bialteral heel ulcers. The patient describes a pain of the right foot, and was found to have pressure ulcers of the feet bialterally. She was admitted for further evaluation. Venous duplex revealed left common femoral DVT and right poplteal DVT. The patient has no current chest pain. Review of Systems - Constitutional Constitutional: absent: As Per HPI, Anorexia, Chills, Daytime Sleepiness, Excessive Sweating, Fatigue, Fever, Frequent Falls, Headache, Increased Appetite , Lethargy, Malaise, Night Sweats, Snoring, Sleep Apnea, Weight Gain, Weight Loss, Weakness, Other - EENT Eyes: absent: As Per HPI, Blind Spots, Blurred Vision, Change in Vision, Decreased Night Vision, Diplopia, Discharge, Dry Eye, Exophthalmos, Floaters, Irritation, Itchy Eyes, Loss of Peripheral Vision, Pain, Photophobia, Requires Corrective Lenses, Sees Flashes, Spots in Vision, Tunnel Vision, Other Visual Disturbances, Loss of Vision, Other Ears: absent: As Per HPI, Decreased Hearing, Ear Discharge, Ear Pain, Tinnitus, Abnormal Hearing, Disequilibrium, Dizziness, Other Nose/Mouth/Throat: absent: As Per HPI, Epistaxis, Nasal Congestion, Nasal Discharge, Nasal Obstruction, Nasal Trauma, Nose Pain, Post Nasal Drip, Sinus Pain, Sinus Pressure, Bleeding Gums, Change in Voice, Dental Pain, Dry Mouth, Dysphagia, Halitosis, Hoarsness, Lip Swelling, Mouth Lesions, Mouth Pain, Odynophagia, Sore Throat, Throat Swelling, Tongue Swelling, Facial Pain, Neck Pain, Neck Mass, Other - Breasts Breasts: absent: As Per HPI, Change in Shape, Mass, Pain, Nipple Discharge, Nipple Inversion, Skin Changes, Swelling, Other - Cardiovascular Cardiovascular: absent: As Per HPI, Acrocyanosis, Chest Pain, Chest Pain at Rest , Chest Pain with Activity, Claudication, Diaphoresis, Dyspnea, Dyspnea on Exertion, Edema, Irregular Heart Rhythm, Pain Radiating to Arm/Neck/Jaw, Leg Edema, Leg Ulcers, Lightheadedness, Orthopnea, Palpitations, Paroxysmal Nocturnal Dyspnea, Pedal Edema, Radiating Pain, Rapid Heart Rate, Slow Heart Rate, Syncope, Other - Respiratory Respiratory: absent: As Per HPI, Cough, Dyspnea, Hemoptysis, Dyspnea on Exertion , Wheezing, Snoring, Stridor, Pain on Inspiration, Chest Congestion, Excessive Mucous Production, Change in Mucous Color, Pain with Coughing, Other - Gastrointestinal Gastrointestinal: absent: As Per HPI, Abdominal Pain, Belching, Bloating, Change in Bowel Habits, Change in Stool Character, Coffee Ground Emesis, Constipation, Cramping, Diarrhea, Dyspepsia, Dysphagia, Early Satiety, Excessive Flatus, Fecal Incontinence, Heartburn, Hematemesis, Hematochezia, Loose Stools, Melena, Nausea, Odynophagia, Temesmus, Vomiting, Other - Genitourinary Genitourinary: absent: As Per HPI, Change in Urinary Stream, Difficulty Urinating, Dysuria, Flank Pain, Hematuria, Pyuria, Nocturia, Urinary Incontinence, Urinary Frequency, Urinary Hesitance, Urinary Urgency, Voiding Freq/Small Amts, Freq UTI, Hx Renal/Bladder Calculi, Hx /Renal Surgery, Bladder Distension, Other - Musculoskeletal Musculoskeletal: Radiating Pain into Limb - Integumentary Integumentary: absent: As Per HPI, Acne, Alopecia, Bleeding Lesions, Change in Hair, Change in Nails, Change in Pigmentation, Changing Lesions, Dry Skin, Erythema, Furuncle, Hirsutism, Lesions, New Lesions, Non-Healing Lesions, Photosensitivity, Pruritus, Rash, Skin Pain, Skin Ulcer, Sores, Striae, Swelling , Unusual Bruising, Wounds, Jaundice, Other - Neurological Neurological: absent: As Per HPI, Abnormal Gait, Abnormal Hearing, Abnormal Movements, Abnormal Speech, Behavioral Changes, Burning Sensations, Confusion, Convulsions, Disequilibrium, Dizziness, Numbness, Focal Weakness, Frequent Falls , Headaches, Lack of Coordination, Loss of Vision, Memory Loss, Paresthesias, Radicular Pain, Restless Legs, Sensory Deficit, Syncope, Tingling, Tremor, Vertigo, Weakness, Other Visual Disturbances, Other - Psychiatric Psychiatric: absent: As Per HPI, Abnormal Sleep Pattern, Anhedonia, Anxiety, Auditory Hallucinations, Behavioral Changes, Change in Appetite, Change in Libido, Confusion, Depression, Difficulty Concentrating, Hallucinations, Homicidal Ideation, Hopelessness, Irritability, Memory Loss, Mood Swings, Panic Attacks, Paranoia, Suicidal Ideation, Visual Hallucinations, Tactile Hallucinations, Other - Endocrine Endocrine: absent: As Per HPI, Change in Body Appearance, Change in Libido, Cold Intolorance, Deepening of Voice, Excessive Sweating, Fatigue, Flushing, Heat Intolorance, Increase in Ring/Shoe/Hat Size, Palpitations, Polydipsia, Polyphagia, Polyuria, Other - Hematologic/Lymphatic Hematologic: absent: As Per HPI, Easy Bleeding, Easy Bruising, Lymphadenopathy, Other Past Patient History - Infectious Disease Hx of Infectious Diseases: None - Past Medical History & Family History Past Medical History?: Yes - Past Social History Alcohol: None Drugs: Denies - CARDIAC Hx Congestive Heart Failure: No Hx Hypercholesterolemia: No Hx Hypertension: Yes - PULMONARY Hx Chronic Obstructive Pulmonary Disease (COPD): No - NEUROLOGICAL Hx Neurological Disorder: No HX Cerebrovascular Accident: No - HEENT Hx HEENT Problems: No - RENAL Hx Chronic Kidney Disease: No - ENDOCRINE/METABOLIC Hx Hypothyroidism: No - HEMATOLOGICAL/ONCOLOGICAL Hx Human Immunodeficiency Virus (HIV): No - INTEGUMENTARY Hx Dermatological Problems: No - MUSCULOSKELETAL/RHEUMATOLOGICAL Hx Arthritis: No Hx Rheumatoid Arthritis: No - GASTROINTESTINAL Hx Gastrointestinal Disorders: No - GENITOURINARY/GYNECOLOGICAL Hx Genitourinary Disorders: No - SURGICAL HISTORY Hx Cholecystectomy: Yes Hx Coronary Stent: Yes - ANESTHESIA Hx Anesthesia: Yes Hx Anesthesia Reactions: No Hx Malignant Hyperthermia: No Meds Allergies/Adverse Reactions: Allergies Allergy/AdvReac Type Severity Reaction Status Date / Time hydromorphone HCl Allergy ANAPHYLAXIS Verified 09/16/15 12:14 [From Dilaudid] shrimp Allergy VOMITING Verified 09/16/15 12:35 - Medications Medications: Current Medications Atenolol (Tenormin) 50 mg PO DAILY [facility] Last Admin: 11/07/16 08:30 Dose: 50 mg Enoxaparin Sodium (Lovenox) 40 mg SC DAILY [facility] PRN Reason: Protocol Last Admin: 11/07/16 08:30 Dose: 40 mg Gabapentin (Neurontin) 600 mg PO TID [facility] Last Admin: 11/07/16 13:04 Dose: 600 mg Home Med (Cyclosporine [Restasis]) 1 drop EACHEYE Q12H [facility] Vancomycin HCl 1 gm/ Sodium (Chloride) 250 mls @ 166.667 mls/hr IVPB Q12 [facility] Last Admin: 11/06/16 20:13 Dose: 166.667 mls/hr Piperacillin Sod/Tazobactam (Sod 3.375 gm/ Sodium Chloride) 100 mls @ 100 mls/ hr IVPB Q6 [facility] Last Admin: 11/07/16 17:00 Dose: 100 mls/hr Insulin Human Regular (Humulin R) 0 units SC ACHS [facility] PRN Reason: Protocol Last Admin: 11/07/16 12:16 Dose: 6 units Losartan Potassium (Cozaar) 25 mg PO DAILY [facility] Last Admin: 11/07/16 08:29 Dose: 25 mg Pantoprazole Sodium (Protonix Ec Tab) 40 mg PO DAILY [facility] Last Admin: 11/07/16 08:29 Dose: 40 mg Tramadol HCl (Ultram) 50 mg PO Q6 PRN PRN Reason: Pain, moderate (4-7) Last Admin: 11/07/16 10:41 Dose: 50 mg Physical Exam - Constitutional Appears: Non-toxic - Head Exam Head Exam: NORMAL INSPECTION - Eye Exam Eye Exam: Normal appearance - ENT Exam ENT Exam: Mucous Membranes Moist - Neck Exam Neck exam: Positive for: Full Rom - Respiratory Exam Respiratory Exam: NORMAL BREATHING PATTERN - Cardiovascular Exam Cardiovascular Exam: REGULAR RHYTHM - GI/Abdominal Exam GI & Abdominal Exam: Normal Bowel Sounds - Rectal Exam Rectal Exam: Deferred - Extremities Exam Extremities exam: Positive for: pedal edema - Back Exam Back exam: NORMAL INSPECTION - Neurological Exam Neurological exam: Alert - Psychiatric Exam Psychiatric exam: Normal Affect - Skin Skin Exam: Normal Color Results - Vital Signs Recent Vital Signs: Last Vital Signs Temp 97.9 F 11/07/16 16:06 Pulse 56 L 11/07/16 16:06 Resp 18 11/07/16 16:06 BP 147/77 11/07/16 16:06 Pulse Ox 99 11/07/16 16:06 - Labs Result Diagrams: 11/06/16 05:30 11/06/16 05:30 Labs: Laboratory Results - last 24 hr 11/06/16 11/06/16 11/07/16 05:30 21:19 06:36 PT INR APTT POC Glucose (mg/dL) 218 H 149 H Hemoglobin A1c 8.5 H Vancomycin Trough 11/07/16 11/07/16 11/07/16 08:55 10:38 15:50 PT 12.0 INR 1.2 APTT 30.2 POC Glucose (mg/dL) 260 H Hemoglobin A1c Vancomycin Trough 29.8 H 11/07/16 15:50 PT INR APTT POC Glucose (mg/dL) 159 H Hemoglobin A1c Vancomycin Trough - EKG Data EKG Interpreted by: Myself Assessment & Plan (1) DVT (deep venous thrombosis) Assessment and Plan: patient has evidence of acute DVT. It is prudent to redue the risk of PE. Given prolonged bedrest the likely cause id immobility. Patient would benefit from IVC filter placement Status: Acute (2) Diabetic foot infection Assessment and Plan: will need evaluation with arterial duplex Status: Acute
[2016-11-07] MEDS: Patient's Own Med (Cyclosporine [Restasis] 1 DROP) EACHEYE SCH ×2 (22:39→22:47)
--- NOTE | 2016-11-07 23:09 | CP.PCM.PN ---
Subjective - Date & Time of Evaluation Date of Evaluation: 11/07/16 Time of Evaluation: 07:25 - Subjective Subjective: Seen and examined at the bed side. C/O Pain to the left LE, worse at the ankle area. Denies fever or chills. B/L Heel Ulcer dressing daily done by plate drying machine tender. Objective - Vital Signs/Intake and Output Vital Signs (last 24 hours): Temp Pulse Resp BP Pulse Ox 97.9 F 56 L 18 147/77 99 11/07/16 16:06 11/07/16 16:06 11/07/16 16:06 11/07/16 16:06 11/07/16 16:06 - Medications Medications: Current Medications Atenolol (Tenormin) 50 mg PO DAILY [facility] Last Admin: 11/07/16 08:30 Dose: 50 mg Enoxaparin Sodium (Lovenox) 40 mg SC DAILY [facility] PRN Reason: Protocol Last Admin: 11/07/16 08:30 Dose: 40 mg Gabapentin (Neurontin) 600 mg PO TID [facility] Last Admin: 11/07/16 17:05 Dose: 600 mg Home Med (Cyclosporine [Restasis]) 1 drop EACHEYE Q12 [facility] Last Admin: 11/07/16 22:47 Dose: 1 drop Vancomycin HCl 1 gm/ Sodium (Chloride) 250 mls @ 166.667 mls/hr IVPB Q12 [facility] Last Admin: 11/06/16 20:13 Dose: 166.667 mls/hr Piperacillin Sod/Tazobactam (Sod 3.375 gm/ Sodium Chloride) 100 mls @ 100 mls/ hr IVPB Q6 [facility] Last Admin: 11/07/16 22:46 Dose: 100 mls/hr Vancomycin HCl 1 gm/ Sodium (Chloride) 250 mls @ 166.667 mls/hr IVPB DAILY [facility] Insulin Human Regular (Humulin R) 0 units SC ACHS [facility] PRN Reason: Protocol Last Admin: 11/07/16 22:40 Dose: Not Given Ketorolac Tromethamine (Toradol) 15 mg IVP Q6 PRN PRN Reason: Pain, severe (8-10) Last Admin: 11/07/16 20:24 Dose: 15 mg Losartan Potassium (Cozaar) 25 mg PO DAILY [facility] Last Admin: 11/07/16 08:29 Dose: 25 mg Pantoprazole Sodium (Protonix Ec Tab) 40 mg PO DAILY [facility] Last Admin: 11/07/16 08:29 Dose: 40 mg Tramadol HCl (Ultram) 50 mg PO Q6 PRN PRN Reason: Pain, moderate (4-7) Last Admin: 11/07/16 18:57 Dose: 50 mg - Labs Labs: 11/06/16 05:30 11/06/16 05:30 PT 12.0 Seconds (9.8-13.1) 11/07/16 15:50 INR 1.2 (0.9-1.2) 11/07/16 15:50 APTT 30.2 Seconds (25.6-37.1) 11/07/16 15:50 - Constitutional Appears: Well, No Acute Distress - Head Exam Head Exam: ATRAUMATIC, NORMAL INSPECTION, NORMOCEPHALIC - Eye Exam Pupil Exam: NORMAL ACCOMODATION, PERRL Additional comments: Legally Blind. - ENT Exam ENT Exam: Mucous Membranes Moist, Normal Exam - Neck Exam Neck Exam: Full ROM, Normal Inspection. absent: Lymphadenopathy - Respiratory Exam Respiratory Exam: Clear to Ausculation Bilateral, NORMAL BREATHING PATTERN - Cardiovascular Exam Cardiovascular Exam: REGULAR RHYTHM, +S1, +S2. absent: Murmur - GI/Abdominal Exam GI & Abdominal Exam: Soft, Normal Bowel Sounds. absent: Tenderness - Extremities Exam Extremities Exam: Pedal Edema Additional comments: Full thickness wound measuring approximately 5.5 x 5.0 x 0.2 cm on the plantar- posterior heel, heel appears to be dry and necrotic with no active drainage, no malodor, dorsum skin at the ankle joint appears erythematous but it appears to be resolving from yesterday, no probe to bone. Superficial ulcer measuring approximately 1.5 x 1.0 x 0.1 cm noted on the plantar medial heel on the left, wound base is granular with darci-wound hyperkeratosis, no active drainage, no probe to bone on the left and positive probe to bone on the right, no malodor, clinical suspicion of infection on the left, diffuse plantar hyperkeratosis noted, no interdigital maceration - Back Exam Back Exam: NORMAL INSPECTION - Neurological Exam Neurological Exam: Alert, Awake, CN II-XII Intact, Oriented x3 - Psychiatric Exam Psychiatric exam: Normal Affect, Normal Mood - Skin Skin Exam: Dry, Intact, Normal Color, Warm - Additional Findings Additional findings: B/L Venous Doppler: IMPRESSION: 1. Acute occlusive thrombus in the right popliteal vein. 2. Acute occlusive thrombus in the left common femoral vein. 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
[2016-11-08] MEDS: Sodium Chloride 0.9% 1,000 ML IV SCH ×3 (01:16→22:14)
[2016-11-08] MEDS: Piperacillin/Tazobact 3.375 GM in Sodium Chloride 0.9% 100 ML IVPB SCH ×4 (05:17→22:15)
[2016-11-08 06:56] LABS: HEMATOCRIT 31.3 % (34.0-47.0); MEAN CELL VOLUME 80.8 fl (81.0-99.0); MEAN CORPUSCULAR HEMOGLOBIN 26.8 pg (27.0-31.0); MEAN CORPUSCULAR HGB CONC 33.2 g/dL (33.0-37.0); RED CELL DISTRIBUTION WIDTH 15.4 % (11.5-14.5)
[2016-11-08 07:04] LABS: CALCIUM 9.2 mg/dL (8.4-10.2); POTASSIUM 4.4 MMOL/L (3.6-5.0)
[2016-11-08] MEDS: Insulin Regular 100 units/ml SC SCH ×4 (07:13→22:39)
[2016-11-08 07:16] LABS: PARTIAL THROMBOPLASTIN TIME 29.5 Seconds (25.6-37.1)
--- NOTE | 2016-11-08 07:24 | CP.PCM.PN ---
Subjective - Date & Time of Evaluation Date of Evaluation: 11/08/16 Time of Evaluation: 07:14 - Subjective Subjective: Podiatry note for Dr. Lorenzana 61 y/o female seen at bedside this morning for full thickness necrotic heel ulcer on the right and a superficial ulcer on the left. Patient is AAOx3 and is in NAD wearing her multipodus boots at bedside. Patient states that she slept well overnight and denies of any acute overnight events. She states that she has increased pain to her right calf and heel today. Patient denies of any other pedal complains. Patient denies of any recent F/N/V/C/SOB/CP today. Objective - Vital Signs/Intake and Output Vital Signs (last 24 hours): Temp Pulse Resp BP Pulse Ox 98.2 F 60 20 146/83 98 11/08/16 01:17 11/08/16 01:17 11/08/16 01:17 11/08/16 01:17 11/08/16 01:17 - Medications Medications: Current Medications Atenolol (Tenormin) 50 mg PO DAILY [facility] Last Admin: 11/07/16 08:30 Dose: 50 mg Enoxaparin Sodium (Lovenox) 40 mg SC DAILY [facility] PRN Reason: Protocol Last Admin: 11/07/16 08:30 Dose: 40 mg Gabapentin (Neurontin) 600 mg PO TID [facility] Last Admin: 11/07/16 17:05 Dose: 600 mg Home Med (Cyclosporine [Restasis]) 1 drop EACHEYE Q12 [facility] Last Admin: 11/07/16 22:47 Dose: 1 drop Vancomycin HCl 1 gm/ Sodium (Chloride) 250 mls @ 166.667 mls/hr IVPB Q12 [facility] Last Admin: 11/06/16 20:13 Dose: 166.667 mls/hr Piperacillin Sod/Tazobactam (Sod 3.375 gm/ Sodium Chloride) 100 mls @ 100 mls/ hr IVPB Q6 [facility] Last Admin: 11/08/16 05:17 Dose: 100 mls/hr Vancomycin HCl 1 gm/ Sodium (Chloride) 250 mls @ 166.667 mls/hr IVPB DAILY [facility] Sodium Chloride (Sodium Chloride 0.9%) 1,000 mls @ 100 mls/hr IV .Q10H [facility] Stop: 11/09/16 00:24 Last Admin: 11/08/16 01:16 Dose: Not Given Insulin Human Regular (Humulin R) 0 units SC ACHS [facility] PRN Reason: Protocol Last Admin: 11/08/16 07:13 Dose: Not Given Ketorolac Tromethamine (Toradol) 15 mg IVP Q6 PRN PRN Reason: Pain, severe (8-10) Last Admin: 11/08/16 05:15 Dose: 15 mg Losartan Potassium (Cozaar) 25 mg PO DAILY [facility] Last Admin: 11/07/16 08:29 Dose: 25 mg Pantoprazole Sodium (Protonix Ec Tab) 40 mg PO DAILY [facility] Last Admin: 11/07/16 08:29 Dose: 40 mg Tramadol HCl (Ultram) 50 mg PO Q6 PRN PRN Reason: Pain, moderate (4-7) Last Admin: 11/07/16 18:57 Dose: 50 mg - Labs Labs: 11/08/16 04:00 11/08/16 06:35 PT 12.0 Seconds (9.8-13.1) 11/07/16 15:50 INR 1.2 (0.9-1.2) 11/07/16 15:50 APTT 30.2 Seconds (25.6-37.1) 11/07/16 15:50 - Constitutional Appears: Well, Non-toxic, No Acute Distress - Extremities Exam Additional comments: Bilateral lower extremity exam: VASC: DP/PT pulses are palpable 2/4 on left and faintly palpable 1/4 on right, [employer]: < 3 sec to all digits, TG: cool to cool from proximal to distal b/l, +1 pitting edema noted on the distal right leg and dorsum of the right foot DERM: full thickness wound measuring approximately 5.5 x 5.0 x 0.2 cm on the plantar right posterior heel, heel appears to be dry and necrotic with no active drainage, no malodor, no probe to bone. Superficial ulcer measuring approximately 1.5 x 1.0 x 0.1 cm noted on the plantar medial heel on the left, wound base is granular with darci-wound hyperkeratosis, no active drainage, no probe to bone on the left and positive probe to bone on the right, no malodor, clinical suspicion of infection on the left, diffuse plantar hyperkeratosis noted, no interdigital maceration NEURO: protective sensation grossly diminished ORTHO: pain on palpation of the left heel surrounding necrotic site, Pain to posterior right calf - Neurological Exam Neurological Exam: Alert, Awake, Oriented x3 - Psychiatric Exam Psychiatric exam: Normal Affect, Normal Mood Assessment and Plan - Assessment and Plan (Free Text) Assessment: 61 y/o female seen at bedside for right heel necrotic wound and left heel wound secondary to pressure Plan: Patient evaluated at bedside with attending Dr. Lorenzana Charts, labs and vitals reviewed, afebrile, WBC 9.0 Dressing applied using betadine, DSD Patient to receive IV abx as per ID Vascular on board - podiatry will follow with vascular recommendations for further work-up Off-loading boots to be used while in bed Cultures of the bilateral heel taken - Serratia Marscens LE venous duplex- Acute occlusive thrombus in right popliteal vein and in left common femoral vein Patient on Lovenox Right foot xray- Possible OM proximal phalanx fifth toe Podiatry to follow patient while patient is in house
[2016-11-08] MEDS: Enoxaparin 40 mg Syringe SC SCH (09:03)
[2016-11-08] MEDS: Patient's Own Med (Cyclosporine [Restasis] 1 DROP) EACHEYE SCH ×2 (09:12→22:14)
[2016-11-08] MEDS: Pantoprazole 40 mg EC Tab PO SCH (09:14)
--- NOTE | 2016-11-08 11:02 | RAD ---
PROCEDURE: Right hip, limited HISTORY: Hx of fall; R hip pain COMPARISON: Not available TECHNIQUE: Single AP view of right hip FINDINGS: No evidence of fracture. Grossly limited and consists of single view only. Mild superior joint space narrowing. IMPRESSION: No acute fracture. Limited examination.
--- NOTE | 2016-11-08 11:04 | US ---
PROCEDURE: Duplex ultrasound of the bilateral lower extremity arteries. HISTORY: leg ulcer DM 2 COMPARISON: None available. TECHNIQUE: Grayscale and duplex Doppler evaluation of the bilateral common femoral, superficial femoral, popliteal, posterior tibial and dorsalis pedis arteries was performed.. FINDINGS: RIGHT LOWER EXTREMITY: RIGHT COMMON FEMORAL ARTERY: Patent demonstrate mild atherosclerotic disease and biphasic waveform. Maximal flow velocity of 81.5 cm/s. RIGHT SUPERFICIAL FEMORAL ARTERY: Patent demonstrate the monophasic waveform Maximal flow velocity of 71.5 cm/s. RIGHT POPLITEAL ARTERY:Patent demonstrate monophasic waveform Maximal flow velocity of 23.5 cm/s. RIGHT POSTERIOR TIBIAL ARTERY: Patent with peak systolic velocity of 15.4 centimeter per second. RIGHT DORSALIS PEDIS ARTERY: Was not visualized. LEFT LOWER EXTREMITY: LEFT COMMON FEMORAL ARTERY: Patent demonstrate [id number] atherosclerotic disease and biphasic waveform Maximal flow velocity of 126.5 cm/s. LEFT SUPERFICIAL FEMORAL ARTERY: Patent demonstrate atherosclerotic disease and monophasic waveform. Maximal flow velocity of 144.5 cm/s. LEFT POPLITEAL ARTERY:Patent demonstrate monophasic waveform. Maximal flow velocity of 95.3 cm/s. LEFT POSTERIOR TIBIAL ARTERY: Patent. Maximal flow velocity of 85.1 cm/s. LEFT DORSALIS PEDIS ARTERY: Was not visualized. OTHER FINDINGS: None. IMPRESSION: The dorsalis pedis arteries were not visualized bilaterally. The anterior tibial arteries were also not visualized in this exam. [id number] atherosclerotic disease more prominent [id number] and more prominent on the right lower extremity. Mild increased peak systolic velocity at the mid left superficial femoral artery suggestive of mild 60 percent stenosis.
--- NOTE | 2016-11-08 11:08 | RAD ---
PROCEDURE: Radiographs of the Lumbar Spine. HISTORY: HX of fall; pain in R hip area COMPARISON: 10/01/2008 FINDINGS: BONES: Vertebral bodies are maintained in height. No evidence of spondylolysis or spondylolisthesis. DISC SPACES: Narrowing of L2-3 intervertebral disc space essentially unchanged from prior examination. Remaining disc spaces appear preserved. OTHER FINDINGS: None. IMPRESSION: Degenerative disc disease L2-3. No acute fracture.
--- NOTE | 2016-11-08 11:40 | CP.PCM.PN ---
Subjective - Date & Time of Evaluation Date of Evaluation: 11/08/16 Time of Evaluation: 09:00 - Subjective Subjective: cultures noted rx in progress Objective - Vital Signs/Intake and Output Vital Signs (last 24 hours): Temp Pulse Resp BP Pulse Ox 98.2 F 60 18 145/65 97 11/08/16 07:41 11/08/16 10:32 11/08/16 07:41 11/08/16 10:32 11/08/16 07:41 - Medications Medications: Current Medications Atenolol (Tenormin) 50 mg PO DAILY [facility] Last Admin: 11/08/16 09:07 Dose: 50 mg Enoxaparin Sodium (Lovenox) 40 mg SC DAILY [facility] PRN Reason: Protocol Last Admin: 11/08/16 09:03 Dose: Not Given Gabapentin (Neurontin) 600 mg PO TID [facility] Last Admin: 11/08/16 09:14 Dose: Not Given Home Med (Cyclosporine [Restasis]) 1 drop EACHEYE Q12 [facility] Last Admin: 11/08/16 09:12 Dose: Not Given Vancomycin HCl 1 gm/ Sodium (Chloride) 250 mls @ 166.667 mls/hr IVPB Q12 [facility] Last Admin: 11/06/16 20:13 Dose: 166.667 mls/hr Piperacillin Sod/Tazobactam (Sod 3.375 gm/ Sodium Chloride) 100 mls @ 100 mls/ hr IVPB Q6 [facility] Last Admin: 11/08/16 05:17 Dose: 100 mls/hr Vancomycin HCl 1 gm/ Sodium (Chloride) 250 mls @ 166.667 mls/hr IVPB DAILY [facility] Last Admin: 11/08/16 09:08 Dose: 166.667 mls/hr Sodium Chloride (Sodium Chloride 0.9%) 1,000 mls @ 100 mls/hr IV .Q10H [facility] Stop: 11/09/16 00:24 Last Admin: 11/08/16 01:16 Dose: Not Given Insulin Human Regular (Humulin R) 0 units SC ACHS [facility] PRN Reason: Protocol Last Admin: 11/08/16 07:13 Dose: Not Given Ketorolac Tromethamine (Toradol) 15 mg IVP Q6 PRN PRN Reason: Pain, severe (8-10) Last Admin: 11/08/16 05:15 Dose: 15 mg Losartan Potassium (Cozaar) 25 mg PO DAILY [facility] Last Admin: 11/08/16 10:32 Dose: 25 mg Pantoprazole Sodium (Protonix Ec Tab) 40 mg PO DAILY [facility] Last Admin: 11/08/16 09:14 Dose: Not Given Tramadol HCl (Ultram) 50 mg PO Q6 PRN PRN Reason: Pain, moderate (4-7) Last Admin: 11/07/16 18:57 Dose: 50 mg - Labs Labs: 11/08/16 04:00 11/08/16 06:35 PT 12.1 Seconds (9.8-13.1) 11/08/16 06:35 INR 1.2 (0.9-1.2) 11/08/16 06:35 APTT 29.5 Seconds (25.6-37.1) 11/08/16 06:35 - Constitutional Appears: Non-toxic, Chronically Ill - Head Exam Head Exam: NORMOCEPHALIC - Eye Exam Eye Exam: PERRL - ENT Exam ENT Exam: Mucous Membranes Dry - Neck Exam Neck Exam: absent: Lymphadenopathy - Respiratory Exam Respiratory Exam: Decreased Breath Sounds - Cardiovascular Exam Cardiovascular Exam: REGULAR RHYTHM Assessment and Plan (1) Diabetes mellitus type 2 in obese Status: Acute (2) Diabetic foot infection Status: Acute (3) Infected wound Status: Acute (4) CAD (coronary artery disease) Status: Acute (5) Cellulitis Status: Acute (6) Diabetes Status: Acute (7) Renal insufficiency Status: Acute
--- NOTE | 2016-11-08 17:24 | CP.PCM.PN ---
Subjective - Date & Time of Evaluation Date of Evaluation: 11/08/16 Time of Evaluation: 16:00 - Subjective Subjective: IVC filter placed. no complications Objective - Vital Signs/Intake and Output Vital Signs (last 24 hours): Temp Pulse Resp BP Pulse Ox 97.9 F 69 19 153/76 H 97 11/08/16 17:09 11/08/16 17:09 11/08/16 17:09 11/08/16 17:09 11/08/16 17:09 - Medications Medications: Current Medications Atenolol (Tenormin) 50 mg PO DAILY [facility] Last Admin: 11/08/16 09:07 Dose: 50 mg Gabapentin (Neurontin) 600 mg PO TID [facility] Last Admin: 11/08/16 17:04 Dose: 600 mg Home Med (Cyclosporine [Restasis]) 1 drop EACHEYE Q12 [facility] Last Admin: 11/08/16 09:12 Dose: Not Given Vancomycin HCl 1 gm/ Sodium (Chloride) 250 mls @ 166.667 mls/hr IVPB Q12 [facility] Last Admin: 11/06/16 20:13 Dose: 166.667 mls/hr Piperacillin Sod/Tazobactam (Sod 3.375 gm/ Sodium Chloride) 100 mls @ 100 mls/ hr IVPB Q6 [facility] Last Admin: 11/08/16 16:53 Dose: 100 mls/hr Vancomycin HCl 1 gm/ Sodium (Chloride) 250 mls @ 166.667 mls/hr IVPB DAILY [facility] Last Admin: 11/08/16 09:08 Dose: 166.667 mls/hr Sodium Chloride (Sodium Chloride 0.9%) 1,000 mls @ 100 mls/hr IV .Q10H [facility] Stop: 11/09/16 00:24 Last Admin: 11/08/16 12:05 Dose: Not Given Insulin Human Regular (Humulin R) 0 units SC ACHS [facility] PRN Reason: Protocol Last Admin: 11/08/16 12:33 Dose: Not Given Ketorolac Tromethamine (Toradol) 15 mg IVP Q6 PRN PRN Reason: Pain, severe (8-10) Last Admin: 11/08/16 05:15 Dose: 15 mg Losartan Potassium (Cozaar) 25 mg PO DAILY [facility] Last Admin: 11/08/16 10:32 Dose: 25 mg Pantoprazole Sodium (Protonix Ec Tab) 40 mg PO DAILY [facility] Last Admin: 11/08/16 09:14 Dose: Not Given Tramadol HCl (Ultram) 50 mg PO Q6 PRN PRN Reason: Pain, moderate (4-7) Last Admin: 11/07/16 18:57 Dose: 50 mg - Labs Labs: 11/08/16 04:00 11/08/16 06:35 PT 12.1 Seconds (9.8-13.1) 11/08/16 06:35 INR 1.2 (0.9-1.2) 11/08/16 06:35 APTT 29.5 Seconds (25.6-37.1) 11/08/16 06:35 Assessment and Plan (1) DVT (deep venous thrombosis) Status: Acute (2) Diabetic foot infection Status: Acute
[2016-11-09] MEDS: Piperacillin/Tazobact 3.375 GM in Sodium Chloride 0.9% 100 ML IVPB SCH ×4 (03:12→22:20)
[2016-11-09] MEDS: Insulin Regular 100 units/ml SC SCH ×4 (08:00→22:55)
[2016-11-09] MEDS: Patient's Own Med (Cyclosporine [Restasis] 1 DROP) EACHEYE SCH ×2 (08:27→22:19)
[2016-11-09] MEDS: Pantoprazole 40 mg EC Tab PO SCH (08:28)
--- NOTE | 2016-11-09 08:44 | CP.PCM.PN ---
Subjective - Date & Time of Evaluation Date of Evaluation: 11/09/16 Time of Evaluation: 07:42 - Subjective Subjective: Podiatry note for Dr. Lorenzana 61 y/o female seen at bedside this morning for full thickness necrotic heel ulcer on the right and a superficial ulcer on the left. Patient is AAOx3 and is in NAD wearing her multipodus boots at bedside. Patient states that she slept well overnight and denies of any acute overnight events. Patient states that her pain is significantly decreased from yesterday and that her IVC filter placement went well. Patient denies of any other pedal complains. Patient denies of any recent F/N/V/C/SOB/CP today. Objective - Vital Signs/Intake and Output Vital Signs (last 24 hours): Temp Pulse Resp BP Pulse Ox 98.0 F 79 18 175/75 H 100 11/09/16 07:36 11/09/16 07:36 11/09/16 07:36 11/09/16 07:36 11/09/16 07:36 - Medications Medications: Current Medications Atenolol (Tenormin) 50 mg PO DAILY [facility] Last Admin: 11/09/16 08:28 Dose: 50 mg Gabapentin (Neurontin) 600 mg PO TID [facility] Last Admin: 11/09/16 08:28 Dose: 600 mg Home Med (Cyclosporine [Restasis]) 1 drop EACHEYE Q12 [facility] Last Admin: 11/09/16 08:27 Dose: 1 drop Vancomycin HCl 1 gm/ Sodium (Chloride) 250 mls @ 166.667 mls/hr IVPB Q12 [facility] Last Admin: 11/06/16 20:13 Dose: 166.667 mls/hr Piperacillin Sod/Tazobactam (Sod 3.375 gm/ Sodium Chloride) 100 mls @ 100 mls/ hr IVPB Q6 [facility] Last Admin: 11/09/16 03:12 Dose: 100 mls/hr Vancomycin HCl 1 gm/ Sodium (Chloride) 250 mls @ 166.667 mls/hr IVPB DAILY [facility] Last Admin: 11/09/16 08:27 Dose: 166.667 mls/hr Insulin Human Regular (Humulin R) 0 units SC ACHS [facility] PRN Reason: Protocol Last Admin: 11/08/16 22:39 Dose: 2 units Ketorolac Tromethamine (Toradol) 15 mg IVP Q6 PRN PRN Reason: Pain, severe (8-10) Last Admin: 11/08/16 05:15 Dose: 15 mg Losartan Potassium (Cozaar) 25 mg PO DAILY [facility] Last Admin: 11/08/16 10:32 Dose: 25 mg Pantoprazole Sodium (Protonix Ec Tab) 40 mg PO DAILY [facility] Last Admin: 11/09/16 08:28 Dose: 40 mg Tramadol HCl (Ultram) 50 mg PO Q6 PRN PRN Reason: Pain, moderate (4-7) Last Admin: 11/07/16 18:57 Dose: 50 mg - Labs Labs: 11/08/16 04:00 11/08/16 06:35 PT 12.1 Seconds (9.8-13.1) 11/08/16 06:35 INR 1.2 (0.9-1.2) 11/08/16 06:35 APTT 29.5 Seconds (25.6-37.1) 11/08/16 06:35 - Constitutional Appears: Well, Non-toxic, No Acute Distress - Extremities Exam Additional comments: Bilateral lower extremity exam: Patient noted to be wearing multipodus boots in bed VASC: DP/PT pulses are palpable 2/4 on left and faintly palpable 1/4 on right, ARTIST MODEL: < 3 sec to all digits, TG: cool to cool from proximal to distal b/l, +1 pitting edema noted on the distal right leg and dorsum of the right foot DERM: full thickness wound measuring approximately 5.5 x 5.0 x 0.2 cm on the plantar right posterior heel, heel appears to be dry and necrotic with no active drainage, no malodor, no probe to bone. Superficial ulcer measuring approximately 1.5 x 1.0 x 0.1 cm noted on the plantar medial heel on the left with increased periwound necrosis noted from yesterday, wound base is granular with darci-wound hyperkeratosis, no active drainage, no probe to bone on the left and positive probe to bone on the right, no malodor, clinical suspicion of infection on the left, diffuse plantar hyperkeratosis noted, no interdigital maceration NEURO: protective sensation grossly diminished ORTHO: pain on palpation of the left heel surrounding necrotic site, Pain to posterior right calf no longer present - Neurological Exam Neurological Exam: Alert, Awake, Oriented x3 - Psychiatric Exam Psychiatric exam: Normal Affect, Normal Mood Assessment and Plan - Assessment and Plan (Free Text) Assessment: 61 y/o female seen at bedside for right heel necrotic wound and left heel wound secondary to pressure Plan: Patient evaluated at bedside Charts, labs and vitals reviewed Dressing applied using betadine, DSD Patient to continue IV abx as per ID Off-loading boots to be used while in bed Cultures of the bilateral heel taken - Serrginger Savagecens DANIE venous duplex- Acute occlusive thrombus in right popliteal vein and in left common femoral vein Patient on Lovenox Arterial duplex- Mild/moderate atherosclerotic disease below right knee Right foot xray- Possible OM proximal phalanx fifth toe No podiatric surgical intervention planned at this time Podiatry to follow patient while patient is in house
[2016-11-09] MEDS ORDERED: Lidocaine 1% Inj (20ml) ONE (12:50)
--- NOTE | 2016-11-09 13:09 | PCM.SURG1 ---
Surgeon's Initial Post Op Note - Surgeon's Notes Surgeon: Song Cloud MD Simulation Technician: NONE Type of Anesthesia: Local Pre-Operative Diagnosis: Poor venous access Operative Findings: US showed patent right basilic vein Post-Operative Diagnosis: Poor venous access Operation Performed: Single lumen picc placement right basilic vein, 33 cm. Tip in the SVC. Specimen/Specimens Removed: None Estimated Blood Loss: EBL {In ML}: 2 Blood Products Given: N/A Drains Used: No Drains Post-Op Condition: Fair Date of Surgery/Procedure: 11/09/16 Time of Surgery/Procedure: 13:05
--- NOTE | 2016-11-09 17:50 | CP.PCM.PN ---
Subjective - Date & Time of Evaluation Date of Evaluation: 11/09/16 Time of Evaluation: 17:10 - Subjective Subjective: patient has no chest pain or dyspnea. Objective - Vital Signs/Intake and Output Vital Signs (last 24 hours): Temp Pulse Resp BP Pulse Ox 98 F 62 20 137/76 96 11/09/16 16:14 11/09/16 16:14 11/09/16 16:14 11/09/16 16:14 11/09/16 16:14 - Medications Medications: Current Medications Apixaban (Eliquis) 5 mg PO BID [facility] PRN Reason: Protocol Last Admin: 11/09/16 16:27 Dose: 5 mg Atenolol (Tenormin) 50 mg PO DAILY [facility] Last Admin: 11/09/16 08:28 Dose: 50 mg Gabapentin (Neurontin) 600 mg PO TID [facility] Last Admin: 11/09/16 16:28 Dose: 600 mg Home Med (Cyclosporine [Restasis]) 1 drop EACHEYE Q12 [facility] Last Admin: 11/09/16 08:27 Dose: 1 drop Vancomycin HCl 1 gm/ Sodium (Chloride) 250 mls @ 166.667 mls/hr IVPB Q12 [facility] Last Admin: 11/06/16 20:13 Dose: 166.667 mls/hr Piperacillin Sod/Tazobactam (Sod 3.375 gm/ Sodium Chloride) 100 mls @ 100 mls/ hr IVPB Q6 [facility] Last Admin: 11/09/16 16:28 Dose: 100 mls/hr Vancomycin HCl 1 gm/ Sodium (Chloride) 250 mls @ 166.667 mls/hr IVPB DAILY [facility] Last Admin: 11/09/16 08:27 Dose: 166.667 mls/hr Insulin Human Regular (Humulin R) 0 units SC ACHS [facility] PRN Reason: Protocol Last Admin: 11/09/16 16:28 Dose: 10 units Ketorolac Tromethamine (Toradol) 15 mg IVP Q6 PRN PRN Reason: Pain, severe (8-10) Last Admin: 11/09/16 17:47 Dose: 15 mg Losartan Potassium (Cozaar) 25 mg PO DAILY [facility] Last Admin: 11/09/16 11:16 Dose: 25 mg Pantoprazole Sodium (Protonix Ec Tab) 40 mg PO DAILY [facility] Last Admin: 11/09/16 08:28 Dose: 40 mg Tramadol HCl (Ultram) 50 mg PO Q6 PRN PRN Reason: Pain, moderate (4-7) Last Admin: 11/07/16 18:57 Dose: 50 mg - Labs Labs: 11/08/16 04:00 11/08/16 06:35 PT 12.1 Seconds (9.8-13.1) 11/08/16 06:35 INR 1.2 (0.9-1.2) 11/08/16 06:35 APTT 29.5 Seconds (25.6-37.1) 11/08/16 06:35 - Constitutional Appears: Non-toxic - Head Exam Head Exam: NORMAL INSPECTION - Eye Exam Eye Exam: Normal appearance - ENT Exam ENT Exam: Mucous Membranes Moist - Neck Exam Neck Exam: Full ROM - Respiratory Exam Respiratory Exam: NORMAL BREATHING PATTERN - Cardiovascular Exam Cardiovascular Exam: REGULAR RHYTHM - GI/Abdominal Exam GI & Abdominal Exam: Normal Bowel Sounds - Rectal Exam Rectal Exam: Deferred - Extremities Exam Extremities Exam: Pedal Edema - Back Exam Back Exam: NORMAL INSPECTION - Neurological Exam Neurological Exam: Alert - Psychiatric Exam Psychiatric exam: Normal Affect - Skin Skin Exam: Normal Color Assessment and Plan (1) DVT (deep venous thrombosis) Assessment & Plan: s/p IVC filter. recommend Eliquis Status: Acute (2) Diabetic foot infection Assessment & Plan: medical therapy Status: Acute
--- NOTE | 2016-11-09 19:27 | CP.PCM.PN ---
Subjective - Date & Time of Evaluation Date of Evaluation: 11/08/16 Time of Evaluation: 09:00 Objective - Vital Signs/Intake and Output Vital Signs (last 24 hours): Temp Pulse Resp BP Pulse Ox 98 F 62 20 137/76 96 11/09/16 16:14 11/09/16 16:14 11/09/16 16:14 11/09/16 16:14 11/09/16 16:14 - Medications Medications: Current Medications Apixaban (Eliquis) 5 mg PO BID [facility] PRN Reason: Protocol Last Admin: 11/09/16 16:27 Dose: 5 mg Atenolol (Tenormin) 50 mg PO DAILY [facility] Last Admin: 11/09/16 08:28 Dose: 50 mg Gabapentin (Neurontin) 600 mg PO TID [facility] Last Admin: 11/09/16 16:28 Dose: 600 mg Home Med (Cyclosporine [Restasis]) 1 drop EACHEYE Q12 [facility] Last Admin: 11/09/16 08:27 Dose: 1 drop Vancomycin HCl 1 gm/ Sodium (Chloride) 250 mls @ 166.667 mls/hr IVPB Q12 [facility] Last Admin: 11/06/16 20:13 Dose: 166.667 mls/hr Piperacillin Sod/Tazobactam (Sod 3.375 gm/ Sodium Chloride) 100 mls @ 100 mls/ hr IVPB Q6 [facility] Last Admin: 11/09/16 16:28 Dose: 100 mls/hr Vancomycin HCl 1 gm/ Sodium (Chloride) 250 mls @ 166.667 mls/hr IVPB DAILY [facility] Last Admin: 11/09/16 08:27 Dose: 166.667 mls/hr Insulin Human Regular (Humulin R) 0 units SC ACHS [facility] PRN Reason: Protocol Last Admin: 11/09/16 16:28 Dose: 10 units Ketorolac Tromethamine (Toradol) 15 mg IVP Q6 PRN PRN Reason: Pain, severe (8-10) Last Admin: 11/09/16 17:47 Dose: 15 mg Losartan Potassium (Cozaar) 25 mg PO DAILY [facility] Last Admin: 11/09/16 11:16 Dose: 25 mg Pantoprazole Sodium (Protonix Ec Tab) 40 mg PO DAILY [facility] Last Admin: 11/09/16 08:28 Dose: 40 mg Tramadol HCl (Ultram) 50 mg PO Q6 PRN PRN Reason: Pain, moderate (4-7) Last Admin: 11/07/16 18:57 Dose: 50 mg - Labs Labs: 11/08/16 04:00 11/08/16 06:35 PT 12.1 Seconds (9.8-13.1) 11/08/16 06:35 INR 1.2 (0.9-1.2) 11/08/16 06:35 APTT 29.5 Seconds (25.6-37.1) 11/08/16 06:35 Assessment and Plan (1) Type 2 diabetes mellitus with diabetic foot infection Status: Acute (2) DVT (deep venous thrombosis) Status: Acute (3) Legally blind Status: Acute (4) Diabetic neuropathy Status: Acute
--- NOTE | 2016-11-09 19:28 | CP.PCM.PN ---
Subjective - Date & Time of Evaluation Date of Evaluation: 11/09/16 Time of Evaluation: 19:30 Objective - Vital Signs/Intake and Output Vital Signs (last 24 hours): Temp Pulse Resp BP Pulse Ox 98 F 62 20 137/76 96 11/09/16 16:14 11/09/16 16:14 11/09/16 16:14 11/09/16 16:14 11/09/16 16:14 - Medications Medications: Current Medications Apixaban (Eliquis) 5 mg PO BID [facility] PRN Reason: Protocol Last Admin: 11/09/16 16:27 Dose: 5 mg Atenolol (Tenormin) 50 mg PO DAILY [facility] Last Admin: 11/09/16 08:28 Dose: 50 mg Gabapentin (Neurontin) 600 mg PO TID [facility] Last Admin: 11/09/16 16:28 Dose: 600 mg Home Med (Cyclosporine [Restasis]) 1 drop EACHEYE Q12 [facility] Last Admin: 11/09/16 08:27 Dose: 1 drop Vancomycin HCl 1 gm/ Sodium (Chloride) 250 mls @ 166.667 mls/hr IVPB Q12 [facility] Last Admin: 11/06/16 20:13 Dose: 166.667 mls/hr Piperacillin Sod/Tazobactam (Sod 3.375 gm/ Sodium Chloride) 100 mls @ 100 mls/ hr IVPB Q6 [facility] Last Admin: 11/09/16 16:28 Dose: 100 mls/hr Vancomycin HCl 1 gm/ Sodium (Chloride) 250 mls @ 166.667 mls/hr IVPB DAILY [facility] Last Admin: 11/09/16 08:27 Dose: 166.667 mls/hr Insulin Human Regular (Humulin R) 0 units SC ACHS [facility] PRN Reason: Protocol Last Admin: 11/09/16 16:28 Dose: 10 units Ketorolac Tromethamine (Toradol) 15 mg IVP Q6 [facility] PRN Reason: Pain, severe (8-10) Last Admin: 11/09/16 17:47 Dose: 15 mg Losartan Potassium (Cozaar) 25 mg PO DAILY [facility] Last Admin: 11/09/16 11:16 Dose: 25 mg Pantoprazole Sodium (Protonix Ec Tab) 40 mg PO DAILY [facility] Last Admin: 11/09/16 08:28 Dose: 40 mg Tramadol HCl (Ultram) 50 mg PO Q6 [facility] PRN Reason: Pain, moderate (4-7) Last Admin: 11/07/16 18:57 Dose: 50 mg - Labs Labs: 11/08/16 04:00 11/08/16 06:35 PT 12.1 Seconds (9.8-13.1) 11/08/16 06:35 INR 1.2 (0.9-1.2) 11/08/16 06:35 APTT 29.5 Seconds (25.6-37.1) 11/08/16 06:35 Assessment and Plan (1) Type 2 diabetes mellitus with diabetic foot infection Status: Acute (2) DVT (deep venous thrombosis) Status: Acute (3) Legally blind Status: Acute (4) Diabetic neuropathy Status: Acute
[2016-11-10] MEDS: Piperacillin/Tazobact 3.375 GM in Sodium Chloride 0.9% 100 ML IVPB SCH ×2 (04:56→09:06)
--- NOTE | 2016-11-10 07:55 | CP.PCM.PN ---
Subjective - Date & Time of Evaluation Date of Evaluation: 11/10/16 Time of Evaluation: 07:30 - Subjective Subjective: Podiatry note for Dr. Lorenzana 61 y/o female seen at bedside this morning for full thickness necrotic heel ulcer on the right and a superficial ulcer on the left. Patient is AAOx3 and is in NAD wearing her multipodus boots at bedside. Patient states that she slept well overnight and denies of any acute overnight events. Patient states that her pain remains significantly decreased. Patient denies of any other pedal complaints at this time. Patient denies of any recent F/N/V/C/SOB/CP today. Objective - Vital Signs/Intake and Output Vital Signs (last 24 hours): Temp Pulse Resp BP Pulse Ox 98.3 F 54 L 18 167/82 H 98 11/10/16 07:26 11/10/16 07:26 11/10/16 07:26 11/10/16 07:26 11/10/16 07:26 - Medications Medications: Current Medications Apixaban (Eliquis) 5 mg PO BID [facility] PRN Reason: Protocol Last Admin: 11/09/16 16:27 Dose: 5 mg Atenolol (Tenormin) 50 mg PO DAILY [facility] Last Admin: 11/09/16 08:28 Dose: 50 mg Gabapentin (Neurontin) 600 mg PO TID [facility] Last Admin: 11/09/16 16:28 Dose: 600 mg Home Med (Cyclosporine [Restasis]) 1 drop EACHEYE Q12 [facility] Last Admin: 11/09/16 22:19 Dose: 1 drop Vancomycin HCl 1 gm/ Sodium (Chloride) 250 mls @ 166.667 mls/hr IVPB Q12 [facility] Last Admin: 11/06/16 20:13 Dose: 166.667 mls/hr Piperacillin Sod/Tazobactam (Sod 3.375 gm/ Sodium Chloride) 100 mls @ 100 mls/ hr IVPB Q6 [facility] Last Admin: 11/10/16 04:56 Dose: 100 mls/hr Vancomycin HCl 1 gm/ Sodium (Chloride) 250 mls @ 166.667 mls/hr IVPB DAILY [facility] Last Admin: 11/09/16 08:27 Dose: 166.667 mls/hr Insulin Human Regular (Humulin R) 0 units SC ACHS [facility] PRN Reason: Protocol Last Admin: 11/09/16 22:55 Dose: 3 units Ketorolac Tromethamine (Toradol) 15 mg IVP Q6 [facility]N PRN Reason: Pain, severe (8-10) Last Admin: 11/09/16 17:47 Dose: 15 mg Losartan Potassium (Cozaar) 25 mg PO DAILY [facility] Last Admin: 11/09/16 11:16 Dose: 25 mg Pantoprazole Sodium (Protonix Ec Tab) 40 mg PO DAILY [facility] Last Admin: 11/09/16 08:28 Dose: 40 mg Tramadol HCl (Ultram) 50 mg PO Q6 PRN PRN Reason: Pain, moderate (4-7) Last Admin: 11/09/16 20:18 Dose: 50 mg - Labs Labs: 11/08/16 04:00 11/08/16 06:35 PT 12.1 Seconds (9.8-13.1) 11/08/16 06:35 INR 1.2 (0.9-1.2) 11/08/16 06:35 APTT 29.5 Seconds (25.6-37.1) 11/08/16 06:35 - Constitutional Appears: Well, Non-toxic, No Acute Distress - Extremities Exam Additional comments: Bilateral lower extremity exam: Patient noted to be wearing multipodus boots in bed VASC: DP/PT pulses are palpable 2/4 on left and faintly palpable 1/4 on right, PRODUCT APPLICATIONS SCIENTIST: < 3 sec to all digits, TG: cool to cool from proximal to distal b/l, +1 pitting edema noted on the distal right leg and dorsum of the right foot DERM: full thickness wound measuring approximately 5.5 x 5.0 x 0.2 cm on the plantar right posterior heel, heel appears to be dry and necrotic with no active drainage, no malodor, no probe to bone. Superficial ulcer measuring approximately 1.5 x 1.0 x 0.1 cm noted on the plantar medial heel on the left with periwound necrosis noted, wound base is granular with darci-wound hyperkeratosis, no active drainage, no probe to bone on the left and positive probe to bone on the right, no malodor, clinical suspicion of infection on the left, diffuse plantar hyperkeratosis noted, no interdigital maceration NEURO: protective sensation grossly diminished ORTHO: pain on palpation of the left heel surrounding necrotic site, Pain to posterior right calf no longer present - Neurological Exam Neurological Exam: Alert, Awake, Oriented x3 - Psychiatric Exam Psychiatric exam: Normal Affect, Normal Mood Assessment and Plan - Assessment and Plan (Free Text) Assessment: 61 y/o female seen at bedside for right heel necrotic wound and left heel wound secondary to pressure Plan: Patient evaluated at bedside Charts, labs and vitals reviewed Dressing applied using betadine, DSD Patient to continue IV abx as per ID Off-loading boots to be used while in bed Cultures of the bilateral heel taken - Serratia Marscens LE venous duplex- Acute occlusive thrombus in right popliteal vein and in left common femoral vein Patient on Lovenox Arterial duplex- Mild/moderate atherosclerotic disease below right knee Right foot xray- Possible OM proximal phalanx fifth toe PICC line placed yesterday 11/09 No podiatric surgical intervention planned at this time Podiatry to follow patient while patient is in house
[2016-11-10] MEDS: Insulin Regular 100 units/ml SC SCH ×3 (08:20→16:11)
[2016-11-10] MEDS: Patient's Own Med (Cyclosporine [Restasis] 1 DROP) EACHEYE SCH (08:21)
[2016-11-10] MEDS: Pantoprazole 40 mg EC Tab PO SCH (08:21)
[2016-11-10] MEDS ORDERED: Cefepime 1 GM in Sodium Chloride 0.9% 100 ML IVPB SCH (14:36)
[2016-11-10 15:58] VITALS: BP 155/68; PULSE 60; RESP 20; TEMP 98; O2SAT 96
--- NOTE | 2016-11-10 23:44 | CP.PCM.DIS ---
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 Status: Acute (2) DVT (deep venous thrombosis) Status: Acute (3) Legally blind Status: Acute (4) Diabetic neuropathy Status: Acute Hospital Course - Lab Results Lab Results: Micro Results 11/06/16 12:18 Foot - Left Gram Stain - Final 11/06/16 12:18 Foot - Left Wound Culture - Final No Growth 11/06/16 12:18 Foot - Right Gram Stain - Final 11/06/16 12:18 Foot - Right Wound Culture - Final Serratia Marcescens Most Recent Lab Values WBC 9.0 K/uL (4.8-10.8) 11/08/16 04:00 RBC 3.88 Mil/uL (3.80-5.20) 11/08/16 04:00 Hgb 10.4 g/dL (12.0-16.0) L 11/08/16 04:00 Hct 31.3 % (34.0-47.0) L 11/08/16 04:00 MCV 80.8 fl (81.0-99.0) L 11/08/16 04:00 MCH 26.8 pg (27.0-31.0) L 11/08/16 04:00 MCHC 33.2 g/dL (33.0-37.0) 11/08/16 04:00 RDW 15.4 % (11.5-14.5) H 11/08/16 04:00 Plt Count 360 K/uL (130-400) 11/08/16 04:00 MPV 10.6 fl (7.2-11.7) 11/05/16 09:00 Neut % (Auto) 73.4 % (50.0-75.0) 11/05/16 09:00 Lymph % (Auto) 16.6 % (20.0-40.0) L 11/05/16 09:00 [place] % (Auto) 6.6 % (0.0-10.0) 11/05/16 09:00 Eos % (Auto) 2.9 % (0.0-4.0) 11/05/16 09:00 Baso % (Auto) 0.5 % (0.0-2.0) 11/05/16 09:00 Neut # 9.6 K/uL (1.8-7.0) H 11/05/16 09:00 Lymph # 2.2 K/uL (1.0-4.3) 11/05/16 09:00 [place] # 0.9 K/uL (0.0-0.8) H 11/05/16 09:00 Eos # 0.4 K/uL (0.0-0.7) 11/05/16 09:00 Baso # 0.1 K/uL (0.0-0.2) 11/05/16 09:00 PT 12.1 Seconds (9.8-13.1) 11/08/16 06:35 INR 1.2 (0.9-1.2) 11/08/16 06:35 APTT 29.5 Seconds (25.6-37.1) 11/08/16 06:35 pO2 30 mm/Hg (30-55) 11/05/16 12:30 VBG pH 7.38 (7.32-7.43) 11/05/16 12:30 VBG pCO2 44 mmHg (40-60) 11/05/16 12:30 VBG HCO3 24.5 mmol/L 11/05/16 12:30 VBG Total CO2 27.4 mmol/L (22-28) 11/05/16 12:30 VBG O2 Sat (Calc) 63.4 % (40-65) 11/05/16 12:30 VBG Base Excess 0.6 mmol/L (0.0-2.0) 11/05/16 12:30 VBG Potassium 4.4 mmol/L (3.6-5.2) 11/05/16 12:30 Sodium 141.0 mmol/L (132-148) 11/05/16 12:30 Chloride 110.0 mmol/L (98-107) H 11/05/16 12:30 Glucose 78 mg/dL (65-105) 11/05/16 12:30 Lactate 1.2 mmol/L (0.7-2.1) 11/05/16 12:30 FiO2 21.0 % 11/05/16 12:30 Sodium 139 mmol/l (132-148) 11/08/16 06:35 Potassium 4.4 MMOL/L (3.6-5.0) 11/08/16 06:35 Chloride 107 mmol/L (98-107) 11/08/16 06:35 Carbon Dioxide 22 mmol/L (22-30) 11/08/16 06:35 Anion Gap 15 (10-20) 11/08/16 06:35 BUN 13 mg/dl (7-17) 11/08/16 06:35 Creatinine 1.2 mg/dL (0.7-1.2) 11/08/16 06:35 Est GFR ( Amer) 55 11/08/16 06:35 Est GFR (Non-Af Amer) 46 11/08/16 06:35 POC Glucose (mg/dL) 272 mg/dL (65-110) H 11/10/16 15:31 Random Glucose 155 mg/dL (65-105) H 11/08/16 06:35 Hemoglobin A1c 8.5 % (4.2-6.5) H 11/06/16 05:30 Calcium 9.2 mg/dL (8.4-10.2) 11/08/16 06:35 Total Bilirubin 0.5 mg/dl (0.2-1.3) 11/06/16 05:30 AST 20 U/L (14-36) 11/06/16 05:30 ALT 9 U/L (9-52) D 11/06/16 05:30 Alkaline Phosphatase 86 U/L (38-126) 11/06/16 05:30 Total Protein 7.0 G/DL (6.3-8.2) 11/06/16 05:30 Albumin 2.9 g/dL (3.5-5.0) L 11/06/16 05:30 Globulin 4.0 gm/dL (2.2-3.9) H 11/06/16 05:30 Albumin/Globulin Ratio 0.7 (1.0-2.1) L 11/06/16 05:30 Triglycerides 171 mg/DL (0-149) H 11/06/16 05:30 Cholesterol 162 mg/dL (0-199) 11/06/16 05:30 LDL Cholesterol Direct 87 mg/dL (0-129) 11/06/16 05:30 HDL Cholesterol 24 MG/DL (30-70) L 11/06/16 05:30 TSH 3rd Generation 1.69 mIU/ML (0.46-4.68) 11/06/16 05:30 Venous Blood Potassium 4.4 mmol/L (3.6-5.2) 11/05/16 12:30 Vancomycin Trough 13.6 ug/mL (5.0-10.0) H 11/09/16 06:45 Random Vancomycin 19.4 ug/mL 11/08/16 06:35 Discharge Exam - Head Exam Head Exam: NORMAL INSPECTION Discharge Plan - Discharge Medications Prescriptions: Cefepime 1gm in NS 100ml [Maxipime 1gm] 1 gm IVPB Q12 #42 bag Vancomycin 1 GM [Vancomycin 1GM in Normal Saline Addvantage] 1 gm IVPB Q12 #42 bag - Follow Up Plan Condition: FAIR Disposition: REHAB FACILITY/REHAB UNIT Instructions: Inferior Vena Cava Filter Placement (DC), Diabetic Foot Ulcers ( DC) Referrals: Herb Allred MD [Staff Provider] - Suzanne Pederson MD [Staff Provider] - Guillermo Meza MD [Staff Provider] -
--- NOTE | 2016-11-11 11:25 | VASCULAR ---
PROCEDURE: Date of procedure: 11/09/2016 Procedure: 1. Placement of a right arm PICC with ultrasound and fluoroscopic guidance, CPT 35595 2. PICC tip confirmation with spot radiograph and is in the superior vena cava Medications: 1 percent lidocaine Total Fluoro time: 3.3 seconds Radiation: 0.44 MGy EBL: 2 cc HISTORY: Infection requiring long-term IV antibiotics TECHNIQUE: Following informed consent and procedure time-out, the patient was placed supine on the interventional table and the right arm prepped and draped in the usual sterile fashion. Ultrasound showed a patent and compressible right basilic vein. After the skin was anesthetized with lidocaine, the basilic vein was accessed with micro micropuncture technique using ultrasound guidance. A guidewire was then advanced under fluoroscopic guidance into the superior vena cava. An image documenting ultrasound guidance for vascular access was permanently saved. The length of the single-lumen 4 Armenian PICC was trimmed to 33 centimeters and advanced through a peel-away sheath. The PICC was position with tip of PICC confirm a spot radiograph the superior vena cava. The PICC was secured to the patient's skin. The PICC was flushed. A biopatch and sterile dressing was applied. IMPRESSION: Placement of a single-lumen 4 Armenian PICC trimmed to 33 centimeters via right basilic vein. The tip of the PICC is confirmed with spot radiograph and is in the superior vena cava.
--- NOTE | 2016-11-11 11:55 | PQF GENQUE ---
Dr. 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 Consult dated 11/06 clarifies infection as cellulitis. After study, do you agree with consultation? or is infection of other or unspecified type? Please clarify below. This form is a permanent part of the medical record Clarification of your documentation is requested to better reflect the severity of illness and intensity of treatment of your patient. Indicators present [] Specify: [] [] Specify: [] [] Specify: [] [] Specify: [] Location in the medical record that reflects the above clinical findings: [] Treatment Provided: [] PHYSICIAN'S RESPONSE Based on your medical judgment of the clinical indicators outlined above please clarify the following: [X] Practitioner response : Infected Diabetic Ulcer of B/L Heels [] If unable to determine, please check the box, sign and date. Present On Admission (POA) Indicator: [X] Present at the time of admission [] Not present at the time of admission [] Clinically Undetermined In responding to this query, please exercise your independent professional judgment. The fact that a question is asked does not imply that any particular answer is desired or expected. Thank you for your clarification on this documentation. If you have any questions please call:[ ] * Thank you, [ ]Tracy Méndez boat loader [email or web address]
== END 2016-11-10 20:02 | DRG 629 ==
LOC: H.ER 08:35 → H.ERHOLD 09:06 → H.MEDSURG1 10:59
PROVIDERS: ADMIT Internal Medicine; ATTEND Internal Medicine
PROC: 06H03DZ Insertion of Intraluminal Device into Inferior Vena Cava, Percutaneous Approach (ICD-10-PCS; principal; 2016-11-08)
PROC: 02HV33Z Insertion of Infusion Device into Superior Vena Cava, Percutaneous Approach (ICD-10-PCS; 2016-11-09)
DX: E11.621 Type 2 diabetes mellitus with foot ulcer (principal); L03.115 Cellulitis of right lower limb; I82.412 Acute embolism and thrombosis of left femoral vein; E11.40 Type 2 diabetes mellitus with diabetic neuropathy, unspecified; E11.51 Type 2 diabetes mellitus with diabetic peripheral angiopathy without gangrene; N28.9 Disorder of kidney and ureter, unspecified; I82.431 Acute embolism and thrombosis of right popliteal vein; Z88.5 Allergy status to narcotic agent; Z91.018 Allergy to other foods; H54.8 Legal blindness, as defined in USA; E11.319 Type 2 diabetes mellitus with unspecified diabetic retinopathy without macular edema; I10 Essential (primary) hypertension; I25.10 Atherosclerotic heart disease of native coronary artery without angina pectoris; Z95.5 Presence of coronary angioplasty implant and graft; E78.00 Pure hypercholesterolemia, unspecified; E66.9 Obesity, unspecified; Z68.26 Body mass index [BMI] 26.0-26.9, adult; B96.89 Other specified bacterial agents as the cause of diseases classified elsewhere